=== PATIENT | female | born 2005 | race African-American/Black ===

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

== ENCOUNTER 2025-03-08 02:05 | Emergency (ER) | payer BC, SELFPAY ==
[2025-03-08 02:07] VITALS: BP 130/80; PULSE 63; RESP 16; TEMP 36.6; O2SAT 99; BMI 22.3
--- NOTE | 2025-03-08 02:10 | EX.ED.VIS.UR ---
HPI HPI - URI History of Present Illness Chief Complaint: Ear Problem Informant: patient Onset/Context/Timing Onset: Weeks (1) Context: Gradual Onset Timing: Continuous Quality: Popping, crackling Location: Left ear Worsened by: - (Nothing) Relieved by: - (Heat) Associated Symptoms Associated Symptoms: Positive for Nasal Congestion and Nausea; Negative for Headache, Sinus Pressure, Myalgias, Vomiting, Diarrhea, Shortness of Breath, Chest Pain, Nonproductive cough, Hemoptysis or Productive Cough Narrative Narrative: Patient presents with left ear pain that has been getting worse over the past week. Patient states she noted some popping and crackling in her left ear. Patient states it has gradually gotten worse. Patient states she went to urgent care and was given a prescription for prednisone as well as a nasal spray. Patient states she had a negative rapid strep at the urgent care. Patient admits to some drainage coming from her left ear. Patient admits to some nausea but denies any vomiting. Patient admits to some nasal congestion but denies any headaches or sinus pressure. Patient denies any cough. ROS ROS ED Constitutional Constitutional ED: Denies chills or fever(s) Eyes Eyes: Denies blurry vision or change in vision ENT ENT ED: Reports ear pain left; Denies rhinorrhea or sore throat Cardiovascular Cardiovascular: Denies chest pain or palpitations Respiratory/Chest Respiratory/Chest: Denies cough or dyspnea Gastrointestinal Gastrointestinal: Reports nausea; Denies vomiting Genitourinary Genitourinary ED: Denies dysuria or hematuria Musculoskeletal Musculoskeletal: Reports neck pain; Denies back pain Integumentary Denies abscess or rash Neurologic Neurologic: Denies headache(s) or weakness Allergic/Immunologic Allergic/Immunologic ED: Denies mouth swelling or urticaria [facility] Medical History Depression Home Medications ?Medication ?Instructions ?Recorded ?Last Taken ?Type azithromycin 250 mg tablet 250 mg PO DAILY #4 TABLETS 03/08/25 Unknown Rx prednisone 20 mg tablet 20 mg PO BID 03/08/25 Unknown History Allergy/AdvReac Type Severity Reaction Status Date / Time nickel AdvReac Other Verified 03/08/25 02:07 Surgical History no surgical history no surgical history Social History Smoking Status: Never smoker EXAM Physical Exam Const Positive well nourished and well developed Constitutional Narrative: BMI is 22.3. General Appearance ED: well developed and NAD HEENT Reports moist mucous membranes HEENT Narrative: The left tympanic membrane was mildly erythematous. There is some bulging noted. The right tympanic membrane was clear. Oropharynx shows some mild exudate on the tonsils bilaterally. normocephalic and atraumatic Throat: posterior oropharynx abnormal Positive for erythema and exudates Eyes PERRL and EOMs intact bilaterally Neck supple, no meningeal signs and no JVD Resp normal respiratory effort and clear to auscultation bilaterally Cardio Rate: regular rate Rhythm: regular rhythm Neuro oriented x3, CN's II-XII intact bilaterally and no sensory deficits noted Sensorium / Orientation: alert Motor Exam: strength 5/5 throughout Psych mental status grossly normal MDM MDM MDM Narrative Medical decision making narrative: Patient was advised that this is most likely otitis media. Patient was given a dose of Zithromax here. Patient given a prescription for Zithromax. Patient was instructed to follow-up with her primary care physician in 5 to 7 days. Patient was instructed to return if worse in any way. Patient understood and was agreeable with the plan. All questions were answered. Discharge Plan Triage Chief Complaint: Ear Problem ED Provider: Quique Espinoza Dx/Rx/DC Orders Clinical Impression: Acute left otitis media, Elevated blood pressure reading, Nicotine vapor product user Instructions: ED Otitis Media Adult Prescriptions: New azithromycin 250 mg tablet 250 mg PO DAILY Qty: 4 0RF No Action prednisone 20 mg tablet 20 mg PO BID Primary Care Provider: Viji Chaney Referrals: Viji Chaney MD [Primary Care Provider, Pediatrics] - 5-7 Days Print Language: Lithuanian Disposition Disposition: Home, Self Care
--- OUTSIDE RECORDS SUMMARY | 2025-03-08 02:39 | XMS RPT_ITS | CCD ---
Author Organization [facility] Care Team Providers Care Dry Starch Supervisor Name Role Phone Ritu WEST, Chacha Esquivel Primary Care Provider Chacha Kim MD Primary Care Provider Ritu WEST, Chacha Esquivel Primary Care Provider KB ALTMAN Attending Unavailable JESSIKA ARCHER Referring Unavailable SUHAIL KIMA C Primary Care Unavailable KB ALTMAN Attending Unavailable JESSIKA ARCHER Referring Unavailable SUHAIL KIMA C Primary Care Unavailable JESSIKA ARCHER Attending Unavailable KIM, CHACHA C Referring Unavailable KIM, CHACHA C Primary Care Unavailable ALMA KEVIN Attending Unavailable KIM, CHACHA C Referring Unavailable KIM, CHACHA C Primary Care Unavailable KIM, CHACHA C Primary Care Unavailable ANDRES WHITNEY Attending Unavailable KIM, CHACHA C Primary Care Unavailable ROSEANN SALAZAR Attending Unavailable OTHER, EMERGENCY Referring Unavailable JESSIKA ARCHER Referring Unavailable KB ALTMAN Attending Unavailable KIM, CHACHA C Primary Care Unavailable KB ALTMAN Attending Unavailable KIM, CHACHA C Primary Care Unavailable KIM, CHACHA C Referring Unavailable JESSIKA ARCHER Referring Unavailable KB ALTMAN Attending Unavailable KIM, CHACHA C Primary Care Unavailable JESSIKA ARCHER Referring Unavailable KB ALTMAN Attending Unavailable SUHAIL KIMA C Primary Care Unavailable Chacha Kim MD Primary Care Provider Chacha Kim MD Primary Care Provider Ritu WEST, Dr. Hallman Primary Care Provider [phone] Yomaira WEST, Dr. Navarrete Emergency Provider Nola Blandon Attending Unavailable Chacha Kim Primary Care Unavailable Chacha Kim Primary Care Unavailable Landon Burnette Attending Unavailable CHACHA KIM Primary Care Unavailable PROVIDER, UNKNOWN Referring Unavailable CHACHA KIM Primary Care Unavailable KIMSUHAILA C Primary Care Unavailable CHACHA KIM C Primary Care Unavailable AJ DEE Attending Unavailable CHACHA KIM Primary Care Unavailable EDNA STEVENS Referring Unavailable CHACHA KIM C Primary Care Unavailable CHACHA KIM C Primary Care Unavailable EDNA STEVENS Attending Unavailable CHACHA KIM C Primary Care Unavailable CHACHA KIM C Primary Care Unavailable SRINI KINGSTON Attending Unavailable CHACHA KIM Primary Care Unavailable RUFINO BOURNE Attending Unavailable CHACHA KIM Primary Care Unavailable MERLY SANZ Attending Unavailable SELF Referring Unavailable CHACHA KIM C Primary Care Unavailable AJ CORDOVA Attending Unavailable CASSANDRA DE LUNA Attending Unavailable CHACHA KIM Primary Care Unavailable FREDO CALLEJAS Attending Unavailable CHACHA KIM Primary Care Unavailable KARYNA HENDRICKSON Referring Unavailable CHACHA KIM C Primary Care Unavailable Allergies Allergy Classification Reported Allergen(s) Allergy Type Date of Onset Reaction(s) Facility (20 sources) nickel; Translations: [NICKEL] Drug Allergy 5 Other: See Comments [facility] Work Phone: (1 source) nickel Drug Allergy 5 [facility] Repository Medications Current Medications Medication Drug Class(es) Dates Sig (Normalized) Sig (Original) fluconazole 150 mg oral tablet (4 sources) Azole Antifungal Start: 03-03-2024 End: 03-04-2024 take 1 tablet by mouth once daily fluconazole (DIFLUCAN) 150 mg tablet Take 1 tablet by mouth once daily for 1 day. 1 tablet 03/03/2024 03/04/2024 Active Pediatric Vitamins (MULTIVITAMIN GUMMIES CHILDRENS) CHEW (1 source) take 4 tablets by mouth once daily Pediatric Vitamins (MULTIVITAMIN GUMMIES CHILDRENS) CHEW Take 4 Tablets by mouth daily 0 Active Polyethylene Glycols (1 source) Polyethylene Glycol 3350 (MIRALAX PO) Take by mouth 0 Active sulfamethoxazole 800 mg / trimethoprim 160 mg oral tablet (2 sources) Dihydrofolate Reductase Inhibitor Antibacterial, Sulfonamide Antimicrobial Start: 03-04-2024 End: 03-09-2024 take 1 tablet by mouth twice daily sulfamethoxazole- trimethoprim (BACTRIM DS) 800-160 mg per tablet Take 1 tablet by mouth two times a day for 5 days. 10 tablet 03/04/2024 03/09/2024 Active valACYclovir 500 mg oral tablet (20 sources) Herpesvirus Nucleoside Analog DNA Polymerase Inhibitor, Herpes Simplex Virus Nucleoside Analog DNA Polymerase Inhibitor, Herpes Zoster Virus Nucleoside Analog DNA Polymerase Inhibitor Start: 03-03-2024 End: 03-06-2024 take 1 tablet by mouth twice daily valACYclovir (VALTREX) 500 mg tablet Take 1 tablet by mouth two times a day for 3 days. 30 tablet 11 03/03/2024 03/06/2024 Active Start: 03-28-2023 End: 03-03-2024 take 1 tablet by mouth once valACYclovir (VALTREX) 1 g brent tablet Take 1 tablet by mouth every afternoon. 03/28/2023 03/03/2024 Discontinued (Course of therapy completed) Start: 05-17-2022 End: 03-06-2023 take 1 tablet by mouth once daily valACYclovir (VALTREX) 1 gram Indications: Recurrent genital herpes Take 1 tablet by mouth once daily. 30 tablet 2 12/06/2022 03/06/2023 Active Start: 05-15-2022 take 1 tablet by erin th once daily valACYclovir (VALTREX) 1 gram Take 1 tablet by mouth once daily. FOR 10 DAYS. 7 tablet 1 05/15/2022 Active Start: 01-07-2022 take 1 tablet by erin th once daily valACYclovir (VALTREX) 1 gram Take 1 tablet by mouth once daily. FOR 10 DAYS. 7 tablet 1 01/07/2022 Active Comment on above: Take 1 tablet by erin th once daily. FOR 10 DAYS. Take 1 tablet by erin th once daily. take 1 tablet by erin th once daily VITAMIN D PO (1 source) take 1 tablet by mouth once daily VITAMIN D PO Take 1 Tablet by mouth daily 0 Active Completed/Discontinued Medications Medication Drug Class(es) Dates Sig (Normalized) Sig (Original) bacitracin zinc 0.5 unt/mg topical ointment (2 sources) Start: 12-06-2021 End: 12-07-2021 bacitracin 500 UNIT/GM ointment - packet cephalexin 500 mg oral capsule (5 sources) Cephalosporin Antibacterial Start: 03-02-2024 End: 03-07-2024 take 1 capsule by mouth twice daily cephALEXin (KEFLEX) 500 mg capsule Take 1 capsule by mouth two times a day for 5 days. 10 capsule 03/02/2024 03/04/2024 Discontinued cholecalciferol 1.25 mg oral capsule (1 source) Vitamin D Start: 12-14-2019 End: 10-24-2020 take 1 capsule by mouth every week cholecalciferol, Vitamin D3, (VITAMIN D3) 1,250 mcg (50,000 unit) cap capsule Take 1 capsule by mouth one time a week. 4 capsule 2 12/14/2019 10/24/2020 Discontinued dicyclomine hydrochloride 20 mg oral tablet (20 sources) Anticholinergic Start: 07-31-2023 End: 12-02-2024 take 1 tablet by mouth every eight hours as needed dicyclomine (BENTYL) 20 mg tablet take 1 tablet by mouth three times a day if needed 90 tablet 08/22/2023 12/02/2024 Discontinued (Course of therapy completed) Ethinyl Estradiol / norgestimate (1 source) Progestin, Estrogen Start: 12-13-2019 End: 10-24-2020 take 1 tablet by mouth once daily norgestimate 0.25 mg-ethinyl estradiol 35 mcg (MONO-LINYAH) 0.25-35 mg-mcg per tablet Take 1 tablet by mouth once daily. 3 tablet 3 12/13/2019 10/24/2020 Discontinued etonogestrel 68 mg drug implant (20 sources) Progestin Start: 12-06-2021 End: 12-02-2024 etonogestrel subdermal implant 68 mg (NEXPLANON) Comment on above: 68 mg by SUBDERMAL r oute. famotidine 20 mg oral tablet (20 sources) Histamine-2 Receptor Antagonist Start: 07-31-2023 End: 12-02-2024 take 1 tablet by mouth twice daily famotidine (PEPCID) 20 mg tablet take 1 tablet by mouth twice a day 60 tablet 1 09/27/2023 12/02/2024 Discontinued (Course of therapy completed) ferrous sulfate (5 sources) ferrous sulfate (IRON ORAL) Take by mouth. Twice a week 0 Active Comment on above: Take by mouth. Twice a week FLUoxetine 10 mg oral capsule (20 sources) Serotonin Reuptake Inhibitor Start: 03-28-2022 End: 04-27-2022 take 1 capsule by mouth once daily FLUoxetine (PROZAC) 20 mg capsule take 1 capsule by mouth once daily 30 capsule 1 03/28/2022 04/25/2022 Discontinued Start: 01-21-2022 take 1 capsule by mo [facility] once daily FLUoxetine (PROZAC) 20 mg capsule take 1 capsule by mouth once daily 30 capsule 1 01/21/2022 Active Start: 09-11-2021 End: 12-13-2021 take 1 capsule by mouth once daily FLUoxetine (PROZAC) 20 mg capsule take 1 capsule by mouth once daily 30 capsule 1 11/13/2021 Active Start: 05-02-2021 take 1 capsule by mo [facility] once daily FLUoxetine HCl (PROZAC) 40 mg capsule Take 1 capsule by mouth once daily. 30 capsule 3 05/02/2021 Active Start: 02-16-2021 End: 12-02-2024 FLUoxetine (PROZAC) 10 mg ca psule once daily. 02/16/2021 12/02/2024 Discontinued (Course of therapy completed) Start: 02-16-[address] [facility] once daily Fluoxetine 10 mg capsule Active 30 mg PO DAILY February 16, 2021 1:00am Comment on above: Take 1 capsule by mo [facility] once daily. take 1 capsule by mo [facility] once daily hydrOXYzine pamoate 25 mg oral capsule (20 sources) Antihistamine Start: 06-23-19 End: 12-03-19 take 1 capsule by mouth three times daily as needed hydrOXYzine pamoate (VISTARIL) 25 mg capsule Indications: TIMUR (generalized anxiety disorder) Take 1 capsule by mouth three times a day as needed. 30 capsule 06/23/2023 12/02/2024 Discontinued (Course of therapy completed) Comment on above: Take 1 capsule by mo ut three times a day as needed. ibuprofen 800 mg oral tablet (20 sources) Nonsteroidal Anti-inflammatory Drug Start: 10-06-19 End: 12-03-19 take 1 tablet by mouth every eight hours as needed ibuprofen (MOTRIN) 800 mg tablet Take 800 mg by mouth every 8 hours as needed. 10/06/2023 12/02/2024 Discontinued (Course of therapy completed) nitrofurantoin, macrocrystals 25 mg / nitrofurantoin, monohydrate 75 mg oral capsule (7 sources) Nitrofuran Antibacterial Start: 10-26-19 End: 11-02-19 take 1 capsule by mouth twice daily nitrofurantoin monohydrate and macrocrystal (MACROBID) 100 mg capsule Take 1 capsule by mouth two times a day for 7 days. 14 capsule 10/25/2024 11/01/2024 Start: 05-17-2024 End: 05-22-2024 take 1 capsule by mouth twice daily nitrofurantoin monohydrate and macrocrystal (MACROBID) 100 mg capsule Indications: Urinary frequency Take 1 capsule by mouth two times a day for 5 days. 10 capsule 05/17/2024 05/22/2024 Active Start: 09-17-2022 End: 09-22-2022 take 1 capsule by mouth twice daily nitrofurantoin monohydrate and macrocrystal (MACROBID) 100 mg capsule Indications: Urinary frequency Take 1 capsule by mouth twice daily for 5 days. 10 capsule 0 09/17/2022 09/22/2022 Comment on above: Take 1 capsule by [facility] twice daily for 5 days. penicillin v potassium 500 mg oral tablet (20 sources) Start: 4 End: penicillin V potassium 500 mg tablet Take 500 mg by mouth. 10/06/2023 12/02/2024 Discontinued (Course of therapy completed) polyethylene glycol 3350 49455 mg powder for oral solution (14 sources) Osmotic Laxative Start: 2 End: 2 polyethylene glycol 3350 (MIRALAX) 17 gram/dose powder 1/2 capful daily 595 g 0 05/02/2021 12/25/2021 Discontinued Comment on above: 1/2 capful daily 5 ml sodium chloride 9 mg/ml injection (1 source) Start: 2 End: 2 NaCl 0.9% PosiFlush 2 mL traMADol hydrochloride 50 mg oral tablet (20 sources) Opioid Agonist Start: 4 End: 5 take 1 tablet by mouth every eight hours as needed for pain traMADol (ULTRAM) 50 mg tablet take 1 tablet by mouth every 8 hours NEEDED FOR PAIN for 2 days 10/06/2023 12/02/2024 Discontinued (Course of therapy completed) vitamin b12 0.5 mg oral tablet (14 sources) Vitamin B12 Start: 1 End: 2 take 1 tablet by mouth once daily cyanocobalamin (VITAMIN B-12) 500 mcg tablet Take 1 tablet by mouth once daily. 30 tablet 2 11/01/2020 12/25/2021 Discontinued vitamin B-12 (CY ANOCOBALAMIN) 1000 MCG tablet Take by mouth daily 0 Active Comment on above: Take 1 tablet by erin th once daily. Problems Active Problems Problem Classification Problem Date Documented Da te Episodic/Chronic Abdominal pain (6 sources) Generalized abdominal pain; Translations: [Generalized abdominal pain] Onset: 07-01-2024 07-21-2023 Episodic Anxiety disorders (20 sources) Posttraumatic stress disorder; Translations: [Post-traumatic stress disorder, unspecified] Onset: 10-25-2020 Resolved: 04-25-2022 10-25-2020 Chronic Contraceptive and procreative management (5 sources) Subcutaneous contraceptive implant present; Translations: [Presence of (intrauterine) contraceptive device] Onset: 03-03-2024 03-03-2024 Episodic Gastritis and duodenitis (1 source) Acute gastritis; Translations: [Acute gastritis without bleeding] 06-27-2024 Episodic Genitourinary symptoms and ill-defined conditions (13 sources) Scalding pain on urination ; Translations: [Dysuria] Onset: 10-25-2024 Episodic Joint disorders and dislocations; trauma-related (20 sources) Subluxation of patellofemoral joint; Translations: [Unspecified subluxation of left patella, sequela] Onset: 05-21-2022 Episodic Lymphadenitis (1 source) Finding of lymph node; Translations: [Enlarged lymph nodes, unspecified] Episodic Malaise and fatigue (3 sources) Malaise and fatigue; Translations: [Other malaise] Episodic Mood disorders (20 sources) Recurrent major depressive episodes, moderate ; Translations: [Major depressive disorder, recurrent, moderate] Onset: 12-06-2021 Chronic Mycoses (1 source) Candidiasis of vagina; Translations: [Yeast vaginitis] 03-04-2024 Episodic Other endocrine disorders (1 source) Hypoglycemia; Translations: [Hypoglycemia, unspecified] Chronic Other female genital disorders (1 source) Burning sensation of vagina; Translations: [Unspecified condition associated with female genital organs and menstrual cycle] Episodic Other female genital disorders (1 source) Lesion of vulva; Translations: [Other specified noninflammatory disorders of vulva and perineum] Episodic Other gastrointestinal disorders (1 source) Diarrhea; Translations: [Diarrhea, unspecified] 06-23-2023 Episodic Other infections; including parasitic (1 source) Worms in stool; Translations: [Helminthiasis, unspecified] 08-25-2024 Episodic Other non-traumatic joint disorders (1 source) Joint pain; Translations: [Pain in unspecified joint] Episodic Other non-traumatic joint disorders (3 sources) Pain in left knee; Translations: [Pain in joint, lower leg] Onset: 11-01-2024 01-27-2020 Episodic Residual codes; unclassified (2 sources) Deliberate self-cutting; Translations: [Other problems related to lifestyle] Episodic Residual codes; unclassified (1 source) Viral syndrome; Translations: [Other general symptoms and signs] 06-16-2024 Episodic Substance-related disorders (1 source) Marijuana user; Translations: [Cannabis use, unspecified, uncomplicated] Episodic Superficial injury; contusion (2 sources) Superficial foreign body of right thumb, initial encounter; Translations: [Superficial foreign body (splinter) of finger(s), without major open wound and without mention of infection] 05-30-2023 Episodic Unclassified (1 source) NO SHOW 11-14-2023 Viral infection (4 sources) Recurrent genital herpes simplex; Translations: [Herpesviral infection of urogenital system, unspecified] Onset: 03-03-2024 12-06-2022 Chronic Viral infection (3 sources) Viral disease; Translations: [Viral infection, unspecified] Episodic Past or Other Problems Problem Classification Problem Date Documented Da te Episodic/Chronic Anal and rectal conditions (20 sources) Anal fissure; Translations: [Anal fissure, unspecified] Onset: 10-15-2023 01-19-2023 Episodic Gastrointestinal hemorrhage (20 sources) Blood-tinged feces; Translations: [Melena] Onset: 10-15-2023 10-10-2023 Episodic Immunizations and screening for infectious disease (20 sources) Patient encounter status; Translations: [Encounter for screening laboratory testing for COVID-19 virus in asymptomatic patient] Onset: 07-31-2023 Episodic Other gastrointestinal disorders (20 sources) Constipation; Translations: [Constipation, unspecified] Onset: 01-30-2015 Resolved: 06-03-2019 06-03-2019 Episodic Other infections; including parasitic (1 source) Helminthiasis, unspecified; Translations: [Worms in stool] Onset: 08-25-2024 Episodic Other screening for suspected conditions (not mental disorders or infectious disease) (20 sources) Decreased vitamin D; Translations: [Other specified abnormal findings of blood chemistry] Onset: 01-25-2021 01-25-2021 Episodic Other upper respiratory infections (4 sources) Acute upper respiratory infection; Translations: [Acute upper respiratory infection, unspecified] Onset: 06-18-2024 05-17-2024 Episodic Poisoning by nonmedicinal substances (2 sources) Borax toxicity; Translations: [Toxic effect of unspecified corrosive substance, accidental (unintentional), initial encounter] Onset: 12-29-2023 12-30-2023 Episodic Residual codes; unclassified (20 sources) Other specified health status; Translations: [Other specified conditions influencing health status] Onset: 01-25-2021 01-25-2021 Episodic Residual codes; unclassified (20 sources) History of clinical finding in subject; Translations: [Personal history of other specified conditions] Onset: 04-03-2022 04-03-2022 Episodic Unclassified (1 source) Patellar subluxation, left, initial encounter 11-01-2024 Results Test Name Value Interpretation Reference Range Facility Bacteria Ur Culton 5 Bacteria identified Cx Nom (U) ORGANISM ID: 1 <10,000 CFU/ml Normal urogenital alvina Normal [facility] Comment on above: Performed By: #### 6 30-4 ####[facility] LABCLIA [id number] [place] [address] [place] CNOVon 12-17-2024 CNOV Office Visit (WOUCA) NICHOLE ALONSO ([id number]) 5 F Date Time Provider Department 12/17/24 4:00 PM RUFINO BOURNE During your visit today, we recorded the following information about you: Temperature Pulse Respiration Blood pressure 98 degrees 72/minute 18/minute 107/73 Weight Last Period 59.2 kg 12/03/24 Rufino Bourne PA 12/17/2024 4:31 PM Signed [facility] Subjective Nichole Alonso is a 19 year old female. Patient presents with: UTI: Burning, pain with urination, hematuria, dysuria x2 days HPI The patient is a 19-year-old female presenting with dysuria and hematuria. Dysuria and Hematuria: - Onset of symptoms today. - Describes dysuria as soreness and slight burning. - Denies back pain, abdominal pain, fevers, or emesis. - Denies abnormal vaginal discharge or pruritus. - LMP: 12/03. - Recently had Nexplanon removed; remains sexually active. - Denies concern for . PAST MEDICAL HISTORY Diagnosis Date Arm fracture, left 2016 buckle fracture-casted Constipation 01/30/2015 Depression Immunization not carried out because of parent refusal 06/03/2018 Influenza Menstrual cycle problem 12/2016 Nexplanon - 2022 NEGATIVE MEDICAL HISTORY Patellar subluxation, left, initial encounter 2020 PAST SURGICAL HISTORY Procedure Laterality Date NONE ALLERGIES Nickel MEDICATIONS nitrofurantoin monohydrate and macrocrystal (MACROBID) 100 mg capsule Take 1 capsule by mouth two times a day for 5 days. FAMILY HISTORY Problem Relation Age of Onset Migraines Mother No Known Problems Father Unknown completely Breast Cancer Maternal Grandmother Early 40's Blood Clots Maternal Grandfather No Known Problems Paternal Grandmother No Known Problems Paternal Grandfather other (Endometriosis) Half-sister Anxiety disorder Half-sister Depression Half-sister Celiac Disease No Family History Inflammatory Bowel Disease No Family History Thyroid No Family History SOCIAL HISTORY[1] Review of Systems Constitutional: (-) fever Gastrointestinal: (-) abdominal pain, (-) vomiting Genitourinary: (+) dysuria, (+) urinary frequency, (-) abnormal vaginal discharge, (-) vaginal pruritus, (-) pelvic pain Musculoskeletal: (-) back pain Objective BP 107/73 Pulse 72 Temp 36.7 ?C (98 ?F) Resp 18 Wt 59.2 kg (130 lb 8.2 oz) LMP 12/03/2024 (Exact Date) SpO2 100% BMI 22.23 kg/m? Physical Exam Vitals and nursing note reviewed. Constitutional: General: She is not in acute distress. Appearance: Normal appearance. She is not toxic-appearing. HENT: Mouth/Throat: Mouth: Mucous membranes are moist. Cardiovascular: Rate and Rhythm: Normal rate and regular rhythm. Pulmonary: Effort: Pulmonary effort is normal. Breath sounds: Normal breath sounds. Abdominal: General: Abdomen is flat. Palpations: Abdomen is soft. Tenderness: There is no abdominal tenderness. There is no right CVA tenderness, left CVA tenderness, guarding or rebound. Skin: General: Skin is warm and dry. Neurological: Mental Status: She is alert. { 1. Burning with urination (R30.0) - Urinalysis positive for blood and WBCs. - Start Macrobid for UTI; instructed patient to complete full course. - Urine sent for culture; will follow up with results in a few days. - Advised patient to follow up with PCP if symptoms persist. Recording using [employer] software for draft documentation of the visit was discussed with the patient/authorized clearance representative; all questions welcomed and answered. Patient/authorized clearance representative agreed to proceed Diagnosis and treatment plan were discussed and questions were answered to the patient's satisfaction. Pt acknowledged understanding of concepts and follow up plan. Specific signs and symptoms that would indicate the need for higher level of care were discussed in detail warranting prompt ER evaluation. History and Record Review External record(s) reviewed: prior outpatient record. Findings from review of outpatient records: seen 1 mo ago, UTI grew e coli Differential Diagnoses - uti is more likely for the following reason(s): suggested by HANDP - pyelonephritis is less likely for the following reason(s): HANDP not suggestive - ureterolithiasis is less likely for the following reason(s): HANDP not suggestive Additional Tests or Interventions The following testing was considered but ultimately not selected after discussion with patient/family: vaginal swabs- patient denies vaginal discharge/itching Disposition The patient was discharged. Procedures [1] Social History Tobacco Use Smoking status: Some Days Types: Cigarettes Passive exposure: Never Smokeless tobacco: Current Tobacco comments: Per pt smoking on the weekends mostly Vaping Use Vaping status: Never Used Substance Use Topics Alcohol us (more content not included)... Normal [facility] CNOVon 12-02-2024 CNOV Office Visit (OBGYWM ) NICHOLE ALONSO ([id number]) 5 F Date Time Provider Department 12/02/24 1:30 PM MERLY SANZ OBGYWM During your visit today, we recorded the following information about you: Blood pressure Weight Last Period 116/64 58.4 kg 10/22/24 Merly Sanz APRN.GARAGE DOOR INSTALLER 12/02/2024 2:30 PM Signed Nichole is a 19 year old who presents for Nexplanon (RT) arm, placed 11/26/2021. UNIVERSAL PROTOCOL / SAFETY CHECKLIST Procedure to be Performed: Implanon/Nexplanon (contraceptive subdermal implant) removal Sign In: A Moment of CARE was completed. Appropriate PPE (Personal Protective Equipment) worn by all providers involved with the procedure. Special equipment not required. Patient/Surrogate Stated/Verified: Patient name, Date of , Relevant allergies, and The intended procedure Time Out: Relevant labs, photos, and/or imaging studies have been reviewed. Intended patient and procedure match the source document(s) (e.g. consent, HANDP, associated studies [imaging, pathology]) match the intended patient and procedure. Consent obtained and matches the intended procedure. Yes. Correct side/site has been marked and visible. Medications required for this procedure are verified. Fire risk assessed and is not applicable. Implants: are not applicable. Sign Out: Specimens not collected. All instruments, equipment, possible retained foreign bodies are accounted for. Yes. The post-procedure plan of care has been communicated to the patient or surrogate. TECHNIQUE: Patient placed in supine position with right arm bent at the elbow and placed over the head. Skin cleansed with betadine. 2mL of 1% lidocaine with epi injected subQ along insertion site. Scalpel used to made a 5mm stab incision superficially at distal end of Nexplanon. Device removed under sterile technique with a small hemostat. Sterile pressure dressing applied. AANDP: 19 year old here for Nexplanon removal Nexplanon removed intact without difficulty. The patient was instructed to remove the dressing after 24 hours. Contraceptive plans condoms Merly Sanz APRN.GARAGE DOOR INSTALLER Allergies As of Date: 12/02/2024 Noted Allergy Reaction NICKEL 08/30/2014 14 - Other: See Comments Comments: has trouble with earrings - ears break out Date Reviewed: 12/02/2024 Reviewed by: Mirta Romo LPN - Fully Assessed Reason for Visit: Nexplanon Removal [Other] Primary Visit Diagnosis:Encounter for Nexplanon removal [Z30.46] Problem List As Of Date 12/02/2024 Noted Resolved Constipation [K59.00] 01/30/2015 06/03/2019 PTSD (post-traumatic stress disorder) [F43.10] 10/25/2020 Low serum vitamin D [R79.89] 01/25/2021 Vegan diet [Z78.9] 01/25/2021 Major depressive disorder, recurrent episode, m*04/03/2022 Anxiety [F41.9] 04/03/2022 04/25/2022 History of cannabis vapor product use [Z87.898] 04/03/2022 Generalized anxiety disorder [F41.1] 04/25/2022 Subluxation of left patella [S83.002A] 05/21/2022 Depressive disorder [F32.A] 12/06/2021 Exposure to severe acute respiratory syndrome c*07/31/2023 Acute anal fissure [K60.0] 10/15/2023 Bright red rectal bleeding [K62.5] 10/15/2023 Medications Discontinued During This Encounter Prescriptions - dicyclomine (BENTYL) 20 mg tablet (Discontinued) Reported on 11/01/2024 - etonogestrel (NEXPLANON) 68 mg impl subdermal implant (Discontinued) Reported on 11/01/2024 - famotidine (PEPCID) 20 mg tablet (Discontinued) Reported on 11/01/2024 - FLUoxetine (PROZAC) 10 mg capsule (Discontinued) Reported on 11/01/2024 - hydrOXYzine pamoate (VISTARIL) 25 mg capsule (Discontinued) Reported on 11/01/2024 - ibuprofen (MOTRIN) 800 mg tablet (Discontinued) Reported on 11/01/2024 - penicillin V potassium 500 mg tablet (Discontinued) Reported on 11/01/2024 - traMADol (ULTRAM) 50 mg tablet (Discontinued) Reported on 11/01/2024 Encounter Status:Closed by MERLY SANZ on 12/02/24 Normal [facility] 12-02-2024 STACIA Telephone (OBGYWM) NICHOLE ALONSO ([id number]) 5 F Date Time Provider Department 12/02/24 MERLY SANZ OBCHAPARROWLayla During your visit today, we recorded the following information about you: Maci Byrne RN 12/02/2024 2:47 PM Signed Patient was just seen in the office today and Nexplanon was removed from her right arm. Patient is wanting to know if it normal to have numbness down her right arm that extends down through her pink and ring finger. 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 Discussed lidocaine use. Please advise. LINDSAY Zuniga Renee, APRN.AMARILIS 12/02/2024 4:46 PM Signed That may be likely to be pushing and tugging to get the Nexplanon out and possibly the lidocaine that should resolve on its own within the next day or so. If it does not I would have her follow-up with her primary care because at this time there is nothing new that should be causing any nerve impingement. Merly Sanz APRN.Rena Kate RN 12/02/2024 4:49 PM Signed Patient notified. Rena Purcell RN Allergies As of Date: 12/02/2024 Noted Allergy Reaction NICKEL 08/30/2014 14 - Other: See Comments Comments: has trouble with earrings - ears break out Date Reviewed: 12/02/2024 Reviewed by: Mirta Romo LPN - Fully Assessed Reason for Visit: Patient Question [8867] Problem List As Of Date 12/02/2024 Noted Resolved Constipation [K59.00] 01/30/2015 06/03/2019 PTSD (post-traumatic stress disorder) [F43.10] 10/25/2020 Low serum vitamin D [R79.89] 01/25/2021 Vegan diet [Z78.9] 01/25/2021 Major depressive disorder, recurrent episode, m*04/03/2022 Anxiety [F41.9] 04/03/2022 04/25/2022 History of cannabis vapor product use [Z87.898] 04/03/2022 Generalized anxiety disorder [F41.1] 04/25/2022 Subluxation of left patella [S83.002A] 05/21/2022 Depressive disorder [F32.A] 12/06/2021 Exposure to severe acute respiratory syndrome c*07/31/2023 Acute anal fissure [K60.0] 10/15/2023 Bright red rectal bleeding [K62.5] 10/15/2023 Encounter Status:Closed by RENA PURCELL on 12/02/24 [facility] VELASQUEZOVmukesh 11-01-2024 CNOV Office Visit (DAVID ) NICHOLE ALONSO ([id number]) 5 F Date Time Provider Department 11/01/24 11:00 AM AJ CORDOVA During your visit today, we recorded the following information about you: Aj Cordova MD 11/01/2024 11:40 AM Signed [facility] Encounter Date: 11/01/2024 Patient Name: Nichole Alonso : 2005 Chief Complaint: left knee pain Nichole Alonso is a 19-year-old female presenting with recurrent patellar subluxation and associated pain in the left knee. Nichole reports a history of patellar subluxation in the left knee, initially occurring in 2019 while dancing. She was treated with a brace and physical therapy at that time. Since then, she has experienced multiple episodes of patellar subluxation in both knees, though less severe than the initial injury. These episodes were associated with sharp pain and swelling, but the pain would typically resolve on its own. Approximately 1.5 months ago, she experienced another episode of patellar subluxation in the left knee while playing on a [id number]. She describes the sensation as the kneecap shifting to the side and then returning to its normal position on its own, accompanied by a grinding feeling. This episode was followed by increasing pain over the weeks, prompting her to seek medical evaluation. She notes that the pain has become continuous and is associated with a feeling of looseness in the knee. Nichole denies any episodes where the kneecap remained dislocated or required external manipulation to return to its normal position. She also denies any significant swelling or deformity in the knee. She has not been consistently participating in sports or physical activities recently but expresses a desire to resume dance classes and start martial arts. She occasionally babysits, which involves some physical activity. Complete review of 14 systems, past medical and surgical history, social and family history were reviewed and updated today. PHYSICAL EXAM Constitutional: no fevers, chills, wt change General Appearance: Well-nourished and without distress Cardiovascular: Normal capillary refill and circulation Pulmonary: regular rate and nonlabored Gl- abd soft, nt/nd, no pubic or symphysis tenderness Back - no rib hump, nontender Lymphatic: No abnormal lymph node swelling or lymphangitis noted. Skin: No skin lesions noted Knee - Musculoskeletal: - Left Knee: - Lateral glide of patella approximately 2 quadrants; no patellar apprehension; ligaments stable. - ROM: Extension to +10 degrees, flexion to 140 degrees. - Quadriceps strength slightly weaker compared to right. - Right Knee: - Lateral glide of patella approximately 1.5 quadrants; no patellar apprehension; ligaments stable. - ROM: Extension to +10 degrees, flexion to 140 degrees. - Quadriceps strength slightly stronger compared to left. Neurologic / Psychiatric: Coordination: Fine motor coordination is within normal limits. Reflexes: Not evaluated. Sensation: Sensation to light touch is normal. Motor function: Neurological motor function is normal Mental status: Orientation to person, place and time are age appropriate. RADIOLOGY Upon review of 4V left Knee x-ray done today, as interpreted by myself, Nichole is noted to have: no evidence of acute fracture or dislocation, evidence of very small bony avulsion fragment adjacent to medial patella IMPRESSION/PLAN Nichole Alonso is a 19 year old old female with recurrent left knee patella subluxations We discussed your left knee pain and history of patellar subluxation: - You have some looseness in your left knee and mild weakness in the quadriceps muscle, which helps stabilize your kneecap. This is likely contributing to the sensation of your kneecap sliding or shifting. We discussed your treatment plan: - I recommend starting physical therapy to strengthen your quadriceps, hip, and core muscles. This will help stabilize your kneecap and reduce the risk of future subluxations. - Attend physical therapy sessions once a week for 6-8 weeks. - Perform the prescribed exercises at home regularly, as this is essential for improvement. - If your symptoms persist after two months of consistent physical therapy, we will discuss further options, such as imaging (MRI) or surgical intervention if necessary. We discussed activity modifications: - Avoid high-impact or twisting activities until you have completed at least one month of physical therapy to build baseline strength. - If you plan to resume activities like dance or martial arts, ease into them gradually and wear a knee brace during these activities to prevent subluxation. - You do not need to wear the brace for everyday activities like walking unless it makes your knee feel more stable. We discussed pain (more content not included)... Normal [facility] XR KNEE 4V AP/PA BOTH+LAT/ME R LTon 11-01-2024 XR KNEE 4V AP/PA BOTH+LAT/SLAVA LT * * *Final Report* * * DATE OF EXAM: Nov 01 2024 10:45AM HUGO 5202 - XR KNEE 4V AP/PA BOTH+LAT/SLAVA LT / PROCEDURE REASON: M25.562-Left knee pain, unspecified chronicity * * * * Physician Interpretation * * * * EXAMINATION / TECHNIQUE: XR KNEE 4V AP/PA BOTH+LAT/SLAVA LT HISTORY: left knee pain Left knee pain, unspecified chronicity . COMPARISON: 01/27/2020 RESULT: Left knee: No acute fracture, malalignment, or erosive changes are identified. No substantial joint effusion. Joint spaces are preserved. Limited AP views right knee demonstrate no significant findings. IMPRESSION: Normal x-rays of the left knee. Practical Nursing Instructor: Merlin Diamonds Transcribe Date/Time: Nov 06 2024 2:02P Dictated by : ANDREA GARCIA MD This examination was interpreted and the report reviewed and electronically signed by: ANDREA GARCIA MD on Nov 06 2024 2:03PM EST [id number] N [facility] Bacteria Ur Culton 5 Bacteria identified Cx Nom (U) CULTURE, URINE: Mixed microbiota, including predominantly: ORGANISM ID: 1 10,000 -<50,000 CFU/ml Escherichia coli ORGANISM ID: 1 (ESCHERICHIA COLI) ------ ANTIBIOTIC INTERPRETATION YAHAIRA STATUS REFERENCE RANGE ------ Ampicillin S 4 F Susceptible <=8 , Intermediate >8 , Resistant >16 Cefazolin S <=4 F Susceptible 0-16 , Intermediate <0 or >16 , Resistant >16 For uncomplicated urinary tract infections, cefazolin results can be used to predict susceptibility or resistance to cephalexin. Ceftriaxone S <=1 F Susceptible <=1 , Intermediate >1 , Resistant >=4 Cefepime S <=1 F Susceptible <=2 , Susceptible-Dose Dependent >2 , Resistant >=16 Ertapenem S <=0.5 F Susceptible <=0.5 , Intermediate >.5 , Resistant >1 Meropenem S <=0.25 F Susceptible <=1 , Intermediate >1 , Resistant >2 Ampicillin/Sulbact S <=2 F Susceptible <=8 , Intermediate >8 , Resistant >16 Piperacillin/Tazobac S <=4 F Susceptible <16 , Susceptible-Dose Dependent >=16 , Resistant >=32 Gentamicin S <=1 F Susceptible <=2 , Intermediate >2 , Resistant >=8 Tobramycin S <=1 F Susceptible <4 , Intermediate >=4 , Resistant >=8 Trimeth sulfameth S <=20 F Susceptible <=40 , Resistant >40 Ciprofloxacin S <=0.25 F Susceptible <0.5 , Intermediate >=.5 , Resistant >=1 Nitrofurantoin S <=16 F Susceptible <=32 , Intermediate >32 , Resistant >64 Abnormal [facility] Comment on above: Performed By: #### 6 30-4 ####[facility] LABCLIA [id number] [address] [facility] CNOVon 10-25-2024 CNOV Office Visit (WOJOSELUIS) NICHOLE ALONSO ([id number]) 5 F Date Time Provider Department 10/25/24 8:45 AM CASSANDRA DE LUNA During your visit today, we recorded the following information about you: Temperature Pulse Respiration Blood pressure 97.3 degrees 78/minute 16/minute 102/68 Weight 58.4 kg Cassandra De Luna APRN.GARAGE DOOR INSTALLER 10/25/2024 9:13 AM Signed [facility] Valentine Gavin is a 19 year old female. Patient presents with: Urinary Frequency: burning with urination x 1 hour HPI Dysuria and Hematuria: - Acute onset of dysuria and hematuria this morning. - Urine appeared pink on toilet paper, very cloudy, and had a strong odor. - Denies fever, achiness, or increased back pain. - Denies vaginal discharge or irritation. - Reports recent pelvic cramping similar to menstrual cramps, but no period in the past few days. - History of UTIs, but unsure of the last occurrence; recalls a recent negative test. - Sexually active; uses condoms consistently. - Currently has a Nexplanon implant. Review of Systems Constitutional: (-) fever, (-) myalgia Genitourinary: (+) dysuria, (+) hematuria, (+) cloudy urine, (+) malodorous urine, (-) vaginal discharge, (-) vaginal irritation, (-) pelvic pain Musculoskeletal: (+) back pain chronic not more that usual Objective BP 102/68 Pulse 78 Temp 36.3 ?C (97.3 ?F) Resp 16 Wt 58.4 kg (128 lb 12 oz) LMP 12/19/2021 (Approximate) SpO2 100% BMI 21.93 kg/m? PAST MEDICAL HISTORY Diagnosis Date Arm fracture, left 2017 buckle fracture-casted Constipation 01/30/2015 Depression Immunization not carried out because of parent refusal 06/03/2018 Influenza Menstrual cycle problem 12/2016 Nexplanon - 2022 NEGATIVE MEDICAL HISTORY Patellar subluxation, left, initial encounter 2020 PAST SURGICAL HISTORY Procedure Laterality Date NONE ALLERGIES Nickel MEDICATIONS etonogestrel (NEXPLANON) 68 mg impl subdermal implant 68 mg by SUBDERMAL route. nitrofurantoin monohydrate and macrocrystal (MACROBID) 100 mg capsule Take 1 capsule by mouth two times a day for 7 days. FLUoxetine (PROZAC) 10 mg capsule once daily. (Patient not taking: Reported on 10/25/2024) traMADol (ULTRAM) 50 mg tablet take 1 tablet by mouth every 8 hours NEEDED FOR PAIN for 2 days (Patient not taking: Reported on 05/10/2024) penicillin V potassium 500 mg tablet Take 500 mg by mouth. (Patient not taking: Reported on 05/10/2024) ibuprofen (MOTRIN) 800 mg tablet Take 800 mg by mouth every 8 hours as needed. (Patient not taking: Reported on 05/10/2024) famotidine (PEPCID) 20 mg tablet take 1 tablet by mouth twice a day (Patient not taking: Reported on 06/16/2024) dicyclomine (BENTYL) 20 mg tablet take 1 tablet by mouth three times a day if needed (Patient not taking: Reported on 06/16/2024) hydrOXYzine pamoate (VISTARIL) 25 mg capsule Take 1 capsule by mouth three times a day as needed. (Patient not taking: Reported on 05/10/2024) FAMILY HISTORY Problem Relation Age of Onset Migraines Mother No Known Problems Father Unknown completely Breast Cancer Maternal Grandmother Early 40's Blood Clots Maternal Grandfather No Known Problems Paternal Grandmother No Known Problems Paternal Grandfather other (Endometriosis) Half-sister Anxiety disorder Half-sister Depression Half-sister Celiac Disease No Family History Inflammatory Bowel Disease No Family History Thyroid No Family History Social History Tobacco Use Smoking status: Some Days Types: Cigarettes Passive exposure: Never Smokeless tobacco: Current Tobacco comments: Per pt smoking on the weekends mostly Vaping Use Vaping status: Never Used Substance Use Topics Alcohol use: Yes Drug use: Yes Types: Marijuana Comment: per pt one joint once a week on the weekends does not smoke regularly on week days only sometimes Physical Exam Constitutional: General: She is not in acute distress. Appearance: Normal appearance. She is normal weight. She is not ill-appearing or toxic-appearing. Cardiovascular: Rate and Rhythm: Normal rate and regular rhythm. Pulses: Normal pulses. Heart sounds: Normal heart sounds. Pulmonary: Effort: Pulmonary effort is normal. Breath sounds: Normal breath sounds. Abdominal: General: Bowel sounds are normal. There is no distension. Tenderness: There is no abdominal tenderness. There is no right CVA tenderness, left CVA tenderness or guarding. Neurological: Mental Status: She is alert. { 1. Urinary frequency (R35.0) 2. Dysuria (R30.0) - Acute onset of urinary frequency and dysuria with hematuria, pyuria, and positive leukocytes on urinalysis consistent with urinary tract infection. - Start Macrobid 100 mg PO BID for 7 days. - Urine culture sent. - Educated patient on antibiotic regimen and advised that we will contact her if culture resu (more content not included)... Normal [facility] UA DIP, URINE (POC)on 2024 BILIRUBIN UA (POCT) Negative Negative [facility] CLARITY UA (POCT) Cloudy [facility] COLOR UA (POCT) Light yellow [facility] GLUCOSE UA (POCT) Negative Negative mg/dL [facility] Hemoglobin Ql (U) Large Abnormal Negative [facility] Interpretation and review of laboratory results Abnormal [facility] KETONE UA (POCT) Negative Negative mg/dL [facility] LEUKOCYTES UA (POCT) Small Abnormal Negative [facility] NITRITE UA (POCT) Negative Negative [facility] PH UA (POCT) 6.5 4.5 - 8.0 [facility] Protein Ql (U) Negative Negative mg/dL [facility] SPECIFIC GRAVITY UA (POCT) 1.01 1.005 - 1.030 [facility] UROBILINOGEN UA (POCT) 0.2 Normal E.U./d L [facility] Location:[address], [place], [place], [id number] [place] [address] POINT OF CARE [facility] CNOVon 08-25-2024 CNOV Office Visit (UCWSTR ) NICHOLE ALONSO ([id number]) 5 Date Time Provider Department 08/25/24 3:45 PM FREDO CALLEJAS [facility] During your visit today, we recorded the following information about you: Temperature Pulse Respiration Blood pressure 98.3 degrees 70/minute 19/minute 94/76 Fredo Callejas APRN.GARAGE DOOR INSTALLER 08/25/2024 3:39 PM Signed Subjective HPI Nontoxic-appearing female presents urgent care chief complaint possible worms in stool generalized abdominal pain. States has been constipated for the last few days. When she had a bowel movement today she thought she saw worms in her stool. Did have's abdominal pain. This did improve after bowel movement. Noticed there was streaked blood on her stool. States blood was bright red and streaks not dark. Presents today for evaluation. OTC medications none. Overall feels well. No fevers. Denies chance of . Recently finished her menstrual cycle. Past medical history prescription medications allergies reviewed BP 94/76 Pulse 70 Temp 36.8 ?C (98.3 ?F) Resp 19 LMP 12/19/2021 (Approximate) SpO2 100% .Patient presents with: abdominal issues: Constipation, stool had possible worms in it, abdominal pain PAST MEDICAL HISTORY Diagnosis Date Arm fracture, left 2016 buckle fracture-casted Constipation 01/30/2015 Depression Immunization not carried out because of parent refusal 06/03/2018 Influenza Menstrual cycle problem 12/2016 Nexplanon - 2022 NEGATIVE MEDICAL HISTORY Patellar subluxation, left, initial encounter 2020 PAST SURGICAL HISTORY Procedure Laterality Date NONE ALLERGIES Nickel MEDICATIONS FLUoxetine (PROZAC) 10 mg capsule once daily. traMADol (ULTRAM) 50 mg tablet take 1 tablet by mouth every 8 hours NEEDED FOR PAIN for 2 days (Patient not taking: Reported on 05/10/2024) penicillin V potassium 500 mg tablet Take 500 mg by mouth. (Patient not taking: Reported on 05/10/2024) ibuprofen (MOTRIN) 800 mg tablet Take 800 mg by mouth every 8 hours as needed. (Patient not taking: Reported on 05/10/2024) famotidine (PEPCID) 20 mg tablet take 1 tablet by mouth twice a day (Patient not taking: Reported on 06/16/2024) dicyclomine (BENTYL) 20 mg tablet take 1 tablet by mouth three times a day if needed (Patient not taking: Reported on 06/16/2024) hydrOXYzine pamoate (VISTARIL) 25 mg capsule Take 1 capsule by mouth three times a day as needed. (Patient not taking: Reported on 05/10/2024) etonogestrel (NEXPLANON) 68 mg impl subdermal implant 68 mg by SUBDERMAL route. FAMILY HISTORY Problem Relation Age of Onset Migraines Mother No Known Problems Father Unknown completely Breast Cancer Maternal Grandmother Early 40's Blood Clots Maternal Grandfather No Known Problems Paternal Grandmother No Known Problems Paternal Grandfather other (Endometriosis) Half-sister Anxiety disorder Half-sister Depression Half-sister Celiac Disease No Family History Inflammatory Bowel Disease No Family History Thyroid No Family History Social History Tobacco Use Smoking status: Some Days Types: Cigarettes Passive exposure: Never Smokeless tobacco: Current Tobacco comments: Per pt smoking on the weekends mostly Vaping Use Vaping status: Never Used Substance Use Topics Alcohol use: Yes Drug use: Yes Types: Marijuana Comment: per pt one joint once a week on the weekends does not smoke regularly on week days only sometimes Review of Systems Constitutional: Negative for chills, fever and malaise/fatigue. HENT: Negative for congestion, ear discharge, ear pain, sinus pain and sore throat. Eyes: Negative for blurred vision, pain, discharge and redness. Respiratory: Negative for cough, hemoptysis, sputum production, shortness of breath, wheezing and stridor. Cardiovascular: Negative for chest pain. Gastrointestinal: Positive for blood in stool and constipation. Negative for abdominal pain, diarrhea, melena, nausea and vomiting. Musculoskeletal: Negative for myalgias. Skin: Negative for itching and rash. Neurological: Negative for dizziness and headaches. Objective Physical Exam Constitutional: General: She is not in acute distress. Appearance: She is not toxic-appearing. HENT: Head: Normocephalic. Nose: Nose normal. Eyes: Pupils: Pupils are equal, round, and reactive to light. Cardiovascular: Rate and Rhythm: Normal rate. Pulmonary: Effort: Pulmonary effort is normal. No respiratory distress. Abdominal: Tenderness: There is no abdominal tenderness. There is no right CVA tenderness, left CVA tenderness or guarding. Musculoskeletal: Cervical back: Normal range of motion. Skin: General: Skin is warm and dry. Neurological: General: No focal deficit present. Mental Status: She is alert. ASSESSMENT/PLAN: 1. Worms in stool - ICD9: 128.9, ICD10: B83.9 - OVA + PARA MICROSCOP (more content not included)... Normal [facility] CBC W/Diff, Automatedon 04-0 ATYPICAL LYMPH 1+ Normal [facility] Comment on above: Performed By: #### L 100.0100, L500.4050, L700.6800 #### [facility] [address] [place], [address] PLT EST SLT INC Normal ADEQ [facility] Comment on above: Performed By: #### L 100.0100, L500.4050, L700.6800 #### [facility] [address] [place], [address] RED CELL MORPH NORM C+C Normal NORM C C [facility] Comment on above: Performed By: #### L 100.0100, L500.4050, L700.6800 #### [facility] [address] [place], [address] Comprehensive Metabolic Prof ilon 06-27-2024 Albumin [Mass/Vol] 4.1 g/dL Normal 3.5-5.0 [facility] Comment on above: Performed By: #### L 100.0100, L500.4050, L700.6800 #### [facility] [address] [place], [address] Albumin/Globulin [Mass ratio] 1.1 {ratio} Normal 0.9-2.4 [facility] Comment on above: Performed By: #### L 100.0100, L500.4050, L700.6800 #### [facility] [address] [place], [address] ALK PHOS 65 U/L Normal 35-104 [facility] Comment on above: Performed By: #### L 100.0100, L500.4050, L700.6800 #### [facility] [address] [place], [address] ALT [Catalytic activity/Vol] 59 U/L High <=34 [facility] Comment on above: Performed By: #### L 100.0100, L500.4050, L700.6800 #### [facility] [address] [place], [address] AST [Catalytic activity/Vol] 61 U/L High <=31 [facility] Comment on above: Performed By: #### L 100.0100, L500.4050, L700.6800 #### [facility] [address] [place], [address] Bilirubin [Mass/Vol] 0.39 mg/dL Normal 0.00-1.30 [facility] Comment on above: Performed By: #### L 100.0100, L500.4050, L700.6800 #### [facility] [address] [place], [address] BUN/CRE 9.9 RATIO Low 10-20 [facility] Comment on above: Performed By: #### L 100.0100, L500.4050, L700.6800 #### [facility] [address] [place], [address] Calcium [Mass/Vol] 9.5 mg/dL Normal 7.6-11.0 [facility] Comment on above: Performed By: #### L 100.0100, L500.4050, L700.6800 #### [facility] [address] [place], [address] Chloride [Moles/Vol] 102 mmol/L Normal 98-108 [facility] Comment on above: Performed By: #### L 100.0100, L500.4050, L700.6800 #### [facility] [address] [place], [address] CO2 [Moles/Vol] 27.7 mmol/L Normal 21.0-32.0 [facility] Comment on above: Performed By: #### L 100.0100, L500.4050, L700.6800 #### [facility] [address] [place], [address] Creatinine [Mass/Vol] 0.66 mg/dL Low 0.70-1.20 [facility] Comment on above: Performed By: #### L 100.0100, L500.4050, L700.6800 #### [facility] [address] [place], [address] ECRCL 118.39 ml/min Normal 50-250 [facility] Comment on above: Performed By: #### L 100.0100, L500.4050, L700.6800 #### [facility] [address] [place], [address] GAP 8 Normal 5-15 [facility] Comment on above: Performed By: #### L 100.0100, L500.4050, L700.6800 #### [facility] [address] [place], [address] GFR/1.73 sq M.predicted among non-blacks MDRD (S/P/Bld) [Vol rate/Area] 130 mL/min/{1.73_m2} Normal >60 [facility] Comment on above: Result Comment: mL/m in/1.73m2 CKD-EPI Creatinine Equation (2020) Performed By: #### L 100.0100, L500.4050, L700.6800 #### [facility] [address] [place], [address] Globulin (S) [Mass/Vol] 3.8 g/dL Normal 2.2-4.2 [facility] Comment on above: Performed By: #### L 100.0100, L500.4050, L700.6800 #### [facility] [address] [place], [address] Glucose [Mass/Vol] 92 mg/dL Normal 70-99 [facility] Comment on above: Performed By: #### L 100.0100, L500.4050, L700.6800 #### [facility] [address] [place], [address] Potassium [Moles/Vol] 5.0 mmol/L Normal 3.3-5.1 [facility] Comment on above: Performed By: #### L 100.0100, L500.4050, L700.6800 #### [facility] [address] [place], [address] Sodium [Moles/Vol] 137 mmol/L Normal 133-145 [facility] Comment on above: Performed By: #### L 100.0100, L500.4050, L700.6800 #### [facility] [address] [place], [address] T PROT 7.8 g/dL Normal 5.9-8.4 [facility] Comment on above: Performed By: #### L 100.0100, L500.4050, L700.6800 #### [facility] [address] [place], [address] Urea nitrogen [Mass/Vol] 6 mg/dL Normal 4-19 [facility] Comment on above: Performed By: #### L 100.0100, L500.4050, L700.6800 #### [facility] [address] [place], [address] ,Serum,hCG Quali.on 06-27-2024 HCG, SERUM QUAL Negative Normal [facility] Comment on above: Performed By: #### L 100.0100, L500.4050, L700.6800 #### [facility] [address] [place], [address] Absolute neutrophil countOrd ered By: Landon Burnette on 06-26-2024 Neutrophils (Bld) [#/Vol] 3.0 10*3/uL 2.0-7.7 [facility] Anion gap in Serum or Plasma Ordered By: Landon Burnette on 06-26-2024 Anion gap [Moles/Vol] 8 mmol/L 5-15 [facility] Atypical lymphocyte percenta geOrdered By: Landon Burnette on 06-26-2024 Atypical Lymphocytes 1+ % [facility] BUN/creatinine ratioOrdered By: Landon Burnette on 06-26-2024 Urea nitrogen/Creatinine [Mass ratio] 9.9 mg/mg Low 10-20 [facility] Basophil percentageOrdered B y: Landon Burnette on 06-26-2024 Basophils/100 WBC (Bld) 1.3 % High 0-1 [facility] Beta HCG ( test) Ql Ordered By: Landon Burnette on 06-26-2024 Serum Test, Qualitative Negative [facility] Bilirubin, totalOrdered By: Landon Burnette on 06-26-2024 Bilirubin [Mass/Vol] 0.39 mg/dL 0.00-1.30 [facility] Carbon dioxide, total [Moles /volume] in Central venous bloodOrdered By: Landon Burnette on 06-26-2024 CO2 [Moles/Vol] 27.7 mmol/L 21.0-32.0 [facility] Chloride assayOrdered By: Annie Burnette on 06-26-2024 Chloride [Moles/Vol] 102 mmol/L 98-108 [facility] Emergency Department Summary on 06-26-2024 Emergency Department Summary [facility] Medical Records Department [address] [place] [address] Emergency Department Summary 06/26/24 MR#: [id number] Acct: [id number] Name: NICHOLE ALONSO Rep #: [id number] : 2005 19 From: Landon Burnette MD PCP: Dr. Chacha Kim MD Status:REG ER Location: ED HPI HPI - GI History of Present Illness Chief Complaint: Abd Pain Informant: patient and spouse/S.O. Narrative Narrative: 19-year-old female states she started having symptoms and diagnosed by positive blood test with mono about 2 or so weeks ago, mostly feeling better now, she had intercourse tonight and about 20 minutes afterwards, she started having periumbilical abdominal discomfort, and then had became left upper quadrant pain. Some nausea with no vomiting. No pelvic pain, vaginal bleeding. No injuries. She states this has been about 2 hours now. She called a nurse line and she was advised to come to the ER because she was diagnosed with mono and could have a ruptured spleen. She denies having abdominal pain as one of her symptoms with mononucleosis, mostly sore throat and fatigue but mostly feeling better now. [facility] Medical History Depression Home Medications ???Medication ???Instructions ???Recorded ???Last Taken ???Type fluoxetine 10 mg capsule 30 mg PO DAILY 02/16/21 Unknown Hi story famotidine 20 mg tablet 20 mg PO BID 10/10/23 Unknown Hist ory penicillin V potassium 500 mg 500 mg PO DAILY atb 10/10/23 Unkno wn History tablet Allergy/AdvReac Type Severity Reaction Status Date / Time nickel AdvReac Other Verified 06/26/24 23:02 Family History no significant family his Social History Smoking Status: Never smoker ROS ROS ED Constitutional Constitutional ED: Denies chills or fever(s) Eyes Eyes: Denies change in vision or diplopia ENT ENT ED: Denies rhinorrhea or sore throat Cardiovascular Cardiovascular: Denies chest pain or palpitations Respiratory/Chest Respiratory/Chest: Denies cough or dyspnea Gastrointestinal Gastrointestinal: Reports abdominal pain and nausea; Denies diarrhea or vomiting Genitourinary Genitourinary ED: Denies dysuria or hematuria Musculoskeletal Musculoskeletal: Denies back pain or neck pain Integumentary Denies abscess or rash Neurologic Neurologic: Denies headache(s), paresthesias or weakness Psychiatric Psychiatric: Denies anxiety or suicidal thoughts EXAM Physical Exam Const Vital Signs: 06/26/24 23:03 06/27/24 01:00 Temperature 98.2 F Temperature Source Oral Pulse Rate 97 54 L Respiratory Rate 20 H 16 Blood Pressure 123/96 H 92/75 Blood Pressure Mean 105 80 Pulse Ox 100 100 Oxygen Delivery Method Room Air Room Air Positive well nourished and well developed General Appearance ED: well developed and NAD HEENT Reports moist mucous membranes normocephalic and atraumatic Eyes PERRL and EOMs intact bilaterally Neck full ROM and supple Resp normal respiratory effort and clear to auscultation bilaterally Cardio regular rate, regular rhythm and no murmurs GI non-distended GI Narrative: Very mild epigastric and left upper quadrant tenderness. No guarding or rebound tenderness. No splinting with deep inspiration with palpation in the left upper quadrant. Otherwise benign abdomen no pelvic tenderness. Auscultation: normoactive bowel sounds Palpation: soft Back/Spine no CVA tenderness General Back: other FROM Extremity normal to inspection General Extremety ED: Negative for edema, pulses abnormal or tenderness General Extremity: Negative for edema or pulses abnormal Neuro oriented x3, CN's II-XII intact bilaterally and no sensory deficits noted Sensorium / Orientation: awake and alert Motor Exam: strength 5/5 throughout Skin no rashes or lesions noted and no wounds MDM MDM MDM Narrative Medical decision making narrative: This patient has a very benign objective abdominal exam, and given that and the mechanism which involved no direct trauma, I am at a very low suspicion for splenic injury/rupture in this patient. While obtaining labs which I reviewed in a to rule out ectopic which is negative, she was given dicyclomine, Zofran, and Mylanta advanced. On reexamination she states the medicines help significantly and her pain is negligible. This is more reassuring, I do not think she needs a CT right now although we considered it, there are risks to the radiation exposure to her gynecologic anatomy, and she prefers not to obtain a CT at this time. I am in agreement. We discussed reasons to return she is comfortable with that plan and advised to avoid contact sports for the next 2 weeks or so. Lab Data At (more content not included)... Normal [facility] Eosinophil percentageOrdered By: Landon Burnette on 06-26-2024 Eosinophils/100 WBC (Bld) 0.3 % 0-5 [facility] Erythrocyte distribution wid th (RBC) [Ratio]Ordered By: Landon Burnette on 06-26-2024 Erythrocyte distribution width (RBC) [Entitic vol] 43.6 fL 35.1-43.9 [facility] Erythrocyte distribution wid th ratioOrdered By: Landon Burnette on 06-26-2024 Erythrocyte distribution width (RBC) [Ratio] 13.2 % 11.6-14.6 [facility] Estimation of creatinine tram aranceOrdered By: Landon Burnette on 06-26-2024 Estimated Creatinine Clearance Calc 118.39 ml/min 50-250 [facility] GFR/1.73 sq M.predicted kim g non-blacks MDRD (S/P/Bld) [Vol rate/Area]Ordered By: Landon Burnette on 06-26-2024 Estimated GFR (MDRD) Non-Af Amer 130 >60 [facility] Comment on above: mL/min/1.73m2 CKD-EP I Creatinine Equation (2020) Hematocrit Auto (Bld) [Volum e fraction]Ordered By: Landon Burnette on 06-26-2024 Hematocrit (Bld) [Volume fraction] 36.9 % Low 37-47 [facility] Hemoglobin measurementOrdere d By: Landon Burnette on 06-26-2024 Hemoglobin (Bld) [Mass/Vol] 11.9 g/dL Low 12.0-15.0 [facility] Immature granulocytes/100 WB C Auto (Bld)Ordered By: Landon Burnette on 06-26-2024 Immature granulocytes/100 WBC (Bld) 0.200 % 0.0-0.9 [facility] Comment on above: IG% - Immature Granu locytes (promyelocytes, myelocytes and metamyelocytes) > 1% indicates that a LEFT SHIFT is Present. Laboratory - Chemistry and C hemistry - challengeOrdered By: Landon Burnette on 06-26-2024 AST [Catalytic activity/Vol] 61 U/L High <32 [facility] Lymphocytes Auto (Unsp spec) [#/Vol]Ordered By: Landon Burnette on 06-26-2024 Lymphocytes (Bld) [#/Vol] 5.70 10*3/uL High 0.83-4.51 [facility] Lymphocytes/100 WBC Auto (Un sp spec)Ordered By: Landon Burnette on 06-26-2024 Lymphocytes/100 WBC (Bld) 58.6 % High 19-41 [facility] MCV (mean corpuscular volume ) determinationOrdered By: Landon Burnette on 06-26-2024 MCV (RBC) [Entitic vol] 92.0 fL 81-99 [facility] Mean corpuscular hemoglobin (MCH) determinationOrdered By: Landon Burnette on 06-26-2024 MCH (RBC) [Entitic mass] 29.7 pg 27.0-32.0 [facility] Mean corpuscular hemoglobin concentration (MCHC) determinationOrdered By: Landon Burnette on 06-26-2024 MCHC (RBC) [Mass/Vol] 32.2 g/dL 32-36 [facility] Mean platelet volume determi nationOrdered By: Landon Burnette on 06-26-2024 Platelet mean volume (Bld) [Entitic vol] 9.1 fL 6.2-12.0 [facility] Monocyte percentageOrdered B y: Landon Burnette on 06-26-2024 Monocytes/100 WBC (Bld) 9.2 % 0-10 [facility] Neutrophil percentageOrdered By: Landon Burnette on 06-26-2024 Neutrophils/100 WBC (Bld) 30.4 % Low 47-70 [facility] Nucleated red blood cell per centageOrdered By: Landon Burnette on 06-26-2024 Nucleated RBC/100 WBC (Bld) [Ratio] 0 % 0-5 [facility] Platelet countOrdered By: Annie Burnette on 06-26-2024 Platelets (Bld) [#/Vol] 440 10*3/uL 150-450 [facility] Platelets LM Ql (Bld)Ordered By: Landon Burnette on 06-26-2024 Platelet Estimate SLT INC ADEQ [facility] Potassium (Unsp spec) [Mass/ Vol]Ordered By: Landon Burnette on 06-26-2024 Potassium [Moles/Vol] 5.0 mmol/L 3.3-5.1 [facility] RBC Auto (Bld) [#/Vol]Ordere d By: Landon Burnette on 06-26-2024 RBC (Bld) [#/Vol] 4.01 10*6/uL Low 4.2-5.4 [facility] RBC morphology finding Nom ( Bld)Ordered By: Landon Burnette on 06-26-2024 Red Blood Cell Morphology NORM C+C NORMAL NORM C&C [facility] Serum creatinine measurement (mass/volume)Ordered By: Landon Burnette on 06-26-2024 Creatinine [Mass/Vol] 0.66 mg/dL Low 0.70-1.20 [facility] Serum globulin measurementOr dered By: Landon Burnette on 06-26-2024 Globulin (S) [Mass/Vol] 3.8 g/dL 2.2-4.2 [facility] Serum glucose measurement (m ass/volume)Ordered By: Landon Burnette on 06-26-2024 Glucose [Mass/Vol] 92 mg/dL 70-99 [facility] Serum or plasma alanine jansen otransferase (ALT) measurementOrdered By: Landon Burnette on 06-26-2024 ALT [Catalytic activity/Vol] 59 U/L High <35 [facility] Serum or plasma albumin anthony urement (mass/volume)Ordered By: Landon Burnette on 06-26-2024 Albumin [Mass/Vol] 4.1 g/dL 3.5-5.0 [facility] Serum or plasma albumin/glob ulin mass ratioOrdered By: Landon Burnette on 06-26-2024 Albumin/Globulin [Mass ratio] 1.1 {ratio} 0.9-2.4 [facility] Serum or plasma alkaline olga sphatase measurementOrdered By: Landon Burnette on 06-26-2024 ALP [Catalytic activity/Vol] 65 U/L 35-104 [facility] Serum or plasma calcium anthony urement (mass/volume)Ordered By: Landon Burnette on 06-26-2024 Calcium [Mass/Vol] 9.5 mg/dL 7.6-11.0 [facility] Serum or plasma urea nitroge n measurement (mass/volume)Ordered By: Landon Burnette on 06-26-2024 Urea nitrogen [Mass/Vol] 6 mg/dL 4-19 [facility] Sodium levelOrdered By: Jamel Burnette on 06-26-2024 Sodium [Moles/Vol] 137 mmol/L 133-145 [facility] Total proteinOrdered By: Analisa Burnette on 06-26-2024 Protein [Mass/Vol] 7.8 g/dL 5.9-8.4 [facility] White blood cell (WBC) count Ordered By: Landon Burnette on 06-26-2024 WBC (Bld) [#/Vol] 9.7 10*3/uL 4.4-11.0 [facility] Heteroph Ab Ser Ql LAon 05-23 Heterophile Ab LA Ql (S) Positive Abnormal Negative [facility] Comment on above: Order Comment: Speci men Type: SWAB Ordering Facility: [facility] Address: [address] [place] [address] [place] [address] Result Comment: Infe ctious Mononucleosis rapid test is used as an aid in diagnosis of acute infection with Katalina-Gaitan virus (EBV). The antibody levels may occasionally remain elevated up to several months after a primary EBV infection. Final interpretation should be done in conjunction with EBV-specific serology and clinical correlation. False positive results may occasionally be seen with other infectious agents such as Cytomegalovirus, Toxoplasma, and HIV among others as well as non-infectious conditions such as lymphoma. Clinical correlation is required. Performed By: #### B VAMP, CVTV #### [facility] CLIA [id number] [address] [facility] [id number] [place] [address] [place] Bacteria Throat Culton 06-17 Bacteria identified Cx Nom (Throat) CULTURE, THROAT: No Streptococcus pyogenes (Group A streptococcus) isolated. Normal [facility] Comment on above: Performed By: #### 6 26-2 ####[facility] [id number] [facility] [address] [place] CNOVon 06-17-2024 CNOV Office Visit (UCWSTR ) NICHOLE ALONSO ([id number]) 5 F Date Time Provider Department 06/17/24 6:45 PM HUNTER MARTINEZ [facility] During your visit today, we recorded the following information about you: Temperature Pulse Respiration Blood pressure 99.6 degrees 111/minute 18/minute 114/81 Weight 56.8 kg Hunter Martinez APRN.[employer]AR[employer]OR INST[employer]ER 06/17/2024 7:37 PM Signed This note was created using NoteWriter. Subjective Nichole Valentine Gavin is a 19 year old female. HPI Pt had swollen cervical lymph nodes about 10 days ago and then developed a sore throat three days ago. She feels very fatigued. She was seen here yesterday with a negative strep test. Monotest has been ordered but she was told to wait at least a week before getting this to avoid any false negatives. She presents today with ongoing sore throat requesting repeat strep test Review of Systems Constitutional: Positive for fever. HENT: Positive for congestion. Respiratory: Positive for cough. Objective BP 114/81 Pulse 111 Temp 37.6 ?C (99.6 ?F) Resp 18 Wt 56.8 kg (125 lb 3.5 oz) LMP 12/19/2021 (Approximate) SpO2 99% BMI 21.33 kg/m? Physical Exam Vitals and nursing note reviewed. Constitutional: General: She is not in acute distress. Appearance: Normal appearance. She is not ill-appearing. HENT: Head: Normocephalic. Mouth/Throat: Mouth: Mucous membranes are moist. Pharynx: Oropharyngeal exudate and posterior oropharyngeal erythema present. Eyes: Conjunctiva/sclera: Conjunctivae normal. Cardiovascular: Rate and Rhythm: Normal rate and regular rhythm. Pulmonary: Effort: Pulmonary effort is normal. Breath sounds: Normal breath sounds. Musculoskeletal: General: Normal range of motion. Cervical back: Normal range of motion. Skin: General: Skin is warm and dry. Neurological: General: No focal deficit present. Mental Status: She is alert. Psychiatric: Mood and Affect: Mood normal. Behavior: Behavior normal. Assessment and Plan ASSESSMENT/PLAN: 1. Sore throat - ICD9: 462, ICD10: J02.9 -Strep test negative again today. Patient requested a throat culture understanding that it will take approximately 2 days to return. I did discuss with her that I felt her symptoms are more likely related to mono and as her symptoms have been ongoing for approximately 10 days recommended that she get the blood test tomorrow. Patient will otherwise use ibuprofen or Tylenol as needed for pain. - STREP A MOLECULAR (POC) - BACTERIAL CULTURE, THROAT Hunter Martinez APRN.CNP Allergies As of Date: 06/17/2024 Noted Allergy Reaction NICKEL 08/30/2014 14 - Other: See Comments Comments: has trouble with earrings - ears break out Date Reviewed: 06/17/2024 Reviewed by: Hunter Martinez APRN.CNP - Fully Assessed Reason for Visit: Sore Throat [200] Cmt: Fever, MITCHELL x4 days Primary Visit Diagnosis:Sore throat [J02.9] Order(s):STREP A MOLECULAR (POC) [9468767] Order #: [id number]. #:[id number] BACTERIAL CULTURE, THROAT [SQTHRCUL] Order #: [id number] FUTURE BACTERIAL CULTURE, THROAT [SQTHRCUL] Order #: [id number]. #:[id number] Prescriptions as of 06/18/2024 - FLUoxetine (PROZAC) 10 mg capsule once daily. - traMADol (ULTRAM) 50 mg tablet take 1 tablet by mouth every 8 hours NEEDED FOR PAIN for 2 days - penicillin V potassium 500 mg tablet Take 500 mg by mouth. - ibuprofen (MOTRIN) 800 mg tablet Take 800 mg by mouth every 8 hours as needed. - famotidine (PEPCID) 20 mg tablet take 1 tablet by mouth twice a day - dicyclomine (BENTYL) 20 mg tablet take 1 tablet by mouth three times a day if needed - hydrOXYzine pamoate (VISTARIL) 25 mg capsule Take 1 capsule by mouth three times a day as needed. - etonogestrel (NEXPLANON) 68 mg impl subdermal implant 68 mg by SUBDERMAL route. Problem List As Of Date 06/17/2024 Noted Resolved Constipation [K59.00] 01/30/2015 06/03/2019 PTSD (post-traumatic stress disorder) [F43.10] 10/25/2020 Low serum vitamin D [R79.89] 01/25/2021 Vegan diet [Z78.9] 01/25/2021 Major depressive disorder, recurrent episode, m*04/03/2022 Anxiety [F41.9] 04/03/2022 04/25/2022 History of cannabis vapor product use [Z87.898] 04/03/2022 Generalized anxiety disorder [F41.1] 04/25/2022 Subluxation of left patella [S83.002A] 05/21/2022 Depressive disorder [F32.A] 12/06/2021 Exposure to severe acute respiratory syndrome c*07/31/2023 Acute anal fissure [K60.0] 10/15/2023 Bright red rectal bleeding [K62.5] 10/15/2023 Level of Service: OFFICE/OUTPATIENT ESTABLISHED LOW MDM 20 MIN [64779] Encounter Status:Closed by HUNTER MARTINEZ on 06/17/24 Normal [facility] STREP A MOLECULAR (POC)on Procedural Control Valid [facility] Strep A (POCT) Negative Negative [facility] CNOVon 06-16-2024 CNOV Office Visit (UCWSTR ) NICHOLE ALONSO ([id number]) 5 F Date Time Provider Department 06/16/24 11:30 AM KARYNA HENDRICKSON [facility] During your visit today, we recorded the following information about you: Temperature Pulse Respiration Blood pressure 99.1 degrees 118/minute 18/minute 100/60 Weight 56.5 kg Karyna Hendrickson, SANDRA.GARAGE DOOR INSTALLER 06/16/2024 12:08 PM Signed [facility] Subjective Nichole Alonso is a 19 year old female. Patient presents with: Sore Throat: fever and headache x 3 days Sore Throat Associated symptoms include congestion and headaches. Nichole Alonso is a 19 year old female who presents with sore throat, headache, and fever x 2 days. She has had some post nasal drainage. This morning her fever was 101.2 degrees F. She has had some nausea. She has not taken any medication for her symptoms. Review of Systems Constitutional: Positive for chills and fever. HENT: Positive for congestion, postnasal drip and sore throat. Respiratory: Negative. Cardiovascular: Negative. Musculoskeletal: Negative for arthralgias. Neurological: Positive for headaches. Objective BP 100/60 Pulse 118 Temp 37.3 ?C (99.1 ?F) Resp 18 Wt 56.5 kg (124 lb 9 oz) LMP 12/19/2021 (Approximate) SpO2 98% BMI 21.21 kg/m? PAST MEDICAL HISTORY Diagnosis Date - Arm fracture, left 2017 buckle fracture-casted - Constipation 01/30/2015 - Depression - Immunization not carried out because of parent refusal 06/03/2018 Influenza - Menstrual cycle problem 12/2016 Nexplanon - 2022 - NEGATIVE MEDICAL HISTORY - Patellar subluxation, left, initial encounter 2020 PAST SURGICAL HISTORY Procedure Laterality Date - NONE ALLERGIES Nickel MEDICATIONS - FLUoxetine (PROZAC) 10 mg capsule once daily. - traMADol (ULTRAM) 50 mg tablet take 1 tablet by mouth every 8 hours NEEDED FOR PAIN for 2 days (Patient not taking: Reported on 05/10/2024) - penicillin V potassium 500 mg tablet Take 500 mg by mouth. (Patient not taking: Reported on 05/10/2024) - ibuprofen (MOTRIN) 800 mg tablet Take 800 mg by mouth every 8 hours as needed. (Patient not taking: Reported on 05/10/2024) - famotidine (PEPCID) 20 mg tablet take 1 tablet by mouth twice a day (Patient not taking: Reported on 06/16/2024) - dicyclomine (BENTYL) 20 mg tablet take 1 tablet by mouth three times a day if needed (Patient not taking: Reported on 06/16/2024) - hydrOXYzine pamoate (VISTARIL) 25 mg capsule Take 1 capsule by mouth three times a day as needed. (Patient not taking: Reported on 05/10/2024) - etonogestrel (NEXPLANON) 68 mg impl subdermal implant 68 mg by SUBDERMAL route. FAMILY HISTORY Problem Relation Age of Onset - Migraines Mother - No Known Problems Father Unknown completely - Breast Cancer Maternal Grandmother Early 40's - Blood Clots Maternal Grandfather - No Known Problems Paternal Grandmother - No Known Problems Paternal Grandfather - other (Endometriosis) Half-sister - Anxiety disorder Half-sister - Depression Half-sister - Celiac Disease No Family History - Inflammatory Bowel Disease No Family History - Thyroid No Family History Social History Tobacco Use - Smoking status: Some Days Types: Cigarettes Passive exposure: Never - Smokeless tobacco: Current - Tobacco comments: Per pt smoking on the weekends mostly Vaping Use - Vaping status: Never Used Substance Use Topics - Alcohol use: Yes - Drug use: Yes Types: Marijuana Comment: per pt one joint once a week on the weekends does not smoke regularly on week days only sometimes Physical Exam Vitals and nursing note reviewed. Constitutional: General: She is not in acute distress. Appearance: Normal appearance. She is not ill-appearing. HENT: Right Ear: Tympanic membrane, ear canal and external ear normal. Left Ear: Tympanic membrane, ear canal and external ear normal. Nose: Nose normal. Mouth/Throat: Mouth: Mucous membranes are moist. Pharynx: Oropharynx is clear. Posterior oropharyngeal erythema present. No oropharyngeal exudate. Tonsils: Tonsillar exudate present. 3+ on the right. 3+ on the left. Cardiovascular: Rate and Rhythm: Normal rate and regular rhythm. Heart sounds: Normal heart sounds. Pulmonary: Effort: Pulmonary effort is normal. No respiratory distress. Breath sounds: Normal breath sounds. No wheezing or rales. Lymphadenopathy: Cervical: No cervical adenopathy. Skin: General: Skin is warm and dry. Findings: No erythema or rash. Neurological: Mental Status: She is alert. {ASSESSMENT/PLAN: 1. Sore throat - ICD9: 462, ICD10: J02.9 (primary diagnosis) - suspect viral - Group A strep molecular testing negative - Discussed supportive care treatment with fluids, rest and analgesia. - STREP A MOLECULAR (POC) - MONOTEST, INFECTIOUS MONO- return for testing if sore throat persists lo (more content not included)... Normal [facility] INFLUENZA A&B MOLECULAR (POC )on 06-16-2024 Flu A (POCT) Negative Negative [facility] Flu B (POCT) Negative Negative [facility] Procedural Control Valid [facility] Location:[address], [id number] [place] [address] POINT OF CARE [facility] STREP A MOLECULAR (POC)on Procedural Control [facility] Strep A (POCT) Negative Negative [facility] Bacteria Ur Culton 5 Bacteria identified Cx Nom (U) CULTURE, URINE: No growth (<1,000 CFU/ml) Normal [facility] Comment on above: Performed By: #### 6 30-4 ####[facility] [id number] [address] [place] CNOVon 05-17-2024 CNOV Office Visit (UCWSTR ) NICHOLE ALONSO ([id number]) 5 F Date Time Provider Department 05/17/24 3:30 PM [facility] During your visit today, we recorded the following information about you: Temperature Pulse Respiration Blood pressure 98.3 degrees 63/minute 18/minute 102/62 Weight 59.9 kg Brian Pearson MD 05/17/2024 4:16 PM Signed Patient presents with: Urinary Frequency: Frequency and burning x 1 day HPI: Urinary symptoms since this morning. Dysuria: Yes Frequency: feels the need to go with little urine produced Hematuria: No, urine has an ordor Discharge/irritation: no Nausea: No Fever or chills: has felt warm Back pain: No Abdominal pain: yes Prior UTI: Yes Has had URI symptoms the last 5 days: nasal congestion, rhinorrhea, mild cough, feeling warm. Denies vomiting or diarrhea MEDICATIONS: Current Outpatient Medications Medication Sig famotidine (PEPCID) 20 mg tablet take 1 tablet by mouth twice a day dicyclomine (BENTYL) 20 mg tablet take 1 tablet by mouth three times a day if needed etonogestrel (NEXPLANON) 68 mg impl subdermal implant 68 mg by SUBDERMAL route. FLUoxetine (PROZAC) 10 mg capsule once daily. (Patient not taking: Reported on 05/10/2024) traMADol (ULTRAM) 50 mg tablet take 1 tablet by mouth every 8 hours NEEDED FOR PAIN for 2 days (Patient not taking: Reported on 05/10/2024) penicillin V potassium 500 mg tablet Take 500 mg by mouth. (Patient not taking: Reported on 05/10/2024) ibuprofen (MOTRIN) 800 mg tablet Take 800 mg by mouth every 8 hours as needed. (Patient not taking: Reported on 05/10/2024) hydrOXYzine pamoate (VISTARIL) 25 mg capsule Take 1 capsule by mouth three times a day as needed. (Patient not taking: Reported on 05/10/2024) No current facility-administered medications for this visit. ALLERGIES: ALLERGIES Allergen Reactions Nickel Other: See Comments has trouble with earrings - ears break out VITALS: BP 102/62 Pulse 63 Temp 36.8 ?C (98.3 ?F) (Tympanic) Resp 18 Wt 59.9 kg (132 lb 0.9 oz) LMP 12/19/2021 (Approximate) SpO2 100% BMI 22.49 kg/m? PHYSICAL EXAM: GEN: NAD HEENT: EOMI, conjunctiva clear, TMs and canals clear, nose congested, sinuses non-tender HEART: regular rate, regular rhythm, no murmurs LUNGS: clear to auscultation, no wheezes or crackles, no increased WOB ABDOMEN: Soft, nondistended, no masses, no suprapubic tenderness BACK: No CVA tenderness ASSESSMENT/PLAN: 1. Urinary frequency - ICD9: 788.41, ICD10: R35.0 (primary diagnosis) - UA DIP, URINE (POC) - positive for blood and LE - likely UTI - BACTERIAL CULTURE, URINE - NITROFURANTOIN MONOHYDRATE AND MACROCRYSTAL 100 MG ORAL CAP 2. URI, acute - ICD9: 465.9, ICD10: J06.9 - Discussed viral etiology and rationale for treatment. - Symptomatic treatment with prn analgesia - Supportive care with fluids and rest Brian Pearson MD Allergies As of Date: 05/17/2024 Noted Allergy Reaction NICKEL 08/30/2014 14 - Other: See Comments Comments: has trouble with earrings - ears break out Date Reviewed: 05/17/2024 Reviewed by: Deborah King LPN - Fully Assessed Reason for Visit: Urinary Frequency [1086] Cmt: Frequency and burning x 1 day Primary Visit Diagnosis:Urinary frequency [R35.0] Other Visit Diagnosis:URI, acute [J06.9] Order(s):UA DIP, URINE (POC) [[id number]] Order #: [id number]. #:[id number] BACTERIAL CULTURE, URINE [SQURCUL] Order #: [id number]. #:[id number] nitrofurantoin monohydrate and macrocrystal (MACROBID) 100 mg capsuleTake 1 capsule by mouth two times a day for 5 days.Disp: 10 capsuleRfl: 0 Prescriptions as of 05/17/2024 - nitrofurantoin monohydrate and macrocrystal (MACROBID) 100 mg capsule Take 1 capsule by mouth two times a day for 5 days. - FLUoxetine (PROZAC) 10 mg capsule once daily. - traMADol (ULTRAM) 50 mg tablet take 1 tablet by mouth every 8 hours NEEDED FOR PAIN for 2 days - penicillin V potassium 500 mg tablet Take 500 mg by mouth. - ibuprofen (MOTRIN) 800 mg tablet Take 800 mg by mouth every 8 hours as needed. - famotidine (PEPCID) 20 mg tablet take 1 tablet by mouth twice a day - dicyclomine (BENTYL) 20 mg tablet take 1 tablet by mouth three times a day if needed - hydrOXYzine pamoate (VISTARIL) 25 mg capsule Take 1 capsule by mouth three times a day as needed. - etonogestrel (NEXPLANON) 68 mg impl subdermal implant 68 mg by SUBDERMAL route. Problem List As Of Date 05/17/2024 Noted Resolved Constipation [K59.00] 01/30/2015 06/03/2019 PTSD (post-traumatic stress disorder) [F43.10] 10/25/2020 Low serum vitamin D [R79.89] 01/25/2021 Vegan diet [Z78.9] 01/25/2021 Major depressive disorder, recurrent episode, m*04/03/2022 Anxiety [F41.9] 04/03/2022 04/25/2022 History of cannabis vapor product use [Z87.898] 04/03/2022 Generalized an (more content not included)... Normal [facility] UA DIP, URINE (POC)on 2024 BILIRUBIN UA (POCT) Negative Negative [facility] CLARITY UA (POCT) Cloudy [facility] COLOR UA (POCT) Yellow [facility] GLUCOSE UA (POCT) Negative Negative mg/dL [facility] Hemoglobin Ql (U) Small Abnormal Negative [facility] Interpretation and review of laboratory results Abnormal [facility] KETONE UA (POCT) Negative Negative mg/dL [facility] LEUKOCYTES UA (POCT) Large Abnormal Negative [facility] NITRITE UA (POCT) Negative Negative [facility] PH UA (POCT) 6 4.5 - 8.0 [facility] Protein Ql (U) Negative Negative mg/dL [facility] SPECIFIC GRAVITY UA (POCT) <=1.005 Abnormal 1.005 - 1.030 [facility] UROBILINOGEN UA (POCT) 0.2 Normal E.U./d L [facility] Location:[address], [place], [place], [address] [place] [address] POINT OF CARE [facility] CNOVon 05-10-2024 CNOV Office Visit (OBGYWM ) GAVINNICHOLE Valentine ([id number]) 5 F Date Time Provider Department 05/10/24 9:10 AM AJ DEE OBCHAPARROWLayla During your visit today, we recorded the following information about you: Blood pressure Weight 98/68 59.4 kg Aj Dee MD 05/10/2024 10:00 AM Signed Nichole Valentine Gavin is a 19 year old female who presents for problem visit pain/discomfort with nexplanon since Friday05/07/2024. Would like to be checked for placement per pt. HPI: Nexplanon inserted on 12-06-21. No problems until partner rubbed arm over the device resulting in transient numbness and tenderness that resolved over the course of a couple of days. 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 Comments: Sexual Activity: Yes; Male Contraception: Implant PAST MEDICAL HISTORY Diagnosis Date Arm fracture, left 2016 buckle fracture-casted Constipation 01/30/2015 Depression Immunization not carried out because of parent refusal 06/03/2018 Influenza Menstrual cycle problem 12/2016 Nexplanon - 2022 NEGATIVE MEDICAL HISTORY Patellar subluxation, left, initial encounter 2020 PAST SURGICAL HISTORY Procedure Laterality Date NONE FAMILY HISTORY Problem Relation Age of Onset Migraines Mother No Known Problems Father Unknown completely Breast Cancer Maternal Grandmother Early 40's Blood Clots Maternal Grandfather No Known Problems Paternal Grandmother No Known Problems Paternal Grandfather other (Endometriosis) Half-sister Anxiety disorder Half-sister Depression Half-sister Celiac Disease No Family History Inflammatory Bowel Disease No Family History Thyroid No Family History Social History Tobacco Use Smoking status: Some Days Types: Cigarettes Passive exposure: Never Smokeless tobacco: Current Tobacco comments: Per pt smoking on the weekends mostly Vaping Use Vaping status: Never Used Substance Use Topics Alcohol use: Yes Drug use: Yes Types: Marijuana Comment: per pt one joint once a week on the weekends does not smoke regularly on week days only sometimes Current Outpatient Medications Medication Sig FLUoxetine (PROZAC) 10 mg capsule once daily. traMADol (ULTRAM) 50 mg tablet take 1 tablet by mouth every 8 hours NEEDED FOR PAIN for 2 days penicillin V potassium 500 mg tablet Take 500 mg by mouth. ibuprofen (MOTRIN) 800 mg tablet Take 800 mg by mouth every 8 hours as needed. famotidine (PEPCID) 20 mg tablet take 1 tablet by mouth twice a day dicyclomine (BENTYL) 20 mg tablet take 1 tablet by mouth three times a day if needed hydrOXYzine pamoate (VISTARIL) 25 mg capsule Take 1 capsule by mouth three times a day as needed. etonogestrel (NEXPLANON) 68 mg impl subdermal implant 68 mg by SUBDERMAL route. No current facility-administered medications for this visit. Allergies As of Date: 05/10/2024 Allergen Noted Reaction NICKEL 08/30/2014 Other: See Comments Fully Assessed 03/03/2024 REVIEW OF SYSTEMS Abdomen: No bloating, early satiety, indigestion, or increased flatulence. No abdominal pain, nausea, vomiting, diarrhea, or constipation. Bladder: No dysuria, gross hematuria, urinary frequency, urinary urgency, or incontinence. Breast: No breast lumps, nipple d/c, overlying skin changes, redness or skin retraction. Expanded ROS: N/A Allergies and current medication updated:Yes SENSITIVE EXAM: Sensitive exam not performed. EXAM: LMP 12/19/2021 GENERAL: pleasant, female in no apparent distress EXTREMITIES: Nexplanon insertion site in Left arm. Implant is palpable in the appropriate position, non-tender, and no erythema. ASSESSMENT AND PLAN: Assessment AND Plan Nexplanon in place Due for removal and replacement if desired on 12-06-24. Aj Dee MD ftft~ 30 min / many questions answered Garrett Guerra MA 05/10/2024 10:12 AM Signed Addended by: GARRETT GUERRA on: 05/10/2024 10:12 AM Modules accepted: Orders Aj Dee MD 05/12/2024 8:21 AM Signed Addended by: AJ DEE on: 05/12/2024 08:21 AM Modules accepted: Orders Allergies As of Date: 05/10/2024 Noted Allergy Reaction NICKEL 08/30/2014 14 - Other: See Comments Comments: has trouble with earrings - ears break out Date Reviewed: 05/10/2024 Reviewed by: Garrett Guerra MA - Fully Assessed Primary Visit Diagnosis:Nexplanon in place [Z97.5] Other Visit Diagnosis:Insertion of implantable subdermal contraceptive [Z30.017] Order(s):NEXPLANON REMOVAL [[id number]] Order #: [id number] NEXPLANON INSERTION [[id number]] Order #: [id number] Prescriptions as of 05/12/2024 - FLUoxetine (PROZAC) 10 mg capsule once daily. - traMADol (ULTRAM) 50 mg tablet take 1 tablet by (more content not included)... Normal [facility] NICHOLE ALONSO ([id number]) 5 F Date Time Provider Department 04/05/24 EDILMA VAN During your visit today, we recorded the following information about you: Amairani Prescott LPN 04/05/2024 1:01 PM Signed Pt is calling to request an appt to go over medications. Pt advised message would be sent to nurse and pt would get a call back to schedule appt. JAYSHREE Blunt Fonda, LPN 04/05/2024 3:10 PM Signed Call placed to patient, wanting an appointment with Provider to discuss starting medication for for anxiety. [facility] I wasn't sure if you would see her or not since she's over 18. Patient thinks she can see someone at the for medication management if she has to. Please advise. JAYSHREE Salazar Alexandra L, APRN.GARAGE DOOR INSTALLER 04/06/2024 10:13 AM Signed Patient last seen 05/2023. Will need to schedule with adult provider as she is now over 18 years of age. Can call [phone] to schedule appointment. Edilma Van APRN.GARAGE DOOR INSTALLER Allergies As of Date: 04/05/2024 Noted Allergy Reaction NICKEL 08/30/2014 14 - Other: See Comments Comments: has trouble with earrings - ears break out Date Reviewed: 03/03/2024 Reviewed by: Daniel Rich MA - Fully Assessed Reason for Visit: Appointment [186] Prescriptions as of 04/14/2024 - FLUoxetine (PROZAC) 10 mg capsule once daily. - traMADol (ULTRAM) 50 mg tablet take 1 tablet by mouth every 8 hours NEEDED FOR PAIN for 2 days - penicillin V potassium 500 mg tablet Take 500 mg by mouth. - ibuprofen (MOTRIN) 800 mg tablet Take 800 mg by mouth every 8 hours as needed. - famotidine (PEPCID) 20 mg tablet take 1 tablet by mouth twice a day - dicyclomine (BENTYL) 20 mg tablet take 1 tablet by mouth three times a day if needed - hydrOXYzine pamoate (VISTARIL) 25 mg capsule Take 1 capsule by mouth three times a day as needed. - etonogestrel (NEXPLANON) 68 mg impl subdermal implant 68 mg by SUBDERMAL route. Problem List As Of Date 04/05/2024 Noted Resolved Constipation [K59.00] 01/30/2015 06/03/2019 PTSD (post-traumatic stress disorder) [F43.10] 10/25/2020 Low serum vitamin D [R79.89] 01/25/2021 Vegan diet [Z78.9] 01/25/2021 Major depressive disorder, recurrent episode, m*04/03/2022 Anxiety [F41.9] 04/03/2022 04/25/2022 History of cannabis vapor product use [Z87.898] 04/03/2022 Generalized anxiety disorder [F41.1] 04/25/2022 Subluxation of left patella [S83.002A] 05/21/2022 Depressive disorder [F32.A] 12/06/2021 Exposure to severe acute respiratory syndrome c*07/31/2023 Acute anal fissure [K60.0] 10/15/2023 Bright red rectal bleeding [K62.5] 10/15/2023 Encounter Status:Closed by JUSTYNA NICHOLS on 04/05/24 [facility] 03-04-2024 CNPN Telephone (OBGYWM) NICHOLE ALONSO ([id number]) 5 F Date Time Provider Department 03/04/24 CHI REYNA During your visit today, we recorded the following information about you: Misty Perez RN 03/05/2024 2:40 PM Signed Called and notified patient. Misty Perez RN Allergies As of Date: 03/04/2024 Noted Allergy Reaction NICKEL 08/30/2014 14 - Other: See Comments Comments: has trouble with earrings - ears break out Date Reviewed: 03/03/2024 Reviewed by: Daniel Rich MA - Fully Assessed Reason for Visit: Results [95] Primary Visit Diagnosis:Yeast vaginitis [B37.31] Prescriptions as of 03/05/2024 - sulfamethoxazole-trim ethoprim (BACTRIM DS) 800-160 mg per tablet Take 1 tablet by mouth two times a day for 5 days. - valACYclovir (VALTREX) 500 mg tablet Take 1 tablet by mouth two times a day for 3 days. - FLUoxetine (PROZAC) 10 mg capsule once daily. - traMADol (ULTRAM) 50 mg tablet take 1 tablet by mouth every 8 hours NEEDED FOR PAIN for 2 days - penicillin V potassium 500 mg tablet Take 500 mg by mouth. - ibuprofen (MOTRIN) 800 mg tablet Take 800 mg by mouth every 8 hours as needed. - famotidine (PEPCID) 20 mg tablet take 1 tablet by mouth twice a day - dicyclomine (BENTYL) 20 mg tablet take 1 tablet by mouth three times a day if needed - hydrOXYzine pamoate (VISTARIL) 25 mg capsule Take 1 capsule by mouth three times a day as needed. - etonogestrel (NEXPLANON) 68 mg impl subdermal implant 68 mg by SUBDERMAL route. Problem List As Of Date 03/04/2024 Noted Resolved Constipation [K59.00] 01/30/2015 06/03/2019 PTSD (post-traumatic stress disorder) [F43.10] 10/25/2020 Low serum vitamin D [R79.89] 01/25/2021 Vegan diet [Z78.9] 01/25/2021 Major depressive disorder, recurrent episode, m*04/03/2022 Anxiety [F41.9] 04/03/2022 04/25/2022 History of cannabis vapor product use [Z87.898] 04/03/2022 Generalized anxiety disorder [F41.1] 04/25/2022 Subluxation of left patella [S83.002A] 05/21/2022 Depressive disorder [F32.A] 12/06/2021 Exposure to severe acute respiratory syndrome c*07/31/2023 Acute anal fissure [K60.0] 10/15/2023 Bright red rectal bleeding [K62.5] 10/15/2023 Encounter Status:Closed [facility]ICHO[facility] ([id number]) 5 F Date Time Provider Department 03/04/24 EDNA BETH During your visit today, we recorded the following information about you: Edna Beth APRN.GARAGE DOOR INSTALLER 03/04/2024 11:32 AM Signed Urine culture reveals bacterial growth. There is some resistance to the antibiotic. Will switch to Bactrim. (RX called [facility]) Quit taking the Keflex Follow up with PCP for continued symptoms. Please advise America Shay OCCA 03/04/2024 1:50 PM Signed TC to patient with no answer. Unable to leave VM d/t mailbox is full. Please try again later. THERESE March Brandi, LPN 03/05/2024 10:11 AM Signed Patient given results and verbalized understanding of instructions given. Rosy Pedro LPN Allergies As of Date: 03/04/2024 Noted Allergy Reaction NICKEL 08/30/2014 14 - Other: See Comments Comments: has trouble with earrings - ears break out Date Reviewed: 03/03/2024 Reviewed by: Daniel Rich MA - Fully Assessed Reason for Visit: Results [95] Order(s):sulfamethoxa zole-trimethoprim (BACTRIM DS) 800-160 mg per tabletTake 1 tablet by mouth two times a day for 5 days.Disp: 10 tabletRfl: 0 Prescriptions as of 03/05/2024 - sulfamethoxazole-trim ethoprim (BACTRIM DS) 800-160 mg per tablet Take 1 tablet by mouth two times a day for 5 days. - valACYclovir (VALTREX) 500 mg tablet Take 1 tablet by mouth two times a day for 3 days. - FLUoxetine (PROZAC) 10 mg capsule once daily. - traMADol (ULTRAM) 50 mg tablet take 1 tablet by mouth every 8 hours NEEDED FOR PAIN for 2 days - penicillin V potassium 500 mg tablet Take 500 mg by mouth. - ibuprofen (MOTRIN) 800 mg tablet Take 800 mg by mouth every 8 hours as needed. - famotidine (PEPCID) 20 mg tablet take 1 tablet by mouth twice a day - dicyclomine (BENTYL) 20 mg tablet take 1 tablet by mouth three times a day if needed - hydrOXYzine pamoate (VISTARIL) 25 mg capsule Take 1 capsule by mouth three times a day as needed. - etonogestrel (NEXPLANON) 68 mg impl subdermal implant 68 mg by SUBDERMAL route. Problem List As Of Date 03/04/2024 Noted Resolved Constipation [K59.00] 01/30/2015 06/03/2019 PTSD (post-traumatic stress disorder) [F43.10] 10/25/2020 Low serum vitamin D [R79.89] 01/25/2021 Vegan diet [Z78.9] 01/25/2021 Major depressive disorder, recurrent episode, m*04/03/2022 Anxiety [F41.9] 04/03/2022 04/25/2022 History of cannabis vapor product use [Z87.898] 04/03/2022 Generalized anxiety disorder [F41.1] 04/25/2022 Subluxation of left patella [S83.002A] 05/21/2022 Depressive disorder [F32.A] 12/06/2021 Exposure to severe acute respiratory syndrome c*07/31/2023 Acute anal fissure [K60.0] 10/15/2023 Bright red rectal bleeding [K62.5] 10/15/2023 Prescriptions ordered this encounter Disp Refills Start End SULFAMETHOXAZOLE 800 MG-TRIMETHOPRIM* 10 t* 0 03/04/2024 03/09/2024 Route: ORAL Sig: Take 1 tablet by mouth two times a day for 5 days. Medications Discontinued During This Encounter Prescriptions - cephALEXin (KEFLEX) 500 mg capsule (Discontinued) Take 1 capsule by mouth two times a day for 5 days. Encounter Status:Closed by EDNA BETH on 03/04/24 Normal [facility] BACTERIAL VAGINOSIS NAATon 1 05-04-2023 Lactobacillus crispatus+gasseri+jense bettina + Gardnerella vaginalis + Atopobium vaginae rRNA JENNIFER+probe Ql (Vag fld) Not detected Normal Not detected [facility] Comment on above: Order Comment: Speci men Type: SWAB Ordering Facility: [facility] Address: [address] [place] [address] Performed By: #### B VAMP, CVTV #### [facility] CLIA [id number] [address] [place] [address] [place] C. trachomatis+N. gonorrhoea e DNA JENNIFER+probe Ql (Unsp spec)on 03-03-2024 C. trachomatis rRNA JENNIFER+probe Ql (Unsp spec) Not detected Normal Not detected [facility] Comment on above: Order Comment: Speci men Type: SWAB Ordering Facility: [facility] Address: [address] [place] [address] Performed By: #### B VAMP, CVTV #### [facility] CLIA [id number] [address] [place] [address] [place] N. gonorrhoeae rRNA JENNIFER+probe Ql (Unsp spec) Not detected Normal Not detected [facility] Comment on above: Order Comment: Speci men Type: SWAB Ordering Facility: [facility] Address: [address] [place] [address] Performed By: #### B VAMP, CVTV #### [facility] CLIA [id number] [address] [place] [address] [place] RIRI/TRICHOMONAS NAATon 1 05-04-2023 C. glabrata RNA JENNIFER+probe Ql (Vag fld) Not detected Normal Not detected [facility] Comment on above: Order Comment: Speci men Type: SWAB Ordering Facility: [facility] Address: [address] [place] [address] Performed By: #### C VTV #### [facility] CLIA [id number] [address] [place] [address] [place] Riri sp DNA JENNIFER+probe Ql (Vag fld) Detected Abnormal Not detected [facility] Comment on above: Order Comment: Speci men Type: SWAB Ordering Facility: [facility] Address: [address] [place] [address] Result Comment: The Riri species group target includes C. albicans, C. tropicalis, C. parapsilosis, and C. dubliniensis. Performed By: #### C VTV #### [facility] CLIA [id number] [address] [place] [address] T. vaginalis DNA JENNIFER+probe Ql (Unsp spec) Not detected Normal Not detected [facility] Comment on above: Order Comment: Speci men Type: SWAB Ordering Facility: [facility] Address: [address] [place] [address] Performed By: #### C VTV #### [facility] CLIA [id number] [address] [place] [address] OF [facility] CNOVon 03-03-2024 CNOV Office Visit (OBGYWM ) NICHOLE ALONSO ([id number]) 5 F Date Time Provider Department 03/03/24 4:00 PM EDNA STEVENS OBGYWM During your visit today, we recorded the following information about you: Blood pressure Weight Height Last Period 108/66 59.4 kg 1.632 m 12/19/21 Edna Stevens APRN.CNM 03/03/2024 4:18 PM Signed Nichole is a 19 year old who presents for an annual gynecologic exam without complaints. Presents: alone Menses: None, nexplanon in place Contraception: Nexplanon placed 12/06/21, removal 12/18 HPV vaccine: Yes Last pap smear: never History of STDS: genital HSV 1 - has had 3-4 outbreaks in past year treated with episodic valacyclovir Patient concerns for STD exposure: No. Time with current partner: no current partner. Sexually active with condom. 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 Comments: Sexual Activity: Yes; Male Contraception: Implant PAST MEDICAL HISTORY Diagnosis Date Arm fracture, left 2017 buckle fracture-casted Constipation 01/30/2015 Depression Immunization not carried out because of parent refusal 06/03/2018 Influenza Menstrual cycle problem 12/2016 Nexplanon - 2022 NEGATIVE MEDICAL HISTORY Patellar subluxation, left, initial encounter 2020 PAST SURGICAL HISTORY Procedure Laterality Date NONE FAMILY HISTORY Problem Relation Age of Onset Migraines Mother No Known Problems Father Unknown completely Breast Cancer Maternal Grandmother Early 40's Blood Clots Maternal Grandfather No Known Problems Paternal Grandmother No Known Problems Paternal Grandfather other (Endometriosis) Half-sister Anxiety disorder Half-sister Depression Half-sister Celiac Disease No Family History Inflammatory Bowel Disease No Family History Thyroid No Family History SOCIAL HISTORY Social History Tobacco Use Smoking status: Some Days Types: Cigarettes Passive exposure: Never Smokeless tobacco: Current Tobacco comments: Per pt smoking on the weekends mostly Vaping Use Vaping status: Never Used Substance Use Topics Alcohol use: Yes Drug use: Yes Types: Marijuana Comment: per pt one joint once a week on the weekends does not smoke regularly on week days only sometimes REVIEW OF SYSTEMS Abdomen: No bloating, early satiety, indigestion, or increased flatulence. No abdominal pain, nausea, vomiting, diarrhea, or constipation. Bladder: No dysuria, gross hematuria, urinary frequency, urinary urgency, or incontinence. Breast: No breast lumps, nipple d/c, overlying skin changes, redness or skin retraction. Allergies and current medication updated:Yes SENSITIVE EXAM: The sensitive examination was discussed with the Patient or Patient's Authorized Sr. Consultant. As applicable, any other physician, advance practice provider, medical student, or other health professional student that will be observing or involved in the sensitive examination for educational or training purposes was discussed with the Patient or Authorized Sr. Consultant. The Patient or Authorized Sr. Consultant has agreed to proceed with the sensitive examination. (Sensitive examination includes inspection and/or palpation of the breasts, pelvis, prostate and anorectal regions). EXAM: BP 108/66 Ht 5' 4.25 (1.63m) Wt 131 lb (59.4kg) LMP 12/19/2021 BMI 22.31 kg/(m2). GENERAL: pleasant, in no apparent distress HEENT: Normocephalic, atraumatic, mucus membranes moist, and no lesions NECK: Supple, full range of motion, no adenopathy, and thyroid normal DERMATOLOGY: Normal, without lesions, non-icteric, and non-hirsut CHEST: Normal inspiratory effort Deferred NETWORK OPERATIONS LEAD exam, self swab for STD screening NEURO: alert and oriented x3,exam grossly non-focal EXTREMITIES: normal ASSESSMENT/PLAN: 1. Encounter for gynecological examination (general) (routine) without abnormal findings - ICD9: V72.31, ICD10: Z01.419 (primary diagnosis) - Completed pelvic and breast exam - Encouraged monthly BSE - Follow up for annual exam in one year. 2. Recurrent genital herpes - ICD9: 054.10, ICD10: A60.00 -Will start HSV prophylaxis Valacyclovir 500mg PO once daily 3. Encounter for annual routine gynecological examination - ICD9: V72.31, ICD10: Z01.419 - Completed pelvic and breast exam - Encouraged monthly BSE - Follow up for annual exam in one year. 4. Screen for STD (sexually transmitted disease) - ICD9: V74.5, ICD10: Z11.3 - GONORRHEA/CHLAMYDIA NAAT - SYPHILIS TREPONEMAL W/REFLEX - HIV 1/2 COMBO WITH REFLEX TO DIFFERENTIATION - HEPATITIS C ANTIBODY IA WITH CONFIRMATION - HEPATITIS B SURFACE ANTIGEN 5. Nexplanon in place - ICD9: V45.5 (more content not included)... Normal [facility] Katie 03-03-2024 AMARILISN Telephone (OBGYWM) NICHOLE ALONSO ([id number]) 5 F Date Time Provider Department 03/03/24 KATIE IGLESIAS OBCHAPARROWLayla During your visit today, we recorded the following information about you: Eleonora Geiger RN 03/03/2024 2:31 PM Signed Schwarz, Jadiel, LINDSAY Registered Nurse Signed1:57 PM Patient phones requesting refills as follows: Was in urgent care for possible UTI and results given but now asking for more Valtrex to be called in- looks like this is managed by NETWORK OPERATIONS LEAD Requested Prescriptions Please review and advise. LINDSAY Li Tara, RN 03/03/2024 2:31 PM Signed My Note Signed2:25 PM Tried reaching patient via phone; however, mailbox is full and cannot accept messages at this time. Pt has not been seen since 11/2022 and cancelled 2023 annual. Need annual appt for refill. LINDSAY Paul Trisha, RN 03/05/2024 2:41 PM Signed Rx for Valtrex was sent to pharmacy on 03/03/24. Patient notified. Misty Perez RN Allergies As of Date: 03/03/2024 Noted Allergy Reaction NICKEL 08/30/2014 14 - Other: See Comments Comments: has trouble with earrings - ears break out Date Reviewed: 03/03/2024 Reviewed by: Daniel Rich MA - Fully Assessed Reason for Visit: Appointment [186] Prescriptions as of 03/05/2024 - sulfamethoxazole-trim ethoprim (BACTRIM DS) 800-160 mg per tablet Take 1 tablet by mouth two times a day for 5 days. - valACYclovir (VALTREX) 500 mg tablet Take 1 tablet by mouth two times a day for 3 days. - FLUoxetine (PROZAC) 10 mg capsule once daily. - traMADol (ULTRAM) 50 mg tablet take 1 tablet by mouth every 8 hours NEEDED FOR PAIN for 2 days - penicillin V potassium 500 mg tablet Take 500 mg by mouth. - ibuprofen (MOTRIN) 800 mg tablet Take 800 mg by mouth every 8 hours as needed. - famotidine (PEPCID) 20 mg tablet take 1 tablet by mouth twice a day - dicyclomine (BENTYL) 20 mg tablet take 1 tablet by mouth three times a day if needed - hydrOXYzine pamoate (VISTARIL) 25 mg capsule Take 1 capsule by mouth three times a day as needed. - etonogestrel (NEXPLANON) 68 mg impl subdermal implant 68 mg by SUBDERMAL route. Problem List As Of Date 03/03/2024 Noted Resolved Constipation [K59.00] 01/30/2015 06/03/2019 PTSD (post-traumatic stress disorder) [F43.10] 10/25/2020 Low serum vitamin D [R79.89] 01/25/2021 Vegan diet [Z78.9] 01/25/2021 Major depressive disorder, recurrent episode, m*04/03/2022 Anxiety [F41.9] 04/03/2022 04/25/2022 History of cannabis vapor product use [Z87.898] 04/03/2022 Generalized anxiety disorder [F41.1] 04/25/2022 Subluxation of left patella [S83.002A] 05/21/2022 Depressive disorder [F32.A] 12/06/2021 Exposure to severe acute respiratory syndrome c*07/31/2023 Acute anal fissure [K60.0] 10/15/2023 Bright red rectal bleeding [K62.5] 10/15/2023 Encounter Status:Closed by MISTY PEREZ on 03/05/24 [facility] NICHOLE ALONSO ([id number]) 5 F Date Time Provider Department 03/03/24 BRIAN PEARSON [facility] During your visit today, we recorded the following information about you: Brian Pearson MD 03/03/2024 7:26 AM Signed Vaginal swab was positive for yeast. Diflucan prescription has been sent to the pharmacy. We will notify her if the urine culture is abnormal. Jasmin Thomson MA 03/03/2024 8:19 AM Signed Unable to reach patient. Mailbox full/Mailbox not set up/ Number incorrect. Please try again later. DENISSE Trinidad Tera, RN 03/03/2024 1:57 PM Signed Patient aware. Jadiel Schwarz RN Allergies As of Date: 03/03/2024 Noted Allergy Reaction NICKEL 08/30/2014 14 - Other: See Comments Comments: has trouble with earrings - ears break out Date Reviewed: 03/02/2024 Reviewed by: Fredo Callejas APRN.GARAGE DOOR INSTALLER - Fully Assessed Reason for Visit: Results [95] Cmt: Riri Order(s):fluconazole (DIFLUCAN) 150 mg tabletTake 1 tablet by mouth once daily for 1 day.Disp: 1 tabletRfl: 0 Prescriptions as of 03/03/2024 - fluconazole (DIFLUCAN) 150 mg tablet Take 1 tablet by mouth once daily for 1 day. - cephALEXin (KEFLEX) 500 mg capsule Take 1 capsule by mouth two times a day for 5 days. - FLUoxetine (PROZAC) 10 mg capsule once daily. - traMADol (ULTRAM) 50 mg tablet take 1 tablet by mouth every 8 hours NEEDED FOR PAIN for 2 days - penicillin V potassium 500 mg tablet Take 500 mg by mouth. - ibuprofen (MOTRIN) 800 mg tablet Take 800 mg by mouth every 8 hours as needed. - famotidine (PEPCID) 20 mg tablet take 1 tablet by mouth twice a day - dicyclomine (BENTYL) 20 mg tablet take 1 tablet by mouth three times a day if needed - valACYclovir (VALTREX) 1 gram tablet Take 1 tablet by mouth every afternoon. - hydrOXYzine pamoate (VISTARIL) 25 mg capsule Take 1 capsule by mouth three times a day as needed. - etonogestrel (NEXPLANON) 68 mg impl subdermal implant 68 mg by SUBDERMAL route. Problem List As Of Date 03/03/2024 Noted Resolved Constipation [K59.00] 01/30/2015 06/03/2019 PTSD (post-traumatic stress disorder) [F43.10] 10/25/2020 Low serum vitamin D [R79.89] 01/25/2021 Vegan diet [Z78.9] 01/25/2021 Major depressive disorder, recurrent episode, m*04/03/2022 Anxiety [F41.9] 04/03/2022 04/25/2022 History of cannabis vapor product use [Z87.898] 04/03/2022 Generalized anxiety disorder [F41.1] 04/25/2022 Subluxation of left patella [S83.002A] 05/21/2022 Depressive disorder [F32.A] 12/06/2021 Exposure to severe acute respiratory syndrome c*07/31/2023 Acute anal fissure [K60.0] 10/15/2023 Bright red rectal bleeding [K62.5] 10/15/2023 Prescriptions ordered this encounter Disp Refills Start End FLUCONAZOLE 150 MG TABLET 1 ta* 0 03/03/2024 03/04/2024 Route: ORAL Sig: Take 1 tablet by mouth once daily for 1 day. Encounter Status:Closed by JADIEL SCHWARZ on 03/03/24 Normal [facility] HBV surface Ag Ser Qlon 02-21 HBV surface Ag Ql (S) Negative Normal Negative [facility] Comment on above: Order Comment: Speci men Type: BLOOD SPECIMENOrdering Facility: [facility] Address: [address] [place] [address] Performed By: #### 5 195-3, 98923-3, 19114-7 ####[facility] LABCL[facility] [id number] [place] [address] [place] HCV Ab Ser Qlon 03-03-2024 HCV Ab Ql (S) Negative Normal Negative [facility] Comment on above: Order Comment: Speci men Type: SWAB Ordering Facility: [facility] Address: [address] [place] [address] Result Comment: The result suggests no evidence of active infection with Hepatitis C virus. Should recent infection be suspected, repeat testing may be considered 4-6 weeks after this draw. Performed By: #### B VAMP, CVTV #### [facility] CLIA [id number] [address] [place] [address] [place] HIV 1+2 Ab IA Qlon HIV 1 and 2 Ab IA.rapid Nom (S/P/Bld) Normal [facility] Comment on above: Order Comment: Speci men Type: BLOOD SPECIMENOrdering Facility: [facility] Address: [address] [place] [address] Result Comment: Test not indicated. Performed By: #### 5 195-3, 63528-7, 28453-7 ####[facility] [id number] [place] [address] [place] HIV 1+2 Ab+HIV1 p24 Ag IA Ql Non-Reactive Normal Nonreactive [facility] Comment on above: Order Comment: Speci men Type: BLOOD SPECIMENOrdering Facility: [facility] Address: [address] [place] [address] Performed By: #### 5 195-3, 80115-9, 79098-6 ####[facility] [id number] [place] [address] [place] HIV immunoassay testing algorithm interpretation (S/P/Bld) [Interp] Normal [facility] Comment on above: Order Comment: Speci men Type: BLOOD SPECIMENOrdering Facility: [facility] Address: [address] [place] [address] Result Comment: No e vidence of HIV-1 or HIV-2 infection. Should recent infection be suspected, repeat testing may be considered 2-3 weeks after this draw. [place] Rev. Code 3701.243(E): This information has been disclosed to you from confidential records protected from disclosure by state law. ???You shall make no further disclosure of this information without the specific, written, and informed release of the individual to whom it pertains or as otherwise permitted by state law. A general authorization for the release of medical or other information is not sufficient for the purpose of the release of HIV test results or diagnoses. Performed By: #### 5 195-3, 35074-5, 27702-2 ####[facility] [id number] [place] [address] [place] Reagin and Treponema pallidu m IgG and IgM [Interp]on 03-03-2024 T. pallidum IgG+IgM IA Ql (S) Non-Reactive Normal Nonreactive [facility] Comment on above: Order Comment: Speci men Type: BLOOD SPECIMENOrdering Facility: [facility] Address: [address] [place] [address] Performed By: #### 5 195-3, 47938-4, 22777-5 ####[facility] LABCLIA [id number] [place] [address] [place] Reagin+T pallidum IgG+IgM Se rPl-Impon 03-03-2024 Reagin and Treponema pallidum IgG and IgM [Interp] Cannot exclude recent Treponemal infection if specimen collected within 7-10 days after appearance of suspect lesions or 2-3 weeks after an exposure. Clinical correlation is required. Normal [facility] Comment on above: Order Comment: Speci men Type: BLOOD SPECIMENOrdering Facility: [facility] Address: [address] [place] [address] Performed By: #### 5 195-3, 90443-6, 65692-5 ####[facility] LABCLIA [id number] [place] [address] [place] BACTERIAL VAGINOSIS NAATon 1 05-03-2023 Lactobacillus crispatus+gasseri+jense bettina + Gardnerella vaginalis + Atopobium vaginae rRNA JENNIFER+probe Ql (Vag fld) Not detected Normal Not detected [facility] Comment on above: Order Comment: Speci men Type: SWAB Ordering Facility: [facility] Address: [address] [place] [address] Performed By: #### JORJE PACKV #### [facility] CLIA [id number] [address] [place] [address] [place] Bacteria Ur Culton 4 Bacteria identified Cx Nom (U) ORGANISM ID: 1 10,000 -<50,000 CFU/ml Serratia marcescens ORGANISM ID: 1 (SERRATIA MARCESCENS) ------ ANTIBIOTIC INTERPRETATION YAHAIRA STATUS REFERENCE RANGE ------ Ampicillin R F Cefazolin R >=64 F Susceptible 0-16 , Intermediate <0 or >16 , Resistant >16 For uncomplicated urinary tract infections, cefazolin results can be used to predict susceptibility or resistance to cephalexin. Ceftriaxone S <=1 F Susceptible <=1 , Intermediate >1 , Resistant >=4 Cefepime S <=1 F Susceptible <=2 , Susceptible-Dose Dependent >2 , Resistant >=16 Ertapenem S <=0.5 F Susceptible <=0.5 , Intermediate >.5 , Resistant >1 Meropenem S <=0.25 F Susceptible <=1 , Intermediate >1 , Resistant >2 Ampicillin/Sulbact R F Piperacillin/Tazobac Testing F Call lab within 72 hours if susceptibility results are needed for this antimicrobial. Gentamicin S <=1 F Susceptible <=2 , Intermediate >2 , Resistant >=8 Tobramycin S <=1 F Susceptible <4 , Intermediate >=4 , Resistant >=8 Trimeth sulfameth S <=20 F Susceptible <=40 , Resistant >40 Ciprofloxacin S <=0.25 F Susceptible <0.5 , Intermediate >=.5 , Resistant >=1 Nitrofurantoin R 128 F Susceptible <=32 , Intermediate >32 , Resistant >64 Abnormal [facility] Comment on above: Performed By: #### 6 30-4 ####[facility] LABCLIA [id number] [place] [address] [place] RIRI/TRICHOMONAS NAATon 1 05-03-2023 C. glabrata RNA JENNIFER+probe Ql (Vag fld) Not detected Normal Not detected [facility] Comment on above: Order Comment: Speci men Type: SWAB Ordering Facility: [facility] Address: [address] [place] [address] Performed By: #### B VAMP, CVTV #### [facility] CLIA [id number] [address] [place] [address] [place] Riri sp DNA JENNIFER+probe Ql (Vag fld) Detected Abnormal Not detected [facility] Comment on above: Order Comment: Speci men Type: SWAB Ordering Facility: [facility] Address: [address] [place] [address] Result Comment: The Riri species group target includes C. albicans, C. tropicalis, C. parapsilosis, and C. dubliniensis. Performed By: #### B VAMP, CVTV #### [facility] CLIA [id number] [address] [place] [address] [place] T. vaginalis DNA JENNIFER+probe Ql (Unsp spec) Not detected Normal Not detected [facility] Comment on above: Order Comment: Speci men Type: SWAB Ordering Facility: [facility] Address: [address] [place] [address] Performed By: #### B VAMP, CVTV #### [facility] CLIA [id number] [address] [place] [address] [place] CNOVon 03-02-2024 CNOV Office Visit (UCWSTR ) NICHOLE ALONSO ([id number]) 5 F Date Time Provider Department 03/02/24 3:15 PM FREDO CALLEJAS [facility] During your visit today, we recorded the following information about you: Temperature Pulse Respiration Blood pressure 97.8 degrees 68/minute 18/minute 102/62 Weight 59.7 kg Fredo Callejas, SHIP SCRAPER.GARAGE DOOR INSTALLER 03/02/2024 3:47 PM Signed Subjective HPI Nontoxic-appearing female presents urgent care chief complaint possible UTI. Duration of symptoms 1 day. Associated symptoms vaginal irritation and urinary frequency urgency dysuria. History of UTIs this feels similar. OTC medications none. Denies any significant pain. Rates pain 2-3 out of 10. States she is sexually active. No concerns for STDs. Denies chance of . Does have Nexplanon. Denies any vaginal discharge. No fevers flank pain or abdominal pain. Past medical history prescription medications allergies reviewed. .Patient presents with: Urinary Frequency: Frequency, urgency and burning x 1 day PAST MEDICAL HISTORY Diagnosis Date Arm fracture, left 2016 buckle fracture-casted Constipation 01/30/2015 Depression Immunization not carried out because of parent refusal 06/03/2018 Influenza Menstrual cycle problem 12/2016 Nexplanon - 2022 NEGATIVE MEDICAL HISTORY Patellar subluxation, left, initial encounter 2020 PAST SURGICAL HISTORY Procedure Laterality Date NONE ALLERGIES Nickel MEDICATIONS FLUoxetine (PROZAC) 10 mg capsule once daily. traMADol (ULTRAM) 50 mg tablet take 1 tablet by mouth every 8 hours NEEDED FOR PAIN for 2 days penicillin V potassium 500 mg tablet Take 500 mg by mouth. ibuprofen (MOTRIN) 800 mg tablet Take 800 mg by mouth every 8 hours as needed. famotidine (PEPCID) 20 mg tablet take 1 tablet by mouth twice a day dicyclomine (BENTYL) 20 mg tablet take 1 tablet by mouth three times a day if needed valACYclovir (VALTREX) 1 gram tablet Take 1 tablet by mouth every afternoon. hydrOXYzine pamoate (VISTARIL) 25 mg capsule Take 1 capsule by mouth three times a day as needed. etonogestrel (NEXPLANON) 68 mg impl subdermal implant 68 mg by SUBDERMAL route. FAMILY HISTORY Problem Relation Age of Onset Migraines Mother No Known Problems Father Unknown completely Breast Cancer Maternal Grandmother Early 40's Blood Clots Maternal Grandfather No Known Problems Paternal Grandmother No Known Problems Paternal Grandfather other (Endometriosis) Half-sister Anxiety disorder Half-sister Depression Half-sister Celiac Disease No Family History Inflammatory Bowel Disease No Family History Thyroid No Family History Social History Tobacco Use Smoking status: Some Days Types: Cigarettes Passive exposure: Never Smokeless tobacco: Current Tobacco comments: Per pt smoking on the weekends mostly Vaping Use Vaping status: Never Used Substance Use Topics Alcohol use: No Drug use: Yes Types: Marijuana Comment: per pt one joint once a week on the weekends does not smoke regularly on week days only sometimes BP 102/62 Temp 36.6 ?C (97.8 ?F) (Tympanic) Wt 59.7 kg (131 lb 9.8 oz) LMP 12/19/2021 (Approximate) Review of Systems Constitutional: Negative for chills, fever and malaise/fatigue. Cardiovascular: Negative for chest pain. Gastrointestinal: Negative for abdominal pain, constipation, diarrhea, nausea and vomiting. Genitourinary: Positive for dysuria, frequency and urgency. Negative for flank pain and hematuria. Musculoskeletal: Negative for myalgias. Objective Physical Exam Vitals and nursing note reviewed. Constitutional: General: She is not in acute distress. Appearance: She is not diaphoretic. HENT: Head: Jaw: No trismus. Right Ear: Hearing normal. No decreased hearing noted. No drainage, swelling or tenderness. Tympanic membrane is not perforated, erythematous or bulging. Left Ear: Hearing normal. No decreased hearing noted. No drainage, swelling or tenderness. Tympanic membrane is not perforated, erythematous or bulging. Mouth/Throat: Pharynx: Uvula midline. No uvula swelling. Tonsils: No tonsillar abscesses. Cardiovascular: Rate and Rhythm: Normal rate and regular rhythm. Pulses: Normal pulses. Pulmonary: Effort: Pulmonary effort is normal. No respiratory distress. Breath sounds: Normal breath sounds. Chest: Chest wall: No tenderness. Abdominal: General: Bowel sounds are normal. There is no distension. Palpations: Abdomen is soft. Abdomen is not rigid. Tenderness: There is no abdominal tenderness. There is no right CVA tenderness, left CVA tenderness, guarding or rebound. Negative signs include Funes's sign and McBurney's sign. Musculoskeletal: General: No tenderness. Lymphadenopathy: Head: Right side of head: No submental, submandibular, tonsillar, preauricular, posterior auricular or occip (more content not included)... Normal [facility] UA DIP, URINE (POC)on 2023 BILIRUBIN UA (POCT) Negative Negative [facility] CLARITY UA (POCT) Clear [facility] COLOR UA (POCT) Yellow [facility] GLUCOSE UA (POCT) Negative Negative mg/dL [facility] Hemoglobin Ql (U) Negative Negative [facility] Interpretation and review of laboratory results Abnormal [facility] KETONE UA (POCT) Negative Negative mg/dL [facility] LEUKOCYTES UA (POCT) Small Abnormal Negative [facility] NITRITE UA (POCT) Negative [facility] PH UA (POCT) 6.0 4.5 - 8.0 [facility] Protein Ql (U) Negative Negative mg/dL [facility] SPECIFIC GRAVITY UA (POCT) <=1.005 Abnormal 1.005 - 1.030 [facility] UROBILINOGEN UA (POCT) 0.2 Normal E.U./d L [facility] Location:[address], [place], [place], [id number] [place] [address] POINT OF CARE [facility] CNOVon 12-29-2023 CNOV Office Visit (PEDSWS ) NICHOLE ALONSO ([id number]) 5 F Date Time Provider Department 12/29/23 4:30 PM SRINI [facility]STON [facility] During your visit today, we recorded the following information about you: Temperature Pulse Respiration Blood pressure 97.4 degrees 80/minute 14/minute 98/62 Weight 56.5 kg Srini Kingston MD 12/30/2023 8:47 AM Signed PEDIATRIC SICK VISIT SUBJECTIVE: Nichole Alonso is a 18 year old accompanied by self. Patient presents with: Follow up: Ingested borax - follow up per poison control History was obtained from: patient The patient is an 18-year-old female presenting with symptoms subsequent to unintentional Borax ingestion. Symptoms developed while assisting her grandmother, who was consuming Borax under the belief it had health benefits. The patient unknowingly ingested Borax daily for approximately two weeks via a morning smoothie prepared by her grandmother who feels it has health benefits . Approximately four to five days ago, the patient ceased ingestion after noting symptoms which included a rash, cracked lips, and general fatigue. Gastrointestinal symptoms such as stomach discomfort were also reported. The patient experienced mild bladder discomfort one day, which has since resolved. Notably, all symptoms have started improving since cessation of Borax intake. Urine output has remained normal The patient consulted with poison control, who advised monitoring symptoms and following up with a healthcare provider. Poison control did not express significant concern, assuming the patient would not know the exact amount ingested. The only lingering symptom involves the healing of her cracked lips, for which she has been applying [id number] ointments. HISTORY: ACTIVE PROBLEM LIST Ptsd (Post-Traumatic Stress Disorder) Low Serum Vitamin D Vegan Diet Major Depressive Disorder, Recurrent Episode, Moderate (Hcc) History of Cannabis Vapor Product Use Generalized Anxiety Disorder Subluxation of Left Patella Depressive Disorder Exposure to Severe Acute Respiratory Syndrome Coronavirus 2 (Sars-Cov-2) Acute Anal Fissure Bright Red Rectal Bleeding PAST MEDICAL HISTORY Diagnosis Date Arm fracture, left 2016 buckle fracture-casted Constipation 01/30/2015 Depression Immunization not carried out because of parent refusal 06/03/2018 Influenza Menstrual cycle problem 12/2016 Nexplanon - 2022 NEGATIVE MEDICAL HISTORY Patellar subluxation, left, initial encounter 2020 PAST SURGICAL HISTORY Procedure Laterality Date NONE Allergies: ALLERGIES Allergen Reactions Nickel Other: See Comments has trouble with earrings - ears break out Medications: ibuprofen (MOTRIN) 800 mg tablet Take 800 mg by mouth every 8 hours as needed. famotidine (PEPCID) 20 mg tablet take 1 tablet by mouth twice a day dicyclomine (BENTYL) 20 mg tablet take 1 tablet by mouth three times a day if needed valACYclovir (VALTREX) 1 gram tablet Take 1 tablet by mouth every afternoon. etonogestrel (NEXPLANON) 68 mg impl subdermal implant 68 mg by SUBDERMAL route. FLUoxetine (PROZAC) 10 mg capsule once daily. traMADol (ULTRAM) 50 mg tablet take 1 tablet by mouth every 8 hours NEEDED FOR PAIN for 2 days penicillin V potassium 500 mg tablet Take 500 mg by mouth. hydrOXYzine pamoate (VISTARIL) 25 mg capsule Take 1 capsule by mouth three times a day as needed. OBJECTIVE: BP 98/62 Pulse 80 Temp 36.3 ?C (97.4 ?F) (Temporal) Resp 14 Wt 56.5 kg (124 lb 9 oz) LMP 12/19/2021 (Approximate) General: alert and active in no apparent distress Eyes: conjunctiva clear Ears: TMs translucent bilaterally, normal landmarks noted Nose: no rhinorrhea, no mucosal edema OP: no lesions, no erythema , some chapped lips Neck: supple, no adenopathy Lungs: clear to auscultation bilaterally, good air exchange, no retractions CVS: Normal rate, regular rhythm, no murmur Abdomen: soft, nondistended, nontender, and no hepatosplenomegaly or masses Skin: No rashes, lesions or skin changes ASSESSMENT/PLAN: Encounter Diagnosis ICD-10-CM 1. Toxic effect of borax T54.91XA 18-year-old female with a history of inadvertent Borax ingestion presenting with a rash, cracked lips, fatigue, and gastrointestinal discomfort. Symptoms have been gradually improving since the cessation of ingestion. The patient's clinical presentation aligns with a mild toxic reaction to Borax, which may resolve with the discontinuation of exposure. The lack of significant concern from poison control is reassuring, given the patient's reported improvement. 1. Borax Ingestion The primary concern is potential mild Borax toxicity due to its consumption over approximately two weeks. The patient's symptoms, including skin irritation, fatigue, and transient bladder discomfort, are consistent with Borax exposure. As (more content not included)... Normal [facility] Basic Metabolic Profile (BMP )on 10-10-2023 BUN/CRE 10.2 RATIO Normal 10-20 [facility] Comment on above: Performed By: #### L 100.0100, L500.2500 #### [facility] [address] [place], [address] CA,Total 9.2 mg/dL Normal 8.5-10.1 [facility] Comment on above: Performed By: #### L 100.0100, L500.2500 #### [facility] [address] [place], [address] Chloride [Moles/Vol] 106 mmol/L Normal 98-107 [facility] Comment on above: Performed By: #### L 100.0100, L500.2500 #### [facility] [address] [place], [address] CO2 [Moles/Vol] 26.0 mmol/L Normal 21.0-32.0 [facility] Comment on above: Performed By: #### L 100.0100, L500.2500 #### [facility] [address] [place], [address] Creatinine [Mass/Vol] 0.78 mg/dL Normal 0.55-1.02 [facility] Comment on above: Result Comment: The validity of the calculated GFR GFRAA in patients over 70 years has not been determined. Clinical correlation is essential. Performed By: #### L 100.0100, L500.2500 #### [facility] [address] [place], [address] ECRCL 100.82 ml/min Normal [facility] Comment on above: Performed By: #### L 100.0100, L500.2500 #### [facility] [address] [place], [address] EST GFR - AA 122 mL/min Normal >60 [facility] Comment on above: Result Comment: Afri can [place] GFR Calc Performed By: #### L 100.0100, L500.2500 #### [facility] [address] [place], [address] GAP 8 Normal 5-15 [facility] Comment on above: Performed By: #### L 100.0100, L500.2500 #### [facility] [address] [place], [address] GFR/1.73 sq M.predicted among non-blacks MDRD (S/P/Bld) [Vol rate/Area] 101 mL/min/{1.73_m2} Normal >60 [facility] Comment on above: Result Comment: Non- GFR Calc Performed By: #### L 100.0100, L500.2500 #### [facility] [address] [place], [address] Glucose [Mass/Vol] 69 mg/dL Low 74-106 [facility] Comment on above: Performed By: #### L 100.0100, L500.2500 #### [facility] [address] [place], [address] Potassium [Moles/Vol] 4.3 mmol/L Normal 3.5-5.1 [facility] Comment on above: Result Comment: Mode rate Hemolysis, Result may be falsely increased. Performed By: #### L 100.0100, L500.2500 #### [facility]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 [facility] Urea nitrogen [Mass/Vol] 6 mg/dL 5 - 18 mg/dL [facility] FERRITIN BLDon 12-05-2021 Ferritin [Mass/Vol] 16.6 ng/mL 14.7 - 2 05.1 ng/mL [facility] Iron and Iron binding capaci ty panelon 12-05-2021 Iron [Mass/Vol] 69 ug/dL 41 - 186 ug/dL [facility] Iron binding capacity [Mass/Vol] 360 ug/dL 232 - 386 ug/dL [facility] Iron/TIBC [Molar ratio] 19.2 % 15.0 - 57.0 % [facility] T4 FREE/FREE THYROXon 2021 Free T4 [Mass/Vol] 1.1 ng/dL 0.8 - 1.5 ng/dL [facility] TSH BLDon 12-05-2021 TSH Qn 0.900 m[IU]/L 0.510 - 4.300 mIU/L [facility] UA DIP, URINE (POC)on 2021 BILIRUBIN UA (POCT) Negative Negative [facility] CLARITY UA (POCT) Clear [facility] COLOR UA (POCT) Yellow [facility] GLUCOSE UA (POCT) Negative Negative mg/dL [facility] HEMOGLOBIN/BLOOD UA (POCT) Negative Negative [facility] KETONE UA (POCT) Negative Negative mg/dL [facility] LEUKOCYTES UA (POCT) Negative Negative [facility] NITRITE UA (POCT) Negative Negative [facility] PH UA (POCT) 7.5 4.5 - 8.0 [facility] Protein Ql (U) 100 mg/dL Abnormal Negative mg/dL [facility] SPECIFIC GRAVITY UA (POCT) 1.020 1.005 - 1.030 [facility] UROBILINOGEN UA (POCT) 0.2 E.U./dL Normal E.U./ dL [facility] VITAMIN B12 BLOODon 12-06-19 Cobalamin (Vitamin B12) [Mass/Vol] 933 pg/mL 232 - 1,245 pg/mL [facility] VITAMIN D 25 HYDROXYon 12-05 25-hydroxyvitamin D3 [Mass/Vol] 40.5 ng/mL 31.0 - 80.0 ng/mL [facility] CBC W Auto Differential pane l (Bld)on 12-04-2021 Abs Immature Gran <0.04 k/uL [facility] Basophils (Bld) [#/Vol] 0.06 10*3/uL <0.11 k/uL [facility] Basophils/100 WBC (Bld) 0.8 % [facility] Differential cell count method Nom (Bld) Auto [facility] Eosinophils (Bld) [#/Vol] 0.04 10*3/uL <0.46 k/uL [facility] Eosinophils/100 WBC (Bld) 0.5 % [facility] Erythrocyte distribution width (RBC) [Ratio] 13.1 % 11.5 - 15.0 % [facility] Hematocrit (Bld) [Volume fraction] 37.7 % 36.0 - 46.0 % [facility] Hemoglobin (Bld) [Mass/Vol] 11.9 g/dL 11.5 - 15.5 g/dL [facility] Immature Gran % 0.3 % [facility] Lymphocytes (Bld) [#/Vol] 1.69 10*3/uL 1.00 - 4.00 k/uL [facility] Lymphocytes/100 WBC (Bld) 22.0 % [facility] MCH (RBC) [Entitic mass] 31.2 pg 26.0 - 34.0 pg [facility] MCHC (RBC) [Mass/Vol] 31.6 g/dL 30.5 - 36.0 g/dL [facility] MCV (RBC) [Entitic vol] 98.7 fL 80.0 - 100.0 fL [facility] Monocytes (Bld) [#/Vol] 0.44 10*3/uL <0.87 k/uL [facility] Monocytes/100 WBC (Bld) 5.7 % [facility] Neutrophils (Bld) [#/Vol] 5.42 10*3/uL 1.45 - 7.50 k/uL [facility] Neutrophils/100 WBC (Bld) 70.7 % [facility] Nucleated RBC (Bld) [#/Vol] <0.01 k/uL [facility] Nucleated RBC/100 WBC (Bld) [Ratio] 0.0 /100 WBC [facility] Platelet mean volume (Bld) [Entitic vol] 10.9 fL 9.0 - 12.7 fL [facility] Platelets (Bld) [#/Vol] 363 10*3/uL 150 - 400 k /uL [facility] RBC (Bld) [#/Vol] 3.82 10*6/uL Low 3.90 - 5.2 0 m/uL [facility] WBC (Bld) [#/Vol] 7.67 10*3/uL 3.70 - 11. 00 k/uL [facility] XR Knee - left 4 Viewson IMPRESSION: Tiny osseous fragments are seen along the medial condyle and medial aspect of the patella. Mechanism of trauma is uncertain. Practical Nursing Instructor: CLIVE Transcribe Date/Time: Jan 27 2020 8:13P Dictated by : ARTEMIO MONSIVAIS MD This examination was interpreted and the report reviewed and electronically signed by: ARTEMIO MONSIVAIS MD on Jan 27 2020 8:17PM [facility] DIVISION OF RADIOLOGY * * *Final Report* * * DATE OF EXAM: Jan 27 2020 8:00PM WOX 5202 - XR KNEE 4V AP/PA BOTH+LAT/SLAVA LT / PROCEDURE REASON: Acute pain of left knee * * * * Physician Interpretation * * * * EXAMINATION: XR KNEE 4V AP/PA BOTH+LAT/SLAVA LT HISTORY: left medial knee pain after twisting from ballet Acute pain of left knee . TECHNIQUE: XR KNEE 4V AP/PA BOTH+LAT/SLAVA LT Laterality: LEFT Number of different views (projections): 4 M: XB_1 COMPARISON: None. RESULT: FRACTURE: Tiny osseous fragment at the medial aspect of the left patella. Curvilinear fragment along the articular surface of the medial condyle. ALIGNMENT: Normal. EFFUSION: No knee effusion. SOFT TISSUES: Normal. OTHER FINDINGS: None. DIVISION OF RADIOLOGY Provider, [facility] - 01/27/2020 * * *Final Report* * * DATE OF EXAM: Jan 27 2020 8:00PM WOX 5202 - XR KNEE 4V AP/PA BOTH+LAT/SLAVA LT / PROCEDURE REASON: Acute pain of left knee * * * * Physician Interpretation * * * * EXAMINATION: XR KNEE 4V AP/PA BOTH+LAT/SLAVA LT HISTORY: left medial knee pain after twisting from ballet Acute pain of left knee . TECHNIQUE: XR KNEE 4V AP/PA BOTH+LAT/SLAVA LT Laterality: LEFT Number of different views (projections): 4 M: XB_1 COMPARISON: None. RESULT: FRACTURE: Tiny osseous fragment at the medial aspect of the left patella. Curvilinear fragment along the articular surface of the medial condyle. ALIGNMENT: Normal. EFFUSION: No knee effusion. SOFT TISSUES: Normal. OTHER FINDINGS: None. IMPRESSION IMPRESSION: Tiny osseous fragments are seen along the medial condyle and medial aspect of the patella. Mechanism of trauma is uncertain. Practical Nursing Instructor: CLIVE Transcribe Date/Time: Jan 27 2020 8:13P Dictated by : ARTEMIO MONSIVAIS MD This examination was interpreted and the report reviewed and electronically signed by: ARTEMIO MONSIVAIS MD on Jan 27 2020 8:17PM EST [facility] Radiology Study observation (narrative) Atiya vergara [facility] XR Knee - left 4 ViewsOrdere d By: Ccf Provider on 01-27-2020 [facility] Vital Signs Date Time Vital Sign Value Performing Clinician Facility 12-02-2024 13:20-0400 Body mass index (BMI) [Ratio] 21.94 kg/m2 Merly Don SHIP SCRAPER.GARAGE DOOR INSTALLER Work Phone: [facility] 12-02-2024 13:20-0400 Body weight 58.42 kg Merly Watson SHIP SCRAPER.GARAGE DOOR INSTALLER Work Phone: [facility] 12-02-2024 13:20-0400 Diastolic blood pressure 64 mm[Hg] Merly Don SHIP SCRAPER.GARAGE DOOR INSTALLER Work Phone: [facility] 12-02-2024 13:20-0400 Systolic blood pressure 116 mm[Hg] Merly Watson SHIP SCRAPER.GARAGE DOOR INSTALLER Work Phone: [facility] 10-25-2024 08:47-0400 Body mass index (BMI) [Ratio] 21.93 kg/m2 Cassandra Swank SHIP SCRAPER.GARAGE DOOR INSTALLER Work Phone: [facility] 10-25-2024 08:47-0400 Body temperature 97.3 [degF] Cassandra Swank SHIP SCRAPER.GARAGE DOOR INSTALLER Work Phone: [facility] 10-25-2024 08:47-0400 Body weight 58.4 kg Cassandra Swank SHIP SCRAPER.GARAGE DOOR INSTALLER Work Phone: [facility] 10-25-2024 08:47-0400 Diastolic blood pressure 68 mm[Hg] Cassandra Swank SHIP SCRAPER.GARAGE DOOR INSTALLER Work Phone: [facility] 10-25-2024 08:47-0400 Heart rate 78 /min Cassandra Swank SHIP SCRAPER.GARAGE DOOR INSTALLER Work Phone: [facility] 10-25-2024 08:47-0400 Respiratory rate 16 /min Cassandra Swank SHIP SCRAPER.GARAGE DOOR INSTALLER Work Phone: [facility] 10-25-2024 08:47-0400 SaO2% (BldA) [Mass fraction] 100 % Cassandra Swank SHIP SCRAPER.GARAGE DOOR INSTALLER Work Phone: [facility] 10-25-2024 08:47-0400 Systolic blood pressure 102 mm[Hg] Cassandra Swank SHIP SCRAPER.GARAGE DOOR INSTALLER Work Phone: [facility] 08-25-2024 15:33-0400 Body temperature 98.29 [degF] Fredo Pendlebury SHIP SCRAPER.GARAGE DOOR INSTALLER Work Phone: [facility] 08-25-2024 15:33-0400 Diastolic blood pressure 76 mm[Hg] Fredo Pendlebury SHIP SCRAPER.GARAGE DOOR INSTALLER Work Phone: [facility] 08-25-2024 15:33-0400 Heart rate 70 /min Fredo Pendlebury SHIP SCRAPER.GARAGE DOOR INSTALLER Work Phone: [facility] 08-25-2024 15:33-0400 Respiratory rate 19 /min Fredo Pendlebury SHIP SCRAPER.GARAGE DOOR INSTALLER Work Phone: [facility] 08-25-2024 15:33-0400 SaO2% (BldA) [Mass fraction] 100 % Fredo Pendlebury SHIP SCRAPER.GARAGE DOOR INSTALLER Work Phone: [facility] 08-25-2024 15:33-0400 Systolic blood pressure 94 mm[Hg] Fredo Pendlebury SHIP SCRAPER.GARAGE DOOR INSTALLER Work Phone: [facility] 06-27-2024 01:19-0400 Body temperature 98.2 [degF] Dr. Chacha Kim MD Work Phone: [facility] 06-27-2024 01:19-0400 Diastolic blood pressure 57 mm[Hg] Dr. Chacha Kim MD Work Phone: [facility] 06-27-2024 01:19-0400 Heart rate 58 /min Dr. Chacha Kim MD Work Phone: [facility] 06-27-2024 01:19-0400 Respiratory rate 16 /min Dr. Chacha Kim MD Work Phone: [facility] 06-27-2024 01:19-0400 SaO2% (BldA) [Mass fraction] 100 % Dr. Chacha Kim MD Work Phone: 1(925)193-133051 [place] [address] 06-27-2024 01:19-0400 Systolic blood pressure 95 mm[Hg] Dr. Chacha Kim MD Work Phone: 2(354)[phone] [place] [address] 06-26-2024 23:03-0400 Body height 162.[address] Chacha Kim MD Work Phone: 9(489)[phone] [place] [address] 06-26-2024 23:03-0400 Body mass index (BMI) [Percentile] Per age and sex 45.8 % Dr. Chacha Kim MD Work Phone: 1(031)599-982051 [place] [address] 06-26-2024 23:03-0400 Body mass index (BMI) [Ratio] 21.3 kg/m2 Dr. Chacha Kim MD Work Phone: 4(787)[phone] [place] [address] 06-26-2024 23:03-0400 Body weight 56.[address] Chacha Kim MD Work Phone: [facility] 06-17-2024 18:51-0400 Body mass index (BMI) [Ratio] 21.33 kg/m2 Hunter Moomaw SHIP SCRAPER.GARAGE DOOR INSTALLER Work Phone: [facility] 06-17-2024 18:51-0400 Body temperature 99.61 [degF] Hunter Moomaw SHIP SCRAPER.GARAGE DOOR INSTALLER Work Phone: [facility] 06-17-2024 18:51-0400 Body weight 56.8 kg Hunter Moomaw SHIP SCRAPER.GARAGE DOOR INSTALLER Work Phone: [facility] 06-17-2024 18:51-0400 Diastolic blood pressure 81 mm[Hg] Hunter Moomaw SHIP SCRAPER.GARAGE DOOR INSTALLER Work Phone: [facility] 06-17-2024 18:51-0400 Heart rate 111 /min Hunter Moomaw SHIP SCRAPER.GARAGE DOOR INSTALLER Work Phone: [facility] 06-17-2024 18:51-0400 Respiratory rate 18 /min Hunter Moomaw SHIP SCRAPER.GARAGE DOOR INSTALLER Work Phone: [facility] 06-17-2024 18:51-0400 SaO2% (BldA) [Mass fraction] 99 % Hunter Moomaw SHIP SCRAPER.GARAGE DOOR INSTALLER Work Phone: [facility] 06-17-2024 18:51-0400 Systolic blood pressure 114 mm[Hg] Hunter Moomaw SHIP SCRAPER.GARAGE DOOR INSTALLER Work Phone: [facility] 06-16-2024 11:29-0400 Body mass index (BMI) [Ratio] 21.21 kg/m2 Karyna Praisler-Wood SHIP SCRAPER.GARAGE DOOR INSTALLER Work Phone: [facility] 06-16-2024 11:29-0400 Body temperature 99.1 [degF] Karyna Praisler-Wood SHIP SCRAPER.GARAGE DOOR INSTALLER Work Phone: [facility] 06-16-2024 11:29-0400 Body weight 56.5 kg Karyna Praisler-Wood SHIP SCRAPER.GARAGE DOOR INSTALLER Work Phone: [facility] 06-16-2024 11:29-0400 Diastolic blood pressure 60 mm[Hg] Karyna Praisler-Wood SHIP SCRAPER.GARAGE DOOR INSTALLER Work Phone: [facility] 06-16-2024 11:29-0400 Heart rate 118 /min Karyna Praisler-Wood SHIP SCRAPER.GARAGE DOOR INSTALLER Work Phone: [facility] 06-16-2024 11:29-0400 Respiratory rate 18 /min Karyna Praisler-Wood SHIP SCRAPER.GARAGE DOOR INSTALLER Work Phone: [facility] 06-16-2024 11:29-0400 SaO2% (BldA) [Mass fraction] 98 % Karyna Praisler-Wood SHIP SCRAPER.GARAGE DOOR INSTALLER Work Phone: [facility] 06-16-2024 11:29-0400 Systolic blood pressure 100 mm[Hg] Karyna Praisler-Wood SHIP SCRAPER.GARAGE DOOR INSTALLER Work Phone: [facility] 05-17-2024 15:56-0500 Body mass index (BMI) [Ratio] 22.49 kg/m2 Brian Pearson MD Work Phone: [facility] 05-17-2024 15:56-0500 Body temperature 98.29 [degF] Brian Pearson MD Work Phone: [facility] 05-17-2024 15:56-0500 Body weight 59.9 kg Brian Pearson MD Work Phone: [facility] 05-17-2024 15:56-0500 Diastolic blood pressure 62 mm[Hg] Brian Pearson MD Work Phone: [facility] 05-17-2024 15:56-0500 Heart rate 63 /min Brian Pearson MD Work Phone: [facility] 05-17-2024 15:56-0500 Respiratory rate 18 /min Brian Pearson MD Work Phone: [facility] 05-17-2024 15:56-0500 SaO2% (BldA) [Mass fraction] 100 % Brian Pearson MD Work Phone: [facility] 05-17-2024 15:56-0500 Systolic blood pressure 102 mm[Hg] Brian Pearson MD Work Phone: [facility] 05-10-2024 09:25-0500 Body mass index (BMI) [Ratio] 22.31 kg/m2 Aj Dee MD Work Phone: [facility] 05-10-2024 09:25-0500 Body weight 59.42 kg Aj Dee MD Work Phone: [facility] 05-10-2024 09:25-0500 Diastolic blood pressure 68 mm[Hg] Aj Dee MD Work Phone: [facility] 05-10-2024 09:25-0500 Systolic blood pressure 98 mm[Hg] Aj Dee MD Work Phone: [facility] 03-03-2024 15:58-0500 Body height 163.2 cm Edna Stevens SHIP SCRAPER.CNM Work Phone: [facility] 03-03-2024 15:58-0500 Body mass index (BMI) [Ratio] 22.31 kg/m2 Edna Stevens SHIP SCRAPER.CNM Work Phone: [facility] 03-03-2024 15:58-0500 Body weight 59.42 kg Edna Stevens SHIP SCRAPER.CNM Work Phone: [facility] 03-03-2024 15:58-0500 Diastolic blood pressure 66 mm[Hg] Edna Stevens SHIP SCRAPER.CNM Work Phone: [facility] 03-03-2024 15:58-0500 Systolic blood pressure 108 mm[Hg] Edna Stevens SHIP SCRAPER.CNM Work Phone: [facility] 03-02-2024 15:25-0500 Body temperature 97.81 [degF] Fredo Callejas SHIP SCRAPER.GARAGE DOOR INSTALLER Work Phone: [facility] 03-02-2024 15:25-0500 Body weight 59.7 kg Fredo Callejas SHIP SCRAPER.GARAGE DOOR INSTALLER Work Phone: [facility] 03-02-2024 15:25-0500 Diastolic blood pressure 62 mm[Hg] Fredo Callejas SHIP SCRAPER.GARAGE DOOR INSTALLER Work Phone: [facility] 03-02-2024 15:25-0500 Heart rate 68 /min Fredo Callejas SHIP SCRAPER.GARAGE DOOR INSTALLER Work Phone: [facility] 03-02-2024 15:25-0500 Respiratory rate 18 /min Fredo Callejas SHIP SCRAPER.GARAGE DOOR INSTALLER Work Phone: [facility] 03-02-2024 15:25-0500 SaO2% (BldA) [Mass fraction] 98 % Fredo Callejas SHIP SCRAPER.GARAGE DOOR INSTALLER Work Phone: [facility] 03-02-2024 15:25-0500 Systolic blood pressure 102 mm[Hg] Fredo Callejas SHIP SCRAPER.GARAGE DOOR INSTALLER Work Phone: [facility] 12-29-2023 16:42-0400 Body temperature 97.39 [degF] Srini Kingston MD Work Phone: [facility] 12-29-2023 16:42-0400 Body weight 56.5 kg Srini Kingston MD Work Phone: [facility] 12-29-2023 16:42-0400 Diastolic blood pressure 62 mm[Hg] Srini Kingston MD Work Phone: [facility] 12-29-2023 16:42-0400 Heart rate 80 /min Srini Kingston MD Work Phone: [facility] 12-29-2023 16:42-0400 Respiratory rate 14 /min Srini Kingston MD Work Phone: [facility] 12-29-2023 16:42-0400 Systolic blood pressure 98 mm[Hg] Srini Kingston MD Work Phone: [facility] 10-10-2023 15:02-0400 Body temperature 98.1 [degF] Hunter Moomaw SHIP SCRAPER.GARAGE DOOR INSTALLER Work Phone: [facility] 10-10-2023 15:02-0400 Body weight 54.4 kg Hunter Moomaw SHIP SCRAPER.GARAGE DOOR INSTALLER Work Phone: [facility] 10-10-2023 15:02-0400 Diastolic blood pressure 62 mm[Hg] Hunter Moomaw SHIP SCRAPER.GARAGE DOOR INSTALLER Work Phone: [facility] 10-10-2023 15:02-0400 Heart rate 76 /min Hunter Moomaw SHIP SCRAPER.GARAGE DOOR INSTALLER Work Phone: [facility] 10-10-2023 15:02-0400 Respiratory rate 16 /min Hunter Moomaw SHIP SCRAPER.GARAGE DOOR INSTALLER Work Phone: [facility] 10-10-2023 15:02-0400 SaO2% (BldA) [Mass fraction] 98 % Hunter Moomaw SHIP SCRAPER.GARAGE DOOR INSTALLER Work Phone: [facility] 10-10-2023 15:02-0400 Systolic blood pressure 92 mm[Hg] Hunter Martinez APRN.CNP Work Phone: [facility] 09-03-2023 13:06-0400 Body height 165.8 cm Chacha Kim MD Work Phone: [facility] 09-03-2023 13:06-0400 Body mass index (BMI) [Percentile] Per age and sex 21.02 % Chacha Kim MD Work Phone: [facility] 09-03-2023 13:06-0400 Body mass index (BMI) [Ratio] 19.31 kg/m2 Chacha Kim MD Work Phone: [facility] 09-03-2023 13:06-0400 Body temperature 98.1 [degF] Chacha Kim MD Work Phone: [facility] 09-03-2023 13:06-0400 Body weight 53.07 kg Chacha Kim MD Work Phone: [facility] 09-03-2023 13:06-0400 Diastolic blood pressure 50 mm[Hg] Chacha Kim MD Work Phone: [facility] 09-03-2023 13:06-0400 Heart rate 70 /min Chacha Kim MD Work Phone: [facility] 09-03-2023 13:06-0400 Respiratory rate 18 /min Chacha Kim MD Work Phone: [facility] 09-03-2023 13:06-0400 Systolic blood pressure 100 mm[Hg] Chacha Kim MD Work Phone: [facility] 07-31-2023 08:43-0400 Body height 165.1 cm Deborah Wong MD Work Phone: [facility] 07-31-2023 08:43-0400 Body mass index (BMI) [Percentile] Per age and sex 23.01 % Deborah Wong MD Work Phone: [facility] 07-31-2023 08:43-0400 Body mass index (BMI) [Ratio] 19.44 kg/m2 Deborah Wong MD Work Phone: [facility] 07-31-2023 08:43-0400 Body temperature 97.39 [degF] Deborah Wong MD Work Phone: [facility] 07-31-2023 08:43-0400 Body weight 53 kg Deborah Wong MD Work Phone: [facility] 07-31-2023 08:43-0400 Diastolic blood pressure 68 mm[Hg] Deborah Wong MD Work Phone: [facility] 07-31-2023 08:43-0400 Heart rate 73 /min Deborah Wong MD Work Phone: [facility] 07-31-2023 08:43-0400 Respiratory rate 18 /min Deborah Wong MD Work Phone: [facility] 07-31-2023 08:43-0400 SaO2% (BldA) [Mass fraction] 100 % Deborah Wong MD Work Phone: [facility] 07-31-2023 08:43-0400 Systolic blood pressure 91 mm[Hg] Deborah Wong MD Work Phone: [facility] 07-22-2023 10:48-0400 Body temperature 97.81 [degF] Chacha Kim MD Work Phone: [facility] 07-22-2023 10:48-0400 Body weight 53.71 kg Chacha Kim MD Work Phone: [facility] 07-22-2023 10:48-0400 Heart rate 72 /min Chacha Kim MD Work Phone: [facility] 07-22-2023 10:48-0400 Respiratory rate 20 /min Chacha Kim MD Work Phone: [facility] 07-21-2023 12:04-0400 Body temperature 98.2 [degF] Fredo Callejas APRN.GARAGE DOOR INSTALLER Work Phone: [facility] 07-21-2023 12:04-0400 Body weight 54.1 kg Fredo Callejas APRN.GARAGE DOOR INSTALLER Work Phone: [facility] 07-21-2023 12:04-0400 Diastolic blood pressure 62 mm[Hg] Fredo Pendlebury SHIP SCRAPER.GARAGE DOOR INSTALLER Work Phone: [facility] 07-21-2023 12:04-0400 Heart rate 83 /min Fredo Pendlebury SHIP SCRAPER.GARAGE DOOR INSTALLER Work Phone: [facility] 07-21-2023 12:04-0400 Respiratory rate 21 /min Fredo Pendlebury SHIP SCRAPER.GARAGE DOOR INSTALLER Work Phone: [facility] 07-21-2023 12:04-0400 SaO2% (BldA) [Mass fraction] 95 % Fredo Pendlebury SHIP SCRAPER.GARAGE DOOR INSTALLER Work Phone: [facility] 07-21-2023 12:04-0400 Systolic blood pressure 104 mm[Hg] Fredo Pendlebury SHIP SCRAPER.GARAGE DOOR INSTALLER Work Phone: [facility] 06-23-2023 15:12-0400 Body temperature 97.59 [degF] Karyna Praisler-Wood SHIP SCRAPER.GARAGE DOOR INSTALLER Work Phone: [facility] 06-23-2023 15:12-0400 Body weight 56.5 kg Karyna Praisler-Wood SHIP SCRAPER.GARAGE DOOR INSTALLER Work Phone: [facility] 06-23-2023 15:12-0400 Diastolic blood pressure 60 mm[Hg] Karyna Praisler-Wood SHIP SCRAPER.GARAGE DOOR INSTALLER Work Phone: [facility] 06-23-2023 15:12-0400 Heart rate 98 /min Karyna Praisler-Wood SHIP SCRAPER.GARAGE DOOR INSTALLER Work Phone: [facility] 06-23-2023 15:12-0400 Respiratory rate 16 /min Karyna Praisler-Wood SHIP SCRAPER.GARAGE DOOR INSTALLER Work Phone: [facility] 06-23-2023 15:12-0400 SaO2% (BldA) [Mass fraction] 99 % Karyna Praisler-Wood SHIP SCRAPER.GARAGE DOOR INSTALLER Work Phone: [facility] 06-23-2023 15:12-0400 Systolic blood pressure 102 mm[Hg] Karyna Emeka SHIP SCRAPER.GARAGE DOOR INSTALLER Work Phone: [facility] 06-05-2023 13:34-0400 Body height 163.2 cm Edilma Pezzano SHIP SCRAPER.GARAGE DOOR INSTALLER Work Phone: [facility] 06-05-2023 13:34-0400 Body mass index (BMI) [Percentile] Per age and sex 31.23 % Edilma Pezzano SHIP SCRAPER.GARAGE DOOR INSTALLER Work Phone: [facility] 06-05-2023 13:34-0400 Body weight 53.25 kg Edilma Pezzano SHIP SCRAPER.GARAGE DOOR INSTALLER Work Phone: [facility] 06-05-2023 13:34-0400 Diastolic blood pressure 64 mm[Hg] Edilma Pezzano SHIP SCRAPER.GARAGE DOOR INSTALLER Work Phone: [facility] 06-05-2023 13:34-0400 Heart rate 74 /min Edilma Pezzano SHIP SCRAPER.GARAGE DOOR INSTALLER Work Phone: [facility] 06-05-2023 13:34-0400 Systolic blood pressure 98 mm[Hg] Edilma Pezzano SHIP SCRAPER.GARAGE DOOR INSTALLER Work Phone: [facility] 05-30-2023 12:50-0500 Body temperature 98.4 [degF] Krislyn Aberegg PA Work Phone: [facility] 05-30-2023 12:50-0500 Body weight 54.6 kg Krislyn Aberegg PA Work Phone: [facility] 05-30-2023 12:50-0500 Diastolic blood pressure 74 mm[Hg] Krislyn Aberegg PA Work Phone: [facility] 05-30-2023 12:50-0500 Heart rate 94 /min Krislyn Aberegg PA Work Phone: [facility] 05-30-2023 12:50-0500 Respiratory rate 21 /min Krislyn Aberegg PA Work Phone: [facility] 05-30-2023 12:50-0500 SaO2% (BldA) [Mass fraction] 99 % Tonydavidyonatan eregg PA Work Phone: [facility] 05-30-2023 12:50-0500 Systolic blood pressure 102 mm[Hg] Rufino Padgettgg PA Work Phone: [facility] 01-17-2023 10:42-0400 Body temperature 97.7 [degF] Chacha Kim MD Work Phone: [facility] 01-17-2023 10:42-0400 Body weight 51.03 kg Chacha Kim MD Work Phone: [facility] 01-17-2023 10:42-0400 Heart rate 80 /min Chacha Kim MD Work Phone: [facility] 01-17-2023 10:42-0400 Respiratory rate 18 /min Chacha Kim MD Work Phone: [facility] 12-06-2022 15:04-0400 Body weight 54.07 kg Carin Carter APRN.GARAGE DOOR INSTALLER Work Phone: [facility] 12-06-2022 15:04-0400 Diastolic blood pressure 62 mm[Hg] Carin Carter APRN.GARAGE DOOR INSTALLER Work Phone: [facility] 12-06-2022 15:04-0400 Systolic blood pressure 100 mm[Hg] Carin Carter APRN.GARAGE DOOR INSTALLER Work Phone: [facility] 09-17-2022 18:59-0400 Body temperature 98.1 [degF] Ana Ocasio APRN.GARAGE DOOR INSTALLER Work Phone: [facility] 09-17-2022 18:59-0400 Body weight 52.62 kg Ana Ocasio APRN.GARAGE DOOR INSTALLER Work Phone: [facility] 09-17-2022 18:59-0400 Diastolic blood pressure 62 mm[Hg] Ana Ocasio APRN.GARAGE DOOR INSTALLER Work Phone: [facility] 09-17-2022 18:59-0400 Heart rate 70 /min Ana Ocasio APRN.GARAGE DOOR INSTALLER Work Phone: [facility] 09-17-2022 18:59-0400 Respiratory rate 16 /min Ana Ocasio APRN.GARAGE DOOR INSTALLER Work Phone: [facility] 09-17-2022 18:59-0400 SaO2% (BldA) [Mass fraction] 97 % Ana Ocasio APRN.GARAGE DOOR INSTALLER Work Phone: [facility] 09-17-2022 18:59-0400 Systolic blood pressure 104 mm[Hg] Ana Ocasio APRN.GARAGE DOOR INSTALLER Work Phone: [facility] 05-07-2022 08:10-0500 Body temperature 97.81 [degF] Chacha Kim MD Work Phone: [facility] 05-07-2022 08:10-0500 Body weight 53.24 kg Chacha iKm MD Work Phone: [facility] 05-07-2022 08:10-0500 Diastolic blood pressure 60 mm[Hg] Chacha Kim MD Work Phone: [facility] 05-07-2022 08:10-0500 Heart rate 80 /min Chacha Kim MD Work Phone: [facility] 05-07-2022 08:10-0500 Respiratory rate 18 /min Chacha Kim MD Work Phone: [facility] 05-07-2022 08:10-0500 Systolic blood pressure 100 mm[Hg] Chacha Kim MD Work Phone: [facility] 05-01-2022 15:24-0500 Body mass index (BMI) [Percentile] Per age and sex 40.08 % Mickie Holbrook PA-C Work Phone: [facility] 05-01-2022 15:24-0500 Body temperature 97.3 [degF] Mickie Holbrook PA-C Work Phone: [facility] 05-01-2022 15:24-0500 Body weight 53.98 kg Mickie Holbrook PA-C Work Phone: [facility] 05-01-2022 15:24-0500 Heart rate 92 /min Mickie Holbrook PA-C Work Phone: [facility] 05-01-2022 15:24-0500 Respiratory rate 20 /min Mickie Holbrook PA-C Work Phone: [facility] 04-25-2022 10:38-0500 Body height 163.2 cm Edilma Pezzano SHIP SCRAPER.GARAGE DOOR INSTALLER Work Phone: [facility] 04-25-2022 10:38-0500 Body mass index (BMI) [Percentile] Per age and sex 47.15 % Edilma Pezzano SHIP SCRAPER.GARAGE DOOR INSTALLER Work Phone: [facility] 04-25-2022 10:38-0500 Body weight 55.34 kg Edilma Torstenzzano SHIP SCRAPER.GARAGE DOOR INSTALLER Work Phone: [facility] 04-25-2022 10:38-0500 Diastolic blood pressure 64 mm[Hg] Edilma Pezzano SHIP SCRAPER.GARAGE DOOR INSTALLER Work Phone: [facility] 04-25-2022 10:38-0500 Heart rate 80 /min Edilma Pezzano SHIP SCRAPER.GARAGE DOOR INSTALLER Work Phone: [facility] 04-25-2022 10:38-0500 Systolic blood pressure 122 mm[Hg] Edilma Pezzano SHIP SCRAPER.GARAGE DOOR INSTALLER Work Phone: [facility] 02-20-2022 14:08-0500 Body temperature 97.5 [degF] Allie Sutton SHIP SCRAPER.GARAGE DOOR INSTALLER Work Phone: [facility] 02-20-2022 14:08-0500 Body weight 56.34 kg Allie Sutton SHIP SCRAPER.GARAGE DOOR INSTALLER Work Phone: [facility] 02-20-2022 14:08-0500 Diastolic blood pressure 56 mm[Hg] Allie Sutton SHIP SCRAPER.GARAGE DOOR INSTALLER Work Phone: [facility] 02-20-2022 14:08-0500 Heart rate 104 /min Allie Sutton SHIP SCRAPER.GARAGE DOOR INSTALLER Work Phone: [facility] 02-20-2022 14:08-0500 Respiratory rate 12 /min Allie Sutton SHIP SCRAPER.GARAGE DOOR INSTALLER Work Phone: [facility] 02-20-2022 14:08-0500 Systolic blood pressure 90 mm[Hg] Allie Sutton SHIP SCRAPER.GARAGE DOOR INSTALLER Work Phone: [facility] 01-07-2022 10:23-0400 Body weight 54.7 kg Merly Watson SHIP SCRAPER.GARAGE DOOR INSTALLER Work Phone: [facility] 01-07-2022 10:23-0400 Diastolic blood pressure 66 mm[Hg] Merly Watson SHIP SCRAPER.GARAGE DOOR INSTALLER Work Phone: [facility] 01-07-2022 10:23-0400 Systolic blood pressure 104 mm[Hg] Merly Don SHIP SCRAPER.GARAGE DOOR INSTALLER Work Phone: [facility] 12-25-2021 08:34-0400 Body temperature 97.11 [degF] Chacha Kim MD Work Phone: [facility] 12-25-2021 08:34-0400 Body weight 57.27 kg Chacha Kim MD Work Phone: [facility] 12-25-2021 08:34-0400 Diastolic blood pressure 52 mm[Hg] Chacha Kim MD Work Phone: [facility] 12-25-2021 08:34-0400 Heart rate 74 /min Chacha Kim MD Work Phone: [facility] 12-25-2021 08:34-0400 Respiratory rate 16 /min Chacha Kim MD Work Phone: [facility] 12-25-2021 08:34-0400 Systolic blood pressure 100 mm[Hg] Chacha Kim MD Work Phone: [facility] 12-13-2021 11:21-0400 Body weight 57.61 kg Dillon Ocasio MD Work Phone: [facility] 12-13-2021 11:21-0400 Diastolic blood pressure 62 mm[Hg] Dillon Ocasio MD Work Phone: [facility] 12-13-2021 11:21-0400 Systolic blood pressure 90 mm[Hg] Dillon Ocasio MD Work Phone: [facility] 12-07-2021 07:40-0400 Body mass index (BMI) [Percentile] Per age and sex 61.17 % Chacha Kim MD Work Phone: [facility] 12-07-2021 07:40-0400 Body temperature 98.4 [degF] Chacha Kim MD Work Phone: [facility] 12-07-2021 07:40-0400 Body weight 58.51 kg Chacha Kim MD Work Phone: [facility] 12-07-2021 07:40-0400 Diastolic blood pressure 56 mm[Hg] Chacha Kim MD Work Phone: [facility] 12-07-2021 07:40-0400 Heart rate 82 /min Chacha Kim MD Work Phone: [facility] 12-07-2021 07:40-0400 Respiratory rate 18 /min Chacha Kim MD Work Phone: [facility] 12-07-2021 07:40-0400 Systolic blood pressure 98 mm[Hg] Chacha Kim MD Work Phone: [facility] 12-07-2021 00:17-0400 Body temperature 97.7 [degF] Andres Devonte DO Work Phone: [facility] 12-07-2021 00:17-0400 Diastolic blood pressure 59 mm[Hg] Andres Devonte DO Work Phone: [facility] 12-07-2021 00:17-0400 Heart rate 53 /min Andres Devonte DO Work Phone: [facility] 12-07-2021 00:17-0400 Respiratory rate 18 /min Andres Devonte DO Work Phone: [facility] 12-07-2021 00:17-0400 SaO2% (BldA) [Mass fraction] 100 % Andres Whitney DO Work Phone: [facility] 12-07-2021 00:17-0400 Systolic blood pressure 102 mm[Hg] Andres Whitney DO Work Phone: [facility] 12-06-2021 16:35-0400 Body weight 58.8 kg Andres Whitney DO Work Phone: [facility] 12-06-2021 15:03-0400 Body mass index (BMI) [Percentile] Per age and sex 60.09 % Dillon Ocasio MD Work Phone: [facility] 12-06-2021 15:03-0400 Body weight 58.24 kg Dillon Ocasio MD Work Phone: [facility] 12-06-2021 15:03-0400 Diastolic blood pressure 58 mm[Hg] Dillon Ocasio MD Work Phone: [facility] 12-06-2021 15:03-0400 Systolic blood pressure 86 mm[Hg] Dillon Ocasio MD Work Phone: [facility] 12-05-2021 11:52-0400 Body mass index (BMI) [Percentile] Per age and sex 64.02 % Fredo Callejas APRN.GARAGE DOOR INSTALLER Work Phone: [facility] 12-05-2021 11:52-0400 Body temperature 97.2 [degF] Fredo Callejas SHIP SCRAPER.GARAGE DOOR INSTALLER Work Phone: [facility] 12-05-2021 11:52-0400 Body weight 59.24 kg Fredo Callejas APRN.GARAGE DOOR INSTALLER Work Phone: [facility] 12-05-2021 11:52-0400 Diastolic blood pressure 58 mm[Hg] Fredo Callejas APRN.GARAGE DOOR INSTALLER Work Phone: [facility] 12-05-2021 11:52-0400 Heart rate 57 /min Fredo Callejas APRN.GARAGE DOOR INSTALLER Work Phone: [facility] 12-05-2021 11:52-0400 Respiratory rate 21 /min Fredo Callejas SHIP SCRAPER.GARAGE DOOR INSTALLER Work Phone: [facility] 12-05-2021 11:52-0400 SaO2% (BldA) [Mass fraction] 99 % [facility] SHIP SCRAPER.GARAGE DOOR INSTALLER Work Phone: [facility] 12-05-2021 11:52-0400 Systolic blood pressure 90 mm[Hg] Fredo Callejas SHIP SCRAPER.GARAGE DOOR INSTALLER Work Phone: [facility] 12-04-2021 15:05-0400 Body height 163.9 cm Chacha Kim MD Work Phone: [facility] 12-04-2021 15:05-0400 Body mass index (BMI) [Percentile] Per age and sex 61.64 % Chacha Kim MD Work Phone: [facility] 12-04-2021 15:05-0400 Body temperature 98.01 [degF] Chacha Kim MD Work Phone: [facility] 12-04-2021 15:05-0400 Body weight 58.63 kg Chacha Kim MD Work Phone: [facility] 12-04-2021 15:05-0400 Diastolic blood pressure 60 mm[Hg] Chacha Kim MD Work Phone: [facility] 12-04-2021 15:05-0400 Heart rate 88 /min Chacha Kim MD Work Phone: [facility] 12-04-2021 15:05-0400 Respiratory rate 18 /min Chacha Kim MD Work Phone: [facility] 12-04-2021 15:05-0400 Systolic blood pressure 98 mm[Hg] Chacha Kim MD Work Phone: [facility] 11-29-2021 14:11-0400 Body weight 58.79 kg Dillon Ocasio MD Work Phone: [facility] 11-29-2021 14:11-0400 Diastolic blood pressure 60 mm[Hg] Dillon Ocasio MD Work Phone: [facility] 11-29-2021 14: Systolic blood pressure 92 mm[Hg] Dillon Ocasio MD Work Phone: [facility] Encounters Encounter Date Encounter Type Care Provider Facility Start: 12-17-2024 End: 12-17-2024 [address] [facility] Facility:[facility] Start: 12-02-2024 End: 12-02-2024 Telephone encounter Merly Sanz SHIP SCRAPER.GARAGE DOOR INSTALLER Work Phone: OB/Gynecology Comment on above: Patient Question Start: 12-02-2024 End: 12-02-2024 Patient encounter procedure Merly Sanz SHIP SCRAPER.GARAGE DOOR INSTALLER Work Phone: OB/Gynecology Comment on above: Encounter for Nexpla non removal (Primary Dx) Start: 12-02-2024 End: 12-02-2024 amb[address] [facility] Facility:[facility] Start: 11-01-2024 End: 11-01-2024 Office outpatient new 45 minutes Aj Cordova MD Work Phone: Orthopaedics Comment on above: Patellar subluxation , left, initial encounter (Primary Dx) Start: 11-01-2024 End: 11-01-2024 amb[address] [facility] Facility:[facility] Start: 11-01-2024 End: 11-01-2024 Subsequent hospital visit by physician [facility] Work Phone: Radiology Comment on above: Left knee pain, unsp ecified chronicity [M25.562] Start: 10-25-2024 End: 10-25-2024 Patient encounter procedure Cassandra Swank SHIP SCRAPER.GARAGE DOOR INSTALLER Work Phone: [facility] Comment on above: Urinary frequency (P rimary Dx); Dysuria Start: 10-25-2024 End: 10-25-2024 ambulatory CASSANDRA SWANK Facility:[facility] Start: 08-25-2024 End: 08-25-2024 Office outpatient visit 15 minutes Fredo Callejas SHIP SCRAPER.GARAGE DOOR INSTALLER Work Phone: [facility] Comment on above: Worms in stool (Prim ever Dx) Start: 08-25-2024 End: 08-25-2024 ambulatory [facility] Facility:[facility] Start: 06-26-2024 End: 06-27-2024 Emergency department patient visit Dr. Chacha Kim MD Work Phone: -Emergency Department Work Phone: Start: 06-26-2024 End: 06-26-2024 ambulatory Daniel Price RN NURSE ACCOUNTING COORDINATOR Comment on above: Abdominal Pain (+Mon o/) Start: 06-20-2024 End: 08-20-2024 Follow-up encounter Rufino STROUD Work Phone: [facility] Start: 06-18-2024 End: 06-18-2024 ambulatory KARYNA HENDRICKSON Facility:[facility] Start: 06-18-2024 End: 08-18-2024 Follow-up encounter Brian Pearson MD Work Phone: [facility] Start: 06-17-2024 End: 06-17-2024 ambulatory CHACHA KIM Facility:[facility] Start: 06-17-2024 End: 06-17-2024 Office outpatient visit 15 minutes Hunter Martinez APRN.GARAGE DOOR INSTALLER Work Phone: [facility] Comment on above: Sore throat (Primary Dx) Start: 06-16-2024 End: 06-16-2024 ambulatory CHACHA KIM Facility:[facility] Start: 06-16-2024 End: 06-16-2024 Patient encounter procedure Karyna Hendrickson SHIP SCRAPER.GARAGE DOOR INSTALLER Work Phone: [facility] Comment on above: Sore throat (Primary Dx); Flu-like symptoms Start: 05-18-2024 End: 05-20-2024 Follow-up encounter Edna Beth APRN.GARAGE DOOR INSTALLER Work Phone: [facility] Start: 05-17-2024 End: 05-17-2024 ambulatory CHACHA KIM Facility:[facility] Start: 05-17-2024 End: 05-17-2024 Office outpatient visit 25 minutes Brian Pearson MD Work Phone: [facility] Comment on above: Urinary frequency (P rimary Dx); URI, acute Start: 05-10-2024 End: 05-10-2024 ambulatory AJ DEE Facility:[facility] Start: 05-10-2024 End: 05-10-2024 Patient encounter procedure Aj Dee MD Work Phone: OB/Gynecology Comment on above: Nexplanon in place ( Primary Dx); Insertion of implantable subdermal contraceptive Start: 04-05-2024 End: 04-05-2024 Telephone encounter Edilma Van SHIP SCRAPER.GARAGE DOOR INSTALLER Work Phone: [facility] Comment on above: Appointment Start: 03-04-2024 End: 03-05-2024 Telephone encounter Edna Beth APRN.GARAGE DOOR INSTALLER Work Phone: [facility] Comment on above: Results Start: 03-03-2024 End: 03-03-2024 Patient encounter status Edna Stevens APRN.CNM Work Phone: [facility] Start: 03-03-2024 End: 03-03-2024 ambulatory EDNA STEVENS Facility:[facility] Start: 03-03-2024 Encounter for gynecological examination (general) (routine) without abnormal findings EDNA STEVENS [facility] Start: 03-03-2024 End: 03-03-2024 Patient encounter procedure Edna Stevens SHIP SCRAPER.CNM Work Phone: OB/Gynecology Comment on above: Encounter for gyneco logical examination (general) (routine) without abnormal findings (Primary Dx); Recurrent genital herpes; Encounter for annual routine gynecological examination; Screen for STD (sexually transmitted disease); Nexplanon in place Start: 03-03-2024 End: 03-05-2024 Telephone encounter Brian Pearson MD Work Phone: [facility] Comment on above: Results (Riri) Refill Request Appointment Start: 03-02-2024 End: 03-02-2024 ambulatory CHACHA KIM Facility:[facility] Start: 03-02-2024 End: 03-02-2024 Office outpatient visit 25 minutes Fredo Callejas APRN.GARAGE DOOR INSTALLER Work Phone: [facility] Comment on above: Urinary frequency (P rimary Dx); Dysuria Start: 12-29-2023 End: 12-29-2023 ambulatory CHACHA KIM Facility:[facility] Start: 12-29-2023 End: 12-29-2023 Office outpatient visit 15 minutes Srini Kingston MD Work Phone: [facility] [place] Comment on above: Toxic effect of bora x (Primary Dx) Start: 11-13-2023 End: 11-13-2023 Unlisted evaluation and management service Deborah Wong MD Work Phone: Pediatric Gastroenterology Comment on above: NO SHOW (Primary Dx) Start: 10-10-2023 End: 10-10-2023 [facility] Start: 10-10-2023 End: 10-10-2023 Patient encounter procedure Hunter Martinez SHIP SCRAPER.GARAGE DOOR INSTALLER Work Phone: [facility] Comment on above: Gross hematuria (Jennyfer sierra Dx); Bloody stools Start: 10-10-2023 ambulatory Chacha Kim MD Work Phone: [facility] [place] Comment on above: Rectal Problem Start: 09-26-2023 Refill Deborah Wong MD Work Phone: Pediatric G[facility] Comment on above: Refill Request Start: 09-03-2023 End: 09-03-2023 Patient encounter procedure Chacha Kim MD Work Phone: [facility] [place] Comment on above: Encounter for routin e child health examination w/o abnormal findings (Primary Dx); Encounter for general adult medical examination without abnormal findings; Encounter for immunization Start: 09-03-2023 End: 09-03-2023 Patient encounter status Chacha Kim MD Work Phone: [facility] Start: 08-22-2023 Refhallie Wong MD Work Phone: Pediatric [facility]ology Comment on above: Refill Request Start: 07-31-2023 End: 07-31-2023 Patient encounter procedure Deborah Wong MD Work Phone: [facility] Comment on above: Generalized abdomina l pain (Primary Dx); Generalized anxiety disorder Start: 07-30-2023 Telephone encounter Chacha bhatia MD Work Phone: [address] [place] [address] Comment on above: Abdominal Pain Start: 07-29-2023 Telephone encounter Chacha bhatia MD Work Phone: [facility] [place] Comment on above: Results Start: 07-22-2023 End: 07-22-2023 Subsequent hospital visit by physician [facility] [place] Work Phone: Radiology Comment on above: Generalized abdomina l pain [R10.84] Start: 07-22-2023 End: 07-22-2023 Patient encounter procedure Chacha Kim MD Work Phone: [facility] Comment on above: Generalized abdomina l pain (Primary Dx) Start: 07-21-2023 End: 07-21-2023 Office outpatient visit 15 minutes Fredo Callejas SHIP SCRAPER.GARAGE DOOR INSTALLER Work Phone: [facility] Comment on above: Generalized abdomina l pain (Primary Dx) Start: 06-27-2023 Telephone encounter Chacha bhatia MD Work Phone: [facility] Comment on above: Patient Update Start: 06-23-2023 End: 06-23-2023 Patient encounter procedure Karyna Hendrickson SHIP SCRAPER.GARAGE DOOR INSTALLER Work Phone: [facility] Comment on above: TIMUR (generalized anx iety disorder) (Primary Dx); Diarrhea, unspecified type Start: 06-11-2023 Telephone encounter Chacha bhatia MD Work Phone: [facility] Comment on above: Question Start: 06-05-2023 End: 06-05-2023 Patient encounter procedure Edilma Van SHIP SCRAPER.GARAGE DOOR INSTALLER Work Phone: Neurology Comment on above: Generalized anxiety disorder (Primary Dx); Major depressive disorder, recurrent episode, moderate (HCC); PTSD (post-traumatic stress disorder) Start: 05-30-2023 End: 05-30-2023 Subsequent hospital visit by physician Kain [facility] [place] Work Phone: Radiology Comment on above: Foreign body of righ t thumb, initial encounter [S60.351A] Start: 05-30-2023 End: 05-30-2023 Patient encounter procedure Rufino STROUD Work Phone: [facility] Comment on above: Foreign body of righ t thumb, initial encounter (Primary Dx) Start: 05-22-2023 Telephone encounter Chacha bhatia MD Work Phone: [facility] [place] Comment on above: school excuse Start: 01-20-2023 Telephone encounter Chacha bhatia MD Work Phone: [facility] Comment on above: school note Start: 01-17-2023 End: 01-17-2023 Patient encounter procedure Chacha Kim MD Work Phone: [facility] Comment on above: Anal fissure (Primar y Dx) Start: 01-15-2023 ambulatory Chacha Kim MD Work Phone: [facility] Comment on above: Rectal Bleeding Start: 12-06-2022 End: 12-06-2022 Patient encounter procedure Carin Carter APRN.GARAGE DOOR INSTALLER Work Phone: OB/Gynecology Comment on above: Encounter for annual routine gynecological examination (Primary Dx); Recurrent genital herpes; Screen for STD (sexually transmitted disease) Start: 09-17-2022 End: 09-17-2022 Patient encounter procedure Ana Ocasio APRN.GARAGE DOOR INSTALLER Work Phone: [facility] Comment on above: Urinary frequency (P rimary Dx); Gross hematuria Start: 09-17-2022 Telephone encounter Ana Ocasio APRN.GARAGE DOOR INSTALLER Work Phone: [facility] Start: 08-15-2022 E-mail encounter fro m caregiver Allie Sutton APRN.GARAGE DOOR INSTALLER Work Phone: [facility] Start: 08-15-2022 Follow-up encounter Allie Humera hernandez SHIP SCRAPER.GARAGE DOOR INSTALLER Work Phone: [facility] [place] Comment on above: Mental Health Follow Up Start: 07-22-2022 Refill Jasmin Dean ed, MD Work Phone: [facility] Comment on above: Refill Request Start: 06-25-2022 End: 06-25-2022 ambulatory Dino Lyn PT [facility] Comment on above: Subluxation of left patella, sequela (Primary Dx) Start: 06-18-2022 End: 06-18-2022 ambulatory Radha Barnhart BUNDLING MACHINE OPERATOR Work Phone: [facility] Comment on above: Subluxation of left patella, sequela (Primary Dx) Start: 06-11-2022 End: 06-11-2022 ambulatory Radha Barnhart BUNDLING MACHINE OPERATOR Work Phone: [facility] Comment on above: Subluxation of left patella, sequela (Primary Dx) Start: 06-05-2022 End: 06-05-2022 ambulatory Radha Barnhart BUNDLING MACHINE OPERATOR Work Phone: [facility] Comment on above: Subluxation of left patella, sequela (Primary Dx) Start: 06-03-2022 Telephone encounter Chacha bhatia MD Work Phone: [facility] Comment on above: Letter Start: 05-30-2022 Telephone encounter Edilma Van APRN.GARAGE DOOR INSTALLER Work Phone: [facility] [place] Comment on above: Patient Update Start: 05-21-2022 End: 05-21-2022 ambulatory Dino Lyn PT [facility] Comment on above: Subluxation of left patella, sequela (Primary Dx) Start: 05-17-2022 Telephone encounter Chacha bhatia MD Work Phone: [facility] [place] Comment on above: Question Start: 05-15-2022 Refill Chacha Kim MD Work Phone: [facility] [place] Comment on above: Refill Request Start: 05-07-2022 End: 05-07-2022 Patient encounter procedure Chacha Kim MD Work Phone: [facility] Comment on above: Subluxation of left patella, sequela (Primary Dx) Start: 05-01-2022 End: 05-01-2022 Patient encounter procedure Mickie Holbrook PA-C Work Phone: [facility] [place] Comment on above: Viral syndrome (Prim ever Dx) Start: 04-25-2022 End: 04-25-2022 Patient encounter procedure Edilma Van SHIP SCRAPER.GARAGE DOOR INSTALLER Work Phone: Neurology Comment on above: Recurrent major depr essive disorder, in partial remission (HCC) (Primary Dx); PTSD (post-traumatic stress disorder); Marijuana use Start: 04-12-2022 Telephone encounter Chacha bhatia MD Work Phone: [facility] Comment on above: school note Start: 03-22-2022 Refill Chacha Kim MD Work Phone: [facility] [place] [facility] Comment on above: Refill Request Start: 02-22-2022 Telephone encounter Chacha bhatia MD Work Phone: [facility] Comment on above: Letter Start: 02-20-2022 End: 02-20-2022 Patient encounter procedure Allie Sutton SHIP SCRAPER.GARAGE DOOR INSTALLER Work Phone: [facility] Comment on above: Viral illness (Prima ry Dx); Arthralgia, unspecified joint Start: 01-08-2022 Telephone encounter Merly vieyra SHIP SCRAPER.GARAGE DOOR INSTALLER Work Phone: OB/Gynecology Comment on above: Results Start: 01-07-2022 End: 01-07-2022 Patient encounter procedure Merly Sanz SHIP SCRAPER.GARAGE DOOR INSTALLER Work Phone: OB/Gynecology Comment on above: Vulvar lesion (Prima ry Dx) Start: 12-28-2021 Telephone encounter Davida Hunt Comment on above: Social Work Services Start: 12-26-2021 End: 12-26-2021 ambulatory JESSIKA ARCHER [facility] Start: 12-25-2021 End: 12-25-2021 Patient encounter procedure Chacha Kim MD Work Phone: [facility] Comment on above: Palpable lymph node (Primary Dx) Start: 12-24-2021 End: 12-24-2021 ambulatory JESSIKA ARCHER [facility] Start: 12-20-2021 End: 12-20-2021 ambulatory JESSIKA ARCHER [facility] Start: 12-19-2021 End: 12-19-2021 ambulatory RIHAB HE [facility] Start: 12-18-2021 End: 12-18-2021 ambulatory RIHAB [facility] Start: 12-17-2021 End: 12-17-2021 ambulatory JESSIKA ARCHER [facility] Start: 12-13-2021 End: 12-13-2021 Patient encounter procedure Dillon Ocasio MD Work Phone: OB/Gynecology Comment on above: Vaginal burning (Jennyfer sierra Dx) Start: 12-12-2021 Telephone encounter Chacha bhatia MD Work Phone: [facility] [place] Comment on above: Dysuria Start: 12-09-2021 ambulatory Chacha Kim MD Work Phone: [facility] [place] Comment on above: tox screen Start: 12-09-2021 E-mail encounter fro m caregiver Chacha Kim MD Work Phone: [facility] Start: 12-07-2021 End: 12-07-2021 Patient encounter procedure Chacha Kim MD Work Phone: [facility] Comment on above: Low blood glucose me asurement (Primary Dx); Malaise and fatigue; Generalized anxiety disorder; Recurrent major depressive disorder, in partial remission (HCC); PTSD (post-traumatic stress disorder); Deliberate self-cutting Start: 12-06-2021 End: 12-07-2021 Emergency department patient visit CHACHA KIM [facility] Start: 12-06-2021 End: 12-07-2021 Emergency department patient visit Andres Whitney DO Work Phone: [facility] Comment on above: Deliberate self-cutt ing (Primary Dx); Anxiety state Start: 12-06-2021 End: 12-06-2021 Patient encounter procedure Dillon Ocasio MD Work Phone: OB/Gynecology Comment on above: Insertion of implant able subdermal contraceptive (Primary Dx); Dysuria Start: 12-06-2021 ambulatory Chacha Kim MD Work Phone: [facility] [place] Comment on above: Depression Start: 12-05-2021 Telephone encounter Chacha bhatia MD Work Phone: [facility] [place] Comment on above: lab issues Start: 12-05-2021 End: 12-05-2021 Patient encounter procedure Fredo Callejas APRN.CNP Work Phone: [facility] Comment on above: Burning with urinati on (Primary Dx) Start: 12-04-2021 End: 12-04-2021 Patient encounter procedure Chacha Kim MD Work Phone: [facility] [place] [facility] Comment on above: Malaise and fatigue (Primary Dx); Generalized anxiety disorder; Moderate episode of recurrent major depressive disorder (HCC) Start: 11-29-2021 End: 11-29-2021 Patient encounter procedure Dillon Ocasio MD Work Phone: OB/Gynecology Comment on above: control counse ling (Primary Dx); Screening examination for STD (sexually transmitted disease); Nexplanon insertion Start: 11-28-2021 Telephone encounter Dillon lee MD Work Phone: OB/Gynecology Comment on above: Patient Update Start: 11-13-2021 Refill Chacha Kim MD Work Phone: [facility] Comment on above: Refill Request Start: 09-11-2021 End: 09-11-2021 ambulatory ALMA KEVIN [facility] Start: 08-17-2021 Telephone encounter Chacha bhatia MD Work Phone: [facility] [place] Comment on above: Orders Start: 01-27-2020 End: 01-27-2020 Subsequent hospital visit by physician Xr [facility] [place] Work Phone: Radiology Comment on above: Acute pain of left k nee [M25.562] Procedures Date Procedure Procedure Detail Performing Clinician Start: 10-25-2024 Urnls dip stick/tabl et rgnt auto w/o microscopy Cassandra De Luna SHIP SCRAPER.GARAGE DOOR INSTALLER Work Phone: Start: 06-17-2024 STREP A MOLECULAR (POC) Rufino STROUD Work Phone: Start: 06-16-2024 INFLUENZA A&B MOLECU LAR (POC) Karyna Hendrickson SHIP SCRAPER.GARAGE DOOR INSTALLER Work Phone: Start: 06-16-2024 STREP A MOLECULAR (POC) Karyna Hendrickson SHIP SCRAPER.GARAGE DOOR INSTALLER Work Phone: Start: 05-17-2024 Urnls dip stick/tabl et rgnt auto w/o microscopy Edna Beth SHIP SCRAPER.GARAGE DOOR INSTALLER Work Phone: Start: 03-02-2024 Urnls dip stick/tabl et rgnt auto w/o microscopy Anastacia Hernandez PA-C Work Phone: Start: 10-10-2023 Urnls dip stick/tabl et rgnt auto w/o microscopy Edna Beth SHIP SCRAPER.GARAGE DOOR INSTALLER Work Phone: Start: 09-03-2023 Menacwy-tt conj vacc serogroups acwy for im use Chacha Kim MD Work Phone: Start: 07-22-2023 Radiologic exam abdo men 1 view Chacha Kim MD Work Phone: Start: 07-21-2023 UA DIP,URINE HCG (POC) [facility] Start: 07-21-2023 Urnls dip stick/tabl et rgnt auto w/o microscopy Fredo Callejas SHIP SCRAPER.GARAGE DOOR INSTALLER Work Phone: Start: 05-30-2023 Radex fingr minimum 2 views Rufino STROUD Work Phone: Start: 09-17-2022 Urnls dip stick/tabl et rgnt auto w/o microscopy Ana Ocasio SHIP SCRAPER.GARAGE DOOR INSTALLER Work Phone: Start: 08-09-2022 Adult depression screening assessment Allie Sutton SHIP SCRAPER.GARAGE DOOR INSTALLER Work Phone: Start: 04-02-2022 Adult depression screening assessment Chacha Kim MD Work Phone: Start: 12-13-2021 Urnls dip stick/tabl et rgnt auto w/o microscopy Dillon Ocasio MD Work Phone: Start: 12-07-2021 Drug tst prsmv instr mnt chem analyzers pr date Chacha Kim MD Work Phone: Start: 12-07-2021 Urnls dip stick/tabl et rgnt auto w/o microscopy Chacha Kim MD Work Phone: Start: 12-07-2021 Gluc bld gluc mntr d ev cleared fda spec home use Chacha Kim MD Work Phone: Start: 12-06-2021 Urine test visual color cmprsn meths Dillon Ocasio MD Work Phone: Start: 12-05-2021 Urnls dip stick/tabl et rgnt auto w/o microscopy Ana Ocasio SHIP SCRAPER.GARAGE DOOR INSTALLER Work Phone: Start: 12-04-2021 Adult depression screening assessment Fredo Callejas SHIP SCRAPER.GARAGE DOOR INSTALLER Work Phone: Start: 09-11-2021 Adult depression screening assessment Chacha Kim MD Work Phone: Start: 02-01-2021 Adult depression screening assessment Chacha Kim MD Work Phone: Start: 01-27-2020 Radiologic exam knee complete 4/more views Brian Pearson MD Work Phone: Plan of Treatment Date Care Activity Detail Author Start: 05-29-2033 Urine microalbumin profile DTaP,Tdap,Td Vaccine (8 - Td or Tdap) [facility] Start: 02-18-2026 Urine microalbumin profile [facility] Start: 03-03-2025 GC (Gonorrhea) Screening (18-24) GC (Gonorrhea) Screening (18-24) [facility] Start: 03-03-2025 Screening for Chlamydia trachomatis Chlamydia Screening (18) [facility] Start: 12-02-2024 End: 12-02-2024 Patient encounter procedure OB/Gynecology Comment on above: Nexplonon removal Start: 11-22-2024 Influenza vaccination [facility] Start: 10-29-2024 End: 10-29-2024 Patient encounter procedure Radiology Comment on above: left knee Left knee pain Start: 06-27-2024 [facility] Start: 06-26-2024 [facility] Start: 06-17-2024 End: 09-16-2024 Bacteria identified in Throat by Culture BACTERIAL CULTURE, THROAT Microbiology Routine Sore throat Expected: 06/17/2024, Expires: 09/16/2024 [facility] Work Phone: Comment on above: Expected: 06/17/2024, Expires: Start: 06-16-2024 End: 09-15-2024 Heterophile Ab [Presence] in Serum by Latex agglutination MONOTEST, INFECTIOUS MONO Lab Routine Sore throat Expected: 06/16/2024, Expires: 09/15/2024 [facility] Work Phone: Comment on above: Expected: 06/16/2024, Expires: Start: 03-03-2024 End: 03-03-2025 Hepatitis B virus surface Ag [Presence] in Serum [facility] Comment on above: Expected: 03/03/2024, Expires: Start: 03-03-2024 End: 06-02-2024 Hepatitis C virus Ab [Presence] in Serum [facility] Comment on above: Expected: 03/03/2024, Expires: Start: 03-03-2024 End: 03-03-2025 HIV 1+2 Ab [Presence] in Serum or Plasma by Immunoassay [facility] Comment on above: Expected: 03/03/2024, Expires: Start: 03-03-2024 End: 03-03-2025 SYPHILIS TREPONEMAL W/REFLEX [facility] Work Phone: Comment on above: Expected: 03/03/2024, Expires: Start: 01-17-2024 Pneumococcal vaccination Pneumococcal Vaccine (1 of 2 - PCV) [facility] Start: 12-19-2023 End: 12-19-2023 Patient encounter procedure 12/19/2023 3:00 PM EDT Office Visit OB/Gynecology [address] [place], [place] [id number] Carin Carter APRN.GARAGE DOOR INSTALLER [address] [place], [place] [id number] ANNUAL OB/Gynecology Comment on above: ANNUAL Start: 12-07-2023 Chlamydia Screening (18-24) Chlamydia Screening (18-24) [facility] Start: 12-07-2023 Chlamydia Screening (<18) Chlamydia Screening (<18) [facility] Start: 12-07-2023 GC (Gonorrhea) Screening (18-24) GC (Gonorrhea) Screening (18-24) [facility] Start: 12-07-2023 GC (Gonorrhea) Screening (<18) GC (Gonorrhea) Screening (<18) [facility] Start: 12-07-2023 Screening for Chlamydia trachomatis Chlamydia Screening (18-24) [facility] Start: 11-23-2023 Covid-19 Vaccine ( season) Covid-19 Vaccine ( season) [facility] Start: 11-23-2023 Covid-19 Vaccine ( season) Covid-19 Vaccine ( season) [facility] Start: 11-23-2023 Influenza vaccination [facility] Start: 10-16-2023 End: 10-16-2023 Patient encounter procedure 10/16/2023 10:00 AM EDT Office Visit Pediatric Gastroenterology [address] [address] Deborah Wong MD [address] [place] [id number] FOLLOW UP [facility] Comment on above: FOLLOW UP Start: 09-03-2023 End: 09-03-2023 Patient encounter procedure 09/03/2023 1:00 PM EDT Office Visit [facility] [address] [place] [address] Chacha Kim MD [address] [place] [address] 18 year [facility] Comment on above: 18 year [facility] Start: 08-10-2023 Adult depression screening assessment DEPRESSION SCREENING [facility] Start: 07-31-2023 End: 10-30-2023 Tissue transglutaminase IgA Ab [Units/volume] in Serum [facility] Comment on above: Expected: 07/31/2023, Expires: Start: 07-31-2023 End: 07-31-2023 Patient encounter procedure 07/31/2023 8:30 AM EDT Office Visit Pediatric Gastroenterology [address] [place] [id number] Deborah Wong MD [address] [place] [address] Generalized abdominal pain [R10.84 [facility] Comment on above: Generalized abdominal pain [R10.84 Start: 07-30-2023 End: 10-29-2023 C reactive protein [Mass/volume] in Serum or Plasma C-REACTIVE PROTEIN Lab Routine Generalized abdominal pain Expected: 07/30/2023, Expires: 10/29/2023 [facility] Comment on above: Expected: 07/30/2023, Expires: Start: 07-30-2023 End: 10-29-2023 Erythrocyte sedimentation rate SEDIMENTATION RATE, WESTERGREN Lab Routine Generalized abdominal pain Expected: 07/30/2023, Expires: 10/29/2023 [facility] Work Phone: Comment on above: Expected: 07/30/2023, Expires: Start: 07-30-2023 End: 10-29-2023 IgA [Mass/volume] in Serum or Plasma IMMUNOGLOBULIN A Lab Routine Generalized abdominal pain Expected: 07/30/2023, Expires: 10/29/2023 [facility] Comment on above: Expected: 07/30/2023, Expires: Start: 07-30-2023 End: 10-29-2023 Tissue transglutaminase IgA Ab [Units/volume] in Serum TRANSGLUTAMINASE IGA Lab Routine Generalized abdominal pain Expected: 07/30/2023, Expires: 10/29/2023 [facility] Comment on above: Expected: 07/30/2023, Expires: 4 Start: 07-22-2023 End: 07-22-2023 Patient encounter procedure 07/22/2023 10:45 AM EDT Office Visit [facility] [place] [address] [place], [place] [phone] Chacha Kim MD [address] [place], [place] [id number] follow up from [facility] Comment on above: follow up from [facility] Start: 04-02-2023 Adult depression screening assessment DEPRESSION SCREENING [facility] Start: 12-06-2022 CHLAMYDIA SCREENING (<18) CHLAMYDIA SCREENING (<18) [facility] Start: 12-06-2022 GC (GONORRHEA) SCREENING (<18) GC (GONORRHEA) SCREENING (<18) [facility] Start: 12-04-2022 Adult depression screening assessment DEPRESSION SCREENING [facility] Start: 11-22-2022 Covid-19 Vaccine ( season) Covid-19 Vaccine () [facility] Start: 11-22-2022 Influenza vaccination [facility] Start: 09-11-2022 Adult depression screening assessment DEPRESSION SCREENING [facility] Start: 02-20-2022 CHLAMYDIA SCREENING (<18) CHLAMYDIA SCREENING (<18) [facility] Start: 02-20-2022 GC (GONORRHEA) SCREENING (<18) GC (GONORRHEA) SCREENING (<18) [facility] Start: 02-01-2022 Adult depression screening assessment DEPRESSION SCREENING [facility] Start: 01-07-2022 End: 03-09-2022 HERPES SIMPLEX TYPE 1 AND 2 IG [facility] Work Phone: Comment on above: Expected: 01/07/2022, Expires: 2 Start: 01-07-2022 End: 03-09-2022 Herpes simplex virus IgM Ab [Presence] in Serum by Immunoassay [facility] Work Phone: Comment on above: Expected: 01/07/2022, Expires: 2 Start: 01-07-2022 End: 03-09-2022 Herpes simplex virus+Varicella zoster virus DNA [Presence] in Unspecified specimen by JENNIFER with probe detection HSV 1,2/VZV AMP MOLECULAR DETECT Lab Routine Vulvar lesion Expected: 01/07/2022, Expires: 03/09/2022 [facility] Work Phone: Comment on above: Expected: 01/07/2022, Expires: 2 Start: 11-29-2021 End: 01-29-2022 HIV 1+2 Ab [Presence] in Serum or Plasma by Immunoassay HIV 1 2 COMBO(AG/AB),WITH REFLEX TO DIFFERENTIATION Lab Routine Screening examination for STD (sexually transmitted disease) Expected: 11/29/2021, Expires: 01/29/2022 [facility] Work Phone: Comment on above: Expected: 11/29/2021, Expires: 2 Start: 11-22-2021 FLU (#1) FLU (#1) [facility] Start: 11-22-2021 Influenza vaccination INFLUENZA (#1) [facility] Start: 08-17-2021 End: 12-18-2021 SARS-CoV-2 (COVID-19) RNA [Presence] in Respiratory specimen by JENNIFER with probe detection ASYMPTOMATIC ELECTIVE COVID-19 Microbiology Routine Encounter for screening laboratory testing for COVID-19 virus in asymptomatic patient Expected: 08/17/2021, Expires: 12/18/2021 [facility] Work Phone: Comment on above: Expected: 08/17/2021, Expires: 2 Start: 06-24-2021 COVID-19 (3 - Booster for Pfizer series) COVID-19 (3 - Booster for Pfizer series) [facility] Start: 06-24-2021 COVID-19 VACCINE (3 - Booster for Pfizer series) COVID-19 VACCINE (3 - Booster for Pfizer series) [facility] Start: 03-21-2021 COVID-19 VACCINE (3 - Booster for Pfizer series) COVID-19 VACCINE (3 - Booster for Pfizer series) [facility] Start: 03-21-2021 COVID-19 VACCINE (3 - Pfizer series) COVID-19 VACCINE (3 - Pfizer series) [facility] Start: 2021 MenACWY (1 - 2-dose series) MenACWY (1 - 2-dose series) [facility] Start: 2021 MenB (1 of 2 - MenB 2-Dose Series) MenB (1 of 2 - MenB 2-Dose Series) [facility] Start: 2021 Meningococcal B Vaccine (1 of 2 - Standard) Meningococcal B Vaccine (1 of 2 - Standard) [facility] Start: 2021 Meningococcal B Vaccine: Consider Based On Risk (1 of 2 - Patient Seeks Protection) Meningococcal B Vaccine: Consider Based On Risk (1 of 2 - Patient Seeks Protection) [facility] Start: 2021 MENINGOCOCCAL B: Consider based on risk (1 of 2 - Patient Seeks Protection) MENINGOCOCCAL B: Consider based on risk (1 of 2 - Patient Seeks Protection) [facility] Start: 2021 MENINGOCOCCAL CONJUGATE (2 - 2-dose series) MENINGOCOCCAL CONJUGATE (2 - 2-dose series) [facility] Start: 2021 Meningococcal Conjugate Vaccine (2 - 2-dose series) Meningococcal Conjugate Vaccine (2 - 2-dose series) [facility] Start: 01-17-2020 Hearing Screening Hearing Screening [facility] Start: 01-17-2020 Vision Screening Vision Screening [facility] Start: 2019 PEDS TO ADULT TRANSITION ANNUAL ASSESSMENT PEDS TO ADULT TRANSITION ANNUAL ASSESSMENT [facility] Start: 01-17-2016 HPV (1 - 2-dose series) HPV (1 - 2-dose series) [facility] Start: 2015 MENINGOCOCCAL B: Consider based on risk (1 of 2 - Risk Bexsero 2-dose series) MENINGOCOCCAL B: Consider based on risk (1 of 2 - Risk Bexsero 2-dose series) [facility] Start: 01-17-2012 Tetanus Diphtheria and Pertussis Vaccines (1 - Tdap) Tetanus Diphtheria and Pertussis Vaccines (1 - Tdap) [facility] Start: 2011 Pneumococcal vaccination Pneumococcal Vaccine (1 of 2 - PCV) [facility] Start: 02-22-2009 MMR (1 of 2 - Standard series) MMR (1 of 2 - Standard series) [facility] Start: 02-22-2009 Varicella (1 of 2 - 2-dose childhood series) Varicella (1 of 2 - 2-dose childhood series) [facility] Start: 2006 Hepatitis A (1 of 2 - 2-dose series) Hepatitis A (1 of 2 - 2-dose series) [facility] Start: 2005 Polio (1 of 3 - 4-dose series) Polio (1 of 3 - 4-dose series) [facility] Start: 2005 Hepatitis B (1 of 3 - 3-dose series) Hepatitis B (1 of 3 - 3-dose series) [facility] Bacteria identified in Urine by Culture URINE CULTURE Microbiology Routine Burning with urination Ordered: 12/05/2021 [facility] Work Phone: Comment on above: Ordered: 12/05/2021 Bacteria identified in Urine by Culture URINE CULTURE Microbiology Routine Vaginal burning 12/13/2021 12:26 PM T [facility] Work Phone: Bacteria identified in Urine by Culture URINE CULTURE Microbiology Routine Urinary frequency Gross hematuria 09/17/2022 7:21 PM EDT [facility] Work Phone: Bacteria identified in Urine by Culture URINE CULTURE Microbiology Routine Urinary frequency 03/02/2024 4:10 PM [facility] Work Phone: Bacteria identified in Urine by Culture BACTERIAL CULTURE, URINE Microbiology Routine Urinary frequency Ordered: 05/17/2024 [facility] Work Phone: Comment on above: Ordered: 05/17/2024 Bacteria identified in Urine by Culture BACTERIAL CULTURE, URINE Microbiology Routine Urinary frequency Ordered: 10/25/2024 [facility] Work Phone: Comment on above: Ordered: 10/25/2024 BACTERIAL VAGINOSIS AMPLIFICATION BACTERIAL VAGINOSIS AMPLIFICATION Lab Routine Burning with urination Ordered: 12/05/2021 [facility] Work Phone: Comment on above: Ordered: 12/05/2021 BACTERIAL VAGINOSIS NAAT BACTERI AL VAGINOSIS NAAT Lab Routine Urinary frequency Gross hematuria 09/17/2022 7:21 PM EDT [facility] Work Phone: BACTERIAL VAGINOSIS NAAT BACTERI AL VAGINOSIS NAAT Lab Routine Dysuria 03/02/2024 4:10 PM EST [facility] BACTERIAL VAGINOSIS NAAT BACTERI AL VAGINOSIS NAAT Lab Routine Encounter for gynecological examination (general) (routine) without abnormal findings Recurrent genital herpes Encounter for annual routine gynecological examination Screen for STD (sexually transmitted disease) 03/03/2024 4:21 PM [facility] Calprotectin [Mass/m ass] in Stool CALPROTECTIN,FECAL Lab Routine Generalized abdominal pain Ordered: 07/30/2023 [facility] Comment on above: Ordered: 07/30/2023 RIRI / TRICHOMONA S AMPLIFICATION RIRI / TRICHOMONAS AMPLIFICATION Microbiology Routine Burning with urination Ordered: 12/05/2021 [facility] Work Phone: Comment on above: Ordered: 12/05/2021 RIRI/TRICHOMONAS NAAT RIRI /TRICHOMONAS NAAT Microbiology Routine Urinary frequency Gross hematuria 09/17/2022 7:21 PM EDT [facility] Work Phone: RIRI/TRICHOMONAS NAAT RIRI /TRICHOMONAS NAAT Lab Routine Dysuria 03/02/2024 4:10 PM [facility] RIRI/TRICHOMONAS NAAT RIRI /TRICHOMONAS NAAT Lab Routine Encounter for gynecological examination (general) (routine) without abnormal findings Recurrent genital herpes Encounter for annual routine gynecological examination Screen for STD (sexually transmitted disease) 03/03/2024 4:21 PM [facility] CANNABINOID CONF, UR CANNABINOID CONF, UR Lab Routine Malaise and fatigue 12/07/2021 8:03 AM EDT [facility] Work Phone: Chlamydia trachomatis+Neisseria gonorrhoeae DNA [Presence] in Unspecified specimen by JENNIFER with probe detection GC/CHLAMYDIA DNA DET Lab Routine Dysuria 12/06/2021 3:53 PM EDT [facility] Work Phone: Chlamydia trachomatis+Neisseria gonorrhoeae DNA [Presence] in Unspecified specimen by JENNIFER with probe detection GONORRHEA/CHLAMYDIA NAAT Lab Routine Screen for STD (sexually transmitted disease) 12/06/2022 3:33 PM EDT [facility] Work Phone: Chlamydia trachomatis+Neisseria gonorrhoeae DNA [Presence] in Unspecified specimen by JENNIFER with probe detection GONORRHEA/CHLAMYDIA NAAT Lab Routine Screen for STD (sexually transmitted disease) 03/03/2024 4:21 PM EST [facility] COVID, FLU A/B + RSV , ROUTINE COVID, FLU A/B + RSV, ROUTINE Microbiology Routine Arthralgia, unspecified joint 02/20/2022 2:39 PM EST [facility] Work Phone: Gastrointestinal pathogens panel - Stool by JENNIFER with probe detection EXPANDED STOOL GASTROINTESTINAL PANEL BY PCR Lab Routine Ordered: 07/30/2023 [facility] Comment on above: Ordered: 07/30/2023 Gastrointestinal pathogens panel - Stool by JENNIFER with probe detection EXPANDED STOOL GASTROINTESTINAL PANEL BY PCR Lab Routine Ordered: 07/31/2023 [facility] Comment on above: Ordered: 07/31/2023 Glucose [Mass/volume ] in Serum or Plasma GLUCOSE, BLOOD (POC) Lab Routine Low blood glucose measurement Ordered: 12/07/2021 [facility] Work Phone: Comment on above: Ordered: 12/07/2021 NEXPLANON INSERTION NEXPLANON IN SERTION Procedures Routine Nexplanon insertion Ordered: 11/29/2021 [facility] Work Phone: Comment on above: Ordered: 11/29/2021 Ova and parasites identified in Unspecified specimen by Light microscopy OVA + PARA MICROSCOPIC Microbiology Routine Worms in stool Ordered: 08/25/2024 [facility] Work Phone: Comment on above: Ordered: 08/25/2024 Patient Education ED Gastritis (Adult) [facility] Work Phone: Patient referral [facility] Work Phone: PT PLAN OF CARE CERTIFICATION PT PLAN OF CARE CERTIFICATION Procedures Routine Subluxation of left patella, sequela Ordered: 05/21/2022 [facility] Comment on above: Ordered: 05/21/2022 ROUTINE FLU A/B + RSV ROUTINE FL U A/B + RSV Lab Routine Arthralgia, unspecified joint 02/20/2022 2:39 PM EST [facility] Work Phone: SARS-CoV-2 (COVID-19 ) RNA [Presence] in Respiratory specimen by JENNIFER with probe detection 2019 CORONAVIRUS Microbiology Routine Arthralgia, unspecified joint 02/20/2022 2:39 PM EST [facility] Work Phone: SPECIMEN VALIDITY, URINE SPECIME N VALIDITY, URINE Lab Routine Malaise and fatigue 12/07/2021 8:03 AM EDT [facility] Work Phone: TOX SCREEN ROUT UR TOX SCREEN RO UT UR Lab Routine Malaise and fatigue Ordered: 12/05/2021 [facility] Work Phone: Comment on above: Ordered: 12/05/2021 Urine test visual color cmprsn meths HCG QUAL UR B/O Lab Routine Generalized abdominal pain Ordered: 07/21/2023 [facility] Work Phone: Comment on above: Ordered: 07/21/2023 XR Knee - left 4 Views XR KNEE G ENERAL 4V AP BOTH/PA BOTH/LAT/MERC LEFT Radiology Routine Left knee pain, unspecified chronicity 11/01/2024 10:45 AM EDT [facility] Work Phone: [facility] Immunizations Immunization Date Immunization Notes Care Provider Tracie carmen 09-03-2023 meningococcal (MenACWY-TT) vaccine, quadrivalent (MENQUADFI) Chacha Kim MD Work Phone: [facility] 05-30-2023 tetanus toxoid, redu arianna diphtheria toxoid, and acellular pertussis vaccine, adsorbed Rufino STROUD Work Phone: [facility] 01-24-2021 COVID-19 vaccine, ag e 12+ yr (PFIZER-BIONTECH - [facility]) Chacha Kim MD Work Phone: [facility] 12-29-2020 COVID-19 vaccine, ag e 12+ yr (PFIZER-BIONTECH - PURPLE TOP) Chacha Kim MD Work Phone: [facility] Work Phone: 12-13-2020 influenza, injectabl e, quadrivalent, contains preservative Chacha Kim MD Work Phone: [facility] 12-13-2020 influenza virus vacc ine, unspecified formulation Carin Carter APRN.[facility] Work Phone: [facility] 02-19-2017 Human Papillomavirus 9-valent vaccine Chacha Kim MD Work Phone: [facility] 02-19-2017 influenza, injectabl e, quadrivalent, contains preservative Chacha Kim MD Work Phone: [facility] 02-19-2016 Human Papillomavirus 9-valent vaccine Chacha Kim MD Work Phone: [facility] 02-19-2016 influenza, injectabl e, quadrivalent, contains preservative Chacha Kim MD Work Phone: [facility] 02-19-2016 meningococcal polysaccharide (groups A, C, Y and W-135) diphtheria toxoid conjugate vaccine (MCV4P) Chacha Kim MD Work Phone: [facility] 02-19-2016 tetanus toxoid, redu arianna diphtheria toxoid, and acellular pertussis vaccine, adsorbed Chacha Kim MD Work Phone: [facility] 12-22-2014 influenza, injectabl e, quadrivalent, contains preservative Chacha Kim MD Work Phone: [facility] Work Phone: 02-02-2014 influenza, injectabl e, quadrivalent, preservative free Chacha Kim MD Work Phone: [facility] 01-19-2013 influenza virus vacc ine, unspecified formulation Chacha Kim MD Work Phone: [facility] 01-11-2012 influenza virus vacc ine, unspecified formulation Chacha Kim MD Work Phone: [facility] 01-22-2011 influenza virus vacc ine, unspecified formulation Chacha Kim MD Work Phone: [facility] Work Phone: 02-23-2010 diphtheria, tetanus toxoids and acellular pertussis vaccine Chacha Kim MD Work Phone: [facility] Work Phone: 02-23-2010 measles, mumps and rubella virus vaccine Chacha Kim MD Work Phone: [facility] Work Phone: 02-23-2010 poliovirus vaccine, inactivated Chacha Kim MD Work Phone: [facility] Work Phone: 02-23-2010 varicella virus vaccine Chacha Kim MD Work Phone: [facility] Work Phone: 01-06-2010 influenza virus vacc ine, unspecified formulation Chacha Kim MD Work Phone: [facility] 01-25-2009 novel Influenza-H1N1 -09, live virus for nasal administration Chacha Kim MD Work Phone: [facility] Work Phone: 12-27-2008 influenza virus vacc ine, unspecified formulation Chacha Kim MD Work Phone: [facility] Work Phone: 01-19-2008 influenza virus vacc ine, unspecified formulation Chacha Kim MD Work Phone: [facility] 2007 hepatitis A vaccine, unspecified formulation Chacha Kim MD Work Phone: [facility] Work Phone: 2007 influenza virus vacc ine, unspecified formulation Chacha Kim MD Work Phone: [facility] Work Phone: 07-21-2006 haemophilus influenz ae type b vaccine, HbOC conjugate Chacha Kim MD Work Phone: [facility] Work Phone: 07-21-2006 hepatitis A vaccine, unspecified formulation Chacha Kim MD Work Phone: [facility] Work Phone: 04-03-2006 diphtheria, tetanus toxoids and acellular pertussis vaccine Chacha Kim MD Work Phone: [facility] Work Phone: 02-20-2006 influenza virus vacc ine, unspecified formulation Chacha Kim MD Work Phone: [facility] Work Phone: 01-20-2006 influenza virus vacc ine, unspecified formulation Chacha Kim MD Work Phone: [facility] Work Phone: 01-20-2006 measles, mumps and rubella virus vaccine Chacha Kim MD Work Phone: [facility] Work Phone: 01-20-2006 pneumococcal conjuga te vaccine, 7 valent Chacha Kim MD Work Phone: [facility] Work Phone: 01-20-2006 varicella virus vaccine Chacha Kim MD Work Phone: [facility] Work Phone: 2005 DTaP-hepatitis B and poliovirus vaccine Chacha Kim MD Work Phone: [facility] Work Phone: 2005 haemophilus influenz ae type b vaccine, HbOC conjugate Chacha Kim MD Work Phone: [facility] Work Phone: 2005 pneumococcal conjuga te vaccine, 7 valent Chacha Kim MD Work Phone: [facility] Work Phone: 2005 DTaP-hepatitis B and poliovirus vaccine Chacha Kim MD Work Phone: [facility] Work Phone: 2005 haemophilus influenz ae type b vaccine, HbOC conjugate Chacha Kim MD Work Phone: [facility] Work Phone: 2005 pneumococcal conjuga te vaccine, 7 valent Chacha Kim MD Work Phone: [facility] Work Phone: 2005 DTaP-hepatitis B and poliovirus vaccine Chacha Kim MD Work Phone: [facility] Work Phone: 2005 haemophilus influenz ae type b vaccine, HbOC conjugate Chacha Kim MD Work Phone: [facility] Work Phone: 2005 pneumococcal conjuga te vaccine, 7 valent Chacha Kim MD Work Phone: [facility] Work Phone: 2005 hepatitis B vaccine, pediatric or pediatric/adolescent dosage Chacha Kim MD Work Phone: [facility] Work Phone: Payers Date Payer Category [facility] [id number] 2023 Unknown [id number] 2018 Unknown [id number] 2007 [facility] MEDICAID [id number] 2007-Present [phone] [address] [place] [address] Medicaid [id number] 2007 Medicaid [id number] 1973 Unknown [id number] 1973 Unknown [id number] 1973 Unknown [id number] 1973 Unknown [id number] 1973 Unknown [id number] 1973 Unknown [id number] 1973 Unknown [id number] 1973 Unknown [id number] 1973 Unknown [id number] 1973 Unknown [id number] 479 Unknown [id number] Unknown [id number] Unknown [id number] Unknown [id number] Social History Date Type Detail Facility Start: 01-22-2011 End: 06-26-2024 Tobacco smoking status NHIS Never smoked tobacco [facility] Start: 05-02-2021 End: 03-02-2024 Alcohol intake Current non-drinker of alcohol (finding) [facility] Start: 2005 Sex Assigned At Not on file [facility] Start: 01-22-2011 End: 02-20-2022 Tobacco use and exposure Smokeless tobacco non-user [facility] Work Phone: Start: 11-03-2021 End: 11-13-2021 Exposure to SARS-CoV-2 (event) Unable to assess [facility] Work Phone: Start: 12-28-2019 End: 02-20-2022 Exposure to SARS-CoV-2 (event) Not sure [facility] Start: 12-06-2021 End: 07-31-2023 Tobacco smoking status NHIS Occasional tobacco smoker [facility] History of tobacco use Tobacco U se Types Packs/Day Years Used Date Smoking Tobacco: Some Days Vaping Passive Smoke Exposure: Never Smokeless Tobacco: Never [facility] Start: 12-06-2021 End: 12-02-2024 Alcohol intake Current drinker of alcohol (finding) [facility] Start: 12-06-2021 Alcohol Comment only couple experiences [facility] Start: 08-09-2022 History SDOH Physica l Activity DPW 3 [facility] Start: 08-09-2022 History SDOH Physica l Activity MPS 6 [facility] Start: 08-09-2022 History SDOH Financial 5 [facility] Start: 08-09-2022 History SDOH Food Worry 1 [facility] Start: 08-09-2022 History SDOH Transpo rt Med 2 [facility] Start: 09-17-2022 End: 09-27-2024 History of Social function [facility] Start: 09-17-2022 End: 12-19-2023 Tobacco use panel [facility] Start: 02-23-2012 How hard is it for y ou to pay for the very basics like food, housing, medical care, and heating Not hard at all [facility] (I/We) worried yohannes er (my/our) food would run out before (I/we) got money to buy more. Never true [facility] In the past 12 month s, was there a time when you were not able to pay the mortgage or rent on time? No [facility] History of tobacco use Cigarette Smoker [facility] Start: 07-31-2023 Tobacco use and exposure User of smokeless tobacco [facility] Start: 07-31-2023 Tobacco Comment Per pt smoking on the weekends mostly [facility] Do you belong to any clubs or organizations such as roman catholic groups, unions, fraternal or athletic groups, or school groups? Yes [facility] Are you now , , , , never or living with a partner? Never [facility] How often to you hav e a drink containing alcohol? 2-4 times a month [facility] How many standard drinks containing alcohol do you have on a typical day? 3 or 4 [facility] How often do you hav e 6 or more drinks on 1 occasion? Less than monthly [facility] Do you feel stress - tense, restless, nervous, or anxious, or unable to sleep at night because your mind is troubled all the time - these days [OSQ] To some extent [facility] Start: 06-27-2024 Sex Female (finding) [place] [facility] Start: 2005 Sex Assigned At Female [facility] NEGATED: Highlighted rowStart: NINF History of tobacco use Passive smoker [facility] Functional Status Date Assessment Result Facility 08-30-2014 Are you deaf, or do you have serious difficulty hearing No 08/30/2014 11:11 AM Joi Middleton RN [facility] 08-30-2014 Are you blind, or do you have serious difficulty seeing, even when wearing glasses No 08/30/2014 11:11 AM Joi Middleton RN [facility] 08-30-2014 Do you have serious difficulty walking or climbing stairs No 08/30/2014 11:11 AM EDJoi Ferrara RN No [facility] 08-30-2014 Do you have difficul ty dressing or bathing No 08/30/2014 11:11 AM Joi Middleton RN No [facility] Mental Status Date Assessment Result Facility 08-30-2014 Because of a physica l, mental, or emotional condition, do you have serious difficulty concentrating, remembering, or making decisions No 08/30/2014 11:11 AM Joi Middleton RN No [facility] Clinical Notes 01-30-2015 to 12-17-2024 Telephone Encounter - Rena Purcell RN - 12/02/2024 4:49 PM EDTTelephone Encounter - Rena Purcell RN - 12/02/2024 4:49 PM EDMerly Fry APRN.[facility] - 12/02/2024 1:13 PM EDT Note Date & Type Note Facility 12-17-2024 Note HNO ID: [id number] Author: RUFINO BOURNE PA Service: ? Author Type: Physician International Representative Type: Progress Notes Filed: 12/17/2024 16:31 Note Text: URGENT CARE JORGE L Alonso is a 19 year old female. Patient presents with: UTI: Burning, pain with urination, hematuria, dysuria x2 days HPI The patient is a 19-year-old female presenting with dysuria and hematuria. Dysuria and Hematuria: - Onset of symptoms today. - Describes dysuria as soreness and slight burning. - Denies back pain, abdominal pain, fevers, or emesis. - Denies abnormal vaginal discharge or pruritus. - LMP: 12/03. - Recently had Nexplanon removed; remains sexually active. - Denies concern for . PAST MEDICAL HISTORY Diagnosis Date Arm fracture, left 2016 buckle fracture-casted Constipation 01/30/2015 Depression Immunization not carried out because of parent refusal 06/03/2018 Influenza Menstrual cycle problem 12/2016 Nexplanon - 2022 NEGATIVE MEDICAL HISTORY Patellar subluxation, left, initial encounter 2020 PAST SURGICAL HISTORY Procedure Laterality Date NONE ALLERGIES Nickel MEDICATIONS nitrofurantoin monohydrate and macrocrystal (MACROBID) 100 mg capsule Take 1 capsule by mouth two times a day for 5 days. FAMILY HISTORY Problem Relation Age of Onset Migraines Mother No Known Problems Father Unknown completely Breast Cancer Maternal Grandmother Early 40's Blood Clots Maternal Grandfather No Known Problems Paternal Grandmother No Known Problems Paternal Grandfather other (Endometriosis) Half-sister Anxiety disorder Half-sister Depression Half-sister Celiac Disease No Family History Inflammatory Bowel Disease No Family History Thyroid No Family History SOCIAL HISTORY[1] Review of Systems Constitutional: (-) fever Gastrointestinal: (-) abdominal pain, (-) vomiting Genitourinary: (+) dysuria, (+) urinary frequency, (-) abnormal vaginal discharge, (-) vaginal pruritus, (-) pelvic pain Musculoskeletal: (-) back pain Objective BP 107/73 Pulse 72 Temp 36.7 ?C (98 ?F) Resp 18 Wt 59.2 kg (130 lb 8.2 oz) LMP 12/03/2024 (Exact Date) SpO2 100% BMI 22.23 kg/m? Physical Exam Vitals and nursing note reviewed. Constitutional: General: She is not in acute distress. Appearance: Normal appearance. She is not toxic-appearing. HENT: Mouth/Throat: Mouth: Mucous membranes are moist. Cardiovascular: Rate and Rhythm: Normal rate and regular rhythm. Pulmonary: Effort: Pulmonary effort is normal. Breath sounds: Normal breath sounds. Abdominal: General: Abdomen is flat. Palpations: Abdomen is soft. Tenderness: There is no abdominal tenderness. There is no right CVA tenderness, left CVA tenderness, guarding or rebound. Skin: General: Skin is warm and dry. Neurological: Mental Status: She is alert. { 1. Burning with urination (R30.0) - Urinalysis positive for blood and WBCs. - Start Macrobid for UTI; instructed patient to complete full course. - Urine sent for culture; will follow up with results in a few days. - Advised patient to follow up with PCP if symptoms persist. Recording using [employer] software for draft documentation of the visit was discussed with the patient/authorized clearance representative; all questions welcomed and answered. Patient/authorized clearance representative agreed to proceed Diagnosis and treatment plan were discussed and questions were answered to the patient's satisfaction. Pt acknowledged understanding of concepts and follow up plan. Specific signs and symptoms that would indicate the need for higher level of care were discussed in detail warranting prompt ER evaluation. History and Record Review External record(s) reviewed: prior outpatient record. Findings from review of outpatient records: seen 1 mo ago, UTI grew e coli Differential Diagnoses - uti is more likely for the following reason(s): suggested by HANDP - pyelonephritis is less likely for the following reason(s): HANDP not suggestive - ureterolithiasis is less likely for the following reason(s): HANDP not suggestive Additional Tests or Interventions The following testing was considered but ultimately not selected after discussion with patient/family: vaginal swabs- patient denies vaginal discharge/itching Disposition The patient was discharged. Procedures [1] Social History Tobacco Use Smoking status: Some Days Types: Cigarettes Passive exposure: Never Smokeless tobacco: Current Tobacco comments: Per pt smoking on the weekends mostly Vaping Use Vaping status: Never Used Substance Use Topics Alcohol use: Yes Drug use: Yes Types: Marijuana Comment: per pt one joint once a week on the weekends does not smoke regularly on week days only sometimes [facility] 12-02-2024 Telephone encounter Note Patient notified. Rena Purcell RN [facility] 12-02-2024 Miscellaneous Notes Patient notified. Rena Purcell RN That may be likely to be pushing and tugging to get the Nexplanon out and possibly the lidocaine that should resolve on its own within the next day or so. If it does not I would have her follow-up with her primary care because at this time there is nothing new that should be causing any nerve impingement. Merly Sanz APRN.[facility] Patient was just seen in the office today and Nexplanon was removed from her right arm. Patient is wanting to know if it normal to have numbness down her right arm that extends down through her pink and ring finger. 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 Discussed lidocaine use. Please advise. Maci Byrne RN documented in this encounter [facility] 12-02-2024 Telephone encounter Note That may be likely to be pushing and tugging to get the Nexplanon out and possibly the lidocaine that should resolve on its own within the next day or so. If it does not I would have her follow-up with her primary care because at this time there is nothing new that should be causing any nerve impingement. Merly Sanz APRN.CNP [facility] 12-02-2024 Telephone encounter Note Patient was just seen in the office today and Nexplanon was removed from her right arm. Patient is wanting to know if it normal to have numbness down her right arm that extends down through her pink and ring finger. 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 Discussed lidocaine use. Please advise. Maci Byrne RN [facility] 12-02-2024 Note HNO ID: [id number] Author: MERLY SANZ APRN.CNP Service: ? Author Type: Nurse Practitioner Type: Progress Notes Filed: 12/02/2024 14:30 Note Text: Nichole is a 19 year old who presents for Nexplanon (RT) arm, placed 11/26/2021. UNIVERSAL PROTOCOL / SAFETY CHECKLIST Procedure to be Performed: Implanon/Nexplanon (contraceptive subdermal implant) removal Sign In: A Moment of CARE was completed. Appropriate PPE (Personal Protective Equipment) worn by all providers involved with the procedure. Special equipment not required. Patient/Surrogate Stated/Verified: Patient name, Date of , Relevant allergies, and The intended procedure Time Out: Relevant labs, photos, and/or imaging studies have been reviewed. Intended patient and procedure match the source document(s) (e.g. consent, HANDP, associated studies [imaging, pathology]) match the intended patient and procedure. Consent obtained and matches the intended procedure. Yes. Correct side/site has been marked and visible. Medications required for this procedure are verified. Fire risk assessed and is not applicable. Implants: are not applicable. Sign Out: Specimens not collected. All instruments, equipment, possible retained foreign bodies are accounted for. Yes. The post-procedure plan of care has been communicated to the patient or surrogate. TECHNIQUE: Patient placed in supine position with right arm bent at the elbow and placed over the head. Skin cleansed with betadine. 2mL of 1% lidocaine with epi injected subQ along insertion site. Scalpel used to made a 5mm stab incision superficially at distal end of Nexplanon. Device removed under sterile technique with a small hemostat. Sterile pressure dressing applied. AANDP: 19 year old here for Nexplanon removal Nexplanon removed intact without difficulty. The patient was instructed to remove the dressing after 24 hours. Contraceptive plans condoms Merly Sanz APRN.[facility] 12-02-2024 History of Presen t illness Narrative Nichole is a 19 year old who presents for Nexplanon (RT) arm, placed 11/26/2021. UNIVERSAL PROTOCOL / SAFETY CHECKLIST Procedure to be Performed: Implanon/Nexplanon (contraceptive subdermal implant) removal Sign In: A Moment of CARE was completed. Appropriate PPE (Personal Protective Equipment) worn by all providers involved with the procedure. Special equipment not required. Patient/Surrogate Stated/Verified: Patient name, Date of , Relevant allergies, and The intended procedure Time Out: Relevant labs, photos, and/or imaging studies have been reviewed. Intended patient and procedure match the source document(s) (e.g. consent, H&P, associated studies [imaging, pathology]) match the intended patient and procedure. Consent obtained and matches the intended procedure. Yes. Correct side/site has been marked and visible. Medications required for this procedure are verified. Fire risk assessed and is not applicable. Implants: are not applicable. Sign Out: Specimens not collected. All instruments, equipment, possible retained foreign bodies are accounted for. Yes. The post-procedure plan of care has been communicated to the patient or surrogate. TECHNIQUE: Patient placed in supine position with right arm bent at the elbow and placed over the head. Skin cleansed with betadine. 2mL of 1% lidocaine with epi injected subQ along insertion site. Scalpel used to made a 5mm stab incision superficially at distal end of Nexplanon. Device removed under sterile technique with a small hemostat. Sterile pressure dressing applied. A&P: 19 year old here for Nexplanon removal Nexplanon removed intact without difficulty. The patient was instructed to remove the dressing after 24 hours. Contraceptive plans condoms Merly Sanz APRN.[facility] documented in this encounter [facility] 11-01-2024 Note HNO ID: [id number] Author: AJ CORDOVA MD Service: ? Author Type: Physician Type: Progress Notes Filed: 11/01/2024 11:40 Note Text: [facility] Encounter Date: 11/01/2024 Patient Name: Nichole Alonso : 2005 Chief Complaint: left knee pain Nichole Alonso is a 19-year-old female presenting with recurrent patellar subluxation and associated pain in the left knee. Nichole reports a history of patellar subluxation in the left knee, initially occurring in 2019 while dancing. She was treated with a brace and physical therapy at that time. Since then, she has experienced multiple episodes of patellar subluxation in both knees, though less severe than the initial injury. These episodes were associated with sharp pain and swelling, but the pain would typically resolve on its own. Approximately 1.5 months ago, she experienced another episode of patellar subluxation in the left knee while playing on a [id number]-uvphs. She describes the sensation as the kneecap shifting to the side and then returning to its normal position on its own, accompanied by a grinding feeling. This episode was followed by increasing pain over the weeks, prompting her to seek medical evaluation. She notes that the pain has become continuous and is associated with a feeling of looseness in the knee. Nichole denies any episodes where the kneecap remained dislocated or required external manipulation to return to its normal position. She also denies any significant swelling or deformity in the knee. She has not been consistently participating in sports or physical activities recently but expresses a desire to resume dance classes and start martial arts. She occasionally babysits, which involves some physical activity. Complete review of 14 systems, past medical and surgical history, social and family history were reviewed and updated today. PHYSICAL EXAM Constitutional: no fevers, chills, wt change General Appearance: Well-nourished and without distress Cardiovascular: Normal capillary refill and circulation Pulmonary: regular rate and nonlabored Gl- abd soft, nt/nd, no pubic or symphysis tenderness Back - no rib hump, nontender Lymphatic: No abnormal lymph node swelling or lymphangitis noted. Skin: No skin lesions noted Knee - Musculoskeletal: - Left Knee: - Lateral glide of patella approximately 2 quadrants; no patellar apprehension; ligaments stable. - ROM: Extension to +10 degrees, flexion to 140 degrees. - Quadriceps strength slightly weaker compared to right. - Right Knee: - Lateral glide of patella approximately 1.5 quadrants; no patellar apprehension; ligaments stable. - ROM: Extension to +10 degrees, flexion to 140 degrees. - Quadriceps strength slightly stronger compared to left. Neurologic / Psychiatric: Coordination: Fine motor coordination is within normal limits. Reflexes: Not evaluated. Sensation: Sensation to light touch is normal. Motor function: Neurological motor function is normal Mental status: Orientation to person, place and time are age appropriate. RADIOLOGY Upon review of 4V left Knee x-ray done today, as interpreted by myself, Nichole is noted to have: no evidence of acute fracture or dislocation, evidence of very small bony avulsion fragment adjacent to medial patella IMPRESSION/PLAN Nichole Alonso is a 19 year old old female with recurrent left knee patella subluxations We discussed your left knee pain and history of patellar subluxation: - You have some looseness in your left knee and mild weakness in the quadriceps muscle, which helps stabilize your kneecap. This is likely contributing to the sensation of your kneecap sliding or shifting. We discussed your treatment plan: - I recommend starting physical therapy to strengthen your quadriceps, hip, and core muscles. This will help stabilize your kneecap and reduce the risk of future subluxations. - Attend physical therapy sessions once a week for 6-8 weeks. - Perform the prescribed exercises at home regularly, as this is essential for improvement. - If your symptoms persist after two months of consistent physical therapy, we will discuss further options, such as imaging (MRI) or surgical intervention if necessary. We discussed activity modifications: - Avoid high-impact or twisting activities until you have completed at least one month of physical therapy to build baseline strength. - If you plan to resume activities like dance or martial arts, ease into them gradually and wear a knee brace during these activities to prevent subluxation. - You do not need to wear the brace for everyday activities like walking unless it makes your knee feel more stable. We discussed pain management: - On days when your knee hurts, you may use ice and take rhnu-dgm-hjwuuwo anti-inflammatory medications (e.g., ibuprofen) as needed. - The knee brace is primarily for stabi (more content not included)... [facility] 11-01-2024 History of Presen t illness Narrative [facility] Encounter Date: 11/01/2024 Patient Name: Nichole Alonso : 2005 Chief Complaint: left knee pain Nichole Alonso is a 19-year-old female presenting with recurrent patellar subluxation and associated pain in the left knee. Nichole reports a history of patellar subluxation in the left knee, initially occurring in 2019 while dancing. She was treated with a brace and physical therapy at that time. Since then, she has experienced multiple episodes of patellar subluxation in both knees, though less severe than the initial injury. These episodes were associated with sharp pain and swelling, but the pain would typically resolve on its own. Approximately 1.5 months ago, she experienced another episode of patellar subluxation in the left knee while playing on a [id number]-[id number]. She describes the sensation as the kneecap shifting to the side and then returning to its normal position on its own, accompanied by a grinding feeling. This episode was followed by increasing pain over the weeks, prompting her to seek medical evaluation. She notes that the pain has become continuous and is associated with a feeling of looseness in the knee. Nichole denies any episodes where the kneecap remained dislocated or required external manipulation to return to its normal position. She also denies any significant swelling or deformity in the knee. She has not been consistently participating in sports or physical activities recently but expresses a desire to resume dance classes and start martial arts. She occasionally babysits, which involves some physical activity. Complete review of 14 systems, past medical and surgical history, social and family history were reviewed and updated today. PHYSICAL EXAM Constitutional: no fevers, chills, wt change General Appearance: Well-nourished and without distress Cardiovascular: Normal capillary refill and circulation Pulmonary: regular rate and nonlabored Gl- abd soft, nt/nd, no pubic or symphysis tenderness Back - no rib hump, nontender Lymphatic: No abnormal lymph node swelling or lymphangitis noted. Skin: No skin lesions noted Knee - Musculoskeletal: - Left Knee: - Lateral glide of patella approximately 2 quadrants; no patellar apprehension; ligaments stable. - ROM: Extension to +10 degrees, flexion to 140 degrees. - Quadriceps strength slightly weaker compared to right. - Right Knee: - Lateral glide of patella approximately 1.5 quadrants; no patellar apprehension; ligaments stable. - ROM: Extension to +10 degrees, flexion to 140 degrees. - Quadriceps strength slightly stronger compared to left. Neurologic / Psychiatric: Coordination: Fine motor coordination is within normal limits. Reflexes: Not evaluated. Sensation: Sensation to light touch is normal. Motor function: Neurological motor function is normal Mental status: Orientation to person, place and time are age appropriate. RADIOLOGY Upon review of 4V left Knee x-ray done today, as interpreted by myself, Nichole is noted to have: no evidence of acute fracture or dislocation, evidence of very small bony avulsion fragment adjacent to medial patella IMPRESSION/PLAN Nichole Alonso is a 19 year old old female with recurrent left knee patella subluxations We discussed your left knee pain and history of patellar subluxation: - You have some looseness in your left knee and mild weakness in the quadriceps muscle, which helps stabilize your kneecap. This is likely contributing to the sensation of your kneecap sliding or shifting. We discussed your treatment plan: - I recommend starting physical therapy to strengthen your quadriceps, hip, and core muscles. This will help stabilize your kneecap and reduce the risk of future subluxations. - Attend physical therapy sessions once a week for 6-8 weeks. - Perform the prescribed exercises at home regularly, as this is essential for improvement. - If your symptoms persist after two months of consistent physical therapy, we will discuss further options, such as imaging (MRI) or surgical intervention if necessary. We discussed activity modifications: - Avoid high-impact or twisting activities until you have completed at least one month of physical therapy to build baseline strength. - If you plan to resume activities like dance or martial arts, ease into them gradually and wear a knee brace during these activities to prevent subluxation. - You do not need to wear the brace for everyday activities like walking unless it makes your knee feel more stable. We discussed pain management: - On days when your knee hurts, you may use ice and take ilvr-tcn-nlpzbnv anti-inflammatory medications (e.g., ibuprofen) as needed. - The knee brace is primarily for stability and preventing subluxation, but you may wear it if it helps reduce discomfort. Follow-up: - I recommend scheduling a follow-up appointment with me in two months to assess your progress. If you are feeling significantly better, you can cancel the appointment. No XR needed at this visit - If your symptoms worsen or do not improve despite physical therapy, please contact our office. Additional instructions: - I have provided you with a physical therapy order so you can schedule sessions at a location convenient for you. Please ensure you begin therapy as soon as possible. I addressed all questions and concerns with Nichole's caregivers while in the clinic today. We discussed Nichole's diagnosis and plan at length, and they understand and agree to this plan. I do encourage them to call with any questions or concerns at which point Nichole will be seen back at the earliest convenience. Aj Cordova MD documented in this encounter [facility] 11-01-2024 History of Presen t illness Narrative Radiology Service Progress Note PATIENT NAME: Nichole Alonso DATE OF SERVICE: November 01, 2024 TIME: 10:45 AM PATIENT IDENTITY VERIFICATION COMPLETED USING TWO (2) IDENTIFIERS: Name and Date of confirmed by patient verbally. FALL SCREENING: Has the patient had 2 falls in the last year or 1 fall with injury or currently using an Ambulatory Assistive Device (Walker, Cane, Wheelchair, Crutches, etc.)? No PATIENT GENDER DATA: Assigned female at . status: : No status: NO. PATIENT RELEVANT IMPLANT DATA REVIEWED: Not Applicable PATIENT PRESENTS WITH AN IMPLANTABLE OR ATTACHED AUTO BODY DETAILER: No RADIOLOGY DEPARTMENT: General X-ray: Exam(s) Completed: Lower Extremity X-Ray(s): Knee, AP / Lat / Tunne / Merchant Left and Wt. Bearing PERIPHERAL IV DATA: Not applicable SIGNED BY: Juan Carranza November 01, 2024 10:45 AM documented in this encounter [facility] 11-01-2024 Note HNO ID: [id number] Author: CHI PHILIP Tech Service: ? Author Type: Deep Submergence Vehicle Operator Type: Progress Notes Filed: 11/01/2024 10:45 Note Text: Radiology Service Progress Note PATIENT NAME: Nichole Alonso DATE OF SERVICE: November 01, 2024 TIME: 10:45 AM PATIENT IDENTITY VERIFICATION COMPLETED USING TWO (2) IDENTIFIERS: Name and Date of confirmed by patient verbally. FALL SCREENING: Has the patient had 2 falls in the last year or 1 fall with injury or currently using an Ambulatory Assistive Device (Walker, Cane, Wheelchair, Crutches, etc.)? No PATIENT GENDER DATA: Assigned female at . status: : No status: NO. PATIENT RELEVANT IMPLANT DATA REVIEWED: Not Applicable PATIENT PRESENTS WITH AN IMPLANTABLE OR ATTACHED AUTO BODY DETAILER: No RADIOLOGY DEPARTMENT: General X-ray: Exam(s) Completed: Lower Extremity X-Ray(s): Knee, AP / Lat / Tunne / Merchant Left and Wt. Bearing PERIPHERAL IV DATA: Not applicable SIGNED BY: Juan Carranza November 01, 2024 10:45 AM [facility] 10-25-2024 Note HNO ID: [id number] Author: CASSANDRA DE LUNA APRN.[facility] Service: ? Author Type: Nurse Practitioner Type: Progress Notes Filed: 10/25/2024 09:13 Note Text: [facility] Subjective Nichole Alonso is a 19 year old female. Patient presents with: Urinary Frequency: burning with urination x 1 hour HPI Dysuria and Hematuria: - Acute onset of dysuria and hematuria this morning. - Urine appeared pink on toilet paper, very cloudy, and had a strong odor. - Denies fever, achiness, or increased back pain. - Denies vaginal discharge or irritation. - Reports recent pelvic cramping similar to menstrual cramps, but no period in the past few days. - History of UTIs, but unsure of the last occurrence; recalls a recent negative test. - Sexually active; uses condoms consistently. - Currently has a Nexplanon implant. Review of Systems Constitutional: (-) fever, (-) myalgia Genitourinary: (+) dysuria, (+) hematuria, (+) cloudy urine, (+) malodorous urine, (-) vaginal discharge, (-) vaginal irritation, (-) pelvic pain Musculoskeletal: (+) back pain chronic not more that usual Objective BP 102/68 Pulse 78 Temp 36.3 ?C (97.3 ?F) Resp 16 Wt 58.4 kg (128 lb 12 oz) LMP 12/19/2021 (Approximate) SpO2 100% BMI 21.93 kg/m? PAST MEDICAL HISTORY Diagnosis Date Arm fracture, left 2017 buckle fracture-casted Constipation 01/30/2015 Depression Immunization not carried out because of parent refusal 06/03/2018 Influenza Menstrual cycle problem 12/2016 Nexplanon - 2022 NEGATIVE MEDICAL HISTORY Patellar subluxation, left, initial encounter 2020 PAST SURGICAL HISTORY Procedure Laterality Date NONE ALLERGIES Nickel MEDICATIONS etonogestrel (NEXPLANON) 68 mg impl subdermal implant 68 mg by SUBDERMAL route. nitrofurantoin monohydrate and macrocrystal (MACROBID) 100 mg capsule Take 1 capsule by mouth two times a day for 7 days. FLUoxetine (PROZAC) 10 mg capsule once daily. (Patient not taking: Reported on 10/25/2024) traMADol (ULTRAM) 50 mg tablet take 1 tablet by mouth every 8 hours NEEDED FOR PAIN for 2 days (Patient not taking: Reported on 05/10/2024) penicillin V potassium 500 mg tablet Take 500 mg by mouth. (Patient not taking: Reported on 05/10/2024) ibuprofen (MOTRIN) 800 mg tablet Take 800 mg by mouth every 8 hours as needed. (Patient not taking: Reported on 05/10/2024) famotidine (PEPCID) 20 mg tablet take 1 tablet by mouth twice a day (Patient not taking: Reported on 06/16/2024) dicyclomine (BENTYL) 20 mg tablet take 1 tablet by mouth three times a day if needed (Patient not taking: Reported on 06/16/2024) hydrOXYzine pamoate (VISTARIL) 25 mg capsule Take 1 capsule by mouth three times a day as needed. (Patient not taking: Reported on 05/10/2024) FAMILY HISTORY Problem Relation Age of Onset Migraines Mother No Known Problems Father Unknown completely Breast Cancer Maternal Grandmother Early 40's Blood Clots Maternal Grandfather No Known Problems Paternal Grandmother No Known Problems Paternal Grandfather other (Endometriosis) Half-sister Anxiety disorder Half-sister Depression Half-sister Celiac Disease No Family History Inflammatory Bowel Disease No Family History Thyroid No Family History Social History Tobacco Use Smoking status: Some Days Types: Cigarettes Passive exposure: Never Smokeless tobacco: Current Tobacco comments: Per pt smoking on the weekends mostly Vaping Use Vaping status: Never Used Substance Use Topics Alcohol use: Yes Drug use: Yes Types: Marijuana Comment: per pt one joint once a week on the weekends does not smoke regularly on week days only sometimes Physical Exam Constitutional: General: She is not in acute distress. Appearance: Normal appearance. She is normal weight. She is not ill-appearing or toxic-appearing. Cardiovascular: Rate and Rhythm: Normal rate and regular rhythm. Pulses: Normal pulses. Heart sounds: Normal heart sounds. Pulmonary: Effort: Pulmonary effort is normal. Breath sounds: Normal breath sounds. Abdominal: General: Bowel sounds are normal. There is no distension. Tenderness: There is no abdominal tenderness. There is no right CVA tenderness, left CVA tenderness or guarding. Neurological: Mental Status: She is alert. { 1. Urinary frequency (R35.0) 2. Dysuria (R30.0) - Acute onset of urinary frequency and dysuria with hematuria, pyuria, and positive leukocytes on urinalysis consistent with urinary tract infection. - Start Macrobid 100 mg PO BID for 7 days. - Urine culture sent. - Educated patient on antibiotic regimen and advised that we will contact her if culture results necessitate a change in therapy. and Recording using ambient AI software for draft documentation of the visit was discussed with the patient/authorized clearance representative; all questions welcomed and answered. Patient/authorized clearance representative agreed to proceed Disposition (more content not included)... [facility] 10-25-2024 History of Presen t illness Narrative [facility] Steven Alonso is a 19 year old female. Patient presents with: Urinary Frequency: burning with urination x 1 hour HPI Dysuria and Hematuria: - Acute onset of dysuria and hematuria this morning. - Urine appeared pink on toilet paper, very cloudy, and had a strong odor. - Denies fever, achiness, or increased back pain. - Denies vaginal discharge or irritation. - Reports recent pelvic cramping similar to menstrual cramps, but no period in the past few days. - History of UTIs, but unsure of the last occurrence; recalls a recent negative test. - Sexually active; uses condoms consistently. - Currently has a Nexplanon implant. Review of Systems Constitutional: (-) fever, (-) myalgia Genitourinary: (+) dysuria, (+) hematuria, (+) cloudy urine, (+) malodorous urine, (-) vaginal discharge, (-) vaginal irritation, (-) pelvic pain Musculoskeletal: (+) back pain chronic not more that usual Objective BP 102/68 Pulse 78 Temp 36.3 C (97.3 F) Resp 16 Wt 58.4 kg (128 lb 12 oz) LMP 12/19/2021 (Approximate) SpO2 100% BMI 21.93 kg/m PAST MEDICAL HISTORY Diagnosis Date Arm fracture, left 2016 buckle fracture-casted Constipation 01/30/2015 Depression Immunization not carried out because of parent refusal 06/03/2018 Influenza Menstrual cycle problem 12/2016 Nexplanon - 2022 NEGATIVE MEDICAL HISTORY Patellar subluxation, left, initial encounter 2020 PAST SURGICAL HISTORY Procedure Laterality Date NONE ALLERGIES Nickel MEDICATIONS etonogestrel (NEXPLANON) 68 mg impl subdermal implant 68 mg by SUBDERMAL route. nitrofurantoin monohydrate and macrocrystal (MACROBID) 100 mg capsule Take 1 capsule by mouth two times a day for 7 days. FLUoxetine (PROZAC) 10 mg capsule once daily. (Patient not taking: Reported on 10/25/2024) traMADol (ULTRAM) 50 mg tablet take 1 tablet by mouth every 8 hours NEEDED FOR PAIN for 2 days (Patient not taking: Reported on 05/10/2024) penicillin V potassium 500 mg tablet Take 500 mg by mouth. (Patient not taking: Reported on 05/10/2024) ibuprofen (MOTRIN) 800 mg tablet Take 800 mg by mouth every 8 hours as needed. (Patient not taking: Reported on 05/10/2024) famotidine (PEPCID) 20 mg tablet take 1 tablet by mouth twice a day (Patient not taking: Reported on 06/16/2024) dicyclomine (BENTYL) 20 mg tablet take 1 tablet by mouth three times a day if needed (Patient not taking: Reported on 06/16/2024) hydrOXYzine pamoate (VISTARIL) 25 mg capsule Take 1 capsule by mouth three times a day as needed. (Patient not taking: Reported on 05/10/2024) FAMILY HISTORY Problem Relation Age of Onset Migraines Mother No Known Problems Father Unknown completely Breast Cancer Maternal Grandmother Early 40's Blood Clots Maternal Grandfather No Known Problems Paternal Grandmother No Known Problems Paternal Grandfather other (Endometriosis) Half-sister Anxiety disorder Half-sister Depression Half-sister Celiac Disease No Family History Inflammatory Bowel Disease No Family History Thyroid No Family History Social History Tobacco Use Smoking status: Some Days Types: Cigarettes Passive exposure: Never Smokeless tobacco: Current Tobacco comments: Per pt smoking on the weekends mostly Vaping Use Vaping status: Never Used Substance Use Topics Alcohol use: Yes Drug use: Yes Types: Marijuana Comment: per pt one joint once a week on the weekends does not smoke regularly on week days only sometimes Physical Exam Constitutional: General: She is not in acute distress. Appearance: Normal appearance. She is normal weight. She is not ill-appearing or toxic-appearing. Cardiovascular: Rate and Rhythm: Normal rate and regular rhythm. Pulses: Normal pulses. Heart sounds: Normal heart sounds. Pulmonary: Effort: Pulmonary effort is normal. Breath sounds: Normal breath sounds. Abdominal: General: Bowel sounds are normal. There is no distension. Tenderness: There is no abdominal tenderness. There is no right CVA tenderness, left CVA tenderness or guarding. Neurological: Mental Status: She is alert. { 1. Urinary frequency (R35.0) 2. Dysuria (R30.0) - Acute onset of urinary frequency and dysuria with hematuria, pyuria, and positive leukocytes on urinalysis consistent with urinary tract infection. - Start Macrobid 100 mg PO BID for 7 days. - Urine culture sent. - Educated patient on antibiotic regimen and advised that we will contact her if culture results necessitate a change in therapy. and Recording using [employer] software for draft documentation of the visit was discussed with the patient/authorized clearance representative; all questions welcomed and answered. Patient/authorized clearance representative agreed to proceed Disposition The patient was discharged. Patient well-appearing nontoxic 19 year-old female in no acute distress. Patient started on Macrobid due to leukocytes and blood in urine. . No concerns of pyelonephritis, PID, or acute surgical abdomen today. No vaginitis or vaginal symptoms. Patient denies chance of is sexually active but does have a Nexplanon in addition to using barrier method. Urine culture pending. Follow-up with [facility] [facility] if symptoms persist to ER if back pain, fever, or pelvic pain. Patient verbalized understanding agreement plan. documented in this encounter [facility] 08-25-2024 Note HNO ID: [id number] Author: FREDO CALLEJAS APRN.GARAGE DOOR INSTALLER Service: ? Author Type: Nurse Practitioner Type: Progress Notes Filed: 08/25/2024 15:39 Note Text: Subjective HPI Nontoxic-appearing female presents urgent care chief complaint possible worms in stool generalized abdominal pain. States has been constipated for the last few days. When she had a bowel movement today she thought she saw worms in her stool. Did have's abdominal pain. This did improve after bowel movement. Noticed there was streaked blood on her stool. States blood was bright red and streaks not dark. Presents today for evaluation. OTC medications none. Overall feels well. No fevers. Denies chance of . Recently finished her menstrual cycle. Past medical history prescription medications allergies reviewed BP 94/76 Pulse 70 Temp 36.8 ?C (98.3 ?F) Resp 19 LMP 12/19/2021 (Approximate) SpO2 100% .Patient presents with: abdominal issues: Constipation, stool had possible worms in it, abdominal pain PAST MEDICAL HISTORY Diagnosis Date Arm fracture, left 2017 buckle fracture-casted Constipation 01/30/2015 Depression Immunization not carried out because of parent refusal 06/03/2018 Influenza Menstrual cycle problem 12/2016 Nexplanon - 2022 NEGATIVE MEDICAL HISTORY Patellar subluxation, left, initial encounter 2020 PAST SURGICAL HISTORY Procedure Laterality Date NONE ALLERGIES Nickel MEDICATIONS FLUoxetine (PROZAC) 10 mg capsule once daily. traMADol (ULTRAM) 50 mg tablet take 1 tablet by mouth every 8 hours NEEDED FOR PAIN for 2 days (Patient not taking: Reported on 05/10/2024) penicillin V potassium 500 mg tablet Take 500 mg by mouth. (Patient not taking: Reported on 05/10/2024) ibuprofen (MOTRIN) 800 mg tablet Take 800 mg by mouth every 8 hours as needed. (Patient not taking: Reported on 05/10/2024) famotidine (PEPCID) 20 mg tablet take 1 tablet by mouth twice a day (Patient not taking: Reported on 06/16/2024) dicyclomine (BENTYL) 20 mg tablet take 1 tablet by mouth three times a day if needed (Patient not taking: Reported on 06/16/2024) hydrOXYzine pamoate (VISTARIL) 25 mg capsule Take 1 capsule by mouth three times a day as needed. (Patient not taking: Reported on 05/10/2024) etonogestrel (NEXPLANON) 68 mg impl subdermal implant 68 mg by SUBDERMAL route. FAMILY HISTORY Problem Relation Age of Onset Migraines Mother No Known Problems Father Unknown completely Breast Cancer Maternal Grandmother Early 40's Blood Clots Maternal Grandfather No Known Problems Paternal Grandmother No Known Problems Paternal Grandfather other (Endometriosis) Half-sister Anxiety disorder Half-sister Depression Half-sister Celiac Disease No Family History Inflammatory Bowel Disease No Family History Thyroid No Family History Social History Tobacco Use Smoking status: Some Days Types: Cigarettes Passive exposure: Never Smokeless tobacco: Current Tobacco comments: Per pt smoking on the weekends mostly Vaping Use Vaping status: Never Used Substance Use Topics Alcohol use: Yes Drug use: Yes Types: Marijuana Comment: per pt one joint once a week on the weekends does not smoke regularly on week days only sometimes Review of Systems Constitutional: Negative for chills, fever and malaise/fatigue. HENT: Negative for congestion, ear discharge, ear pain, sinus pain and sore throat. Eyes: Negative for blurred vision, pain, discharge and redness. Respiratory: Negative for cough, hemoptysis, sputum production, shortness of breath, wheezing and stridor. Cardiovascular: Negative for chest pain. Gastrointestinal: Positive for blood in stool and constipation. Negative for abdominal pain, diarrhea, melena, nausea and vomiting. Musculoskeletal: Negative for myalgias. Skin: Negative for itching and rash. Neurological: Negative for dizziness and headaches. Objective Physical Exam Constitutional: General: She is not in acute distress. Appearance: She is not toxic-appearing. HENT: Head: Normocephalic. Nose: Nose normal. Eyes: Pupils: Pupils are equal, round, and reactive to light. Cardiovascular: Rate and Rhythm: Normal rate. Pulmonary: Effort: Pulmonary effort is normal. No respiratory distress. Abdominal: Tenderness: There is no abdominal tenderness. There is no right CVA tenderness, left CVA tenderness or guarding. Musculoskeletal: Cervical back: Normal range of motion. Skin: General: Skin is warm and dry. Neurological: General: No focal deficit present. Mental Status: She is alert. ASSESSMENT/PLAN: 1. Worms in stool - ICD9: 128.9, ICD10: B83.9 - OVA + PARA MICROSCOPIC Diagnosed with possible worms in the stool. Stool study ordered. Treat according to stool study results. Patient was educated on supportive therapies. Patient will follow up with primary care provider as needed. Patient was instructed to immediately proceed t (more content not included)... [facility] 08-25-2024 History of Presen t illness Narrative Subjective HPI Nontoxic-appearing female presents urgent care chief complaint possible worms in stool generalized abdominal pain. States has been constipated for the last few days. When she had a bowel movement today she thought she saw worms in her stool. Did have's abdominal pain. This did improve after bowel movement. Noticed there was streaked blood on her stool. States blood was bright red and streaks not dark. Presents today for evaluation. OTC medications none. Overall feels well. No fevers. Denies chance of . Recently finished her menstrual cycle. Past medical history prescription medications allergies reviewed BP 94/76 Pulse 70 Temp 36.8 C (98.3 F) Resp 19 LMP 12/19/2021 (Approximate) SpO2 100% .Patient presents with: abdominal issues: Constipation, stool had possible worms in it, abdominal pain PAST MEDICAL HISTORY Diagnosis Date Arm fracture, left 2017 buckle fracture-casted Constipation 01/30/2015 Depression Immunization not carried out because of parent refusal 06/03/2018 Influenza Menstrual cycle problem 12/2016 Nexplanon - 2022 NEGATIVE MEDICAL HISTORY Patellar subluxation, left, initial encounter 2020 PAST SURGICAL HISTORY Procedure Laterality Date NONE ALLERGIES Nickel MEDICATIONS FLUoxetine (PROZAC) 10 mg capsule once daily. traMADol (ULTRAM) 50 mg tablet take 1 tablet by mouth every 8 hours NEEDED FOR PAIN for 2 days (Patient not taking: Reported on 05/10/2024) penicillin V potassium 500 mg tablet Take 500 mg by mouth. (Patient not taking: Reported on 05/10/2024) ibuprofen (MOTRIN) 800 mg tablet Take 800 mg by mouth every 8 hours as needed. (Patient not taking: Reported on 05/10/2024) famotidine (PEPCID) 20 mg tablet take 1 tablet by mouth twice a day (Patient not taking: Reported on 06/16/2024) dicyclomine (BENTYL) 20 mg tablet take 1 tablet by mouth three times a day if needed (Patient not taking: Reported on 06/16/2024) hydrOXYzine pamoate (VISTARIL) 25 mg capsule Take 1 capsule by mouth three times a day as needed. (Patient not taking: Reported on 05/10/2024) etonogestrel (NEXPLANON) 68 mg impl subdermal implant 68 mg by SUBDERMAL route. FAMILY HISTORY Problem Relation Age of Onset Migraines Mother No Known Problems Father Unknown completely Breast Cancer Maternal Grandmother Early 40's Blood Clots Maternal Grandfather No Known Problems Paternal Grandmother No Known Problems Paternal Grandfather other (Endometriosis) Half-sister Anxiety disorder Half-sister Depression Half-sister Celiac Disease No Family History Inflammatory Bowel Disease No Family History Thyroid No Family History Social History Tobacco Use Smoking status: Some Days Types: Cigarettes Passive exposure: Never Smokeless tobacco: Current Tobacco comments: Per pt smoking on the weekends mostly Vaping Use Vaping status: Never Used Substance Use Topics Alcohol use: Yes Drug use: Yes Types: Marijuana Comment: per pt one joint once a week on the weekends does not smoke regularly on week days only sometimes Review of Systems Constitutional: Negative for chills, fever and malaise/fatigue. HENT: Negative for congestion, ear discharge, ear pain, sinus pain and sore throat. Eyes: Negative for blurred vision, pain, discharge and redness. Respiratory: Negative for cough, hemoptysis, sputum production, shortness of breath, wheezing and stridor. Cardiovascular: Negative for chest pain. Gastrointestinal: Positive for blood in stool and constipation. Negative for abdominal pain, diarrhea, melena, nausea and vomiting. Musculoskeletal: Negative for myalgias. Skin: Negative for itching and rash. Neurological: Negative for dizziness and headaches. Objective Physical Exam Constitutional: General: She is not in acute distress. Appearance: She is not toxic-appearing. HENT: Head: Normocephalic. Nose: Nose normal. Eyes: Pupils: Pupils are equal, round, and reactive to light. Cardiovascular: Rate and Rhythm: Normal rate. Pulmonary: Effort: Pulmonary effort is normal. No respiratory distress. Abdominal: Tenderness: There is no abdominal tenderness. There is no right CVA tenderness, left CVA tenderness or guarding. Musculoskeletal: Cervical back: Normal range of motion. Skin: General: Skin is warm and dry. Neurological: General: No focal deficit present. Mental Status: She is alert. ASSESSMENT/PLAN: 1. Worms in stool - ICD9: 128.9, ICD10: B83.9 - OVA + PARA MICROSCOPIC Diagnosed with possible worms in the stool. Stool study ordered. Treat according to stool study results. Patient was educated on supportive therapies. Patient will follow up with primary care provider as needed. Patient was instructed to immediately proceed to emergency room for any new, worsening, or symptoms lasting longer than anticipated. The patient's clinical presentation is otherwise unremarkable at this time. Based on exam and clinical finding, the patient is stable for discharge. Plan of care was discussed with patient. Patient verbalizes understanding and agrees to plan of care. This note was generated using [employer] software. It may contain errors in wording, punctuation, or spelling. Fredo Callejas APRN.AMARILIS documented in this encounter [facility] 06-27-2024 Discharge summary [facility] 06-26-2024 Telephone encount er Note Reason for Call: Patient diagnosed with Erie 1 week ago, has new onset of left side abdominal pain that is getting worse Outcome: Advised to Go to ED Now. Patient verbalized understanding and is agreeable to the plan. Will go to [place] ED. Reason for Disposition [1] MILD-MODERATE abdominal pain AND [2] constant AND [3] present > 2 hours Answer Assessment - Initial Assessment Questions 1. DIAGNOSIS CONFIRMATION: Urgent Care, about 1 week ago 2. MAIN SYMPTOM: Localized pain in spleen area after strenuous activity Pain: Location: left side at the bottom of rib cage Rate severity of pain: 3-4/10 Any pain relief measures tried: Denies Effectiveness of pain relief measures: N/A Pain present for >1 hour and seems to be getting worse as time goes by 3. ONSET: Erie symptoms 2.5 weeks ago, abdominal pain about 2 hours ago 4. SEVERITY OF THROAT PAIN: Denies 5. FEVER: Denies 6. OTHER SYMPTOMS: Denies 7. [id number]: Getting better 8. : LMP, has nexplanon implant Protocols used: Mononucleosis Follow-up [id number] [facility] 06-26-2024 Miscellaneous Notes Formattin g of this note might be different from the original. Reason for Call: Patient diagnosed with Erie 1 week ago, has new onset of left side abdominal pain that is getting worse Outcome: Advised to Go to ED Now. Patient verbalized understanding and is agreeable to the plan. Will go to [place] ED. Reason for Disposition [1] MILD-MODERATE abdominal pain AND [2] constant AND [3] present > 2 hours Answer Assessment - Initial Assessment Questions 1. DIAGNOSIS CONFIRMATION: Urgent Care, about 1 week ago 2. MAIN SYMPTOM: Localized pain in spleen area after strenuous activity Pain: Location: left side at the bottom of rib cage Rate severity of pain: 3-4/10 Any pain relief measures tried: Denies Effectiveness of pain relief measures: N/A Pain present for >1 hour and seems to be getting worse as time goes by 3. ONSET: Erie symptoms 2.5 weeks ago, abdominal pain about 2 hours ago 4. SEVERITY OF THROAT PAIN: Denies 5. FEVER: Denies 6. OTHER SYMPTOMS: Denies 7. [id number]: Getting better 8. : LMP, has nexplanon implant Protocols used: Mononucleosis Follow-up [id number] documented in this encounter [facility] 06-26-2024 Discharge summary Note Date/Time June 27, 2024 1:21 am [facility] Medical Records Department [address] [place] [address] Emergency Department Summary 06/26/24 MR#: [id number] Acct: [id number] Name: NICHOLE ALONSO Rep #:[id number] : 2005 19 From: Landon Burnette MD PCP: Dr. Chacha Kim MD Status:REG E R Location: ED HPI HPI - GI History of Present Illness Chief Complaint: Abd Pain Informant: patient and spouse/S.O. Narrative Narrative: 19-year-old female states she started having symptoms and diagnosed by positive blood test with mono about 2 or so weeks ago, mostly feeling better now, she hadintercourse tonight and about 20 minutes afterwards, she started having periumbilical abdominal discomfort, and then had became left upper quadrant pain. Some nausea with no vomiting. No pelvic pain, vaginal bleeding. No injuries. She states this has been about 2 hours now. She called a nurse line and she was advised to come to the ER because she was diagnosed with mono and could have a ruptured spleen. She denies having abdominal pain as one of her symptoms with mononucleosis, mostly sore throat and fatigue but mostly feeling better now. PFSH PFS Medical History Depression Home Medications ?Medication ?Instructions ?Recorded ?Last Taken ?Type fluoxetine 10 mg capsule 30 mg PO DAILY 02/16/21 Unkn own History famotidine 20 mg tablet 20 mg PO BID 10/10/23 Unknow n History penicillin V potassium 500 mg 500 mg PO DAILY atb 09/21 12/15 Unknown History tablet Allergy/AdvReac Type Severity Reaction Status Date / Time nickel AdvReac Other Verified 06/26/24 23:02 Family History no significant family his Social History Smoking Status: Never smoker ROS ROS ED Constitutional Constitutional ED: Denies chills or fever(s) Eyes Eyes: Denies change in vision or diplopia ENT ENT ED: Denies rhinorrhea or sore throat Cardiovascular Cardiovascular: Denies chest pain or palpitations Respiratory/Chest Respiratory/Chest: Denies cough or dyspnea Gastrointestinal Gastrointestinal: Reports abdominal pain and nausea; Denies diarrhea or vomiting Genitourinary Genitourinary ED: Denies dysuria or hematuria Musculoskeletal Musculoskeletal: Denies back pain or neck pain Integumentary Denies abscess or rash Neurologic Neurologic: Denies headache(s), paresthesias or weakness Psychiatric Psychiatric: Denies anxiety or suicidal thoughts EXAM Physical Exam Const Vital Signs: 06/26/24 23:03 06/27/24 01:00 Temperature 98.2 F Temperature Source Oral Pulse Rate 97 54 L Respiratory Rate 20 H 16 Blood Pressure 123/96 H 92/75 Blood Pressure Mean 105 80 Pulse Ox 100 100 Oxygen Delivery Method Room Air Room Air Positive well nourished and well developed General Appearance ED: well developed and NAD HEENT Reports moist mucous membranes normocephalic and atraumatic Eyes PERRL and EOMs intact bilaterally Neck full ROM and supple Resp normal respiratory effort and clear to auscultation bilaterally Cardio regular rate, regular rhythm and no murmurs GI non-distended GI Narrative: Very mild epigastric and left upper quadrant tenderness. No guarding or reboundtenderness. No splinting with deep inspiration with palpation in the left upperquadrant. Otherwise benign abdomen no pelvic tenderness. Auscultation: normoactive bowel sounds Palpation: soft Back/Spine no CVA tenderness General Back: other FROM Extremity normal to inspection General Extremety ED: Negative for edema, pulses abnormal or tenderness General Extremity: Negative for edema or pulses abnormal Neuro oriented x3, CN's II-XII intact bilaterally and no sensory deficits noted Sensorium / Orientation: awake and alert Motor Exam: strength 5/5 throughout Skin no rashes or lesions noted and no wounds MDM MDM MDM Narrative Medical decision making narrative: This patient has a very benign objective abdominal exam, and given that and the mechanism which involved no direct trauma, I am at a very low suspicion for splenic injury/rupture in this patient. While obtaining labs which I reviewed in a to rule out ectopic which is negative, she was given dicyclomine,Zofran, and Mylanta advanced. On reexamination she states the medicines help significantly and her pain is negligible. This is more reassuring, I do not think she needs a CT right now although we considered it, there are risks to theradiation exposure to her gynecologic anatomy, and she prefers not to obtain a CT at this time. I am in agreement. We discussed reasons to return she is comfortable with that plan and advised to avoid contact sports for the next 2 weeks or so. Lab Data Attestation: I reviewed the patient's lab results. Labs: Laboratory Results - last 24 hr 06/26/24 23:14 WBC 9.7 RBC 4.01 L Hgb 11.9 L Hct 36.9 L MCV 92.0 MCH 29.7 MCHC 32.2 RDW Std Deviation 43.6 RDW Coeff of Rocio 13.2 Plt Count 440 MPV 9.1 Immature Gran % (Auto) 0.200 Neut % (Auto) 30.4 L Lymph % (Auto) 58.6 H Erie % (Auto) 9.2 Eos % (Auto) 0.3 Baso % (Auto) 1.3 H Absolute Neuts (auto) 3.0 Absolute Lymphs (auto) 5.70 H Nucleated RBC % 0 Atypical Lymphocytes 1+ Platelet Estimate SLT INC RBC Morphology NORM C+C Sodium 137 Potassium 5.0 Chloride 102 Carbon Dioxide 27.7 Anion Gap 8 BUN 6 Creatinine 0.66 L Estim Creat Clear Calc 118.39 Est GFR (MDRD) Non-Af 130 BUN/Creatinine Ratio 9.9 L Glucose 92 Calcium 9.5 Total Bilirubin 0.39 AST 61 H ALT 59 H Alkaline Phosphatase 65 Total Protein 7.8 Albumin 4.1 Globulin 3.8 Albumin/Globulin Ratio 1.1 Serum , Qual NEGATIVE Discharge Plan Triage Chief Complaint: Abd Pain ED Provider: Landon Burnette Dx/Rx/DC Orders Clinical Impression: Acute gastritis without hemorrhage, Mononucleosis Instructions: ED Gastritis (Adult) Prescriptions: No Action fluoxetine 10 mg capsule 30 mg PO DAILY Patient Comments: take 3 capsules by mouth once daily penicillin V potassium 500 mg tablet 500 mg PO DAILY famotidine 20 mg tablet 20 mg PO BID Primary Care Provider: Chacha Kim Referrals: Chacha Kim MD [Primary Care Provider] - 3-5 Days if not improving Print Language: Maltese Disposition Disposition: Home, Self Care What to do if you have Problems For any increased pain, shortness of breath, bleeding, nausea or vomiting, chestpain, or any unexpected problems, contact your Primary Care Provider. Call [facility] ([phone]) or report to the closest Emergency Room. Call 911 if necessary. 06/27/24 0121 <Electronically signed by Landon Burnette MD> Cosigner Signature (if applicable): CC: Dr. Chacha Kim MD ~ Signed [facility] Work Phone: [phone] 976-772203-27-2025 NoteHNO ID: [id number] Author: HUNTER MARTINEZ APRN.GARAGE DOOR INSTALLER Service: ? Author Type: Nurse Practitioner Type: Progress Notes Filed: 06/17/2024 19:37 Note Text: This note was created using [employer]. Subjective Nichole Alonso is a 19 year old female. HPI Pt had swollen cervical lymph nodes about 10 days ago and then developed a sore throat three days ago. She feels very fatigued. She was seen here yesterday with a negative strep test. Monotest has been ordered but she was told to wait at least a week before getting this to avoid any false negatives. She presents today with ongoing sore throat requesting repeat strep test Review of Systems Constitutional: Positive for fever. HENT: Positive for congestion. Respiratory: Positive for cough. Objective BP 114/81 Pulse 111 Temp 37.6 ?C (99.6 ?F) Resp 18 Wt 56.8 kg (125 lb 3.5 oz) LMP 12/19/2021 (Approximate) SpO2 99% BMI 21.33 kg/m? Physical Exam Vitals and nursing note reviewed. Constitutional: General: She is not in acute distress. Appearance: Normal appearance. She is not ill-appearing. HENT: Head: Normocephalic. Mouth/Throat: Mouth: Mucous membranes are moist. Pharynx: Oropharyngeal exudate and posterior oropharyngeal erythema present. Eyes: Conjunctiva/sclera: Conjunctivae normal. Cardiovascular: Rate and Rhythm: Normal rate and regular rhythm. Pulmonary: Effort: Pulmonary effort is normal. Breath sounds: Normal breath sounds. Musculoskeletal: General: Normal range of motion. Cervical back: Normal range of motion. Skin: General: Skin is warm and dry. Neurological: General: No focal deficit present. Mental Status: She is alert. Psychiatric: Mood and Affect: Mood normal. Behavior: Behavior normal. Assessment and Plan ASSESSMENT/PLAN: 1. Sore throat - ICD9: 462, ICD10: J02.9 -Strep test negative again today. Patient requested a throat culture understanding that it will take approximately 2 days to return. I did discuss with her that I felt her symptoms are more likely related to mono and as her symptoms have been ongoing for approximately 10 days recommended that she get the blood test tomorrow. Patient will otherwise use ibuprofen or Tylenol as needed for pain. - STREP A MOLECULAR (POC) - BACTERIAL CULTURE, THROAT Hunter SANDRA Martinez.[facility]03-27-2025 History of Present illness Narrative* Hunter Martinez APRN.GARAGE DOOR INSTALLER - 06/17/2024 6:58 PM EDT This note was created using [employer]. Subjective Nichole Alonso is a 19 year old female. HPI Pt had swollen cervical lymph nodes about 10 days ago and then developed a sore throat three days ago. She feels very fatigued. She was seen here yesterday with a negative strep test. Monotest has been ordered but she was told to wait at least a week before getting this to avoid any false negatives. She presents today with ongoing sore throat requesting repeat strep test Review of Systems Constitutional: Positive for fever. HENT: Positive for congestion. Respiratory: Positive for cough. Objective BP 114/81 Pulse 111 Temp 37.6 C (99.6 F) Resp 18 Wt 56.8 kg (125 lb 3.5 oz) LMP 12/19/2021 (Approximate) SpO2 99% BMI 21.33 kg/m Physical Exam Vitals and nursing note reviewed. Constitutional: General: She is not in acute distress. Appearance: Normal appearance. She is not ill-appearing. HENT: Head: Normocephalic. Mouth/Throat: Mouth: Mucous membranes are moist. Pharynx: Oropharyngeal exudate and posterior oropharyngeal erythema present. Eyes: Conjunctiva/sclera: Conjunctivae normal. Cardiovascular: Rate and Rhythm: Normal rate and regular rhythm. Pulmonary: Effort: Pulmonary effort is normal. Breath sounds: Normal breath sounds. Musculoskeletal: General: Normal range of motion. Cervical back: Normal range of motion. Skin: General: Skin is warm and dry. Neurological: General: No focal deficit present. Mental Status: She is alert. Psychiatric: Mood and Affect: Mood normal. Behavior: Behavior normal. Assessment and Plan ASSESSMENT/PLAN: 1. Sore throat - ICD9: 462, ICD10: J02.9 -Strep test negative again today. Patient requested a throat culture understanding that it will take approximately 2 days to return. I did discuss with her that I felt her symptoms are more likely related to mono and as her symptoms have been ongoing for approximately 10 days recommended that she get the blood test tomorrow. Patient will otherwise use ibuprofen or Tylenol as needed for pain. - STREP A MOLECULAR (POC) - BACTERIAL CULTURE, THROAT Hunter Martinez APRN.CNP documented in this encounterDun[facility]03-26-[facility]25 Instructions* Patient Instructions* Karyna Hendrickson APRN.CNP - 06/16/2024 11:59 AM EDT ASSESSMENT/PLAN: 1. Sore throat - ICD9: 462, ICD10: J02.9 (primary diagnosis) - suspect viral - Group A strep molecular testing negative - Discussed supportive care treatment with fluids, rest and analgesia. - STREP A MOLECULAR (POC) - MONOTEST, INFECTIOUS MONO- return for testing if sore throat persists longer than 7 days. 2. Flu-like symptoms - ICD9: 780.99, ICD10: R68.89 - INFLUENZA A&B MOLECULAR (POC) - Follow-up with your PCP in 3-5 days if symptoms have not improved or sooner if symptoms worsen - Discussed red flags and need for immediate medical evaluation if any occur. - Discussed supportive care treatment with fluids, rest and analgesia. - Discussed expected course of illness Karyna Hendrickson APRN.CNP documented in this encounterDunlap [facility] Hospital03-26-2025 NoteHNO ID: [id number] Author: KARYNA HENDRICKSON APRN.CNP Service: ? Author Type: Nurse Practitioner Type: Progress Notes Filed: 06/16/2024 12:08 Note Text: [facility] Subjective Nichole Alonso is a 19 year old female. Patient presents with: Sore Throat: fever and headache x 3 days Sore Throat Associated symptoms include congestion and headaches. Nichole Alonso is a 19 year old female who presents with sore throat, headache, and fever x 2 days. She has had some post nasal drainage. This morning her fever was 101.2 degrees F. She has had some nausea. She has not taken any medication for her symptoms. Review of Systems Constitutional: Positive for chills and fever. HENT: Positive for congestion, postnasal drip and sore throat. Respiratory: Negative. Cardiovascular: Negative. Musculoskeletal: Negative for arthralgias. Neurological: Positive for headaches. Objective BP 100/60 Pulse 118 Temp 37.3 ?C (99.1 ?F) Resp 18 Wt 56.5 kg (124 lb 9 oz) LMP 12/19/2021 (Approximate) SpO2 98% BMI 21.21 kg/m? PAST MEDICAL HISTORY Diagnosis Date - Arm fracture, left 2016 buckle fracture-casted - Constipation 01/30/2015 - Depression - Immunization not carried out because of parent refusal 06/03/2018 Influenza - Menstrual cycle problem 12/2016 Nexplanon - 2022 - NEGATIVE MEDICAL HISTORY - Patellar subluxation, left, initial encounter 2020 PAST SURGICAL HISTORY Procedure Laterality Date - NONE ALLERGIES Nickel MEDICATIONS - FLUoxetine (PROZAC) 10 mg capsule once daily. - traMADol (ULTRAM) 50 mg tablet take 1 tablet by mouth every 8 hours NEEDED FOR PAIN for 2 days (Patient not taking: Reported on 05/10/2024) - penicillin V potassium 500 mg tablet Take 500 mg by mouth. (Patient not taking: Reported on 05/10/2024) - ibuprofen (MOTRIN) 800 mg tablet Take 800 mg by mouth every 8 hours as needed. (Patient not taking: Reported on 05/10/2024) - famotidine (PEPCID) 20 mg tablet take 1 tablet by mouth twice a day (Patient not taking: Reported on 06/16/2024) - dicyclomine (BENTYL) 20 mg tablet take 1 tablet by mouth three times a day if needed (Patient not taking: Reported on 06/16/2024) - hydrOXYzine pamoate (VISTARIL) 25 mg capsule Take 1 capsule by mouth three times a day as needed. (Patient not taking: Reported on 05/10/2024) - etonogestrel (NEXPLANON) 68 mg impl subdermal implant 68 mg by SUBDERMAL route. FAMILY HISTORY Problem Relation Age of Onset - Migraines Mother - No Known Problems Father Unknown completely - Breast Cancer Maternal Grandmother Early 40's - Blood Clots Maternal Grandfather - No Known Problems Paternal Grandmother - No Known Problems Paternal Grandfather - other (Endometriosis) Half-sister - Anxiety disorder Half-sister - Depression Half-sister - Celiac Disease No Family History - Inflammatory Bowel Disease No Family History - Thyroid No Family History Social History Tobacco Use - Smoking status: Some Days Types: Cigarettes Passive exposure: Never - Smokeless tobacco: Current - Tobacco comments: Per pt smoking on the weekends mostly Vaping Use - Vaping status: Never Used Substance Use Topics - Alcohol use: Yes - Drug use: Yes Types: Marijuana Comment: per pt one joint once a week on the weekends does not smoke regularly on week days only sometimes Physical Exam Vitals and nursing note reviewed. Constitutional: General: She is not in acute distress. Appearance: Normal appearance. She is not ill-appearing. HENT: Right Ear: Tympanic membrane, ear canal and external ear normal. Left Ear: Tympanic membrane, ear canal and external ear normal. Nose: Nose normal. Mouth/Throat: Mouth: Mucous membranes are moist. Pharynx: Oropharynx is clear. Posterior oropharyngeal erythema present. No oropharyngeal exudate. Tonsils: Tonsillar exudate present. 3+ on the right. 3+ on the left. Cardiovascular: Rate and Rhythm: Normal rate and regular rhythm. Heart sounds: Normal heart sounds. Pulmonary: Effort: Pulmonary effort is normal. No respiratory distress. Breath sounds: Normal breath sounds. No wheezing or rales. Lymphadenopathy: Cervical: No cervical adenopathy. Skin: General: Skin is warm and dry. Findings: No erythema or rash. Neurological: Mental Status: She is alert. {ASSESSMENT/PLAN: 1. Sore throat - ICD9: 462, ICD10: J02.9 (primary diagnosis) - suspect viral - Group A strep molecular testing negative - Discussed supportive care treatment with fluids, rest and analgesia. - STREP A MOLECULAR (POC) - MONOTEST, INFECTIOUS MONO- return for testing if sore throat persists longer than 7 days. 2. Flu-like symptoms - ICD9: 780.99, ICD10: R68.89 - INFLUENZA AANDB MOLECULAR (POC) - Follow-up with your PCP in 3-5 days if symptoms have not improved or sooner if symptoms worsen - Discussed red flags and need for immediate medical evaluation if any occur. - Di (more content not included)...[facility]03-26-2025 History of Present illness Narrative* Karyna Hendrickson APRN.GARAGE DOOR INSTALLER - 06/16/2024 11:34 AM EDT [facility] Subjective Nichole Alonso is a 19 year old female. Patient presents with: Sore Throat: fever and headache x 3 days Sore Throat Associated symptoms include congestion and headaches. Nichole Alonso is a 19 year old female who presents with sore throat, headache, and fever x 2 days. She has had some post nasal drainage. This morning her fever was 101.2 degrees F. She has had some nausea. She has not taken any medication for her symptoms. Review of Systems Constitutional: Positive for chills and fever. HENT: Positive for congestion, postnasal drip and sore throat. Respiratory: Negative. Cardiovascular: Negative. Musculoskeletal: Negative for arthralgias. Neurological: Positive for headaches. Objective BP 100/60 Pulse 118 Temp 37.3 C (99.1 F) Resp 18 Wt 56.5 kg (124 lb 9 oz) LMP 12/19/2021 (Approximate) SpO2 98% BMI 21.21 kg/m PAST MEDICAL HISTORY Diagnosis Date Arm fracture, left 2016 buckle fracture-casted Constipation 01/30/2015 Depression Immunization not carried out because of parent refusal 06/03/2018 Influenza Menstrual cycle problem 12/2016 Nexplanon - 2022 NEGATIVE MEDICAL HISTORY Patellar subluxation, left, initial encounter 2020 PAST SURGICAL HISTORY Procedure Laterality Date NONE ALLERGIES Nickel MEDICATIONS FLUoxetine (PROZAC) 10 mg capsule once daily. traMADol (ULTRAM) 50 mg tablet take 1 tablet by mouth every 8 hours NEEDED FOR PAIN for 2 days (Patient not taking: Reported on 05/10/2024) penicillin V potassium 500 mg tablet Take 500 mg by mouth. (Patient not taking: Reported on 05/10/2024) ibuprofen (MOTRIN) 800 mg tablet Take 800 mg by mouth every 8 hours as needed. (Patient not taking:Reported on 05/10/2024) famotidine (PEPCID) 20 mg tablet take 1 tablet by mouth twice a day (Patient not taking: Reported on 06/16/2024) dicyclomine (BENTYL) 20 mg tablet take 1 tablet by mouth three times a day if needed (Patient not taking: Reported on 06/16/2024) hydrOXYzine pamoate (VISTARIL) 25 mg capsule Take 1 capsule by mouth three times a day as needed. (Patient not taking: Reported on 05/10/2024) etonogestrel (NEXPLANON) 68 mg impl subdermal implant 68 mg by SUBDERMAL route. FAMILY HISTORY Problem Relation Age of Onset Migraines Mother No Known Problems Father Unknown completely Breast Cancer Maternal Grandmother Early 40's Blood Clots Maternal Grandfather No Known Problems Paternal Grandmother No Known Problems Paternal Grandfather other (Endometriosis) Half-sister Anxiety disorder Half-sister Depression Half-sister Celiac Disease No Family History Inflammatory Bowel Disease No Family History Thyroid No Family History Social History Tobacco Use Smoking status: Some Days Types: Cigarettes Passive exposure: Never Smokeless tobacco: Current Tobacco comments: Per pt smoking on the weekends mostly Vaping Use Vaping status: Never Used Substance Use Topics Alcohol use: Yes Drug use: Yes Types: Marijuana Comment: per pt one joint once a week on the weekends does not smoke regularly on week days only sometimes Physical Exam Vitals and nursing note reviewed. Constitutional: General: She is not in acute distress. Appearance: Normal appearance. She is not ill-appearing. HENT: Right Ear: Tympanic membrane, ear canal and external ear normal. Left Ear: Tympanic membrane, ear canal and external ear normal. Nose: Nose normal. Mouth/Throat: Mouth: Mucous membranes are moist. Pharynx: Oropharynx is clear. Posterior oropharyngeal erythema present. No oropharyngeal exudate. Tonsils: Tonsillar exudate present. 3+ on the right. 3+ on the left. Cardiovascular: Rate and Rhythm: Normal rate and regular rhythm. Heart sounds: Normal heart sounds. Pulmonary: Effort: Pulmonary effort is normal. No respiratory distress. Breath sounds: Normal breath sounds. No wheezing or rales. Lymphadenopathy: Cervical: No cervical adenopathy. Skin: General: Skin is warm and dry. Findings: No erythema or rash. Neurological: Mental Status: She is alert. {ASSESSMENT/PLAN: 1. Sore throat - ICD9: 462, ICD10: J02.9 (primary diagnosis) - suspect viral - Group A strep molecular testing negative - Discussed supportive care treatment with fluids, rest and analgesia. - STREP A MOLECULAR (POC) - MONOTEST, INFECTIOUS MONO- return for testing if sore throat persists longer than 7 days. 2. Flu-like symptoms - ICD9: 780.99, ICD10: R68.89 - INFLUENZA A&B MOLECULAR (POC) - Follow-up with your PCP in 3-5 days if symptoms have not improved or sooner if symptoms worsen - Discussed red flags and need for immediate medical evaluation if any occur. - Discussed supportive care treatment with fluids, rest and analgesia. - Discussed expected course of illness Karyna Hendrickson APRN.AMARILIS Additional Tests or Interventions The following medication(s) were considered but not ordered: antibiotics Disposition The patient was discharged. OTC Medications were advised: Tylenol/ibuprofen Procedures documented [facility]Dun[facility]02-27-[facility]25 Telephone encounter Note * Telephone Encounter - Tram Harper MA - 05/20/2024 12:54 PM EST Pt notified and verbalized understanding. Tram Harper MA [facility]02-27-2025 Miscellaneous Notes* Telephone Encounter - Tram Harper MA - 05/20/2024 12:54 PM EST Pt notified and verbalized understanding. Tram Harper MA * Telephone Encounter - Edna Beth APRN.CNP - 05/18/2024 7:23 PM EST Urine culture negative for bacterial growth Attempted to call patient. No answer Voicemail box full. Please attempt to reach back out morning of 05/19/24 Can please share above. Can complete ATB if sx improving. If no improvement, needs to follow up and ensure blood has resolved documented in this encounterDunlap [facility]02-25-2025 Telephone encounter Note * Telephone Encounter - Edna Beth APRN.CNP - 05/18/2024 7:23 PM EST Urine culture negative for bacterial growth Attempted to call patient. No answer Voicemail box full. Please attempt to reach back out morning of 05/19/24 Can please share above. Can complete ATB if sx improving. If no improvement, needs to follow up and ensure blood has resolved [facility] Work Phone: [phone] 661-416502-24-2025 NoteHNO ID: [id number] Author: BRIAN PEARSON MD Service: ? Author Type: Physician Type: Progress Notes Filed: 05/17/2024 16:16 Note Text: Patient presents with: Urinary Frequency: Frequency and burning x 1 day HPI: Urinary symptoms since this morning. Dysuria: Yes Frequency: feels the need to go with little urine produced Hematuria: No, urine has an ordor Discharge/irritation: no Nausea: No Fever or chills: has felt warm Back pain: No Abdominal pain: yes Prior UTI: Yes Has had URI symptoms the last 5 days: nasal congestion, rhinorrhea, mild cough, feeling warm. Denies vomiting or diarrhea MEDICATIONS: Current Outpatient Medications Medication Sig famotidine (PEPCID) 20 mg tablet take 1 tablet by mouth twice a day dicyclomine (BENTYL) 20 mg tablet take 1 tablet by mouth three times a day if needed etonogestrel (NEXPLANON) 68 mg impl subdermal implant 68 mg by SUBDERMAL route. FLUoxetine (PROZAC) 10 mg capsule once daily. (Patient not taking: Reported on 05/10/2024) traMADol (ULTRAM) 50 mg tablet take 1 tablet by mouth every 8 hours NEEDED FOR PAIN for 2 days (Patient not taking: Reported on 05/10/2024) penicillin V potassium 500 mg tablet Take 500 mg by mouth. (Patient not taking: Reported on 05/10/2024) ibuprofen (MOTRIN) 800 mg tablet Take 800 mg by mouth every 8 hours as needed. (Patient not taking: Reported on 05/10/2024) hydrOXYzine pamoate (VISTARIL) 25 mg capsule Take 1 capsule by mouth three times a day as needed. (Patient not taking: Reported on 05/10/2024) No current facility-administered medications for this visit. ALLERGIES: ALLERGIES Allergen Reactions Nickel Other: See Comments has trouble with earrings - ears break out VITALS: BP 102/62 Pulse 63 Temp 36.8 ?C (98.3 ?F) (Tympanic) Resp 18 Wt 59.9 kg (132 lb 0.9 oz) LMP 12/19/2021 (Approximate) SpO2 100% BMI 22.49 kg/m? PHYSICAL EXAM: GEN: NAD HEENT: EOMI, conjunctiva clear, TMs and canals clear, nose congested, sinuses non-tender HEART: regular rate, regular rhythm, no murmurs LUNGS: clear to auscultation, no wheezes or crackles, no increased WOB ABDOMEN: Soft, nondistended, no masses, no suprapubic tenderness BACK: No CVA tenderness ASSESSMENT/PLAN: 1. Urinary frequency - ICD9: 788.41, ICD10: R35.0 (primary diagnosis) - UA DIP, URINE (POC) - positive for blood and LE - likely UTI - BACTERIAL CULTURE, URINE - NITROFURANTOIN MONOHYDRATE AND MACROCRYSTAL 100 MG ORAL CAP 2. URI, acute - ICD9: 465.9, ICD10: J06.9 - Discussed viral etiology and rationale for treatment. - Symptomatic treatment with prn analgesia - Supportive care with fluids and rest Brian Pearson, [facility]02-24-2025 History of Present illness Narrative* Brian Pearson MD - 05/17/2024 4:03 PM EST Patient presents with: Urinary Frequency: Frequency and burning x 1 day HPI: Urinary symptoms since this morning. Dysuria: Yes Frequency: feels the need to go with little urine produced Hematuria: No, urine has an ordor Discharge/irritation: no Nausea: No Fever or chills: has felt warm Back pain: No Abdominal pain: yes Prior UTI: Yes Has had URI symptoms the last 5 days: nasal congestion, rhinorrhea, mild cough, feeling warm. Denies vomiting or diarrhea MEDICATIONS: Current Outpatient Medications Medication Sig famotidine (PEPCID) 20 mg tablet take 1 tablet by mouth twice a day dicyclomine (BENTYL) 20 mg tablet take 1 tablet by mouth three times a day if needed etonogestrel (NEXPLANON) 68 mg impl subdermal implant 68 mg by SUBDERMAL route. FLUoxetine (PROZAC) 10 mg capsule once daily. (Patient not taking: Reported on 05/10/2024) traMADol (ULTRAM) 50 mg tablet take 1 tablet by mouth every 8 hours NEEDED FOR PAIN for 2 days (Patient not taking: Reported on 05/10/2024) penicillin V potassium 500 mg tablet Take 500 mg by mouth. (Patient not taking: Reported on 05/10/2024) ibuprofen (MOTRIN) 800 mg tablet Take 800 mg by mouth every 8 hours as needed. (Patient not taking:Reported on 05/10/2024) hydrOXYzine pamoate (VISTARIL) 25 mg capsule Take 1 capsule by mouth three times a day as needed. (Patient not taking: Reported on 05/10/2024) No current facility-administered medications for this visit. ALLERGIES: ALLERGIES Allergen Reactions Nickel Other: See Comments has trouble with earrings - ears break out VITALS: BP 102/62 Pulse 63 Temp 36.8 C (98.3 F) (Tympanic) Resp 18 Wt 59.9 kg (132 lb 0.9 oz) LMP12/19/2021 (Approximate) SpO2 100% BMI 22.49 kg/m PHYSICAL EXAM: GEN: NAD HEENT: EOMI, conjunctiva clear, TMs and canals clear, nose congested, sinuses non-tender HEART: regular rate, regular rhythm, no murmurs LUNGS: clear to auscultation, no wheezes or crackles, no increased WOB ABDOMEN: Soft, nondistended, no masses, no suprapubic tenderness BACK: No CVA tenderness ASSESSMENT/PLAN: 1. Urinary frequency - ICD9: 788.41, ICD10: R35.0 (primary diagnosis) - UA DIP, URINE (POC) - positive for blood and LE - likely UTI - BACTERIAL CULTURE, URINE - NITROFURANTOIN MONOHYDRATE & MACROCRYSTAL 100 MG ORAL CAP 2. URI, acute - ICD9: 465.9, ICD10: J06.9 - Discussed viral etiology and rationale for treatment. - Symptomatic treatment with prn analgesia - Supportive care with fluids and rest Brian Pearson MD documented in this encounterDunlap [facility] Hospital02-17-2025 Note* Addendum Note - Garrett Guerra MA - 05/10/2024 10:12 AM ESTAddended by: GARRETT GUERRA on: 05/10/2024 10:12 AM Modules accepted: Orders [facility]02-17-2025 Miscellaneous Notes* Addendum Note - Garrett Guerra MA - 05/10/2024 10:12 AM ESTAddended by: GARRETT GUERRA on: 05/10/2024 10:12 AM Modules accepted: Orders documented in this encounterDunlap [facility] Hospital02-17-2025 NoteHNO ID: [id number] Author: AJ DEE MD Service: ? Author Type: Physician Type: Progress Notes Filed: 05/10/2024 10:00 Note Text: Nichole Alonso is a 19 year old female who presents for problem visit pain/discomfort with nexplanon since Friday05/07/2024. Would like to be checked for placement per pt. HPI: Nexplanon inserted on 12-06-21. No problems until partner rubbed arm over the device resulting in transient numbness and tenderness that resolved over the course of a couple of days. 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 Comments: Sexual Activity: Yes; Male Contraception: Implant PAST MEDICAL HISTORY Diagnosis Date Arm fracture, left 2017 buckle fracture-casted Constipation 01/30/2015 Depression Immunization not carried out because of parent refusal 06/03/2018 Influenza Menstrual cycle problem 12/2016 Nexplanon - 2022 NEGATIVE MEDICAL HISTORY Patellar subluxation, left, initial encounter 2020 PAST SURGICAL HISTORY Procedure Laterality Date NONE FAMILY HISTORY Problem Relation Age of Onset Migraines Mother No Known Problems Father Unknown completely Breast Cancer Maternal Grandmother Early 40's Blood Clots Maternal Grandfather No Known Problems Paternal Grandmother No Known Problems Paternal Grandfather other (Endometriosis) Half-sister Anxiety disorder Half-sister Depression Half-sister Celiac Disease No Family History Inflammatory Bowel Disease No Family History Thyroid No Family History Social History Tobacco Use Smoking status: Some Days Types: Cigarettes Passive exposure: Never Smokeless tobacco: Current Tobacco comments: Per pt smoking on the weekends mostly Vaping Use Vaping status: Never Used Substance Use Topics Alcohol use: Yes Drug use: Yes Types: Marijuana Comment: per pt one joint once a week on the weekends does not smoke regularly on week days only sometimes Current Outpatient Medications Medication Sig FLUoxetine (PROZAC) 10 mg capsule once daily. traMADol (ULTRAM) 50 mg tablet take 1 tablet by mouth every 8 hours NEEDED FOR PAIN for 2 days penicillin V potassium 500 mg tablet Take 500 mg by mouth. ibuprofen (MOTRIN) 800 mg tablet Take 800 mg by mouth every 8 hours as needed. famotidine (PEPCID) 20 mg tablet take 1 tablet by mouth twice a day dicyclomine (BENTYL) 20 mg tablet take 1 tablet by mouth three times a day if needed hydrOXYzine pamoate (VISTARIL) 25 mg capsule Take 1 capsule by mouth three times a day as needed. etonogestrel (NEXPLANON) 68 mg impl subdermal implant 68 mg by SUBDERMAL route. No current facility-administered medications for this visit. Allergies As of Date: 05/10/2024 Allergen Noted Reaction NICKEL 08/30/2014 Other: See Comments Fully Assessed 03/03/2024 REVIEW OF SYSTEMS Abdomen: No bloating, early satiety, indigestion, or increased flatulence. No abdominal pain, nausea, vomiting, diarrhea, or constipation. Bladder: No dysuria, gross hematuria, urinary frequency, urinary urgency, or incontinence. Breast: No breast lumps, nipple d/c, overlying skin changes, redness or skin retraction. Expanded ROS: N/A Allergies and current medication updated:Yes SENSITIVE EXAM: Sensitive exam not performed. EXAM: LMP 12/19/2021 GENERAL: pleasant, female in no apparent distress EXTREMITIES: Nexplanon insertion site in Left arm. Implant is palpable in the appropriate position, non-tender, and no erythema. ASSESSMENT AND PLAN: Assessment AND Plan Nexplanon in place Due for removal and replacement if desired on 12-06-24. Aj Dee MD ftft~ 30 min / many questions answeredMi[facility]02-[facility]25 History of Present illness Narrative* Aj Dee MD - 05/10/2024 9:23 AM EST Nichole Alonso is a 19 year old female who presents for problem visit pain/discomfort with nexplanonsince Friday05/07/2024. Would like to be checked for placement per pt. HPI: Nexplanon inserted on 12-06-21. No problems until partner rubbed arm over the device resulting in transient numbness and tenderness that resolved over the course of a couple of days. 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 Comments: Sexual Activity: Yes; Male Contraception: Implant PAST MEDICAL HISTORY Diagnosis Date Arm fracture, left 2017 buckle fracture-casted Constipation 01/30/2015 Depression Immunization not carried out because of parent refusal 06/03/2018 Influenza Menstrual cycle problem 12/2016 Nexplanon - 2022 NEGATIVE MEDICAL HISTORY Patellar subluxation, left, initial encounter 2020 PAST SURGICAL HISTORY Procedure Laterality Date NONE FAMILY HISTORY Problem Relation Age of Onset Migraines Mother No Known Problems Father Unknown completely Breast Cancer Maternal Grandmother Early 40's Blood Clots Maternal Grandfather No Known Problems Paternal Grandmother No Known Problems Paternal Grandfather other (Endometriosis) Half-sister Anxiety disorder Half-sister Depression Half-sister Celiac Disease No Family History Inflammatory Bowel Disease No Family History Thyroid No Family History Social History Tobacco Use Smoking status: Some Days Types: Cigarettes Passive exposure: Never Smokeless tobacco: Current Tobacco comments: Per pt smoking on the weekends mostly Vaping Use Vaping status: Never Used Substance Use Topics Alcohol use: Yes Drug use: Yes Types: Marijuana Comment: per pt one joint once a week on the weekends does not smoke regularly on week days only sometimes Current Outpatient Medications Medication Sig FLUoxetine (PROZAC) 10 mg capsule once daily. traMADol (ULTRAM) 50 mg tablet take 1 tablet by mouth every 8 hours NEEDED FOR PAIN for 2 days penicillin V potassium 500 mg tablet Take 500 mg by mouth. ibuprofen (MOTRIN) 800 mg tablet Take 800 mg by mouth every 8 hours as needed. famotidine (PEPCID) 20 mg tablet take 1 tablet by mouth twice a day dicyclomine (BENTYL) 20 mg tablet take 1 tablet by mouth three times a day if needed hydrOXYzine pamoate (VISTARIL) 25 mg capsule Take 1 capsule by mouth three times a day as needed. etonogestrel (NEXPLANON) 68 mg impl subdermal implant 68 mg by SUBDERMAL route. No current facility-administered medications for this visit. Allergies As of Date: 05/10/2024 Allergen Noted Reaction NICKEL 08/30/2014 Other: See Comments Fully Assessed 03/03/2024 REVIEW OF SYSTEMS Abdomen: No bloating, early satiety, indigestion, or increased flatulence. No abdominal pain, nausea, vomiting, diarrhea, or constipation. Bladder: No dysuria, gross hematuria, urinary frequency, urinary urgency, or incontinence. Breast: No breast lumps, nipple d/c, overlying skin changes, redness or skin retraction. Expanded ROS: N/A Allergies and current medication updated:Yes SENSITIVE EXAM: Sensitive exam not performed. EXAM: LMP 12/19/2021 GENERAL: pleasant, female in no apparent distress EXTREMITIES: Nexplanon insertion site in Left arm. Implant is palpable in the appropriate position,non-tender, and no erythema. ASSESSMENT AND PLAN: Assessment & Plan Nexplanon in place Due for removal and replacement if desired on 12-06-24. Aj Dee MD ftft~ 30 min / many questions answered documented [facility]01[facility] Telephone encounter Note * Telephone Encounter - Justyna Nichols LPN - 04/05/2024 3:05 PM EST Call placed to patient, wanting an appointment with Provider to discuss starting medication for foranxiety. [facility] I wasn't sure if you would see her or not since she's over 18. Patient thinks she can see someone at the for medication management if she has to. Please advise. Justyna Nichols LPN [facility]01-13-2025 Miscellaneous Notes* Telephone Encounter - Justyna Nichols LPN - 04/05/2024 3:05 PM EST Call placed to patient, wanting an appointment with Provider to discuss starting medication for foranxiety. [facility]. I wasn't sure if you would see her or not since she's over 18. Patient thinks she can see someone at the for medication management if she has to. Please advise. Justyna Nichols LPN * Telephone Encounter - Amairani Prescott LPN - 04/05/2024 12:59 PM EST Pt is calling to request an appt to go over medications. Pt advised message would be sent to nurse and pt would get a call back to schedule appt. Amairani Prescott LPN documented in this encounterDun[facility]01-[facility]25 Telephone encounter Note * Telephone Encounter - Amairani Prescott LPN - 04/05/2024 12:59 PM EST Pt is calling to request an appt to go over medications. Pt advised message would be sent to nurse and pt would get a call back to schedule appt. Amairani Prescott LPN [facility]12-13-[facility] Telephone encounter Note* Telephone Encounter - Misty Perez RN - 03/05/2024 2:40 PM EST Rx for Valtrex was sent to pharmacy on 03/03/24. Patient notified. Misty Perez RN [facility]12-13-2024 Miscellaneous Notes* Telephone Encounter - Misty Perez RN - 03/05/2024 2:40 PM EST Rx for Valtrex was sent to pharmacy on 03/03/24. Patient notified. Misty Perez RN * Telephone Encounter - Eleonora Geiger RN - 03/03/2024 2:30 PM EST My Note Signed2:25 PM Tried reaching patient via phone; however, mailbox is full and cannot accept messages at this time.Pt has not been seen since 11/2022 and cancelled 2023 annual. Need annual appt for refill. Eleonora Geiger RN * Telephone Encounter - Eleonora Geiger RN - 03/03/2024 2:28 PM EST Jadiel Schwarz, RN Registered Nurse Signed1:57 PM Patient phones requesting refills as follows: Was in urgent care for possible UTI and results given but now asking for more Valtrex to be called in- looks like this is managed by NETWORK OPERATIONS LEAD Requested Prescriptions Please review and advise. Jadiel Schwarz RN documented in this encounterDun[facility]12-13-[facility]24 Telephone encounter Note * Telephone Encounter - Mitsy Perez RN - 03/05/2024 2:36 PM EST Called and notified patient. Misty Perez RN [facility]12-13-2024 Miscellaneous Notes* Telephone Encounter - Misty Perez RN - 03/05/2024 2:36 PM EST Called and notified patient. Misty Perez, LINDSAY documented in this encounterDunlap [facility]12-12-2024 Telephone encounter Note * Telephone Encounter - America Shay OCCA - 03/04/2024 1:50 PM EST TC to patient with no answer. Unable to leave d/t mailbox is full. Please try again later. THERESE March [facility]12-12-2024 Miscellaneous Notes* Telephone Encounter - America Shay OCCA - 03/04/2024 1:50 PM EST TC to patient with no answer. Unable to leave d/t mailbox is full. Please try again later. THERESE March * Telephone Encounter - Edna Beth APRN.CNP - 03/04/2024 11:25 AM EST Urine culture reveals bacterial growth. There is some resistance to the antibiotic. Will switch to Bactrim. (RX called into [facility] [place]) Quit taking the Keflex Follow up with PCP for continued symptoms. Please advise documented in this encounterDunlap [facility]12-12-2024 Telephone encounter Note * Telephone Encounter - Edna Beth APRN.CNP - 03/04/2024 11:25 AM EST Urine culture reveals bacterial growth. There is some resistance to the antibiotic. Will switch to Bactrim. (RX called into [facility] [place]) Quit taking the Keflex Follow up with PCP for continued symptoms. Please advise [facility]12-[facility] NoteHNO ID: [id number] Author: EDNA STEVENS APRN.CNM Service: ? Author Type: Net Sorter Type: Progress Notes Filed: 03/03/2024 16:18 Note Text: Nichole is a 19 year old who presents for an annual gynecologic exam without complaints. Presents: alone Menses: None, nexplanon in place Contraception: Nexplanon placed 12/06/21, removal 12/18 HPV vaccine: Yes Last pap smear: never History of STDS: genital HSV 1 - has had 3-4 outbreaks in past year treated with episodic valacyclovir Patient concerns for STD exposure: No. Time with current partner: no current partner. Sexually active with condom. 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 Comments: Sexual Activity: Yes; Male Contraception: Implant PAST MEDICAL HISTORY Diagnosis Date Arm fracture, left 2017 buckle fracture-casted Constipation 01/30/2015 Depression Immunization not carried out because of parent refusal 06/03/2018 Influenza Menstrual cycle problem 12/2016 Nexplanon - 2022 NEGATIVE MEDICAL HISTORY Patellar subluxation, left, initial encounter 2020 PAST SURGICAL HISTORY Procedure Laterality Date NONE FAMILY HISTORY Problem Relation Age of Onset Migraines Mother No Known Problems Father Unknown completely Breast Cancer Maternal Grandmother Early 40's Blood Clots Maternal Grandfather No Known Problems Paternal Grandmother No Known Problems Paternal Grandfather other (Endometriosis) Half-sister Anxiety disorder Half-sister Depression Half-sister Celiac Disease No Family History Inflammatory Bowel Disease No Family History Thyroid No Family History SOCIAL HISTORY Social History Tobacco Use Smoking status: Some Days Types: Cigarettes Passive exposure: Never Smokeless tobacco: Current Tobacco comments: Per pt smoking on the weekends mostly Vaping Use Vaping status: Never Used Substance Use Topics Alcohol use: Yes Drug use: Yes Types: Marijuana Comment: per pt one joint once a week on the weekends does not smoke regularly on week days only sometimes REVIEW OF SYSTEMS Abdomen: No bloating, early satiety, indigestion, or increased flatulence. No abdominal pain, nausea, vomiting, diarrhea, or constipation. Bladder: No dysuria, gross hematuria, urinary frequency, urinary urgency, or incontinence. Breast: No breast lumps, nipple d/c, overlying skin changes, redness or skin retraction. Allergies and current medication updated:Yes SENSITIVE EXAM: The sensitive examination was discussed with the Patient or Patient's Authorized Sr. Consultant. As applicable, any other physician, advance practice provider, medical student, or other health professional student that will be observing or involved in the sensitive examination for educational or training purposes was discussed with the Patient or Authorized Sr. Consultant. The Patient or Authorized Sr. Consultant has agreed to proceed with the sensitive examination. (Sensitive examination includes inspection and/or palpation of the breasts, pelvis, prostate and anorectal regions). EXAM: BP 108/66 Ht 5' 4.25 (1.63m) Wt 131 lb (59.4kg) LMP 12/19/2021 BMI 22.31 kg/(m2). GENERAL: pleasant, in no apparent distress HEENT: Normocephalic, atraumatic, mucus membranes moist, and no lesions NECK: Supple, full range of motion, no adenopathy, and thyroid normal DERMATOLOGY: Normal, without lesions, non-icteric, and non-hirsut CHEST: Normal inspiratory effort Deferred NETWORK OPERATIONS LEAD exam, self swab for STD screening NEURO: alert and oriented x3,exam grossly non-focal EXTREMITIES: normal ASSESSMENT/PLAN: 1. Encounter for gynecological examination (general) (routine) without abnormal findings - ICD9: V72.31, ICD10: Z01.419 (primary diagnosis) - Completed pelvic and breast exam - Encouraged monthly BSE - Follow up for annual exam in one year. 2. Recurrent genital herpes - ICD9: 054.10, ICD10: A60.00 -Will start HSV prophylaxis Valacyclovir 500mg PO once daily 3. Encounter for annual routine gynecological examination - ICD9: V72.31, ICD10: Z01.419 - Completed pelvic and breast exam - Encouraged monthly BSE - Follow up for annual exam in one year. 4. Screen for STD (sexually transmitted disease) - ICD9: V74.5, ICD10: Z11.3 - GONORRHEA/CHLAMYDIA NAAT - SYPHILIS TREPONEMAL W/REFLEX - HIV 1/2 COMBO WITH REFLEX TO DIFFERENTIATION - HEPATITIS C ANTIBODY IA WITH CONFIRMATION - HEPATITIS B SURFACE ANTIGEN 5. Nexplanon in place - ICD9: V45.52, ICD10: Z97.5 -Would like to keep in place, removal 2026 1) Health maintenance: Pap starting at the age of 21. Safe sex practices reviewed. Nutrition, exercise, and routine health maintenance exams reviewed. HPV vaccine completed series.. 2) Contracepti (more content not included)...[facility] 03-03-2024 History of Present illness Narrative* Edna Stevens APRN.VAUGHN - 03/03/2024 3:54 PM EST Nichole is a 19 year old who presents for an annual gynecologic exam without complaints. Presents: alone Menses: None, nexplanon in place Contraception: Nexplanon placed 12/06/21, removal 12/18 HPV vaccine: Yes Last pap smear: never History of STDS: genital HSV 1 - has had 3-4 outbreaks in past year treated with episodic valacyclovir Patient concerns for STD exposure: No. Time with current partner: no current partner. Sexually active with condom. 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 Comments: Sexual Activity: Yes; Male Contraception: Implant PAST MEDICAL HISTORY Diagnosis Date Arm fracture, left 2016 buckle fracture-casted Constipation 01/30/2015 Depression Immunization not carried out because of parent refusal 06/03/2018 Influenza Menstrual cycle problem 12/2016 Nexplanon - 2022 NEGATIVE MEDICAL HISTORY Patellar subluxation, left, initial encounter 2020 PAST SURGICAL HISTORY Procedure Laterality Date NONE FAMILY HISTORY Problem Relation Age of Onset Migraines Mother No Known Problems Father Unknown completely Breast Cancer Maternal Grandmother Early 40's Blood Clots Maternal Grandfather No Known Problems Paternal Grandmother No Known Problems Paternal Grandfather other (Endometriosis) Half-sister Anxiety disorder Half-sister Depression Half-sister Celiac Disease No Family History Inflammatory Bowel Disease No Family History Thyroid No Family History SOCIAL HISTORY Social History Tobacco Use Smoking status: Some Days Types: Cigarettes Passive exposure: Never Smokeless tobacco: Current Tobacco comments: Per pt smoking on the weekends mostly Vaping Use Vaping status: Never Used Substance Use Topics Alcohol use: Yes Drug use: Yes Types: Marijuana Comment: per pt one joint once a week on the weekends does not smoke regularly on week days only sometimes REVIEW OF SYSTEMS Abdomen: No bloating, early satiety, indigestion, or increased flatulence. No abdominal pain, nausea, vomiting, diarrhea, or constipation. Bladder: No dysuria, gross hematuria, urinary frequency, urinary urgency, or incontinence. Breast: No breast lumps, nipple d/c, overlying skin changes, redness or skin retraction. Allergies and current medication updated:Yes SENSITIVE EXAM: The sensitive examination was discussed with the Patient or Patient's Authorized Sr. Consultant. As applicable, any other physician, advance practice provider, medical student, or other health professional student that will be observing or involved in the sensitive examination for educational or training purposes was discussed with the Patient or Authorized Sr. Consultant. The Patient or Authorized Sr. Consultant has agreed to proceed with the sensitive examination. (Sensitive examination includes inspection and/or palpation of the breasts, pelvis, prostate and anorectal regions). EXAM: BP 108/66 Ht 5' 4.25 (1.63m) Wt 131 lb (59.4kg) LMP 12/19/2021 BMI 22.31 kg/(m^2). GENERAL: pleasant, in no apparent distress HEENT: Normocephalic, atraumatic, mucus membranes moist, and no lesions NECK: Supple, full range of motion, no adenopathy, and thyroid normal DERMATOLOGY: Normal, without lesions, non-icteric, and non-hirsut CHEST: Normal inspiratory effort Deferred NETWORK OPERATIONS LEAD exam, self swab for STD screening NEURO: alert and oriented x3,exam grossly non-focal EXTREMITIES: normal ASSESSMENT/PLAN: 1. Encounter for gynecological examination (general) (routine) without abnormal findings - ICD9: V72.31, ICD10: Z01.419 (primary diagnosis) - Completed pelvic and breast exam - Encouraged monthly BSE - Follow up for annual exam in one year. 2. Recurrent genital herpes - ICD9: 054.10, ICD10: A60.00 -Will start HSV prophylaxis Valacyclovir 500mg PO once daily 3. Encounter for annual routine gynecological examination - ICD9: V72.31, ICD10: Z01.419 - Completed pelvic and breast exam - Encouraged monthly BSE - Follow up for annual exam in one year. 4. Screen for STD (sexually transmitted disease) - ICD9: V74.5, ICD10: Z11.3 - GONORRHEA/CHLAMYDIA NAAT - SYPHILIS TREPONEMAL W/REFLEX - HIV 1/2 COMBO WITH REFLEX TO DIFFERENTIATION - HEPATITIS C ANTIBODY IA WITH CONFIRMATION - HEPATITIS B SURFACE ANTIGEN 5. Nexplanon in place - ICD9: V45.52, ICD10: Z97.5 -Would like to keep in place, removal 2026 1) Health maintenance: Pap starting at the age of 21. Safe sex practices reviewed. Nutrition, exercise, and routine health maintenance exams reviewed. HPV vaccine completed series.. 2) Contraception: Depo Provera. Contraceptive options reviewed and information provided. 3) STD screening: Accepted STD check for Gonorrhea and Chlamydia. 4) Follow up one year or sooner as needed. Edna Stevens APRN.CNM documented in [facility] encounterDun[facility]12-[facility]-2024 Telephone encounter Note * Telephone Encounter - Eleonora Geiger RN - 03/03/2024 2:30 PM EST My Note Signed2:25 PM Tried reaching patient via phone; however, mailbox is full and cannot accept messages at this time.Pt has not been seen since 11/2022 and cancelled 2023 annual. Need annual appt for refill. Eleonora Geiger RN [facility]12-11-2024 Telephone encounter Note* Telephone Encounter - Eleonora Geiger RN - 03/03/2024 2:28 PM EST Jadiel Schwarz, RN Registered Nurse Signed1:57 PM Patient phones requesting refills as follows: Was in urgent care for possible UTI and results given but now asking for more Valtrex to be called in- looks like this is managed by NETWORK OPERATIONS LEAD Requested Prescriptions Please review and advise. Jadiel Schwarz RN [facility]12-11-2024 Telephone encounter Note* Telephone Encounter - Eleonora Geiger RN - 03/03/2024 2:25 PM EST Tried reaching patient via phone; however, mailbox is full and cannot accept messages at this time.Pt has not been seen since 11/2022 and cancelled 2023 annual. Need annual appt for refill. Eleonora Geiger RN [facility]12-11-2024 Miscellaneous Notes* Telephone Encounter - Eleonora Geiger RN - 03/03/2024 2:25 PM EST Tried reaching patient via phone; however, mailbox is full and cannot accept messages at this time.Pt has not been seen since 11/2022 and cancelled 2023 annual. Need annual appt for refill. Eleonora Geiger RN * Telephone Encounter - Jadiel Schwarz RN - 03/03/2024 1:57 PM EST Patient phones requesting refills as follows: Was in urgent care for possible UTI and results given but now asking for more Valtrex to be called in- looks like this is managed by [employer]PERATIONS LEAD Requested Prescriptions Pending Prescriptions Disp Refills valACYclovir (VALTREX) 1 gram tablet 30 tablet 2 Sig: Take 1 tablet by mouth once daily. Please review and advise. Jadiel Schwarz RN documented in this encounterDun[facility]12-11-2024 Telephone encounter Note * Telephone Encounter - Jadiel Schwarz RN - 03/03/2024 1:57 PM EST Patient phones requesting refills as follows: Was in urgent care for possible UTI and results given but now asking for more Valtrex to be called in- looks like this is managed by [employer]PERATIONS LE[employer] Requested Prescriptions Pending Prescriptions Disp Refills valACYclovir (VALTREX) 1 gram tablet 30 tablet 2 Sig: Take 1 tablet by mouth once daily. Please review and advise. Jadiel Schwarz RN [facility]12-11-2024 Telephone encounter Note* Telephone Encounter - Jadiel Schwarz RN - 03/03/2024 1:54 PM EST Patient aware. Jadiel Schwarz RN [facility]12-11-2024 Miscellaneous Notes* Telephone Encounter - Jadiel Schwarz RN - 03/03/2024 1:54 PM EST Patient aware. Jadiel Schwarz RN * Telephone Encounter - Jasmin Thomson MA - 03/03/2024 8:19 AM EST Unable to reach patient. Mailbox full/Mailbox not set up/ Number incorrect. Please try again later. Jasmin Thomson MA * Telephone Encounter - Brian Pearson MD - 03/03/2024 7:24 AM EST Vaginal swab was positive for yeast. Diflucan prescription has been sent to the pharmacy. We will notify her if the urine culture is abnormal. documented in this encounterDunlap [facility]12-11-2024 Telephone encounter Note * Telephone Encounter - Jasmin Thomson MA - 03/03/2024 8:19 AM EST Unable to reach patient. Mailbox full/Mailbox not set up/ Number incorrect. Please try again later. Jasmin Thomson MA [facility]12-11-2024 Telephone encounter Note* Telephone Encounter - Brian Pearson MD - 03/03/2024 7:24 AM EST Vaginal swab was positive for yeast. Diflucan prescription has been sent to the pharmacy. We will notify her if the urine culture is abnormal. [facility]12-10-2024 NoteHNO ID: [id number] Author: FREDO CALLEJAS APRN.GARAGE DOOR INSTALLER Service: ? Author Type: Nurse Practitioner Type: Progress Notes Filed: 03/02/2024 15:47 Note Text: Subjective HPI Nontoxic-appearing female presents urgent care chief complaint possible UTI. Duration of symptoms 1 day. Associated symptoms vaginal irritation and urinary frequency urgency dysuria. History of UTIs this feels similar. OTC medications none. Denies any significant pain. Rates pain 2-3 out of 10. States she is sexually active. No concerns for STDs. Denies chance of . Does have Nexplanon. Denies any vaginal discharge. No fevers flank pain or abdominal pain. Past medical history prescription medications allergies reviewed. .Patient presents with: Urinary Frequency: Frequency, urgency and burning x 1 day PAST MEDICAL HISTORY Diagnosis Date Arm fracture, left 2016 buckle fracture-casted Constipation 01/30/2015 Depression Immunization not carried out because of parent refusal 06/03/2018 Influenza Menstrual cycle problem 12/2016 Nexplanon - 2022 NEGATIVE MEDICAL HISTORY Patellar subluxation, left, initial encounter 2020 PAST SURGICAL HISTORY Procedure Laterality Date NONE ALLERGIES Nickel MEDICATIONS FLUoxetine (PROZAC) 10 mg capsule once daily. traMADol (ULTRAM) 50 mg tablet take 1 tablet by mouth every 8 hours NEEDED FOR PAIN for 2 days penicillin V potassium 500 mg tablet Take 500 mg by mouth. ibuprofen (MOTRIN) 800 mg tablet Take 800 mg by mouth every 8 hours as needed. famotidine (PEPCID) 20 mg tablet take 1 tablet by mouth twice a day dicyclomine (BENTYL) 20 mg tablet take 1 tablet by mouth three times a day if needed valACYclovir (VALTREX) 1 gram tablet Take 1 tablet by mouth every afternoon. hydrOXYzine pamoate (VISTARIL) 25 mg capsule Take 1 capsule by mouth three times a day as needed. etonogestrel (NEXPLANON) 68 mg impl subdermal implant 68 mg by SUBDERMAL route. FAMILY HISTORY Problem Relation Age of Onset Migraines Mother No Known Problems Father Unknown completely Breast Cancer Maternal Grandmother Early 40's Blood Clots Maternal Grandfather No Known Problems Paternal Grandmother No Known Problems Paternal Grandfather other (Endometriosis) Half-sister Anxiety disorder Half-sister Depression Half-sister Celiac Disease No Family History Inflammatory Bowel Disease No Family History Thyroid No Family History Social History Tobacco Use Smoking status: Some Days Types: Cigarettes Passive exposure: Never Smokeless tobacco: Current Tobacco comments: Per pt smoking on the weekends mostly Vaping Use Vaping status: Never Used Substance Use Topics Alcohol use: No Drug use: Yes Types: Marijuana Comment: per pt one joint once a week on the weekends does not smoke regularly on week days only sometimes BP 102/62 Temp 36.6 ?C (97.8 ?F) (Tympanic) Wt 59.7 kg (131 lb 9.8 oz) LMP 12/19/2021 (Approximate) Review of Systems Constitutional: Negative for chills, fever and malaise/fatigue. Cardiovascular: Negative for chest pain. Gastrointestinal: Negative for abdominal pain, constipation, diarrhea, nausea and vomiting. Genitourinary: Positive for dysuria, frequency and urgency. Negative for flank pain and hematuria. Musculoskeletal: Negative for myalgias. Objective Physical Exam Vitals and nursing note reviewed. Constitutional: General: She is not in acute distress. Appearance: She is not diaphoretic. HENT: Head: Jaw: No trismus. Right Ear: Hearing normal. No decreased hearing noted. No drainage, swelling or tenderness. Tympanic membrane is not perforated, erythematous or bulging. Left Ear: Hearing normal. No decreased hearing noted. No drainage, swelling or tenderness. Tympanic membrane is not perforated, erythematous or bulging. Mouth/Throat: Pharynx: Uvula midline. No uvula swelling. Tonsils: No tonsillar abscesses. Cardiovascular: Rate and Rhythm: Normal rate and regular rhythm. Pulses: Normal pulses. Pulmonary: Effort: Pulmonary effort is normal. No respiratory distress. Breath sounds: Normal breath sounds. Chest: Chest wall: No tenderness. Abdominal: General: Bowel sounds are normal. There is no distension. Palpations: Abdomen is soft. Abdomen is not rigid. Tenderness: There is no abdominal tenderness. There is no right CVA tenderness, left CVA tenderness, guarding or rebound. Negative signs include Funes's sign and McBurney's sign. Musculoskeletal: General: No tenderness. Lymphadenopathy: Head: Right side of head: No submental, submandibular, tonsillar, preauricular, posterior auricular or occipital adenopathy. Left side of head: No submental, submandibular, tonsillar, preauricular, posterior auricular or occipital adenopathy. Cervical: Right cervical: No superficial or posterior cervical adenopathy. Left cervical: No superficial or posterior cervical adenopathy. Skin: Gene (more content not included)...[facility]12-10-2024 History of Present illness Narrative* Fredo Callejas, SANDRA.GARAGE DOOR INSTALLER - 03/02/2024 3:27 PM EST Subjective HPI Nontoxic-appearing female presents urgent care chief complaint possible UTI. Duration of symptoms 1day. Associated symptoms vaginal irritation and urinary frequency urgency dysuria. History of UTIs this feels similar. OTC medications none. Denies any significant pain. Rates pain 2-3 out of 10. States she is sexually active. No concerns for STDs. Denies chance of . Does have Nexplanon. Denies any vaginal discharge. No fevers flank pain or abdominal pain. Past medical history prescription medications allergies reviewed. .Patient presents with: Urinary Frequency: Frequency, urgency and burning x 1 day PAST MEDICAL HISTORY Diagnosis Date Arm fracture, left 2016 buckle fracture-casted Constipation 01/30/2015 Depression Immunization not carried out because of parent refusal 06/03/2018 Influenza Menstrual cycle problem 12/2016 Nexplanon - 2022 NEGATIVE MEDICAL HISTORY Patellar subluxation, left, initial encounter 2020 PAST SURGICAL HISTORY Procedure Laterality Date NONE ALLERGIES Nickel MEDICATIONS FLUoxetine (PROZAC) 10 mg capsule once daily. traMADol (ULTRAM) 50 mg tablet take 1 tablet by mouth every 8 hours NEEDED FOR PAIN for 2 days penicillin V potassium 500 mg tablet Take 500 mg by mouth. ibuprofen (MOTRIN) 800 mg tablet Take 800 mg by mouth every 8 hours as needed. famotidine (PEPCID) 20 mg tablet take 1 tablet by mouth twice a day dicyclomine (BENTYL) 20 mg tablet take 1 tablet by mouth three times a day if needed valACYclovir (VALTREX) 1 gram tablet Take 1 tablet by mouth every afternoon. hydrOXYzine pamoate (VISTARIL) 25 mg capsule Take 1 capsule by mouth three times a day as needed. etonogestrel (NEXPLANON) 68 mg impl subdermal implant 68 mg by SUBDERMAL route. FAMILY HISTORY Problem Relation Age of Onset Migraines Mother No Known Problems Father Unknown completely Breast Cancer Maternal Grandmother Early 40's Blood Clots Maternal Grandfather No Known Problems Paternal Grandmother No Known Problems Paternal Grandfather other (Endometriosis) Half-sister Anxiety disorder Half-sister Depression Half-sister Celiac Disease No Family History Inflammatory Bowel Disease No Family History Thyroid No Family History Social History Tobacco Use Smoking status: Some Days Types: Cigarettes Passive exposure: Never Smokeless tobacco: Current Tobacco comments: Per pt smoking on the weekends mostly Vaping Use Vaping status: Never Used Substance Use Topics Alcohol use: No Drug use: Yes Types: Marijuana Comment: per pt one joint once a week on the weekends does not smoke regularly on week days only sometimes BP 102/62 Temp 36.6 C (97.8 F) (Tympanic) Wt 59.7 kg (131 lb 9.8 oz) LMP 12/19/2021 (Approximate) Review of Systems Constitutional: Negative for chills, fever and malaise/fatigue. Cardiovascular: Negative for chest pain. Gastrointestinal: Negative for abdominal pain, constipation, diarrhea, nausea and vomiting. Genitourinary: Positive for dysuria, frequency and urgency. Negative for flank pain and hematuria. Musculoskeletal: Negative for myalgias. Objective Physical Exam Vitals and nursing note reviewed. Constitutional: General: She is not in acute distress. Appearance: She is not diaphoretic. HENT: Head: Jaw: No trismus. Right Ear: Hearing normal. No decreased hearing noted. No drainage, swelling or tenderness. Tympanic membrane is not perforated, erythematous or bulging. Left Ear: Hearing normal. No decreased hearing noted. No drainage, swelling or tenderness. Tympanicmembrane is not perforated, erythematous or bulging. Mouth/Throat: Pharynx: Uvula midline. No uvula swelling. Tonsils: No tonsillar abscesses. Cardiovascular: Rate and Rhythm: Normal rate and regular rhythm. Pulses: Normal pulses. Pulmonary: Effort: Pulmonary effort is normal. No respiratory distress. Breath sounds: Normal breath sounds. Chest: Chest wall: No tenderness. Abdominal: General: Bowel sounds are normal. There is no distension. Palpations: Abdomen is soft. Abdomen is not rigid. Tenderness: There is no abdominal tenderness. There is no right CVA tenderness, left CVA tenderness, guarding or rebound. Negative signs include Funes's sign and McBurney's sign. Musculoskeletal: General: No tenderness. Lymphadenopathy: Head: Right side of head: No submental, submandibular, tonsillar, preauricular, posterior auricular or occipital adenopathy. Left side of head: No submental, submandibular, tonsillar, preauricular, posterior auricular or occipital adenopathy. Cervical: Right cervical: No superficial or posterior cervical adenopathy. Left cervical: No superficial or posterior cervical adenopathy. Skin: General: Skin is warm and dry. Findings: No rash. Neurological: Mental Status: She is alert and oriented to person, place, and time. ASSESSMENT/PLAN: 1. Urinary frequency - ICD9: 788.41, ICD10: R35.0 (primary diagnosis) - UA DIP, URINE (POC) - URINE CULTURE 2. Dysuria - ICD9: 788.1, ICD10: R30.0 - RIRI/TRICHOMONAS NAAT - BACTERIAL VAGINOSIS NAAT Urine dip positive for leukocytes. Treat empirically for UTI today with Keflex. Vaginal self swabs obtained. Treat accordingly test results. Patient was educated on supportive therapies. Patient willfollow up with primary care provider as needed. Patient was instructed to immediately proceed to emergency room for any new, worsening, or symptoms lasting longer than anticipated. The patient's clinical presentation is otherwise unremarkable at this time. Based on exam and clinical finding, the patient is stable for discharge. Plan of care was discussed with patient. Patient verbalizes understanding and agrees to plan of care. This note was generated using [employer] software. It may contain errors in wording, punctuation, or spelling. Fredo Callejas APRN.GARAGE DOOR INSTALLER documented in this [facility] NoteHNO ID: [id number] Author: SRINI KINGSTON MD Service: ? Author Type: Physician Type: Progress Notes Filed: 12/30/2023 08:47 Note Text: PEDIATRIC SICK VISIT SUBJECTIVE: Nichole Alonso is a 18 year old accompanied by self. Patient presents with: Follow up: Ingested borax - follow up per poison control History was obtained from: patient The patient is an 18-year-old female presenting with symptoms subsequent to unintentional Borax ingestion. Symptoms developed while assisting her grandmother, who was consuming Borax under the belief it had health benefits. The patient unknowingly ingested Borax daily for approximately two weeks via a morning smoothie prepared by her grandmother who feels it has health benefits . Approximately four to five days ago, the patient ceased ingestion after noting symptoms which included a rash, cracked lips, and general fatigue. Gastrointestinal symptoms such as stomach discomfort were also reported. The patient experienced mild bladder discomfort one day, which has since resolved. Notably, all symptoms have started improving since cessation of Borax intake. Urine output has remained normal The patient consulted with poison control, who advised monitoring symptoms and following up with a healthcare provider. Poison control did not express significant concern, assuming the patient would not know the exact amount ingested. The only lingering symptom involves the healing of her cracked lips, for which she has been applying [id number] ointments. HISTORY: ACTIVE PROBLEM LIST Ptsd (Post-Traumatic Stress Disorder) Low Serum Vitamin D Vegan Diet Major Depressive Disorder, Recurrent Episode, Moderate (Hcc) History of Cannabis Vapor Product Use Generalized Anxiety Disorder Subluxation of Left Patella Depressive Disorder Exposure to Severe Acute Respiratory Syndrome Coronavirus 2 (Sars-Cov-2) Acute Anal Fissure Bright Red Rectal Bleeding PAST MEDICAL HISTORY Diagnosis Date Arm fracture, left 2016 buckle fracture-casted Constipation 01/30/2015 Depression Immunization not carried out because of parent refusal 06/03/2018 Influenza Menstrual cycle problem 12/2016 Nexplanon - 2022 NEGATIVE MEDICAL HISTORY Patellar subluxation, left, initial encounter 2020 PAST SURGICAL HISTORY Procedure Laterality Date NONE Allergies: ALLERGIES Allergen Reactions Nickel Other: See Comments has trouble with earrings - ears break out Medications: ibuprofen (MOTRIN) 800 mg tablet Take 800 mg by mouth every 8 hours as needed. famotidine (PEPCID) 20 mg tablet take 1 tablet by mouth twice a day dicyclomine (BENTYL) 20 mg tablet take 1 tablet by mouth three times a day if needed valACYclovir (VALTREX) 1 gram tablet Take 1 tablet by mouth every afternoon. etonogestrel (NEXPLANON) 68 mg impl subdermal implant 68 mg by SUBDERMAL route. FLUoxetine (PROZAC) 10 mg capsule once daily. traMADol (ULTRAM) 50 mg tablet take 1 tablet by mouth every 8 hours NEEDED FOR PAIN for 2 days penicillin V potassium 500 mg tablet Take 500 mg by mouth. hydrOXYzine pamoate (VISTARIL) 25 mg capsule Take 1 capsule by mouth three times a day as needed. OBJECTIVE: BP 98/62 Pulse 80 Temp 36.3 ?C (97.4 ?F) (Temporal) Resp 14 Wt 56.5 kg (124 lb 9 oz) LMP 12/19/2021 (Approximate) General: alert and active in no apparent distress Eyes: conjunctiva clear Ears: TMs translucent bilaterally, normal landmarks noted Nose: no rhinorrhea, no mucosal edema OP: no lesions, no erythema , some chapped lips Neck: supple, no adenopathy Lungs: clear to auscultation bilaterally, good air exchange, no retractions CVS: Normal rate, regular rhythm, no murmur Abdomen: soft, nondistended, nontender, and no hepatosplenomegaly or masses Skin: No rashes, lesions or skin changes ASSESSMENT/PLAN: Encounter Diagnosis ICD-10-CM 1. Toxic effect of borax T54.91XA 18-year-old female with a history of inadvertent Borax ingestion presenting with a rash, cracked lips, fatigue, and gastrointestinal discomfort. Symptoms have been gradually improving since the cessation of ingestion. The patient's clinical presentation aligns with a mild toxic reaction to Borax, which may resolve with the discontinuation of exposure. The lack of significant concern from poison control is reassuring, given the patient's reported improvement. 1. Borax Ingestion The primary concern is potential mild Borax toxicity due to its consumption over approximately two weeks. The patient's symptoms, including skin irritation, fatigue, and transient bladder discomfort, are consistent with Borax exposure. As advised by poison control, the monitoring of symptoms remains crucial. No additional diagnostic tests are deemed necessary at this juncture given the improvement in symptoms post-exposure cessation. Current supportive management involves adequate hydration and use of topical ointments (such as (more content not included)...[facility]10-07-2024 History of Present illness Narrative* Srini Kingston MD - 12/29/2023 4:43 PM EDT PEDIATRIC SICK VISIT SUBJECTIVE: Nichole Alonso is a 18 year old accompanied by self. Patient presents with: Follow up: Ingested borax - follow up per poison control History was obtained from: patient The patient is an 18-year-old female presenting with symptoms subsequent to unintentional Borax ingestion. Symptoms developed while assisting her grandmother, who was consuming Borax under the belief it hadhealth benefits. The patient unknowingly ingested Borax daily for approximately two weeks via a morning smoothie prepared by her grandmother who feels it has health benefits . Approximately four to five days ago, the patient ceased ingestion after noting symptoms which included a rash, cracked lips, and general fatigue. Gastrointestinal symptoms such as stomach discomfort were also reported. The patient experienced mild bladder discomfort one day, which has since resolved. Notably, all symptoms have started improving since cessation of Borax intake. Urine output has remained normal The patient consulted with poison control, who advised monitoring symptoms and following up with a healthcare provider. Poison control did not express significant concern, assuming the patient would not know the exact amount ingested. The only lingering symptom involves the healing of her cracked lips, for which she has been applying [id number] ointments. HISTORY: ACTIVE PROBLEM LIST Ptsd (Post-Traumatic Stress Disorder) Low Serum Vitamin D Vegan Diet Major Depressive Disorder, Recurrent Episode, Moderate (Hcc) History of Cannabis Vapor Product Use Generalized Anxiety Disorder Subluxation of Left Patella Depressive Disorder Exposure to Severe Acute Respiratory Syndrome Coronavirus 2 (Sars-Cov-2) Acute Anal Fissure Bright Red Rectal Bleeding PAST MEDICAL HISTORY Diagnosis Date Arm fracture, left 2016 buckle fracture-casted Constipation 01/30/2015 Depression Immunization not carried out because of parent refusal 06/03/2018 Influenza Menstrual cycle problem 12/2016 Nexplanon - 2022 NEGATIVE MEDICAL HISTORY Patellar subluxation, left, initial encounter 2020 PAST SURGICAL HISTORY Procedure Laterality Date NONE Allergies: ALLERGIES Allergen Reactions Nickel Other: See Comments has trouble with earrings - ears break out Medications: ibuprofen (MOTRIN) 800 mg tablet Take 800 mg by mouth every 8 hours as needed. famotidine (PEPCID) 20 mg tablet take 1 tablet by mouth twice a day dicyclomine (BENTYL) 20 mg tablet take 1 tablet by mouth three times a day if needed valACYclovir (VALTREX) 1 gram tablet Take 1 tablet by mouth every afternoon. etonogestrel (NEXPLANON) 68 mg impl subdermal implant 68 mg by SUBDERMAL route. FLUoxetine (PROZAC) 10 mg capsule once daily. traMADol (ULTRAM) 50 mg tablet take 1 tablet by mouth every 8 hours NEEDED FOR PAIN for 2 days penicillin V potassium 500 mg tablet Take 500 mg by mouth. hydrOXYzine pamoate (VISTARIL) 25 mg capsule Take 1 capsule by mouth three times a day as needed. OBJECTIVE: BP 98/62 Pulse 80 Temp 36.3 C (97.4 F) (Temporal) Resp 14 Wt 56.5 kg (124 lb 9 oz) LMP 12/19/2021 (Approximate) General: alert and active in no apparent distress Eyes: conjunctiva clear Ears: TMs translucent bilaterally, normal landmarks noted Nose: no rhinorrhea, no mucosal edema OP: no lesions, no erythema , some chapped lips Neck: supple, no adenopathy Lungs: clear to auscultation bilaterally, good air exchange, no retractions CVS: Normal rate, regular rhythm, no murmur Abdomen: soft, nondistended, nontender, and no hepatosplenomegaly or masses Skin: No rashes, lesions or skin changes ASSESSMENT/PLAN: Encounter Diagnosis ICD-10-CM 1. Toxic effect of borax T54.91XA 18-year-old female with a history of inadvertent Borax ingestion presenting with a rash, cracked lips, fatigue, and gastrointestinal discomfort. Symptoms have been gradually improving since the cessation of ingestion. The patient's clinical presentation aligns with a mild toxic reaction to Borax, which may resolve with the discontinuation of exposure. The lack of significant concern from poison control is reassuring, given the patient's reported improvement. 1. Borax Ingestion The primary concern is potential mild Borax toxicity due to its consumption over approximately two weeks. The patient's symptoms, including skin irritation, fatigue, and transient bladder discomfort,are consistent with Borax exposure. As advised by poison control, the monitoring of symptoms remains crucial. No additional diagnostic tests are deemed necessary at this juncture given the improvement in symptoms post-exposure cessation. Current supportive management involves adequate hydration anduse of topical ointments (such as triple antibiotic cream or emollients like Vaseline) for symptomatic relief of lip dryness and skin irritation. The patient should be counseled on the potential risks of such exposure and engaged in a discussion regarding the discontinuation of Borax use with her grandmother. Continued monitoring for any adverse changes is advised, and further medical evaluation should be considered if symptoms persist or worsen. Srini Kingston MD documented in this encounterDunlap [facility]08-22-[facility]24 History of Present illness Narrative* Deborah Wong MD - 11/13/2023 2:00 PM EDT Images from the original note were not included. Unfortunately, Nichole did not show for her follow up visit. Please let me know what I can do to help in the future if needed! Deborah Wong MD Chief Pediatric Gastroenterology, Hepatology and Nutrition [facility] [address] [id number] CC: Chacha Kim MD [address] [facility] [place] [address] [phone] The patient did not show up for this appointment. documented in this encounterDunlap [facility] Hospital07-19-2024 Telephone encounter Note * Telephone Encounter - Jadiel Schwarz RN - 10/10/2023 4:19 PM EDT Advised ER, patient and mother agree. Jadiel Schwarz RN Reason for Disposition [1] MODERATE rectal bleeding (small blood clots, passing blood without stool, or toilet water turnsred) AND [2] more than once a day Answer Assessment - Initial Assessment Questions 1. APPEARANCE of BLOOD: What color is it? Is it passed separately, on the surface of the stool, or mixed in with the stool? Bright red and dark green 2. AMOUNT: How much blood was passed? Entire toilet was not red but a large pool per patient 3. FREQUENCY: How many times has blood been passed with the stools? Started today 4. ONSET: When was the blood first seen in the stools? (Days or weeks) Has has in the past but had wisdom teeth out and now noted today 5. DIARRHEA: Is there also some diarrhea? If Yes, ask: How many diarrhea stools in the past 24 hours? No 6. CONSTIPATION: Do you have constipation? If Yes, ask: How bad is it? No 7. RECURRENT SYMPTOMS: Have you had blood in your stools before? If Yes, ask: When was the last time? and What happened that time? Yes 8. BLOOD THINNERS: Do you take any blood thinners? (e.g., Coumadin/warfarin, Pradaxa/dabigatran, aspirin) No 9. OTHER SYMPTOMS: Do you have any other symptoms? (e.g., abdomen pain, vomiting, dizziness, fever) Dizzy 10. : Is there any chance you are ? When was your last menstrual period? No Protocols used: Rectal [id number] [facility]07-19-[facility] Miscellaneous Notes* Telephone Encounter - Jadiel Schwarz RN - 10/10/2023 4:19 PM EDT Advised ER, patient and mother agree. Jadiel Schwarz RN Reason for Disposition [1] MODERATE rectal bleeding (small blood clots, passing blood without stool, or toilet water turnsred) AND [2] more than once a day Answer Assessment - Initial Assessment Questions 1. APPEARANCE of BLOOD: What color is it? Is it passed separately, on the surface of the stool, or mixed in with the stool? Bright red and dark green 2. AMOUNT: How much blood was passed? Entire toilet was not red but a large pool per patient 3. FREQUENCY: How many times has blood been passed with the stools? Started today 4. ONSET: When was the blood first seen in the stools? (Days or weeks) Has has in the past but had wisdom teeth out and now noted today 5. DIARRHEA: Is there also some diarrhea? If Yes, ask: How many diarrhea stools in the past 24 hours? No 6. CONSTIPATION: Do you have constipation? If Yes, ask: How bad is it? No 7. RECURRENT SYMPTOMS: Have you had blood in your stools before? If Yes, ask: When was the last time? and What happened that time? Yes 8. BLOOD THINNERS: Do you take any blood thinners? (e.g., Coumadin/warfarin, Pradaxa/dabigatran, aspirin) No 9. OTHER SYMPTOMS: Do you have any other symptoms? (e.g., abdomen pain, vomiting, dizziness, fever) Dizzy 10. : Is there any chance you are ? When was your last menstrual period? No Protocols used: Rectal [id number] documented in this encounterDunlap Memorial Hospital07-19-2024 History of Present illness Narrative* Hunter Martinez APRN.AMARILIS - 10/10/2023 3:06 PM EDT This note was created using [employer]. Subjective Nichole Alonso is a 18 year old female. HPI Pt had her wisdom teeth removed about 4 days ago. For the last two days she notes hematuria and today she noted bright red blood in her stool times one episode. She denies any current abdominal pain.Her blood pressure is 92/62 which appears to be baseline for pt when compared to vitals over the last several months. Review of Systems Constitutional: Negative for fever. Gastrointestinal: Positive for blood in stool. Negative for abdominal pain. Genitourinary: Positive for hematuria. Objective BP 92/62 Pulse 76 Temp 36.7 C (98.1 F) Resp 16 Wt 54.4 kg (119 lb 14.9 oz) LMP 12/19/2021(Approximate) SpO2 98% Physical Exam Vitals and nursing note reviewed. Constitutional: General: She is not in acute distress. Appearance: Normal appearance. She is not ill-appearing. HENT: Head: Normocephalic. Mouth/Throat: Mouth: Mucous membranes are moist. Comments: No bleeding noted from the area of tooth extraction Eyes: Conjunctiva/sclera: Conjunctivae normal. Cardiovascular: Rate and Rhythm: Normal rate and regular rhythm. Pulmonary: Effort: Pulmonary effort is normal. Breath sounds: Normal breath sounds. Abdominal: Tenderness: There is no abdominal tenderness. There is no guarding. Musculoskeletal: General: Normal range of motion. Cervical back: Normal range of motion. Skin: General: Skin is warm and dry. Neurological: General: No focal deficit present. Mental Status: She is alert. Psychiatric: Mood and Affect: Mood normal. Behavior: Behavior normal. Assessment and Plan ASSESSMENT/PLAN: 1. Gross hematuria - ICD9: 599.71, ICD10: R31.0 (primary diagnosis) -Urinalysis was negative for hematuria, nitrates and Leuks. - UA DIP, URINE (POC) - URINE CULTURE 2. Bloody stools - ICD9: 578.1, ICD10: K92.1 - Pt had a picture with some red tinged toilet water with otherwise normal appearing stool. She notes one episode of this with no current abdominal pain or ongoing bleeding. Pt's vitals were unremarkable and as such I recommended that pt monitor for any recurrent symptoms and go to the ER, otherwise I recommended that she follow up with her GI doctor. Pt understands and is agreeable. Hunter Martinez APRN.CNP documented in this encounterDunlap [facility] Hospital07-05-2024 Telephone encounter Note * Telephone Encounter - Stella Christopher - 09/26/2023 10:06 AM EDT Pharmacy electronically sent a request for the following prescription(s) Date of Last Visit: 07/31/23 Date of Follow-Up: 10/16/23 Requested Prescriptions Pending Prescriptions Disp Refills famotidine (PEPCID) 20 mg tablet [Pharmacy Med Name: FAMOTIDINE 20 MG TABLET] 60 tablet 0 Sig: take 1 tablet by mouth twice a day Stella [facility]07-05-2024 Miscellaneous Notes* Telephone Encounter - Stella Christopher - 09/26/2023 10:06 AM EDT Pharmacy electronically sent a request for the following prescription(s) Date of Last Visit: 07/31/23 Date of Follow-Up: 10/16/23 Requested Prescriptions Pending Prescriptions Disp Refills famotidine (PEPCID) 20 mg tablet [Pharmacy Med Name: FAMOTIDINE 20 MG TABLET] 60 tablet 0 Sig: take 1 tablet by mouth twice a day Stella Christopher documented in [facility] History of Present illness Narrative* Chacha Kim MD - 09/03/2023 1:00 PM EDT Images from the original note were not included. WELL VISIT PEDIATRIC 18+ YRS OLD Nichole is a 18 year old who presents today for well exam. SUBJECTIVE CONCERNS: no concerns HISTORY ACTIVE PROBLEM LIST Exposure to Severe Acute Respiratory Syndrome Coronavirus 2 (Sars-Cov-2) - 07/31/2023 Subluxation of Left Patella - 05/21/2022 Generalized Anxiety Disorder - 04/25/2022 Major Depressive Disorder, Recurrent Episode, Moderate (Hcc) - 04/03/2022 History of Cannabis Vapor Product Use - 04/03/2022 Depressive Disorder - 12/06/2021 Low Serum Vitamin D - 01/25/2021 Vegan Diet - 01/25/2021 Ptsd (Post-Traumatic Stress Disorder) - 10/25/2020 PAST MEDICAL HISTORY Diagnosis Date Arm fracture, left 2016 buckle fracture-casted Constipation 01/30/2015 Depression Immunization not carried out because of parent refusal 06/03/2018 Influenza Menstrual cycle problem 12/2016 Nexplanon - 2022 NEGATIVE MEDICAL HISTORY Patellar subluxation, left, initial encounter 2020 PAST SURGICAL HISTORY Procedure Laterality Date NONE ALLERGIES Allergen Reactions Nickel Other: See Comments has trouble with earrings - ears break out Medications: dicyclomine (BENTYL) 20 mg tablet take 1 tablet by mouth three times a day if needed famotidine (PEPCID) 20 mg tablet take 1 tablet by mouth twice a day valACYclovir (VALTREX) 1 gram tablet Take 1 tablet by mouth every afternoon. hydrOXYzine pamoate (VISTARIL) 25 mg capsule Take 1 capsule by mouth three times a day as needed. etonogestrel (NEXPLANON) 68 mg impl subdermal implant 68 mg by SUBDERMAL route. FAMILY HISTORY Problem Relation Age of Onset Migraines Mother No Known Problems Father Unknown completely Breast Cancer Maternal Grandmother Early 40's Blood Clots Maternal Grandfather No Known Problems Paternal Grandmother No Known Problems Paternal Grandfather other (Endometriosis) Half-sister Anxiety disorder Half-sister Depression Half-sister Celiac Disease No Family History Inflammatory Bowel Disease No Family History Thyroid No Family History Social History Social History Narrative Not on file Smoking Exposure: Do you spend a significant amount of time with anyone who smokes? Yes -Who uses tobacco products? friends -Are you interesting in quitting? No -Do you have a smoke-free home rule in place? No -Do you have a smoke-free car rule in place? No School: Presently in not in school. Recreational Screen Time totaling more than 2 hours of screen time per day. Physical Activity: more than 1 hour of physical activity per day Fainting, dizziness, significant shortness of breath or chest pain with sports or exercise: No History of concussion in the last year: No Safety: 08/09/2022 Pediatric SDOH - Response to gun questions Are there any guns kept in or around your home or where your child spends time? Yes Are they stored unloaded or locked away? Yes Reviewed seat belts and smoke detectors Diet: -Diet is well balanced and appropriate for age -Fruits are eaten with most meals -Vegetables are eaten with most meals -Drinks none -Drinks water daily -Regularly eats meals with family Elimination: no concerns, normal size and consistency Dental: dental care current Sleep: -no sleep concerns Vision: No vision concerns Hearing: No hearing concerns Growth: No growth concerns Gynecological history: LMP: Implant Substance use: occasional THC Sexual History: Attraction: male Sexually Active: Yes Screening tools reviewed and discussed with patient/egyrbl-UON-2. Please see Patient Entered Data. SDOH: Food Insecurity: No Food Insecurity (09/02/2023) Hunger Vital Sign Worried About Running Out of Food in the Last Year: Never true Ran Out of Food in the Last Year: Never true Financial Resource Strain: Low Risk (09/02/2023) Overall Financial Resource Strain (CARDIA) Difficulty of Paying Living Expenses: Not hard at all Transportation Needs: No Transportation Needs (09/02/2023) PRAPARE - Transportation Lack of Transportation (Medical): No Lack of Transportation (Non-Medical): No Housing Stability: Low Risk (09/02/2023) Housing Stability Vital Sign Unable to Pay for Housing in the Last Year: No Number of Places Lived in the Last Year: 1 Unstable Housing in the Last Year: No Discussed SDOH results with patient/family. SDOH needs identified: no concerns identified OBJECTIVE Physical Exam: BP 100/50 Pulse 70 Temp 36.7 C (98.1 F) (Temporal) Resp 18 Ht 165.8 cm (5' 5.28) Wt 53.1kg (117 lb) LMP 12/19/2021 (Approximate) BMI 19.31 kg/m Blood pressure %fatmata are not available for patients who are 18 years or older. Blood pressure %fatmata are not available for patients who are 18 years or older. 21 %ile (Z= -0.81) based on CDC (Girls, 2-20 Years) BMI-for-age based on BMI available as of 09/03/2023. Last BMI: Wt: 53 kg (116 lb 13.5 oz) (33%, Z= -0.45)* BMI: 19.44 kg/(m^2) Last 4 Encounter Wt Readings: Date: Wt: 07/31/2023 53 kg (116 lb 13.5 oz) (33%, Z= -0.45)* 07/22/2023 53.7 kg (118 lb 6.4 oz) (36%, Z= -0.36)* 07/21/2023 54.1 kg (119 lb 4.3 oz) (38%, Z= -0.31)* 06/23/2023 56.5 kg (124 lb 9 oz) (49%, Z= -0.02)* Last 4 Encounter Ht Readings: Date: Ht: 07/31/2023 165.1 cm (5' 5) (62%, Z= 0.29)* 06/05/2023 163.2 cm (5' 4.25) (50%, Z= 0.00)* 08/09/2022 163.2 cm (5' 4.25) (51%, Z= 0.02)* 04/25/2022 163.2 cm (5' 4.25) (51%, Z= 0.03)* General: Well developed, No acute distress Head: normocephalic Eyes: conjunctivae/corneas clear Ears: TMs translucent bilaterally, normal landmarks noted Nose: no erythema or rhinorrhea Oropharynx: moist mucous membranes, no erythema or exudate Neck: supple, no adenopathy Spine: Back symmetric, no curvature. Resp: lungs clear to auscultation Heart: Normal rate, regular rhythm, no murmur Abdomen: Soft, nontender, nondistended, no palpable organomegaly or masses, normal bowel sounds Extremities: Full ROM and no swelling, erythema or tenderness Neuro: No focal deficits or abnormal findings present Skin: no rashes ASSESSMENT & PLAN Encounter Diagnosis ICD-10-CM 1. Encounter for routine child health examination w/o abnormal findings Z00.129 2. Encounter for general adult medical examination without abnormal findings Z00.00 3. Encounter for immunization Z23 Based on PHQ-9 Score: 6 and interview, presentation is consistent with possible depression: -Continue current psychiatry management -Continue current psychology/behavioral health management. Based on TIMUR-7 Score: and interview, presentation is consistent with possible anxiety: -Continue current medications -Continue current psychiatry management -Continue current psychology/behavioral health management. - Discussed diet and safety. - Dental care discussed. - [facility] handout given (See Patient Instructions). - Patient was counseled [id number] by myself (the billing provider) for the following immunizations and vaccine components, including side effects: MenQuadFi. Patient consents for immunization and understands risks and benefits. A VIS sheet on each immunization was given to the patient.. - Follow up in one year for routine physical. Chacha Kim MD documented in this encounterDunlap [facility] Hospital06-12-2024 Instructions* Patient Instructions* Kady Saravia MA - 09/03/2023 12:40 PM EDT Images from the original note were not included. 5 to Go!TM Healthy Kids Inside & Out 5 Eat FIVE fruits and veggies a day 4 Give and get FOUR compliments a day 3 Consume THREE calcium products a day 2 Limit media time to TWO hours a day 1 Get at least ONE hour of exercise a day 0 Consume ZERO sugar-sweetened drinks Go! Be healthy, inside and out! www.[email or web address]/5toGo Adolescent to Adult Transition Program [facility] cares about helping you and each of our adolescents and young adults make a smoothtransition to adult care. If your current doctor is a dipper and drier, we will work with you to decide the correct age for moving your care to a doctor or other provider who takes care of adults. We suggest that this move take place before age 22. Our office policy is to prepare you to move to a doctor or other provider who takes care of adults. This includes helping you find a doctor or other provider, sending medical records, and talking about any special needs with the new doctor or other provider. If your current doctor is in family medicine, [facility] will prepare you and your family forthe transition to being an adult patient. You will be able to make your own healthcare decisions and will have an adult care team that meets your personal healthcare needs. At age 18, by law, we need your agreement to discuss personal health information with your family. We understand and respect that you may want to include your family in healthcare choices and will partner with you on how and when to include your family in decisions. We will make sure you know what changes to expect. We will also strive to make sure that all care team providers know your needs. We will help you find community resources and specialty care, if needed. Having your information before you come for the first time helps us be sure we do not miss any details. If joining our practice from outside [facility], we will help you request your medical record from past doctor(s) before your first visit. We will make every effort to work with your past providers to ensure a smooth transition and experience. We are always here for you. If you have any questions or concerns, please contact your primary careteam or e-mail Got Transition is the federally funded national resource center on health care transition (HCT). Its aim is to improve transition from pediatric to adult health care through the use of evidence-driven strategies for health home health caregiver, youth, young adults, and their families. www.gottransition.org https://[email or web address].org/resource/?mun-vcbzod-lbmhorp documented in this encounterDunlap Memorial Hospital05-31-2024 Telephone encounter Note * Telephone Encounter - Zehra Villela - 08/22/2023 1:14 PM EDT Pharmacy electronically sent a request for the following prescription(s) Date of Last Visit: 07/31/2023 Recommended Follow Up: 2-3 months Date of Follow-Up: 10/16/23 Requested Prescriptions Pending Prescriptions Disp Refills dicyclomine (BENTYL) 20 mg tablet [Pharmacy Med Name: DICYCLOMINE 20 MG TABLET] 90 tablet 0 Sig: take 1 tablet by mouth three times a day if needed famotidine (PEPCID) 20 mg tablet [Pharmacy Med Name: FAMOTIDINE 20 MG TABLET] 60 tablet 0 Sig: take 1 tablet by mouth twice a day Zehra Chapin [facility]05-31-2024 Miscellaneous Notes* Telephone Encounter - Zehra Villela - 08/22/2023 1:14 PM EDT Pharmacy electronically sent a request for the following prescription(s) Date of Last Visit: 07/31/2023 Recommended Follow Up: 2-3 months Date of Follow-Up: 10/16/23 Requested Prescriptions Pending Prescriptions Disp Refills dicyclomine (BENTYL) 20 mg tablet [Pharmacy Med Name: DICYCLOMINE 20 MG TABLET] 90 tablet 0 Sig: take 1 tablet by mouth three times a day if needed famotidine (PEPCID) 20 mg tablet [Pharmacy Med Name: FAMOTIDINE 20 MG TABLET] 60 tablet 0 Sig: take 1 tablet by mouth twice a day Zehra Chapin documented in this encounterDunlap Memorial Hospital05-09-2024 Instructions* Patient Instructions* Deborah Wong MD - 07/31/2023 8:34 AM EDT 1. Labs: - Prior lab testing including the complete blood count, comprehensive metabolic panel were normal in March 2023 - Given the ongoing symptoms, we will add additional labs including inflammatory markers, celiac serologies. In addition, with the acute onset diarrhea, I will obtain stool infectious studies. 2. Tests: - Conservative measures first; I would hold on scopes unless labs come back abnormal. 3. Medications: Pain - Pepcid 20 mg once daily (antacid) for your stomach - Levsin/Bentyl as needed for anti spasmodic (Relaxes the smooth muscles in the lower GI tract) as long as constipation under control Constipation - ExLax one chew daily as needed to keep stools soft and regular 4. Diet/other: - Water: at least 8 glasses daily and no sugary/caffeinated beverages (Plant Nanny mobile leder) - Diet: Decrease high sugar foods, fatty foods, and use Lactaid tablets with dairy - Daily women's multivitamin (One a Day) - Decrease vaping 5. Behavioral Health: - Mind gut connection can really impact your GI tract symptoms - Working with a therapist can be very helpful - Deep breathing: [email or web address] 6. Follow up in 2-3 months -but I need updates by the [employer] Contact information for our Pediatric GI team: 1. Regular Hour Communication: [phone] Option No. 2; Please have your name, child's name, dateof , and usual provider and call back number ready 2. Please use [facility] [email or web address] for: Test questions, prescriptions, non- urgent questions, medical forms 3. Mud Analysis Well Logging Captain: Zehra Nogueira 4. GI Fur Drummer Nurse: Andres Morales RN (IBD); Rosalio Lyn RN (General GI) 5. 6. Scheduling: -Appointments: [phone] Option 1 -GI Procedures: [phone] Option 2 -GI Infusions: [phone] Option 3 -Radiology tests (x-ray, UGI, MRI): [phone] 7. Urgent after 5pm/weekends/holidays issues: [phone] -Ask for the Pediatric GI fellow tone regulator documented in this encounterDunlap Memorial Hospital05-09-2024 History of Present illness Narrative* Deborah Wong MD - 07/31/2023 8:30 AM EDT Referring MD: This patient was referred by Chacha Kim MD for evaluation and management of Patient presents with: Abdominal Pain: Lower abdominal, nausea. Frequent bowel movements sometimes diarrhea. X 2-3 months. and our recommendations will be communicated back (either as a letter or via electronic medical record delivery) to Chacha Kim MD. Medications: Current Outpatient Medications Medication Sig Dispense Refill valACYclovir (VALTREX) 1 gram tablet Take 1 tablet by mouth every afternoon. hydrOXYzine pamoate (VISTARIL) 25 mg capsule Take 1 capsule by mouth three times a day as needed. 30 capsule 0 etonogestrel (NEXPLANON) 68 mg impl subdermal implant 68 mg by SUBDERMAL route. dicyclomine (BENTYL) 20 mg tablet Take 1 tablet by mouth three times a day as needed. 90 tablet 0 famotidine (PEPCID AC) 20 mg tablet Take 1 tablet by mouth two times a day. 60 tablet 0 No current facility-administered medications for this visit. HPI: Nichole Alonso is a geno 18 year old female being seen today, July 31, 2023, in new consultation in pediatric GI clinic secondary to issues with subacute onset of predominantly lower abdominal pain, nausea, and concerns for varying stool patterns of constipation alternating with looser stools. The patient presents to follow up with her mother. However, her mother was not in the room for the majority of the visit upon the request of the patient. To summarize the dipper and drier's note from July 22, 2023: 82-pxhs-old female here for follow-up of abdominal pain. Patient was seen in urgent care yesterday for abdominal discomfort. She had transient abdominal pain on and off for the past couple of months which she described as as a static with some episodes of loose stool and some hard stools. She did not have any blood in the stool. No pain with defecation. History of constipation. In urgent care her abdominal pain was in the right lower quadrant. A UA dip and urine hCG were both negative. Shesays that overnight her abdominal pain has improved. Yesterday when she did have a large stool she thinks she did have improvement in her pain. She was concerned because she had 5 stools yesterday morning after she awoken. Pictures of them showed of the soft but many separate bowel movements. 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 She says she only stools 1-2 times in the morning.Patient does not eat breakfast or drink any water in the morning. She has a vegetarian diet and tries for about 60 ounces of water daily. Denies d rinks tea and juices sometimes. She has been seen by psychiatry and has been off her Prozac since May. Drinks alcohol a couple times a month - vodka - no blackouts THC use - every other weekend- cartridge and blunts Cigarettes occasionally Patient with Nichole, she reports starting to have abdominal pain started a few months ago ~ May 2023. She endorses that some of the pain was in the mornings before going to school and wondered if thiis is at least in part due to anxiety around school weekdays > weekends. Prior to this, she would have some GI symptoms - constipation - where she could go up to weeks without having a si gnificant bowel movement [id number] (increased fluids and adjusted diet plus used Miralax as needed ~ for a couple months) She denies any significant decrease in oral intake. Her diet is summarized below in detail. Of note, she has had a weight loss of approximately 3.5 kg since early June. However, in May, her weightwas at a similar level. Therefore, there may also be some discrepancy of scales. In summary, last 6 Encounter Wt Readings: Date: Wt: 07/31/2023 53 kg (116 lb 13.5 oz) (33%, Z= -0.45)* 07/22/2023 53.7 kg (118 lb 6.4 oz) (36%, Z= -0.36)* 07/21/2023 54.1 kg (119 lb 4.3 oz) (38%, Z= -0.31)* 06/23/2023 56.5 kg (124 lb 9 oz) (49%, Z= -0.02)* 06/05/2023 53.3 kg (117 lb 6.4 oz) (34%, Z= -0.40)* 05/30/2023 54.6 kg (120 lb 5.9 oz) (41%, Z= -0.23)* Last 6 Encounter Ht Readings: Date: Ht: 07/31/2023 165.1 cm (5' 5) (62%, Z= 0.29)* 06/05/2023 163.2 cm (5' 4.25) (50%, Z= 0.00)* 08/09/2022 163.2 cm (5' 4.25) (51%, Z= 0.02)* 04/25/2022 163.2 cm (5' 4.25) (51%, Z= 0.03)* 04/02/2022 164 cm (5' 4.57) (56%, Z= 0.16)* 12/04/2021 163.9 cm (5' 4.53) (56%, Z= 0.16)* Summary of GI tract related issues pertaining to the current medical history Abdominal pain survey Location of pain: mid - to lower abdomen --> right sided Initial start of pain (date): Quality of pain: Burning --> sharp Duration of episodes: can last through the day and eventually gets better by the end of the day Frequency: sharper pain only a few times a week; however, she has other episodes of pain that happen more suddenly in the morning (I.e. burning) but can occur at other Times a day: varies Exacerbating factors: stress; Ameliorating factors: rest/lying; defecation Other non-GI associated symptoms: Stools: Consistency: Typically formed to semi-formed without recent diarrhea Frequency: 2-3 Nocturnal awakening: No Tenesmus: No Blood: No Mucus: No Upper GI tract symptoms: Acid brash: No Heartburn: No Dysphagia: No Associated nausea: Rare Epigastric pain: No She denies any significant extraintestinal issues: No Joint pain/swelling/erythema/warmth; no oral ulcers; no rashes; no easy bruising/bleeding; no unexplained fevers/infections; no hair loss; no dysu janine/hematuria. Does endorse generalized back discomfort attributed to lack of movement She does not have a history of recurrent infections: Furthermore, no recent infections or need antibiotics Diet/fluid intake in summary: Meals: two Snacks: occasional Types of foods: eggs, vegetarian, eats out on occasion, some fast food Water: 4-1/2 glasses Coffee: one cup daily Sodas: no Tea: one cup Juices: occasionally Other environmental issues: No NSAIDS Vaping and smoking on the weekends Marijuana Alcohol - every few weekends Stressors: had a significant breakup with her ex with stalking behaviors over the past month which has added to the stressors significantly. He recognizes that this is not acceptable behavior on the part of her ex-boyfriend. We discussed the possibility of getting a restraining order. She is seeinga therapist Headaches: more related to substances and not a chronic issue Review Of Systems: All elements of the review of system were reviewed and are negative, except as noted above. She has not had a menstrual cycle in the past year since having the Nexplanon placed Past Medical History: PAST MEDICAL HISTORY Diagnosis Date Arm fracture, left 2017 buckle fracture-casted Constipation 01/30/2015 Depression Immunization not carried out because of parent refusal 06/03/2018 Influenza Menstrual cycle problem 12/2016 Nexplanon - 2022 NEGATIVE MEDICAL HISTORY Patellar subluxation, left, initial encounter 2020 PAST SURGICAL HISTORY Procedure Laterality Date NONE Immunizations: UTD Allergies: ALLERGIES Allergen Reactions Nickel Other: See Comments has trouble with earrings - ears break out Development: Developmentally normal Family History: Relation Problem Comments Brother (Alive) Father (Alive) No Known Problems Unknown completely Half-brother (Alive) Half-brother (Alive) Half-sister (Alive) Anxiety disorder Depression Endometriosis Half-sister (Alive) Maternal Grandfather (Alive) Blood Clots Maternal Grandmother (Alive) Breast Cancer Early 40's Mother (Alive) Migraines Paternal Grandfather (Other) No Known Problems Paternal Grandmother () No Known Problems Sister (Alive) No Family History Celiac Disease Inflammatory Bowel Disease Thyroid Social History: Social History Tobacco Use Smoking status: Some Days Types: Cigarettes Passive exposure: Never Smokeless tobacco: Current Tobacco comments: Per pt smoking on the weekends mostly Vaping Use Vaping Use: Never used Substance Use Topics Alcohol use: No Drug use: Yes Types: Marijuana Comment: per pt one joint once a week on the weekends does not smoke regularly on week days only sometimes Lives at home with: parent and half siblings. School - has not done well due to stressors. Was a straight A student in honors classes but anxiety has really been an issue by middle school (therefore,had to change to online school). Senior currently. Will taking gap year - [employer] - possibly music major. Physical Exam: BP 91/68 (BP Site: Right Arm, BP Position: Sitting) Pulse 73 Temp 36.3 C (97.4 F) (Temporal) Resp 18 Ht 165.1 cm (5' 5) Wt 53 kg (116 lb 13.5 oz) LMP 12/19/2021 (Approximate) SpO2 100% BMI 19.44 kg/m General/Constitutional:-Slender. Well-developed and nourished. Alert and active in no apparent distress Head:- Normocephalic Eye:- PERRLA, conjunctiva clear, no icterus Oropharynx:- moist mucous membranes. No oral ulcers. Cardiac:- Regular Rate and Rhythm Respiratory:- clear to auscultation Gastrointestinal:- Abdomen is soft, non-tender rebound or guarding but mild discomfort in the epigastrium; BS normal, there are no masses or organomegaly, No palpable stool burden Rectal :- deferred Neuro:- Muscle tone normal Musculoskeletal :- Extremities with no problems identified. Extremity:- Normal exam of the extremities. Skin:-normal color, no jaundice or rash Labs/Imaging Lab Results Component Value Date/Time WBC 6.40 04/17/2023 12:58 PM WBC 7.67 12/04/2021 04:52 PM WBC 6.95 02/23/2021 09:33 AM WBC 9.27 10/25/2020 02:24 PM Hemoglobin 12.7 04/17/2023 12:58 PM Hemoglobin 11.9 12/04/2021 04:52 PM Hemoglobin 12.7 02/23/2021 09:33 AM Hemoglobin 12.8 10/25/2020 02:24 PM Hematocrit 39.1 04/17/2023 12:58 PM Hematocrit 37.7 12/04/2021 04:52 PM Hematocrit 37.8 02/23/2021 09:33 AM Hematocrit 39.2 10/25/2020 02:24 PM Platelet Count 335 04/17/2023 12:58 PM Platelet Count 363 12/04/2021 04:52 PM Platelet Count 315 02/23/2021 09:33 AM Platelet Count 322 10/25/2020 02:24 PM Lab Results Component Value Date/Time AST 20 04/17/2023 12:58 PM AST 16 12/04/2021 04:52 PM AST 19 10/25/2020 02:24 PM AST 20 05/14/2019 03:45 PM ALT 9 04/17/2023 12:58 PM ALT 11 12/04/2021 04:52 PM ALT 8 10/25/2020 02:24 PM ALT 9 05/14/2019 03:45 PM Alkaline Phosphatase 43 04/17/2023 12:58 PM Alkaline Phosphatase 48 12/04/2021 04:52 PM Alkaline Phosphatase 61 10/25/2020 02:24 PM Alkaline Phosphatase 56 05/14/2019 03:45 PM Bilirubin, Total 0.6 04/17/2023 12:58 PM Bilirubin, Total 0.3 12/04/2021 04:52 PM Bilirubin, Total 0.2 10/25/2020 02:24 PM Bilirubin, Total 0.3 05/14/2019 03:45 PM Albumin 4.6 04/17/2023 12:58 PM Albumin 4.7 12/04/2021 04:52 PM Albumin 4.6 10/25/2020 02:24 PM Albumin 4.3 05/14/2019 03:45 PM Protein, Total 7.3 04/17/2023 12:58 PM Protein, Total 7.1 12/04/2021 04:52 PM Protein, Total 7.7 10/25/2020 02:24 PM Protein, Total 7.4 05/14/2019 03:45 PM Lab Results Component Value Date/Time TSH 1.200 04/17/2023 12:58 PM TSH 0.900 12/04/2021 04:52 PM TSH 2.390 12/10/2019 12:30 PM TSH 1.930 05/14/2019 03:45 PM Vitamin D 25 Hydroxy 42.7 04/17/2023 12:58 PM Vitamin D 25 Hydroxy 40.5 12/04/2021 04:52 PM Vitamin D 25 Hydroxy 37.9 02/23/2021 09:32 AM Vitamin D 25 Hydroxy 114.0 10/25/2020 02:24 PM Ferritin 27.6 04/17/2023 12:58 PM Ferritin 16.6 12/04/2021 04:52 PM Ferritin 32.3 02/23/2021 09:32 AM Ferritin 21.5 10/25/2020 02:24 PM Lab Results Component Value Date/Time WSR 15 05/14/2019 03:45 PM Impression: Assessment & Plan Nichole Alonso is a geno 18 year old female being seen today in new consultation in pediatric GI clinic secondary to issues with abdominal pain, constipation and reports of possible diarrhea. Of note, what was reported as possible diarrhea is actually more frequent stools but still at least semiformed and never with blood or mucus. Differential diagnosis includes disorders of the gut brain interaction (traditionally known as IBS especially for lower GI tract symptoms and dyspepsia for upper GI tract symptoms)/visceral hyperalgesia, abdominal migraines, celiac disease, peptic ulcer disease/gastritis, and less likely, inflammatory bowel disease (Crohn's disease/ulcerative colitis). Reassuring features that argue against inflammatory pathology and anatomic issues include normal prior labs completed comprehensively by the dipper and drier prior to this visit (including normal comprehensive metabolic panel) comprehensively completed by the dipper and drier, benign exam, and stable weight/gain and growth although she has had a small amount of weight loss over the past few months. To complete her evaluation given her ongoing symptoms, we will check celiac serologies and serum inflammatory markers. 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 I have significant concerns given that there are clear stressors which she is readily identified. In addition, there are other environmental thingsthat can be addressed, and she is committed to doing so (of note, vaping, marijuana, and alcohol usage is typically limited to the weekends). 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 As I discussed in detail with Nichole, DGBI/visceral hyperalgesia requires a collaborative effort between the healthcare team and the patient/family address the different triggers that will worsen symptoms. We would readjust the approach and only consider endoscopic evaluation (EGD +/- colonoscopy) ifsymptoms subsequently changed/worsened, and/or red flag symptoms developed including, but not limited to, the following: persistently diarrheal stools, bloody stools, persistent/worsening abdominalpain, unexplained weight loss, stagnation of growth, dysphagia, unexplained/abnormal vomiting. We [facility] initial interventions including antacid and antispasmodic meds and dietary changes. Follow up in 2-3 months or sooner as needed. Patient Instructions 1. Labs: - Prior lab testing including the complete blood count, comprehensive metabolic panel were normal in March 2023 - Given the ongoing symptoms, we will add additional labs including inflammatory markers, celiac serologies. In addition, with the acute onset diarrhea, I will obtain stool infectious studies. 2. Tests: - Conservative measures first; I would hold on scopes unless labs come back abnormal. 3. Medications: Pain - Pepcid 20 mg once daily (antacid) for your stomach - Levsin/Bentyl as needed for anti spasmodic (Relaxes the smooth muscles in the lower GI tract) as long as constipation under control Constipation - ExLax one chew daily as needed to keep stools soft and regular 4. Diet/other: - Water: at least 8 glasses daily and no sugary/caffeinated beverages (pMDsoft) - Diet: Decrease high sugar foods, fatty foods, and use Lactaid tablets with dairy - Daily women's multivitamin (One a Day) - Decrease vaping 5. Behavioral Health: - Mind gut connection can really impact your GI tract symptoms - Working with a therapist can be very helpful - Deep breathing: [email or web address] 6. Follow up in 2-3 months -but I need updates by the [email or web address] Contact information for our Pediatric GI team: 1. Regular Hour Communication: [phone] Option No. 2; Please have your name, child's name, dateof , and usual provider and call back number ready 2. Please use [facility] [email or web address] for: Test questions, prescriptions, non- urgent questions, medical forms 3. Mud Analysis Well Logging Captain: Zehra Nogueira 4. GI Fur Drummer Nurse: Andres Morales RN (IBD); Rosalio Lyn RN (General GI) 5. 6. Scheduling: -Appointments: [phone] Option 1 -GI Procedures: [phone] Option 2 -GI Infusions: [phone] Option 3 -Radiology tests (x-ray, UGI, MRI): [phone] 7. Urgent after 5pm/weekends/holidays issues: [phone] -Ask for the Pediatric GI fellow tone regulator This note was generated with [employer] dictation software. It may continue incorrect words, spelling, and punctuation that were not noted in review of the chart prior to signing. I spent a total of 45 minutes on the date of the service which included preparing to see the patient, hige-ce-lody patient care, completing clinical documentation, obtaining and/or reviewing separately obtained history, performing a medically appropriate examination, counseling and educating the pat ient/family/caregiver, and ordering medications, tests, or procedures. Deborah Wong MD Pediatric Gastroenterology Staff 07/31/[address] Chacha Kim MD for an opinion regarding Nichole Alonso. My final recommendations will be communicated back to the requesting physician by way of shared Medical recordor letter to requesting physician via [place] mail. CC: Chacha Kim MD [address] [facility] [place] [address] [phone] documented in this encounterDunlap Memorial Hospital05-08-2024 Miscellaneous Notes* Telephone Encounter - Chaim See RN - 07/30/2023 1:56 PM EDT appt scheduled * Telephone Encounter - Chaim See RN - 07/30/2023 1:06 PM EDT letter faxed, PSS working on scheduling gastro appt Chaim See RN * Telephone Encounter - Chacha Kim MD - 07/30/2023 12:33 PM EDT Yes to excuse and yes to Peds Gastro referral. Order placed. Please routeto PSS baldemar husam monte * Telephone Encounter - Cristina Moore LPN - 07/30/2023 10:47 AM EDT Nichole is calling Chacha Kim MD today with concern regarding Abdominal Pain -- Pt is home with abdominal pains, like she has had in the past. Pt is also having diarrhea. Mom states pt had mentioned you had discussed maybe going to GI. Wonders if you think that is the next step? Also questions if pt can get a school excuse for today faxed to [facility]? Patient has been identified by name and birthdate. Duration of symptoms: N/A Person calling: parent: for Nichole Call patient at: at home [phone] (home) [phone] (cell) Was an appointment scheduled: No Closing statement: Symptom Call: Thank you for calling [facility], your call is very important. A nurse will call in approximately 2-4 hours during business hours. If this is an emergency, please contact 911. Cristina Moore LPN documented in this encounterDunlap Memorial Hospital05-08-2024 Telephone encounter Note * Telephone Encounter - Chaim See RN - 07/30/2023 1:56 PM EDT appt scheduled [facility]05-08-2024 Telephone encounter Note* Telephone Encounter - Chaim See RN - 07/30/2023 1:06 PM EDT letter faxed, PSS working on scheduling gastro appt Chaim See RN [facility]05-08-2024 Telephone encounter Note* Telephone Encounter - Chacha Kim MD - 07/30/2023 12:33 PM EDT Yes to excuse and yes to Peds Gastro referral. Order placed. Please routeto PSS baldemar husam monte [facility]05-08-2024 Telephone encounter Note* Telephone Encounter - Cristina Moore LPN - 07/30/2023 10:47 AM EDT Nichole is calling Chacha Kim MD today with concern regarding Abdominal Pain -- Pt is home with abdominal pains, like she has had in the past. Pt is also having diarrhea. Mom states pt had mentioned you had discussed maybe going to GI. Wonders if you think that is the next step? Also questions if pt can get a school excuse for today faxed to [facility]? Patient has been identified by name and birthdate. Duration of symptoms: N/A Person calling: parent: for Nichole Call patient at: at home [phone] (home) [phone] (cell) Was an appointment scheduled: No Closing statement: Symptom Call: Thank you for calling [facility], your call is very important. A nurse will call in approximately 2-4 hours during business hours. If this is an emergency, please contact 911. Cristina Moore LPN [facility]05-07-2024 Telephone encounter Note* Telephone Encounter - Kim Burks RN - 07/29/2023 10:58 AM EDT Patient notified and voiced understanding of below results as directed by Dr. Kim: Xray is normal but shows a moderate of fecal material in colon. Would treat with Miralax 1-2 capfuls daily. Add dulcolax 5 mg oral tablet once daily if you go for more than 2 days without a bowel movement. Update 1-2 weeks. If no improvement, can refer you to Gastroenterology labwork normal for patient's age Kim Burks RN [facility]05-07-2024 Miscellaneous Notes* Telephone Encounter - Kim Burks RN - 07/29/2023 10:58 AM EDT Patient notified and voiced understanding of below results as directed by Dr. Kim: Xray is normal but shows a moderate of fecal material in colon. Would treat with Miralax 1-2 capfuls daily. Add dulcolax 5 mg oral tablet once daily if you go for more than 2 days without a bowel movement. Update 1-2 weeks. If no improvement, can refer you to Gastroenterology labwork normal for patient's age Kim Burks, RN documented in this encounterDunlap Memorial Hospital04-30-2024 History of Present illness Narrative* Susana Sutton RT(R) - 07/22/2023 11:30 AM EDT Radiology Service Progress Note PATIENT NAME: Nichole Alonso DATE OF SERVICE: July 22, 2023 TIME: 11:29 AM PATIENT IDENTITY VERIFICATION COMPLETED USING TWO (2) IDENTIFIERS: Name and Date of confirmedby patient verbally. FALL SCREENING: Has the patient had 2 falls in the last year or 1 fall with injury or currently using an Ambulatory Assistive Device (Walker, Cane, Wheelchair, Crutches, etc.)? No PATIENT GENDER DATA: Female. status: : No status: NO. PATIENT RELEVANT IMPLANT DATA REVIEWED: Yes PATIENT PRESENTS WITH AN IMPLANTABLE OR ATTACHED AUTO BODY DETAILER: No RADIOLOGY DEPARTMENT: General X-ray: Exam(s) Completed: Abdomen X-Ray: Abdomen PERIPHERAL IV DATA: Not applicable SIGNED BY: RT Reena(R) July 22, 2023 11:29 AM documented in this encounterDunlap Memorial Hospital04-30-2024 Miscellaneous Notes* Result Encounter Note - Chacha Kim MD - 07/22/2023 11:30 AM EDT Let family know that lab results are normal for age. Chacha Kim MD documented in this encounterDunlap Memorial Hospital04-30-2024 Progress note* Result Encounter Note - Chacha Kim MD - 07/22/2023 11:30 AM EDT Let family know that lab results are normal for age. Chacha Kim MD [facility]04-30-2024 History of Present illness Narrative* Chacha Kim MD - 07/22/2023 11:00 AM EDT Chief complaint--Abdominal Pain (Follow up from for abdominal pain. Pt states the pain has improved significantly, currently pain is 0/10. UA dip in EC. ) 89-old female here for follow-up of abdominal pain. Patient was seen in urgent care yesterday for abdominal discomfort. She had transient abdominal pain on and off for the past couple of months which she described as as a static with some episodes of loose stool and some hard stools. She did not have any blood in the stool. No pain with defecation. History of constipation. In urgent careher abdominal pain was in the right lower quadrant. A UA dip and urine hCG were both negative. She says that overnight her abdominal pain has improved. Yesterday when she did have a large stool she thinks she did have improvement in her pain. She was concerned because she had 5 stools yesterday morning after she awoken. Pictures of them showed of the soft but many separate bowel movements. 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 She says she only stools 1-2 times in the morning. Patient does not eat breakfast or drink any water in the morning. She has a vegetarian diet and tries for about 60 ounces of water daily. Denies drinks tea and juices sometimes. She has been seen by psychiatry and has been off her Prozac since May. Drinks alcohol a couple times a month - vodka - no blackouts THC use - every other weekend- cartridge and blunts Cigarettes occasionally ROS- No fevers. No weight loss. Denies chest pain, heartburn or reflux symptoms. Sometimes nauseous but no emesis. No frequency or urinary urgency. No rashes. Patient does not have menses on current control. PMH- has a past medical history of Arm fracture, left (2016), Constipation (01/30/2015), Depression, Immunization not carried out because of parent refusal (06/03/2018), Menstrual cycle problem (12/2016),and NEGATIVE MEDICAL HISTORY. ALLERGIES Allergen Reactions Nickel Other: See Comments has trouble with earrings - ears break out OBJECTIVE: Pulse 72 Temp 36.6 C (97.8 F) (Temporal Artery) Resp 20 Wt 53.7 kg (118 lb 6.4 oz) LMP 12/19/2021 (Approximate) General: alert and active in no apparent distress Eyes: conjunctiva clear Ears: TMs clear: bilaterally Nose: no erythema or exudate OP: moist without lesions Neck: supple, no adenopathy Lungs: clear to auscultation bilaterally, good air exchange, no retractions CVS: Normal rate, regular rhythm, no murmur Abdomen: soft, nondistended, nontender, no hepatosplenomegaly or masses Skin: No rashes, lesions or skin changes ASSESSMENT/PLAN: 1. Generalized abdominal pain - ICD9: 789.07, ICD10: R10.84 Negative UA and test yesterday. Has has had some problems with constipation in the past will check KUB to see a stool burden. Treat accordingly. If symptoms continue would consider labs including amylase and lipase In March had normal CBC, CMP, vitamin B12, TSH, iron, vitamin D and ferritin. Discussed substance use and effects of substances on body and GI tract. Discussed cannabis hyperemesis. Discussed symptomatic care as needed. medications per orders See patient instructions if written for further treatment plan Patient to call if worsening symptoms or concerns Chacha Kim MD I spent a total of 35 minutes on the date of the service which included preparing to see the patient, [id number] patient care, completing clinical documentation, obtaining and/or reviewing separately obtained history, performing a medically appropriate examination, counseling and educating the pat ient/family/caregiver, and ordering medications, tests, or procedures. documented in this encounterDunlap Memorial Hospital04-29-2024 History of Present illness Narrative* Fredo Callejas APRN.GARAGE DOOR INSTALLER - 07/21/2023 12:45 PM EDT Subjective HPI Nontoxic-appearing female presents urgent care chief complaint transient abdominal pain. Duration of symptoms on and off for the past 2 months. Describes it as episodic. Presents today due to a few episodes of loose stools. No blood in stool. No rectal pain. Presents today for evaluation. Has not used any OTC medications. Currently feeling well. Denies any fever body aches chills productive coughchest pain shortness of breath dysuria frequency urgency. Denies chance of . Past medical history prescription medications allergies reviewed. BP 104/62 Pulse 83 Temp 36.8 C (98.2 F) Resp 21 Wt 54.1 kg (119 lb 4.3 oz) LMP 12/19/2021(Approximate) SpO2 95% .Patient presents with: Abdominal issues: Abdominal pain, right lower quadrant, frequent bowel movements x 2 months on and off PAST MEDICAL HISTORY Diagnosis Date Arm fracture, left 2017 buckle fracture-casted Constipation 01/30/2015 Depression Immunization not carried out because of parent refusal 06/03/2018 Influenza Menstrual cycle problem 12/2016 NEGATIVE MEDICAL HISTORY PAST SURGICAL HISTORY Procedure Laterality Date NONE ALLERGIES Nickel MEDICATIONS valACYclovir (VALTREX) 1 gram tablet Take 1 tablet by mouth every afternoon. hydrOXYzine pamoate (VISTARIL) 25 mg capsule Take 1 capsule by mouth three times a day as needed. etonogestrel (NEXPLANON) 68 mg impl subdermal implant 68 mg by SUBDERMAL route. FAMILY HISTORY Problem Relation Age of Onset No Known Problems Mother No Known Problems Father Anxiety disorder Sister Depression Sister None Maternal Grandfather Social History Tobacco Use Smoking status: Never Passive exposure: Never Smokeless tobacco: Never Vaping Use Vaping Use: Never used Substance Use Topics Alcohol use: No Drug use: Yes Types: Marijuana Comment: occasional use, is trying to quit Review of Systems Constitutional: Negative for chills, fever and malaise/fatigue. HENT: Negative for congestion, ear discharge, ear pain, sinus pain and sore throat. Eyes: Negative for blurred vision, pain, discharge and redness. Respiratory: Negative for cough, hemoptysis, sputum production, shortness of breath, wheezing and stridor. Cardiovascular: Negative for chest pain. Gastrointestinal: Positive for abdominal pain and diarrhea. Negative for nausea and vomiting. Musculoskeletal: Negative for myalgias. Skin: Negative for itching and rash. Neurological: Negative for dizziness and headaches. Objective Physical Exam Constitutional: General: She is not in acute distress. Appearance: She is not diaphoretic. HENT: Head: Normocephalic. Jaw: No trismus, tenderness, swelling or pain on movement. Mouth/Throat: Mouth: Mucous membranes are moist. Pharynx: Oropharynx is clear. Uvula midline. No pharyngeal swelling, oropharyngeal exudate, posterior oropharyngeal erythema or uvula swelling. Eyes: Conjunctiva/sclera: Conjunctivae normal. Pupils: Pupils are equal, round, and reactive to light. Cardiovascular: Rate and Rhythm: Normal rate and regular rhythm. Heart sounds: Normal heart sounds. Pulmonary: Effort: Pulmonary effort is normal. No tachypnea, accessory muscle usage or respiratory distress. Breath sounds: Normal breath sounds. No stridor. No wheezing, rhonchi or rales. Abdominal: General: There is no distension. Palpations: Abdomen is soft. Tenderness: There is abdominal tenderness in the suprapubic area. There is no guarding or rebound. Musculoskeletal: Cervical back: Normal range of motion and neck supple. No edema, erythema, rigidity or tenderness. No pain with movement. Normal range of motion. Lymphadenopathy: Cervical: No cervical adenopathy. Skin: General: Skin is warm and dry. Neurological: Mental Status: She is alert and oriented to person, place, and time. ASSESSMENT/PLAN: 1. Generalized abdominal pain - ICD9: 789.07, ICD10: R10.84 - UA DIP, URINE (POC) Urine negative as well as hCG. No evidence of acute abdomen. Episodic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 procedure wore the appropriate PPE (Personal Protective Equipment). Patient/Surrogate Stated/Verified: PATIENT VERIFIED(optional for EMERGENT procedures): Patient name, Date of , Relevant allergies, and The intended procedure Time Out Communication: Intended patient and procedure match the source documents. Consent documented and matches the intended procedure. Medications required for procedure verified. Sign Out: SIGN OUT (optional for EMERGENT procedures): All instruments, equipment, possible retained foreign bodies accounted for. Procedure: Removal of foreign body. I attempted to remove the foreign body with forceps, but it wasslightly deep within the skin and patient was having some discomfort with probing. I anesthetized the area with lidocaine 1% without epinephine-local infiltration. I used an 18-gauge needle to removethe top skin layer. Several pieces of lead rock foreign body were able to be removed. No retained foreign body seen to the naked eye. Patient tolerated procedure well. Small amount of bleeding, controlled with pressure. Wound was irrigated with sterile water. Bandage applied. Postprocedure x-ray performed reveals soft tissue swelling but no foreign body. -Advised patient although we do not see foreign body and x-ray is negative, there is always a chance of retained foreign body. Advised if she continues to have pain in the area, she needs to follow-up with PCP. She understands. -Advised patient if she develops any signs of infection, return or see PCP. -Apply Neosporin or bacitracin ointment to the area. Ice as needed for pain. -Tetanus was updated. Diagnosis and treatment plan were discussed and questions were answered to the patient's satisfaction. Pt acknowledged understanding of concepts and follow up plan. Specific signs and symptoms that would indicate the need for higher level of care were discussed in detail warranting prompt ER evaluation. MAXIMUS Viera documented in this encounterDunlap Memorial Hospital03-08-2024 History of Present illness Narrative* Susana Sutton RT(R) - 05/30/2023 1:20 PM EST Radiology Service Progress Note PATIENT NAME: Nichole Alonso DATE OF SERVICE: May 30, 2023 TIME: 1:18 PM PATIENT IDENTITY VERIFICATION COMPLETED USING TWO (2) IDENTIFIERS: Name and Date of confirmedby patient verbally. FALL SCREENING: Has the patient had 2 falls in the last year or 1 fall with injury or currently using an Ambulatory Assistive Device (Walker, Cane, Wheelchair, Crutches, etc.)? No PATIENT GENDER DATA: Female. status: : No status: NO. PATIENT RELEVANT IMPLANT DATA REVIEWED: Yes PATIENT PRESENTS WITH AN IMPLANTABLE OR ATTACHED AUTO BODY DETAILER: No RADIOLOGY DEPARTMENT: General X-ray: Exam(s) Completed: Upper Extremity X- Ray(s): Fingers/Thumb, right PERIPHERAL IV DATA: Not applicable SIGNED BY: RT Reena(R) May 30, 2023 1:18 PM documented in this encounterDunlap Memorial Hospital02-29-2024 Miscellaneous Notes* Telephone Encounter - Chaim See RN - 05/22/2023 11:32 AM EST Images from the original note were not included. Chacha Kim MD [facility] Third Floor Pool 5 minutes ago (11:29 AM) That's fine faxed as requested to both clyde See RN * Telephone Encounter - Rhonda Jackson RN - 05/22/2023 11:15 AM EST Mother calling with patient. States she missed school today due to stomach ache and diarrhea. Questions if a school excuse can be provided. Okay to send reported illness letter? Needs faxed to [employer] ([phone]) and [facility] ([phone]) Rhonda Jackson RN documented in this encounterDunlap Memorial Hospital10-30-2023 Miscellaneous Notes* Telephone Encounter - Chaim See RN - 01/20/2023 12:50 PM EDT Mom calling, states she was in on Friday to see Dr. Kim for an illness and she isn't feeling any better today Denies any new fever, feels cough is more deep. appt recommended, declined at this time. Requesting letter for school. Letter (reported off) created and faxed to [facility] and [facility]. Chaim See RN documented in this encounterDunlap Memorial Hospital10-27-2023 Instructions* Patient Instructions* Chacha Kim MD - 01/17/2023 11:14 AM EDT Increase water and fluids Stool softeners daily Topical cream or gel - Vaseline petrolatum jelly - preparation H if pain occurs documented in this encounterDunlap [facility] Hospital10-27-2023 History of Present illness Narrative* Chacha Kim MD - 01/17/2023 10:58 AM EDT Chief complaint - Rectal Bleeding (Intermittent x 2 wks in stool and when wiping,stool is normal) SUBJECTIVE: Nichole Alonso 18 year old FEMALE for evaluation of rectal bleeding for past 2 weeks . Patient has seen blood on toilet paper when she has wiped after stooling several times in the past couple of weeks. Said it has not been a large amount of blood. She has not seen any blood in the stool on the toilet. No clots have been visible. She has a history of constipation but thinks most recently she has been [place] type IV. She has not had any diarrhea. Denies anal intercourse or any foreign bodies per rectum. No abdominal pain, vomiting, fevers or weight loss. OBJECTIVE: Pulse 80 Temp 36.5 C (97.7 F) (Temporal) Resp 18 Wt 51 kg (112 lb 8 oz) LMP 12/19/2021 (Approximate) General: alert and active in no apparent distress Cardiac regular rate and rhythm with no murmur Lungs clear to auscultation bilaterally Abdomen soft nontender nondistended Rectum-small fissure present at anal opening. ASSESSMENT/PLAN: 1. Anal fissure - ICD9: 565.0, ICD10: K60.2 Increase water and fluids Stool softeners daily Topical cream or gel - Vaseline petrolatum jelly - preparation H if pain occurs F/U 2 weeks if continues or other conrens arise Chacha Kim MD documented in this encounterDunlap [facility] Hospital10-25-2023 Miscellaneous Notes* Telephone Encounter - Jadiel Schwarz RN - 01/15/2023 11:27 AM EDT Appointment scheduled for Friday. Jadiel Schwarz RN Reason for Disposition Blood in stools (Exception: anal fissure suspected) Answer Assessment - Initial Assessment Questions 1. APPEARANCE of BLOOD: What color is it? Does it look like blood? Is it passed separately, onthe surface of the stool, or mixed in with the stool? Bright red 2. AMOUNT: How much blood was passed? Small amounts 3. FREQUENCY: How many times has blood been passed with the stools? Daily 4. ONSET: When was the blood first seen in the stools? (Days or weeks) 1.5 weeks ago 5. DIARRHEA: Is there also some diarrhea? If so, ask: How many diarrhea stools were passed today? No 6. CONSTIPATION: Is there also some constipation? If so, How bad is it? Slight but not much 7. RECURRENT SYMPTOMS: Has your child had blood in the stools before? If so, ask: When was the last time? and What happened that time? NA 8. CHILD'S APPEARANCE:How sick is your child acting? What is he doing right now? If asleep, ask: How was he acting before he went to sleep? well Protocols used: Stools - Blood [id number] documented in this encounterDunlap [facility] Hospital09-15-2023 History of Present illness Narrative* Carin Carter APRN.[facility] - 12/06/2022 3:03 PM EDT Nichole is a 17 year old who presents for an annual gynecologic exam without complaints. 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 Time with current partner: 14 months 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 Comments: Sexual Activity: Yes; Male Contraception: Implant PAST MEDICAL HISTORY Diagnosis Date Arm fracture, left 2017 buckle fracture-casted Constipation 01/30/2015 Immunization not carried out because of parent refusal 06/03/2018 Influenza Menstrual cycle problem 12/2016 NEGATIVE MEDICAL HISTORY PAST SURGICAL HISTORY Procedure Laterality Date NONE FAMILY HISTORY Problem Relation Age of Onset No Known Problems Mother No Known Problems Father Anxiety disorder Sister Depression Sister None Maternal Grandfather SOCIAL HISTORY Social History Tobacco Use Smoking status: Never Passive exposure: Never Smokeless tobacco: Never Vaping Use Vaping Use: Never used Substance Use Topics Alcohol use: No Drug use: Yes Types: Marijuana Comment: occasional use, is trying to quit REVIEW OF SYSTEMS Abdomen: No bloating, early satiety, indigestion, or increased flatulence. No abdominal pain, nausea, vomiting, diarrhea, or constipation. Bladder: No dysuria, gross hematuria, urinary frequency, urinary urgency, or incontinence. Breast: No breast lumps, nipple d/c, overlying skin changes, redness or skin retraction. Allergies and current medication updated:Yes EXAM: BP 100/62 Wt 119 lb 3.2 oz (54.1kg) LMP 12/19/2021 GENERAL: pleasant, female in no apparent distress HEENT: Normocephalic, atraumatic, mucus membranes moist, and no lesions NECK: Supple, full range of motion, no adenopathy, and thyroid normal DERMATOLOGY: Normal, without lesions, non-icteric, and non-hirsute BREAST: deferred CHEST: Normal inspiratory effort ABDOMEN: soft and non-tender PELVIC: deferred BIMANUAL: deferred NEURO: alert and oriented x3,exam grossly non-focal EXTREMITIES: normal ASSESSMENT/PLAN: 1) Health maintenance: Pap starting at the age of 21. Safe sex practices reviewed. Nutrition, exercise, and routine health maintenance exams reviewed. HPV vaccine completed series. 2. Recurrent genital herpes - ICD9: 054.10, ICD10: A60.00 - VALACYCLOVIR 1 GRAM TABLET 3) Contraception: Nexplanon. Contraceptive options reviewed and information provided. 4) STD screening: Accepted STD check for Gonorrhea and Chlamydia. 5) Follow up one year or sooner as needed. Carin Carter APRN.[facility] documented in this encounterDunlap [facility] Hospital06-27-2023 History of Present illness Narrative* Ana Ocasio APRN.[facility] - 09/17/2022 7:16 PM EDT CC: Patient presents with: Urinary Frequency: burning, hematuria and low back pain x this am HPI Nichole Alonso is a 17 year old female who presents with complaint of possible UTI. These symptoms have been present for 1 days. Associated symptoms: burning, frequency, and hematuria Denies: fever, chills, sweats, abdominal pain, and flank pain Treatments: nothing The ROS was otherwise negative. PMH, Medications, labs, allergies, and recent past visits with PCP were reviewed and updated as able. PHYSICAL EXAM: BP 104/62 Pulse 70 Temp 36.7 C (98.1 F) Resp 16 Wt 52.6 kg (116 lb) LMP 12/19/2021 (Approximate) SpO2 97% General: Well appearing and alert CV: Regular rate and rhythm without obvious murmur Lungs: clear to auscultation bilaterally Back: straight and symmetric Abdomen: soft, nontender except mild tenderness on lower mid abdomen, nondistended PAST MEDICAL HISTORY Diagnosis Date Arm fracture, left 2017 buckle fracture-casted Constipation 01/30/2015 Immunization not carried out because of parent refusal 06/03/2018 Influenza Menstrual cycle problem 12/2016 NEGATIVE MEDICAL HISTORY PAST SURGICAL HISTORY Procedure Laterality Date NONE ALLERGIES Nickel MEDICATIONS FLUoxetine (PROZAC) 10 mg capsule Take 1 capsule by mouth once daily. nitrofurantoin monohydrate and macrocrystal (MACROBID) 100 mg capsule Take 1 capsule by mouth twicedaily for 5 days. valACYclovir (VALTREX) 1 gram take 1 tablet by mouth once daily (Patient not taking: Reported on 08/09/2022) FAMILY HISTORY Problem Relation Age of Onset No Known Problems Mother No Known Problems Father Anxiety disorder Sister Depression Sister None Maternal Grandfather Social History Tobacco Use Smoking status: Never Passive exposure: Never Smokeless tobacco: Never Vaping Use Vaping Use: Never used Substance Use Topics Alcohol use: No Drug use: Yes Types: Marijuana Comment: occassional use, is trying to quit ASSESSMENT/PLAN: 1. Urinary frequency - ICD9: 788.41, ICD10: R35.0 (primary diagnosis) - UA DIP, URINE (POC) - URINE CULTURE - BACTERIAL VAGINOSIS NAAT - RIRI/TRICHOMONAS NAAT - NITROFURANTOIN MONOHYDRATE & MACROCRYSTAL 100 MG ORAL CAP 2. Gross hematuria - ICD9: 599.71, ICD10: R31.0 - UA DIP, URINE (POC) - URINE CULTURE - BACTERIAL VAGINOSIS NAAT - RIRI/TRICHOMONAS NAAT Prescription instructions reviewed with patient as applicable. Potential red flag symptoms discussed with the patient. Reviewed appropriate action plan to take if red flag symptoms occur. Patient agreeable to treatment plan. Ana Ocasio APRN.[facility] documented in this encounterDunlap [facility] Hospital06-26-2023 Miscellaneous Notes* Telephone Encounter - Eli Mariela MARTELL - 09/16/2022 12:17 PM EDT Spoke to patients mom, she will call back in to schedule FU with Reggie, she did not have patients cheer schedule with her when we spoke. * Telephone Encounter - Cristina Moore LPN - 09/10/2022 4:07 PM EDT Mom is trying to schedule with Reggie. Could you help schedule pt an appt. * Telephone Encounter - Allie Sutton APRN.CNP - 08/15/2022 8:02 AM EDT Sent message to mother regarding follow up for mental health that needs to be scheduled. Mother wasasking whether they should schedule with Dr. Kim or Reggie Van in psychiatry. Dr. Kim recommended following up with Reggie. Allie Sutton APRN.[facility] documented in this encounterDunlap [facility] Hospital05-01-2023 Miscellaneous Notes* Telephone Encounter - Kim Burks RN - 07/22/2022 12:04 PM EDT Last WCC: greater than one year ago. Appt scheduled for 08/14/22 Verify RX Benefits Completed Last medication refill date: 05/17/22 Requesting 30 day supply Retail pharmacy updated: Completed Immunizations due: MENINGOCOCCAL B: Consider based on risk(1 of 2 - Risk Bexsero 2-dose series) Never done MENINGOCOCCAL CONJUGATE(2 - 2-dose series) due on 2021 COVID-19 VACCINE(3 - Booster for Pfizer series) due on 03/21/2021 Kim Burks RN documented in this encounterDunlap Memorial Hospital04-04-2023 History of Present illness Narrative* Dino Lyn, PT - 06/25/2022 5:15 PM EDT Episode Visit Count: 5 Therapist That Will Accept/Oversee The Plan Of Care: Dino Lyn Start of Care Date: 05/21/22 Onset Date: 05/21/19 Plan of Care Certification Date: 05/21/22 Next Certification Due Date: 07/19/22 REHABILITATION AND SPORTS THERAPY PHYSICAL THERAPY PROGRESS REPORT PLAN OF CARE UPDATE: Assessment: Nichole Alonso demonstrates moderate improvement in walking in the community, stair negotiation, bending, heavy exertion, and physical activities. She has progressed toward goals. Patient continues to present with impairments in ADL's, overall function, strength, and symptom management that interfere with heavy exertion, recreational activities, walking in the community . Current prognosis is Good due to: current objective clinical presentation, good overall health status, positive past response to therapy, within-session changes, good support system/ coping skills . She will benefit from continued skilled therapy services to meet the updated goals for this plan of care as noted below. Goals for Episode of Care: created on 05/21/22 through 07/19/22 Door in home exercise program. Patient will decrease pain rating by 2 points to meet minimal clinical important difference for numeric pain rating scale. Patient will demonstrate increase in LLE strength to 5/5 during manual muscle testing in order to improve function for leisure / recreation skills, light functional tasks, and moderate to heavy functional tasks. Perform squatting, stairs, walking, and twisting with decreased report of symptoms/pain in 6-8 weeks. Perform ADLs and walking without pain. Planned Interventions, Frequency, and Duration: 1 visit, 4 weeks Total Number of Visits Planned: 1 Patient to be seen for Therapeutic exercise (62233), Neuromuscular re-education (73376), Manual therapy (71893), Therapeutic activities (86212), Self-penitentiary management (87812), Patient/Family/Caregiver Education, Body Mechanics Training PLAN FOR NEXT VISIT: GA in 1 month SUBJECTIVE: Patient Reason for Visit: Pt doing much better overall, but mentally still apprehensiveabout some higher level movements with dancing and sport. She will be starting tennis next week. A little pain with prolonged walking and walking as the day goes on, but not much else currently. Functional Limitations: heavy exertion, recreational activities, walking in the community Pain: Pain Pain Level: 0 (2 at its worse) Pain Location: Knee - Left PROMIS Scales T-scores: mean of general population = 50. 5 points is clinically meaningfully difference Percentiles provide an indication of how the patient's score ranks in relation to the general population. Higher percentile rankings indicate better function/quality of life. 50th percentile is the average of the general population and indicates half of respondents had a worse score. OBJECTIVE MEASURES WITH LEVEL OF FUNCTION: LE AROM L LE AROM: WNL, slight discomfort at end range extension LE Strength L Hip Extension: 4+/5 L Hip ABduction: 4+/5 L Hip ADduction: 5/5 L Hip Internal Rotation: 4+/5 L Hip External Rotation: 4+/5 L Knee Extension (L3): 4+/5 L Knee Flexion: 5/5 TREATMENT: Therapeutic Exercise: 1: *GTB side steps with band around ankles 2x fatigue each way 2: *SL hip abduction series 3x10 each 3: *Hip hikes 3x10 4: *Squats in tolerated range 3x10 (educated on SL squats if normal gets easy) 5: *Front planks 3x20 sec 6: *Side planks 4x15 sec/side 7: *Hip thrusts 3x10 8: *Step back lunges 3x10/side 9: *Lateral lunges 3x10/side 10: Objective measures obtained Skilled Intervention: Patient was educated in proper exercise technique and purpose for exercises. Skilled judgment was provided in selection of appropriate interventions. Provided written instruction for home exercise program to facilitate proper performance and compliance. Correct performance of therapeutic exercises was facilitated with verbal, visual, and tactile cuing. Billing Therapeutic Exercise Treatment Minutes: 43 Total Treatment Time Minutes (timed/untimed): 43 Dino Lyn PT documented in this encounterDunlap Memorial Hospital03-28-2023 History of Present illness Narrative* Dino Lyn PT - 06/18/2022 3:32 PM EDT Episode Visit Count: 4 Therapist That Will Accept/Oversee The Plan Of Care: Dino Lyn Start of Care Date: 05/21/22 Onset Date: 05/21/19 Plan of Care Certification Date: 05/21/22 Next Certification Due Date: 07/19/22 Patient Identified by Name and Date of : Yes REHABILITATION AND SPORTS THERAPY PHYSICAL THERAPY TREATMENT NOTE ASSESSMENT: Nichole Alonso tolerated the session with fatigue. She demonstrated difficulty with standing on LLE while moving RLE. The patient will continue to benefit from ongoing skilled physical therapy to progress toward set goals. PLAN FOR NEXT VISIT: PN next visit SUBJECTIVE: Patient Reason for Visit: Pt reports that she hasn't had any pain. Pt states not being able to complete the exercises as often as she would like to. Pain: Pain Pain Level: 0 Pain Location: Knee - Left Post Treatment Pain Post Treatment Pain Level: 0 Post Treatment Pain Location: Knee - Left OBJECTIVE MEASURES WITH LEVEL OF FUNCTION: Pt demonstrated increased self-awareness of alignment of hip and knee due to hip valgus with exercises. TREATMENT: Therapeutic Exercise: 1: Step ups on blue step plus one green step 2x10 LLE 2: Lateral step ups on one blue step plus one green step 2x10 B 3: Step downs on 1 blue step plus 1 green step 2x10 LLE 4: Lunges on BOSU 2x10 B 5: Eccentric quads on 6 inch step 2x10 LLE 6: Sidestepping with purlple TB 2x20 ft 7: Standing hip stabilization alphabet on LLE A-Z x 1 8: hip machine 50# abduction and extension x 10 B Skilled Intervention: Patient was educated in proper exercise technique and purpose for exercises. Skilled judgment was provided in selection of appropriate interventions. Correct performance of therapeutic exercises was facilitated with verbal and visual cuing. Billing Therapeutic Exercise Treatment Minutes: 42 Total Treatment Time Minutes (timed/untimed): 42 Radha Barnhart, SELVIN Lyn PT documented in this encounterDunlap Memorial Hospital03-21-2023 History of Present illness Narrative* Dino Lyn PT - 06/11/2022 3:28 PM EDT Episode Visit Count: 3 Therapist That Will Accept/Oversee The Plan Of Care: Dino Lyn Start of Care Date: 05/21/22 Onset Date: 05/21/19 Plan of Care Certification Date: 05/21/22 Next Certification Due Date: 07/19/22 Patient Identified by Name and Date of : Yes REHABILITATION AND SPORTS THERAPY PHYSICAL THERAPY TREATMENT NOTE ASSESSMENT: Nichole Alonso tolerated the session with fatigue. She demonstrated difficulty with standing on LLE and performing movement on RLE. The patient will continue to benefit from ongoing skilled physical therapy to progress toward set goals. PLAN FOR NEXT VISIT: Continue strength progression per tolerance, may try step ups add in more standing exercises. SUBJECTIVE: Patient Reason for Visit: Pt reports that she is having some stomach cramping today andthat might affect exercises than can be completed. Pt reports that her knee has been feeling good, no pain. Pain: Pain Pain Level: 0 Pain Location: Knee - Left OBJECTIVE MEASURES WITH LEVEL OF FUNCTION: Increased eccentric control noted with side lying hip abduction series. TREATMENT: Therapeutic Exercise: 1: SLR 3x15 2: SL hip abduction series 2x10 each 3: *Step ups on blue step 2x10 LLE 4: *Lateral step ups on blue step 2x10 B 5: *Squats 2x10 6: *Standing hip abduction 2x10 B 7: Standing hip stabilization alphabet on LLE A-Z x 1 8: Standing hip dips on 6 inch step 2x10 LLE Skilled Intervention: Patient was educated in proper exercise technique and purpose for exercises. Reviewed and educated patient on additions/changes for home exercise program as above (*). Skilled judgment was provided in selection of appropriate interventions. Provided written instruction for home exercise program to facilitate proper performance and compliance. Correct performance of therapeutic exercises was facilitated with verbal and visual cuing. Billing Therapeutic Exercise Treatment Minutes: 42 Total Treatment Time Minutes (timed/untimed): 42 Radha Barnhart, BUNDLING MACHINE OPERATOR Dino Lyn, PT documented in this encounterDunlap Memorial Hospital03-15-2023 History of Present illness Narrative* Raymundo Heck, PT - 06/05/2022 4:37 PM EDT Episode Visit Count: 2 Therapist That Will Accept/Oversee The Plan Of Care: Dino Lyn Start of Care Date: 05/21/22 Onset Date: 05/21/19 Plan of Care Certification Date: 05/21/22 Next Certification Due Date: 07/19/22 Patient Identified by Name and Date of : Yes REHABILITATION AND SPORTS THERAPY PHYSICAL THERAPY TREATMENT NOTE ASSESSMENT: Nichole Alonso tolerated the session with fatigue and expected muscle soreness. She demonstrated improvements in SL hip abduction series. The patient will continue to benefit from ongoing skilled physical therapy to progress toward set goals. PLAN FOR NEXT VISIT: Continue strength progression per tolerance, may try step ups add in more standing exercises. SUBJECTIVE: Patient Reason for Visit: Pt reports that her knee is feeling good today. Pt denies anysubluxations of L knee. Pain: Pain Pain Level: 0 Pain Location: Knee - Left Post Treatment Pain Post Treatment Pain Level: 0 Post Treatment Pain Location: Knee - Left OBJECTIVE MEASURES WITH LEVEL OF FUNCTION: Good technique noted with squats with TRX straps. TREATMENT: Therapeutic Exercise: 1: SLR 3x15 2: SL hip abduction series 2x10 each 3: GTB clamshells 3x15 4: Reverse clamshells 3x10 5: TRX squats 2x10 Skilled Intervention: Patient was educated in proper exercise technique and purpose for exercises. Skilled judgment was provided in selection of appropriate interventions. Correct performance of therapeutic exercises was facilitated with verbal and visual cuing. Billing Therapeutic Exercise Treatment Minutes: 39 Total Treatment Time Minutes (timed/untimed): 39 Radha Barnhart BUNDLING MACHINE OPERATOR Raymundo Heck PT documented in this encounterDunlap Memorial Hospital03-14-2023 Miscellaneous Notes* Telephone Encounter - Kim Burks RN - 06/04/2022 12:31 PM EDT Mother returned the call; she prefers letter be sent to [facility]. Letter faxed as requested. Kim Burks RN * Telephone Encounter - Chaim See RN - 06/04/2022 8:59 AM EDT message left for parent to call office, ? if note needs faxed to school or does parent want it via [employer] or pick remover Chaim eSe RN * Telephone Encounter - Chacha Kim MD - 06/04/2022 7:46 AM EDT Last I checked, it is our department policy that we cannot provide school excuse if patient is not seen. We can send a note stating that family reports child's illness * Telephone Encounter - Kim Burks RN - 06/03/2022 8:09 AM EDT Mother calls stating that patient had vomiting and diarrhea Saturday night, yesterday continued with nausea and achiness, but denies any vomiting, diarrhea or s/sx of dehydration. Today mother notes that nausea is improving, and feels mostly better, but would prefer to stay home one more day to rest. She questions if could get a school excuse for today's absence? Kim Burks RN documented in this encounterDunlap Memorial Hospital03-09-2023 Miscellaneous Notes* Telephone Encounter - Eli Sierra LPN - 05/30/2022 2:40 PM EST Spoke to patients mother, she is going to talk to Nichole lane. She is not sure this was an isolated incident but will talk it over with Nichole and get back to us if they would like to try an increase in medication or feel more comfortable coming back in for a visit. * Telephone Encounter - Edilma Van APRN.CNP - 05/30/2022 2:10 PM EST Please let Mother know that if this was an isolated event, I do not think we need to go back up on the Prozac. I would recommend continuing to monitor anxiety and mood. If symptoms seem to persistently worsen, we may need to go back up on Prozac dose at that point. If Nichole continues to do well, shecan follow-up with PCP, but if ongoing concerns arise, I am happy to see her back. Edilma Van APRN.CNP * Telephone Encounter - Cristina Moore LPN - 05/30/2022 12:56 PM EST Nichole Alonso is calling Edilma Van APRN.GARAGE DOOR INSTALLER today with a Patient Update - Pt had a possible PTSD episode at school today and mom had to bring her home. Pt does not know what triggered it. Pt has been on 10 mg of Prozac for about a month now. Was on 20 mg. Mom wonders if pt should follow up with you or go back to PCP? Patient has been identified by name and birthdate. Duration of symptoms: N/A Person calling: parent: Esperanza Call patient at: on cell [phone] (home) [phone] (work) [phone] (cell) Was an appointment scheduled: No Closing statement: Symptom Call: [facility] you for [facility], your call is very important. A nurse will call in approximately 2-4 hours during business hours. If this is an emergency, please contact 911. Cristina Moore LPN documented in this encounterDunlap Memorial Hospital02-28-2023 History of Present illness Narrative* Dino Lyn, PT - 05/21/2022 4:00 PM EST Episode Visit Count: 1 Therapist That Will Accept/Oversee The Plan Of Care: Dino Lyn Start of Care Date: 05/21/22 Onset Date: 05/21/19 Plan of Care Certification Date: 05/21/22 Next Certification Due Date: 07/19/22 Patient Identified by Name and Date of : Yes REHABILITATION AND SPORTS THERAPY PHYSICAL THERAPY EVALUATION PLAN OF CARE: Assessment: Nichole Alonso presents with chief complaint of L knee subluxations that interferes withheavy exertion, physical activities, recreational activities, squatting, twisting . She presents with impairments in ADL's, overall function, strength, and symptom management. Patient did not complete the PROMIS (Patient Reported Outcome Measures Information System). Prognosis for therapy is Good due to: current objective clinical presentation, good overall health status, within-session changes, good support system/ coping skills . She will benefit from skilled therapy services to meet the goals established for this plan of care as noted below. Goals for Episode of Care: created on 05/21/22 through 07/19/22 Door in home exercise program. Patient will decrease pain rating by 2 points to meet minimal clinical important difference for numeric pain rating scale. Patient will demonstrate increase in LLE strength to 5/5 during manual muscle testing in order to improve function for leisure / recreation skills, light functional tasks, and moderate to heavy functional tasks. Perform squatting, stairs, walking, and twisting with decreased report of symptoms/pain in 6-8 weeks. Perform ADLs and walking without pain. Planned Interventions, Frequency, and Duration: Current Frequency: 1x/week Duration: 8 weeks Total Number of Visits Planned: 8 Planned Treatment Interventions: Therapeutic exercise (07949), Neuromuscular re- education (20935), Manual therapy (70343), Therapeutic activities (91037), Self- penitentiary management (48744), Patient/Family/Caregiver Education, Body Mechanics Training PLAN FOR NEXT VISIT: Continue strength progression per tolerance, may try step ups or trx squats tohelp with dynamic hip valgus Patient demonstrates good understanding of plan of care and treatment. The above goals and plan of care were discussed and agreed upon by patient/family. SUBJECTIVE: Nichole Alonso is a 17 year old female seen today for L patellar subluxation that first happened in 2019 while dancing, but happened again recently simply standing and twisting the knee. Knee cap reduces on its own immediately, but pt left with aching, swelling, and pain behind the knee cap after. Functional Limitations: heavy exertion, physical activities, recreational activities, squatting, twisting Prior Level of Function: Independent without limitations Intake Information: Prescription present Pain: Pain Pain Level: 2 Pain Location: Knee - Left Description: Dull, Aching Frequency: Intermittent PROMIS Scales T-scores: mean of general population = 50. 5 points is clinically meaningfully difference Percentiles provide an indication of how the patient's score ranks in relation to the general population. Higher percentile rankings indicate better function/quality of life. 50th percentile is the average of the general population and indicates half of respondents had a worse score. OBJECTIVE MEASURES WITH LEVEL OF FUNCTION: LE AROM R LE AROM: WNL L LE AROM: WNL, pain at end range extension LE Strength R LE Strength: 4+/5 L Hip Extension: 4/5 L Hip ABduction: 4-/5 L Hip ADduction: 4+/5 L Hip Internal Rotation: 4/5 L Hip External Rotation: 4/5 L Knee Extension (L3): 4/5 L Knee Flexion: 4+/5 Education: Education Learning/educational needs: Home exercise program, Plan of Care, Changes in Plan of Care, Body Mechanics TREATMENT: PT Treatment Interventions: Therapeutic Exercise, Self-Long Term Management Evaluation Therapeutic Exercise: 1: *SLR 3x15 2: *SL hip abduction 3x20 3: *GTB clamshells 3x15 4: Issued handout with instructions to perform SL hip abduction series progression if first versiongets easy Skilled Intervention: Patient was educated in proper exercise technique and purpose for exercises. Skilled judgment was provided in selection of appropriate interventions. Provided written instruction for home exercise program to facilitate proper performance and compliance. Correct performance of therapeutic exercises was facilitated with verbal, visual, and tactile cuing. Self-Long Term Management: 1: Discussed with pt theories and rationale of HEP, mechanics to help decrease subluxations, Q angle, and stressed no pushing into pain, just mm fatigue with exercises Skilled Intervention: Skilled judgment in the selection of proper modification for activity of daily living/home management based on clinical presentation, deficits, and needs. Reviewed patient specific diagnosis in relation to activities of daily living/home management. Activity progression based on professional judgement. Billing * Evaluation Low Complexity: 1 Unit Therapeutic Exercise Treatment Minutes: 18 Self-Care/Home Management Treatment Minutes: 8 Total Treatment Time Minutes (timed/untimed): 40 Dino Lyn PT documented in this encounterDunlap [facility]02-24-[facility]23 Miscellaneous Notes* Telephone Encounter - Rhonda Jackson RN - 05/17/2022 11:04 AM EST Mother aware, letter faxed as requested Rhonda Jackson RN * Telephone Encounter - Srini Kingston MD - 05/17/2022 10:20 AM EST ok to provide requested letter Valtrex is the appropriate treatment and I would suggest she start today as earlier is better than later for outbreaks. She can take something like Tylenol or ibuprofen for pain as well. * Telephone Encounter - Rhonda Jackson RN - 05/17/2022 9:17 AM EST Mother calling. Patient currently has a herpes simplex outbreak (vaginal area). Is very uncomfortable per mother so patient stayed home from school today. Has not started the Valtrex yet, mother plans to pick remover from pharmacy today. Mother unsure if there is anything else that patient can do in the meantime to help with the discomfort. Mother questions if we would be willing to send school excuse today [facility] to [facility]? F: [phone] Rhonda Jackson RN documented in this encounterDunlap [facility] Hospital02-22-2023 Miscellaneous Notes* Telephone Encounter - Jasmin Almeida MD - 05/15/2022 4:25 PM EST Patient's request for medication is as follows: Requested Prescriptions Pending Prescriptions Disp Refills valACYclovir (VALTREX) 1 gram 7 tablet 1 Sig: Take 1 tablet by mouth once daily. FOR 10 DAYS. Prescription(s) as above. Please process accordingly. Jasmin Almeida MD * Telephone Encounter - Kim Burks RN - 05/15/2022 2:53 PM EST Last [facility]: greater than one year ago. Last visit in office 05/07/22 Verify RX Benefits Completed Last medication refill date: 01/07/22 Requesting 30 day supply Retail pharmacy updated: Completed Patient aware RX will be sent to pharmacy. No need to notify patient. Immunizations due: MENINGOCOCCAL B: Consider based on risk(1 of 2 - Risk Bexsero 2-dose series) Never done MENINGOCOCCAL CONJUGATE(2 - 2-dose series) due on 2021 COVID-19 VACCINE(3 - Booster for Pfizer series) due on 03/21/2021 INFLUENZA(1) due on 11/22/2021 Kim Burks RN documented in this encounterDunlap [facility] Hospital02-14-2023 History of Present illness Narrative* Chacha Kim MD - 05/07/2022 8:00 AM EST PEDIATRIC KNEE INJURY VISIT SERVICE DATE: 05/07/2022 Nichole Alonso is a 17 year old female accompanied by mother presenting with injury to her left knee(s). Patient was standing planted yesterday when she turned and felt her knee give out. She felt that her patella subluxed but resolved spontaneously quickly. This has occurred before. She immediately rested and iced the area. She has been able to bear weight since then. She has some soreness but has not noticed any swelling of the joint. PMHx. Has h/o prior left patellar subluxation. Initially occurred in 2019 when she was dancing. She was seen by Dr. Cortés orthopedics. X-rays were normal. Put in J brace. She was given home physical therapy exercises. She had another left patellar subluxation that spontaneously resolved about a year ago with skateboarding. Was not brought to mom or medical attention at that time. occured again w/ skateboarding - did mot bring to medical attention at the time Prior injuries to this area: Nichole has had previous pain or injury to this area. Injury/pain has resolved prior to the new injury. Previous treatment received: x-ray and Ortho evaluation 2019. Normal x-rays. Was doing home physical therapy.. FAMILY HISTORY Problem Relation Age of Onset No Known Problems Mother No Known Problems Father Anxiety disorder Sister Depression Sister None Maternal Grandfather Knee Musculoskeletal Exam Gait Gait is normal. Inspection Leg length disparity: no discrepancy Right Erythema: none Effusion: none Edema: none Ecchymosis: none Deformity: none Alignment: normal Previous incision: no previous incision Left Erythema: none Effusion: mild Edema: none Ecchymosis: small Deformity: none Alignment: normal Palpation Right Increased warmth: none Masses: none Crepitus: none Tenderness: none Left Increased warmth: none Masses: none Crepitus: none Tenderness: none Range of Motion Right Right knee range of motion is normal and full. Active extension: -10 Passive extension: -10 Active flexion: 140 Passive flexion: 140 Left Active extension: -5 Passive extension: -5 Active flexion: 140 Passive flexion: 140 Strength Right Right knee strength is normal. Left Left knee strength is normal. Instability Left Anterior drawer: normal Marisa: negative Neurovascular Left Patella reflex: normal Special Signs Left Patellar compression: none Patellar apprehension: none ASSESSMENT/PLAN: 1. Subluxation of left patella, sequela - ICD9: 905.6, ICD10: S83.002S CONSULT TO PHYSICAL THERAPY Continue J brace until physical therapy. Continue to rest for the next few days. Limit mobility as able. NSAIDs as directed. Chacha Kim MD I spent a total of 30 minutes on the date of the service which included preparing to see the patient, [id number] patient care, completing clinical documentation, obtaining and/or reviewing separately obtained history, performing a medically appropriate examination, and counseling and educating the patient/family/caregiver. documented in this encounterDunlap Memorial Hospital02-08-2023 History of Present illness Narrative* Mickie Holbrook PA-C - 05/01/2022 3:27 PM EST PEDIATRIC SICK VISIT SERVICE DATE: 05/01/2022 SUBJECTIVE: Nichole Alonso is a 17 year old accompanied by mother who presents for evaluation of cough, rhinorrhea, and fatigue onset this past weekend. Symptoms include: Fever (?100.4F): No Cough: Yes Fatigue: Yes Muscle aches: Yes (seems to be improving) Headache: No Sore throat: No Nasal congestion: Yes or Rhinorrhea: Yes Abdominal pain: No Nausea: No or Vomiting: No Diarrhea: No Rashes: No Decreased appetite: Yes (still taking in adequate fluids and knowing when to eat) Signs of dehydration (low fluid intake or voiding, dry mucus membranes): No Decreased level of consciousness: No History was obtained from: mother and patient Sick contacts: No known sick contacts (did attend [email or web address] this past weekend, attends school) HISTORY: ACTIVE PROBLEM LIST Ptsd (Post-Traumatic Stress Disorder) Low Serum Vitamin D Vegan Diet Major Depressive Disorder, Recurrent Episode, Moderate (Hcc) History of Cannabis Vapor Product Use PAST MEDICAL HISTORY Diagnosis Date Arm fracture, left 2017 buckle fracture-casted Constipation 01/30/2015 Immunization not carried out because of parent refusal 06/03/2018 Influenza Menstrual cycle problem 12/2016 NEGATIVE MEDICAL HISTORY PAST SURGICAL HISTORY Procedure Laterality Date NONE Allergies: ALLERGIES Allergen Reactions Nickel Other: See Comments has trouble with earrings - ears break out Medications: FLUoxetine (PROZAC) 10 mg capsule Take 1 capsule by mouth once daily. OBJECTIVE: Pulse 92 Temp 36.3 C (97.3 F) (Temporal Artery) Resp 20 Wt 54 kg (119 lb) LMP 12/30/2021 (Exact Date) BMI 20.27 kg/m General: alert and active in no apparent distress Eyes: conjunctiva clear, EOMI Ears: TMs translucent bilaterally, normal landmarks noted Nose: clear rhinorrhea/nasal congestion OP: no lesions, no erythema, moist mucous membranes Neck: supple, no adenopathy Lungs: clear to auscultation bilaterally, good air exchange, no retractions, breathing comfortably,no wheezes, rales, or rhonchi CVS: Normal rate, regular rhythm, no murmur Skin: No rashes, lesions or skin changes ASSESSMENT/PLAN: Encounter Diagnosis ICD-10-CM 1. Viral syndrome B34.9 - Discussed course of illness and contagiousness - Symptomatic treatment with Acetaminophen/Ibuprofen - Recommend cool mist humidifier, steamy bathroom - Nasal saline can be helpful in thinning up nasal secretions - Increase fluids - All questions answered - Follow up for persistent/worsening symptoms or other concerns SIGNATURE: Mickie Holbrook PA-C PATIENT NAME: Nichole Alonso DATE: May 01, 2022 TIME: 3:27 PM documented in this encounterDunlap [facility] Hospital02-02-2023 History of Past illness Narrative* Problem Noted Date Resolved Date TIMUR (generalized anxiety disorder) 04/25/2022 04/25/2022 Anxiety 04/03/2022 04/25/2022 Constipation 01/30/2015 06/03/2019 documented as of this encounter (statuses as of 04/26/2022) [facility] History of Past illness Narrative* Problem Noted Date Resolved Date TIMUR (generalized anxiety disorder) 04/25/2022 04/25/2022 Anxiety 04/03/2022 04/25/2022 Constipation 01/30/2015 06/03/2019 documented as of this encounter (statuses as of 05/05/2022) [address]02-2023 History of Past illness Narrative* Problem Noted Date Resolved Date TIMUR (generalized anxiety disorder) 04/25/2022 04/25/2022 Anxiety 04/03/2022 04/25/2022 Constipation 01/30/2015 06/03/2019 documented as of this encounter (statuses as of 05/08/2022) [facility] of Past illness Narrative* Problem Noted Date Resolved Date TIMUR (generalized anxiety disorder) 04/25/2022 04/25/2022 Anxiety 04/03/2022 04/25/2022 Constipation 01/30/2015 06/03/2019 documented as of this encounter (statuses as of 05/16/2022) [facility] of Past illness Narrative* Problem Noted Date Resolved Date TIMUR (generalized anxiety disorder) 04/25/2022 04/25/2022 Anxiety 04/03/2022 04/25/2022 Constipation 01/30/2015 06/03/2019 documented as of this encounter (statuses as of 05/17/2022) [facility] of Past illness Narrative* Problem Noted Date Resolved Date TIMUR (generalized anxiety disorder) 04/25/2022 04/25/2022 Anxiety 04/03/2022 04/25/2022 Constipation 01/30/2015 06/03/2019 documented as of this encounter (statuses as of 05/22/2022) [facility] of Past illness Narrative* Problem Noted Date Resolved Date TIMUR (generalized anxiety disorder) 04/25/2022 04/25/2022 Anxiety 04/03/2022 04/25/2022 Constipation 01/30/2015 06/03/2019 documented as of this encounter (statuses as of 05/30/2022) [facility] of Past illness Narrative* Problem Noted Date Resolved Date TIMUR (generalized anxiety disorder) 04/25/2022 04/25/2022 Anxiety 04/03/2022 04/25/2022 Constipation 01/30/2015 06/03/2019 documented as of this encounter (statuses as of 06/06/2022) [facility] of Past illness Narrative* Problem Noted Date Resolved Date TIMUR (generalized anxiety disorder) 04/25/2022 04/25/2022 Anxiety 04/03/2022 04/25/2022 Constipation 01/30/2015 06/03/2019 documented as of this encounter (statuses as of 06/12/2022) [facility] of Past illness Narrative* Problem Noted Date Resolved Date TIMUR (generalized anxiety disorder) 04/25/2022 04/25/2022 Anxiety 04/03/2022 04/25/2022 Constipation 01/30/2015 06/03/2019 documented as of this encounter (statuses as of 06/19/2022) [facility] of Past illness Narrative* Problem Noted Date Resolved Date TIMUR (generalized anxiety disorder) 04/25/2022 04/25/2022 Anxiety 04/03/2022 04/25/2022 Constipation 01/30/2015 06/03/2019 documented as of this encounter (statuses as of 06/26/2022) [facility] of Past illness Narrative* Problem Noted Date Resolved Date TIMUR (generalized anxiety disorder) 04/25/2022 04/25/2022 Anxiety 04/03/2022 04/25/2022 Constipation 01/30/2015 06/03/2019 documented as of this encounter (statuses as of 07/23/2022) [facility] of Past illness Narrative* Problem Noted Date Resolved Date TIMUR (generalized anxiety disorder) 04/25/2022 04/25/2022 Anxiety 04/03/2022 04/25/2022 Constipation 01/30/2015 06/03/2019 documented as of this encounter (statuses as of 09/16/2022) [address]02-2023 History of Past illness Narrative* Problem Noted Date Resolved Date TIMUR (generalized anxiety disorder) 04/25/2022 04/25/2022 Anxiety 04/03/2022 04/25/2022 Constipation 01/30/2015 06/03/2019 documented as of this encounter (statuses as of 09/18/2022) [address]02-2023 History of Past illness Narrative* Problem Noted Date Diagnosed Date Resolved Date TIMUR (generalized anxiety disorder) 04/25/2022 04/25/2022 Anxiety 04/03/2022 04/25/2022 Constipation 01/30/2015 06/03/2019 documented as of this encounter (statuses as of 11/20/2022) [facility] of Past illness Narrative* Problem Noted Date Diagnosed Date Resolved Date TIMUR (generalized anxiety disorder) 04/25/2022 04/25/2022 Anxiety 04/03/2022 04/25/2022 Constipation 01/30/2015 06/03/2019 documented as of this encounter (statuses as of 12/07/2022) [facility] of Past illness Narrative* Problem Noted Date Diagnosed Date Resolved Date TIMUR (generalized anxiety disorder) 04/25/2022 04/25/2022 Anxiety 04/03/2022 04/25/2022 Constipation 01/30/2015 06/03/2019 documented as of this encounter (statuses as of 01/15/2023) [facility] of Past illness Narrative* Problem Noted Date Diagnosed Date Resolved Date TIMUR (generalized anxiety disorder) 04/25/2022 04/25/2022 Anxiety 04/03/2022 04/25/2022 Constipation 01/30/2015 06/03/2019 documented as of this encounter (statuses as of 01/19/2023) [facility] of Past illness Narrative* Problem Noted Date Diagnosed Date Resolved Date TIMUR (generalized anxiety disorder) 04/25/2022 04/25/2022 Anxiety 04/03/2022 04/25/2022 Constipation 01/30/2015 06/03/2019 documented as of this encounter (statuses as of 01/20/2023) [facility] of Past illness Narrative* Problem Noted Date Diagnosed Date Resolved Date TIMUR (generalized anxiety disorder) 04/25/2022 04/25/2022 Anxiety 04/03/2022 04/25/2022 Constipation 01/30/2015 06/03/2019 documented as of this encounter (statuses as of 05/22/2023) [facility] of Past illness Narrative* Problem Noted Date Diagnosed Date Resolved Date TIMUR (generalized anxiety disorder) 04/25/2022 04/25/2022 Anxiety 04/03/2022 04/25/2022 Constipation 01/30/2015 06/03/2019 documented as of this encounter (statuses as of 05/29/2023) [facility] of Past illness Narrative* Problem Noted Date Diagnosed Date Resolved Date TIMUR (generalized anxiety disorder) 04/25/2022 04/25/2022 Anxiety 04/03/2022 04/25/2022 Constipation 01/30/2015 06/03/2019 documented as of this encounter (statuses as of 05/30/2023) [facility] History of Present illness Narrative* Edilma Van APRN.GARAGE DOOR INSTALLER - 04/25/2022 10:30 AM EST Images from the original note were not included. CHILD & ADOLESCENT PSYCHIATRY NEW PATIENT EVALUATION ASSESSMENT AND PLAN Nichole Alonso 2005 DATE of SERVICE: 04/25/2022 TIME of SERVICE: 10:30 AM IMPRESSION: Nichole Alonso is 17 year old girl who presents with mother for initial evaluation of Depression. Currently on Prozac 20 mg as managed by PCP. Overall, Nichole meets criteria for the diagnosis(es) of Major Depressive Disorder (MDD) and Post-Traumatic Stress Disorder (PTSD) . Mother and Nichole report depression symptoms starting around 12 years of age. Endorsing irritability, labile mood, and sad/depressed mood. Has had improvement on Prozac 20mg. Previously experienced feelings of numbness on higher doses. Does endorse past history of SIB for which she was referred to and completed PHP through [facility] in fall. Also reports a history of SI with SA in March 2021. Denies SIB since completing PHP through [facility].Denies SI/thoughts of SIB today. Endorses history of frequent marijuana use over past 6 months, buthas decreased in the last month and plans to stop use. Currently receiving psychology services through [facility]. Expressing desire to trial decreased dose of Prozac. Plan to decrease Prozac to 10 mg by mouth daily. If tolerates decreased dose, may consider stopping medication over summer. Follow-up with Pediatric Psychiatry as needed. Diagnoses: (F33.41) Recurrent major depressive disorder, in partial remission (HCC) (primary encounter diagnosis) (F43.10) PTSD (post-traumatic stress disorder) (F12.90) Marijuana use Previous Psychiatric Hospitalizations: None Previous Programs Participated In: PHP Previous Medications Trialed: Prozac Current diagnostic differential includes: None. TREATMENT RECOMMENDATIONS/PLAN: BIOLOGIC INTERVENTIONS: - Decrease Prozac to 10 mg by mouth daily. Orders: Orders Placed This Encounter FLUoxetine (PROZAC) 10 mg capsule Sig: Take 1 capsule by mouth once daily. Dispense: 90 capsule Refill: 1 PSYCHOLOGICAL/THERAPY RECOMMENDATIONS: - Continue counseling services through [facility] as recommended. Coordination of Care: - Will coordinate with outside providers. - Release of information signed today? No SAFETY INTERVENTIONS: - She has a chronic Moderate risk of harm to self/others and Low immediate risk of harm. I reviewedsafety and emergent precautions.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 Diagnosis Date Major depressive disorder, single episode PTSD (post-traumatic stress disorder) Past Surgical History Past Surgical History: Procedure Laterality Date NO PAST SURGICAL HISTORY Allergies No Known Allergies Medications Outpatient Encounter Medications as of 09/11/2021 Medication Sig Dispense Refill Polyethylene Glycol 3350 (MIRALAX PO) Take by mouth FLUoxetine (PROZAC) 20 MG capsule Take 20 mg by mouth daily vitamin B-12 (CYANOCOBALAMIN) 1000 MCG tablet Take by mouth daily VITAMIN D PO Take 1 Tablet by mouth daily Pediatric Vitamins (MULTIVITAMIN GUMMIES CHILDRENS) CHEW Take 4 Tablets by mouth daily No facility-administered encounter medications on file as of 09/11/2021. Family Medical History Family History Problem Relation Age of Onset No known problems Mother No known problems Father No known problems Sister Endometriosis Sister Depression Sister Anxiety Disorder Sister No known problems Brother No known problems Brother Social History Social History Socioeconomic History Marital status: Single Spouse name: None Number of children: None Years of education: None Highest education level: None Tobacco Use Smoking status: Never Passive exposure: Never Smokeless tobacco: Never Diet Patient drinks milk, eats cheese, ice cream? Yes Do dairy products cause problems? Yes discomfort, limit intake Does patient have dietary restrictions? Yes Vegitarian Patient on nutritional supplements? No Patient on tube feeds? No Social History Who lives in the household? Mom Are there pets in the home? Yes cats Has patient traveled out of the country? No Water source for child? Well Has the patient ever been hospitalized? No Alternative meds, herbals, OTC meds and vitamins documented in medication section? No Review of Systems Review of Systems Constitutional: Positive for weight gain. Negative for recurrent fevers and weight loss. HENT: Negative for trouble swallowing. Eyes: Negative for wears glasses. Respiratory: Negative for coughing, wheezing and asthma. Cardiovascular: Negative for heart murmur, heart problems and chest pain. Endocrine: Negative for poor growth. Gastrointestinal: Positive for constipation, abdominal pain and nausea. Negative for diarrhea, vomiting, heartburn, blood in stool and trouble swallowing. Genitourinary: Negative for dysuria, hematuria and frequent urination. Neurological: Negative for developmental delays and seizures. Musculoskeletal: Negative for joint pain. Skin: Negative for rash. Allergy/Immune: Negative for allergies. Hematology: Negative for no easy bleeding and no anemia. The patient's past medical, surgical history, family history, and medications were reviewed and updated in EPIC (electronic medical record). Physical Examination Vitals: 09/11/21 1309 BP: 99/58 Pulse: 63 Temp: 36.6 C (97.8 F) BP Readings from Last 2 Encounters: 09/11/21 99/58 (15 %, Z = -1.04 / 21 %, Z = -0.81)* *BP percentiles are based on the 2017 AAP Clinical Practice Guideline for girls Weight - Scale: 59.4 kg Height: 163.4 cm Body mass index is 22.25 kg/m . Physical Exam Vitals reviewed. Constitutional: General: She is active. Appearance: She is well-developed and well-nourished. She is not overweight and not thin. HENT: Mouth/Throat: Mouth: Mucous membranes are mois (more content not included)...[id number] Miscellaneous Notes* Telephone Encounter - Rhonad Jackson RN - 08/17/2021 11:53 AM EDT Mother notified Rhonda Jackson RN * Telephone Encounter - Chacha Kim MD - 08/17/2021 10:21 AM EDT ordered. Patient can self schedule testing on MyChart * Telephone Encounter - Rhonda Jackson RN - 08/17/2021 10:03 AM EDT Patient is leaving for [place] on a school trip on August 27. Patient needs to get a COVID test done prior to 72 hours before leaving. Can you please place orders for covid testing so patient can schedule this Rhonda Jackson RN [facility] of Present illness Narrative* Mari Cooper Tech (Tech) - 01/27/2020 7:50 PM EST Radiology Service Progress Note PATIENT NAME: Nichole Alonso DATE OF SERVICE: January 27, 2020 TIME: 7:44 PM PATIENT IDENTITY VERIFICATION COMPLETED USING TWO (2) IDENTIFIERS: Name and Date of confirmedby patient verbally. FALL SCREENING: Has the patient had 2 falls in the last year or 1 fall with injury or currently using an Ambulatory Assistive Device (Walker, Cane, Wheelchair, Crutches, etc.)? No PATIENT GENDER DATA: Female. status: : No status: NO. PATIENT RELEVANT IMPLANT DATA REVIEWED: Not Applicable RADIOLOGY DEPARTMENT: General X-ray: Exam(s) Completed: Lower Extremity X- Ray(s): Knee, AP / Lat / Tunne / Merchant Left and Wt. Bearing: PERIPHERAL IV DATA: Not applicable SIGNED BY: Juan Moore January 27, 2020 7:44 PM [facility] History of Past illness Narrative* Problem Noted Date Resolved Date Constipation 01/30/2015 06/03/2019 documented as of this encounter (statuses as of 08/17/2021) [place] [address]-09-2015 History of Past illness Narrative* Problem Noted Date Resolved Date Constipation 01/30/2015 06/03/2019 documented as of this encounter (statuses as of 11/13/2021) [place] [address]2015 History of Past illness Narrative* Problem Noted Date Resolved Date Constipation 01/30/2015 06/03/2019 documented as of this encounter (statuses as of 11/29/2021) [place] [address]2015 History of Past illness Narrative* Problem Noted Date Resolved Date Constipation 01/30/2015 06/03/2019 documented as of this encounter (statuses as of 11/29/2021) [address]09-2015 History of Past illness Narrative* Problem Noted Date Resolved Date Constipation 01/30/2015 06/03/2019 documented as of this encounter (statuses as of 12/05/2021) [place] [address]2015 History of Past illness Narrative* Problem Noted Date Resolved Date Constipation 01/30/2015 06/03/2019 documented as of this encounter (statuses as of 12/06/2021) [address]-2015 History of Past illness Narrative* Problem Noted Date Resolved Date Constipation 01/30/2015 06/03/2019 documented as of this encounter (statuses as of 12/06/2021) [address]-2015 History of Past illness Narrative* Problem Noted Date Resolved Date Constipation 01/30/2015 06/03/2019 documented as of this encounter (statuses as of 12/07/2021) [address]-2015 History of Past illness Narrative* Problem Noted Date Resolved Date Constipation 01/30/2015 06/03/2019 documented as of this encounter (statuses as of 12/10/2021) [address]-2015 History of Past illness Narrative* Problem Noted Date Resolved Date Constipation 01/30/2015 06/03/2019 documented as of this encounter (statuses as of 12/12/2021) [place] [address]2015 History of Past illness Narrative* Problem Noted Date Resolved Date Constipation 01/30/2015 06/03/2019 documented as of this encounter (statuses as of 12/12/2021) [place] [address]2015 History of Past illness Narrative* Problem Noted Date Resolved Date Constipation 01/30/2015 06/03/2019 documented as of this encounter (statuses as of 12/13/2021) [place] [address]09-2015 History of Past illness Narrative* Problem Noted Date Resolved Date Constipation 01/30/2015 06/03/2019 documented as of this encounter (statuses as of 12/26/2021) [place] [address]2015 History of Past illness Narrative* Problem Noted Date Resolved Date Constipation 01/30/2015 06/03/2019 documented as of this encounter (statuses as of 12/31/2021) [place] [address]2015 History of Past illness Narrative* Problem Noted Date Resolved Date Constipation 01/30/2015 06/03/2019 documented as of this encounter (statuses as of 01/07/2022) [address]2015 History of Past illness Narrative* Problem Noted Date Resolved Date Constipation 01/30/2015 06/03/2019 documented as of this encounter (statuses as of 01/10/2022) [address]2015 History of Past illness Narrative* Problem Noted Date Resolved Date Constipation 01/30/2015 06/03/2019 documented as of this encounter (statuses as of 02/20/2022) [address]2015 History of Past illness Narrative* Problem Noted Date Resolved Date Constipation 01/30/2015 06/03/2019 documented as of this encounter (statuses as of 02/22/2022) [address]-2015 History of Past illness Narrative* Problem Noted Date Resolved Date Constipation 01/30/2015 06/03/2019 documented as of this encounter (statuses as of 03/29/2022) [address]-2015 History of Past illness Narrative* Problem Noted Date Resolved Date Constipation 01/30/2015 06/03/2019 documented as of this encounter (statuses as of 04/12/2022) [facility] note* Diagnosis Encounter for screening laboratory testing for COVID-19 virus in asymptomatic patient- Primary [facility] Diagnosis control counseling- Primary General counseling for initiation of other contraceptive measures Screening examination for STD (sexually transmitted disease) Screening examination for venereal disease Nexplanon insertion Insertion of implantable subdermal contraceptive [facility]* Diagnosis Burning with urination- Primary Dysuria [facility]* Diagnosis Malaise and fatigue- Primary Other malaise and fatigue [facility]* Diagnosis Insertion of implantable subdermal contraceptive- Primary Dysuria [facility] Diagnosis Malaise and fatigue- Primary Other malaise and fatigue Generalized anxiety disorder Moderate episode of recurrent major depressive disorder (HCC) [facility]* Diagnosis Deliberate self-cutting- Primary Unspecified nonpsychotic mental disorder Anxiety state Anxiety state, unspecified [facility] Diagnosis Low blood glucose measurement- Primary Hypoglycemia, unspecified Malaise and fatigue Other malaise and fatigue Generalized anxiety disorder Recurrent major depressive disorder, in partial remission (HCC) PTSD (post-traumatic stress disorder) Posttraumatic stress disorder Deliberate self-cutting Unspecified nonpsychotic mental disorder documented in this encounter [facility] note* Diagnosis Vaginal burning- Primary Other specified symptom associated with female genital organs documented in this encounter [facility] note* Diagnosis Palpable lymph node- Primary Enlargement of lymph nodes documented in this encounter [facility] note* Diagnosis Vulvar lesion- Primary Other specified noninflammatory disorder of vulva and perineum documented in this encounter [facility] note* Diagnosis Viral illness- Primary Unspecified viral infection, in conditions classified elsewhere and of unspecified site Arthralgia, unspecified joint [facility]* Diagnosis Recurrent major depressive disorder, in partial remission (HCC)- Primary PTSD (post-traumatic stress disorder) Posttraumatic stress disorder Marijuana use Cannabis abuse, unspecified documented in this encounter [facility] note* Diagnosis Viral syndrome- Primary Unspecified viral infection, in conditions classified elsewhere and of unspecified site documented in this encounter [facility] note* Diagnosis Subluxation of left patella, sequela- Primary documented in this encounter [facility] note* Diagnosis Subluxation of left patella, sequela- Primary documented in this encounter [facility] note* Diagnosis Subluxation of left patella, sequela- Primary [facility]* Diagnosis Subluxation of left patella, sequela- Primary documented in this encounter [facility] note* Diagnosis Subluxation of left patella, sequela- Primary [facility]* Diagnosis Subluxation of left patella, sequela- Primary [facility]* Diagnosis Urinary frequency- Primary Gross hematuria [facility]* Diagnosis Encounter for annual routine gynecological examination- Primary Recurrent genital herpes Genital herpes, unspecified Screen for STD (sexually transmitted disease) Screening examination for venereal disease [facility]* Diagnosis Anal fissure- Primary documented in this encounter [facility] note* Diagnosis Foreign body of right thumb, initial encounter- Primary [facility]* Diagnosis Generalized anxiety disorder- Primary Major depressive disorder, recurrent episode, moderate (HCC) Major depressive disorder, recurrent episode, moderate PTSD (post-traumatic stress disorder) Posttraumatic stress disorder documented in this encounter [facility] note* Diagnosis TIMUR (generalized anxiety disorder)- Primary Generalized anxiety disorder Diarrhea, unspecified type documented in this encounter [facility] note* Diagnosis Generalized abdominal pain- Primary Abdominal pain, generalized documented in this encounter [facility] note* Diagnosis Generalized abdominal pain- Primary Abdominal pain, generalized Generalized abdominal pain Abdominal pain, generalized [facility]* Diagnosis Generalized abdominal pain- Primary Abdominal pain, generalized Generalized abdominal pain- Primary Abdominal pain, generalized Diarrhea, unspecified type Generalized anxiety disorder documented in this encounter [facility] note* Diagnosis Generalized abdominal pain- Primary Abdominal pain, generalized Generalized anxiety disorder [facility]* Diagnosis Encounter for routine child health examination w/o abnormal findings- Primary Routine or child health check Encounter for general adult medical examination without abnormal findings Unspecified general medical examination Encounter for immunization Need for other specified prophylactic vaccination against single bacterial disease documented in this encounter [facility] note* Diagnosis Gross hematuria- Primary Bloody stools Blood in stool documented in this encounter [facility] note* Diagnosis NO SHOW- Primary documented in this encounter [facility] note* Diagnosis Generalized abdominal pain Abdominal pain, generalized [facility]* Diagnosis Foreign body of right thumb, initial encounter documented in this encounter [facility] note* Diagnosis Toxic effect of borax- Primary documented in this encounter [facility] note* Diagnosis Acute pain of left knee [facility]* Diagnosis Urinary frequency- Primary Dysuria [facility]* Diagnosis Recurrent genital herpes Genital herpes, unspecified documented in this encounter [facility] note* Diagnosis Encounter for gynecological examination (general) (routine) without abnormal findings- Primary Recurrent genital herpes Genital herpes, unspecified Encounter for annual routine gynecological examination Screen for STD (sexually transmitted disease) Screening examination for venereal disease Nexplanon in place Presence of subdermal contraceptive device documented in this encounter [facility] note* Diagnosis Yeast vaginitis- Primary Candidiasis of vulva and vagina documented in this encounter [facility] note* Diagnosis Nexplanon in place- Primary Presence of subdermal contraceptive device Insertion of implantable subdermal contraceptive documented in this encounter [facility] note* Diagnosis Urinary frequency- Primary URI, acute Acute upper respiratory infections of unspecified site documented in this encounter [facility] note* Diagnosis Sore throat- Primary Acute pharyngitis Flu-like symptoms Other general symptoms documented in this encounter [facility] note* Diagnosis Sore throat- Primary Acute pharyngitis documented in this encounter [facility] noteNo assessment information availableWMarion Hospital Work Phone: [facility]* Diagnosis Worms in stool- Primary Helminth infection, unspecified documented in this encounter [facility] note* Diagnosis Urinary frequency- Primary Dysuria documented in this encounter [facility] note* Diagnosis Patellar subluxation, left, initial encounter- Primary documented in this encounter [facility] note* Diagnosis Left knee pain, unspecified chronicity documented in this encounter [facility] note* Diagnosis Encounter for Nexplanon removal- Primary Surveillance of previously prescribed implantable subdermal contraceptive documented in this encounter [facility] for referral (narrative)* Outpatient Procedure (Routine) - Pending Review Specialty Diagnoses / Procedures Referred By Berenice lynn Referred To Contact [facility] Diagnoses Nexplanon insertion Procedures NEXPLANON INSERTION ETONOGESTREL IMPLANT SYSTEM INSERT DRUG IMPLANT DEVICE Dillon Ocasio MD [address] [place] [address] [facility] [address] [place] [id number] Referral ID Status Reason Start Date Expiration Date Visits Requested Visits Authorized [id number] Pending Review Auto-Generat ed Referral 11/29/2021 11/29/2022 1 1 [facility] for referral (narrative)* Diagnostic Procedure Only (Urgent) - Closed Specialty Diagnoses / Procedures Referred By Berenice lynn Referred To Contact X[facility] IMAGING Diagnoses Foreign body of right thumb, initial encounter Procedures XR DIGIT GENERAL 3V FRONTAL/LAT/OBL RIGHT RADEX FINGR MINIMUM 2 VIEWS [facility] [address] [place] [address] [place] [address] Referral ID Status Reason Start Date Expiration Date V isits Requested Visits Authorized [id number] Closed Auto-Generate d Referral 05/30/2023 06/28/2024 1 1 [facility] for referral (narrative)* Diagnostic Procedure Only (Routine) - Closed Specialty Diagnoses / Procedures Referred By Contac t Referred To Contact XR IMAGING Diagnoses Generalized abdominal pain Procedures XR ABDOMEN 1V SUPINE RADIOLOGIC EXAM ABDOMEN 1 VIEW Chacha Kim MD [address] [place] [address] [place] [address] Referral ID Status Reason Start Date Expiration Date V isits Requested Visits Authorized [id number] Closed Auto-Generate d Referral 07/22/2023 08/20/2024 1 1 [facility] for referral (narrative)* Diagnostic Procedure Only (Routine) - Closed Specialty Diagnoses / Procedures Referred By Contac t Referred To Contact XR IMAGING Diagnoses Generalized abdominal pain Procedures XR ABDOMEN 1V SUPINE RADIOLOGIC EXAM ABDOMEN 1 VIEW Chacha Kim MD [address] [place] [address] [place] [address] Referral ID Status Reason Start Date Expiration Date V isits Requested Visits Authorized [id number] Closed Auto-Generate d Referral 07/22/2023 08/20/2024 1 1 T [facility] for referral (narrative)* Diagnostic Procedure Only (Urgent) - Closed Specialty Diagnoses / Procedures Referred By Contac t Referred To Contact XR IMAGING Diagnoses Foreign body of right thumb, initial encounter Procedures XR DIGIT GENERAL 3V FRONTAL/LAT/OBL RIGHT RADEX FINGR MINIMUM 2 VIEWS [facility] [address] [address] [place] [address] [place] [address] Referral ID Status Reason Start Date Expiration Date V isits Requested Visits Authorized [id number] Closed Auto-Generate d Referral 05/30/2023 06/28/2024 1 1 [facility] for referral (narrative)No reason for referral information availableWMarion Hospital Work Phone: Reason for visit Narrative* Diagnostic Procedure Only (Routine) - Closed Specialty Diagnoses / Procedures Referred By Contac t Referred To Contact XR IMAGING Diagnoses Generalized abdominal pain Procedures XR ABDOMEN 1V SUPINE RADIOLOGIC EXAM ABDOMEN 1 VIEW Chacha Kim MD [address] [place] [address] [place] [address] Referral ID Status Reason Start Date Expiration Date V isits Requested Visits Authorized [id number] Closed Auto-Generate d Referral 07/22/2023 08/20/2024 1 1 [facility] for visit Narrative* Diagnostic Procedure Only (Urgent) - Closed Specialty Diagnoses / Procedures Referred By Contac t Referred To Contact XR IMAGING Diagnoses Foreign body of right thumb, initial encounter Procedures XR DIGIT GENERAL 3V FRONTAL/LAT/OBL RIGHT RADEX FINGR MINIMUM 2 VIEWS [facility] [address] [place] [address] [place] [address] Referral ID Status Reason Start Date Expiration Date V isits Requested Visits Authorized [id number] Closed Auto-Generate d Referral 05/30/2023 06/28/2024 1 1 [facility] for visit Narrative* Diagnostic Procedure Only (Routine) - Closed Specialty Diagnoses / Procedures Referred By Contac t Referred To Contact XR IMAGING Diagnoses Left knee pain, unspecified chronicity Procedures XR KNEE GENERAL 4V AP BOTH/PA BOTH/LAT/MERC LEFT RADIOLOGIC EXAM KNEE COMPLETE 4/MORE VIEWS Aj Cordova MD [address] [place] [address] Phone: tel: fax: [place] [address] Referral ID Status Reason Start Date Expiration Date V isits Requested Visits Authorized [id number] Closed Auto-Generate d Referral 11/01/2024 11/27/2025 1 1 [facility] Medications Administered Section Inactive Administered Medications - up to 3 most recent administrations Medication Order MAR Action Action Date Dose Rate Site etonogestrel subdermal implant 68 mg (NEXPLANON) 68 mg, SUBDERMAL, ONCE (UP TO 30 DAYS AMB), 1 dose, On Argelia 12/06/21 at 1530, Hazardous Potential Reproductive Risk Drug: Use appropriate PPE. Must be inserted subdermally in the upper arm by a trained healthcare provider. Given 12/06/2021 3:31 PM EDT 68 mg Arm, Right Summary Purpose Family History No Family History Records FoundNo Family History Records FoundNo Family History Records FoundNo Family History Records Found Advance Directives No Advanced Directives Records Found Advance Directive Response Recorded Date/ Time Living Will No June 26, 2024 11:07pm Do you have a Healthcare Power of Mat Machine Tender? No June 26, 2024 11:07pm Reason for Referral Specialty Diagnoses / Procedures Referred By Berenice lynn Referred To Contact [facility] Diagnoses Subluxation of left patella, sequela Procedures CONSULT TO PHYSICAL THERAPY PHYSICAL THERAPY EVALUATION HIGH COMPLEX 45 MINS Chacha Kim MD [address] [place] [id number] [facility] [address] [address] Referral ID Status Reason Start Date Expiration Date Visits Requested Visits Authorized [id number] Pending Review Auto-Generat ed Referral 05/07/2022 05/07/2023 1 1 Specialty Diagnoses / Procedures Referred By Berenice lynn Referred To Contact [facility] Diagnoses Subluxation of left patella, sequela Procedures PT REHAB FOLLOW UP ORDER PT REHAB FOLLOW UP ORDER THERAPEUTIC EXERCISES RE, EA 15 MIN. Dino Lyn PT [facility] [address] [address] Referral ID Status Reason Start Date Expiration Date Visits Requested Visits Authorized [id number] Pending Review PCP Requested Referral Auto-Generate d Referral 05/21/2022 08/19/2022 1 1 Specialty Diagnoses / Procedures Referred By Berenice lynn Referred To Contact [facility] Diagnoses Subluxation of left patella, sequela Procedures PT REHAB FOLLOW UP ORDER THERAPEUTIC EXERCISES RE, EA 15 MIN. Dino Lyn [facility] [address] [address] Referral ID Status Reason Start Date Expiration Date Visits Requested Visits Authorized [id number] Pending Review PCP Requested Referral Auto-Generate d Referral 06/25/2022 09/23/2022 1 1 Specialty Diagnoses / Procedures Referred By Contact Referred To Contact Pediatric Gastroenterology Diagnoses Generalized abdominal pain Procedures CONSULT TO PEDS GASTRO OFFICE/OUTPATIENT [facility] 60 MINUTES Chacha Kim MD [address] [place] [address] Referral ID Status Reason Start Date Expiration Date Visits Requested Visits Authorized [id number] Authorized PCP Requested Referral 07/30/2023 07/29/2024 1 1 Chief Complaint and Reason for Visit Chief Complaint Admit Date abd pain June 26, 2024 10:5 9pm Additional Source Comments Source Comments (unrecognize d section and content) In the event this informatio n is protected by the Federal Confidentiality of Alcohol and Drug Abuse Patient Records regulations: The Federal rules restrict any use of the information to criminally investigate or prosecute any alcohol or drug abuse patient.[facility] HospitalIn the event this information is protected by the Federal Confidentiality of Alcohol and Drug Abuse Patient Records regulations: The Federal rules restrict any use of the information to criminally investigate or prosecute any alcohol or drug abuse patient.[facility] HospitalIn the event this information is protected by the Federal Confidentiality of Alcohol and Drug Abuse Patient Records regulations: The Federal rules restrict any use of the information to criminally investigate or prosecute any alcohol or drug abuse patient.[facility] HospitalIn the event this information is protected by the Federal Confidentiality of Alcohol and Drug Abuse Patient Records regulations: The Federal rules restrict any use of the information to criminally investigate or prosecute any alcohol or drug abuse patient.[facility] HospitalIn the event this information is protected by the Federal Confidentiality of Alcohol and Drug Abuse Patient Records regulations: The Federal rules restrict any use of the information to criminally investigate or prosecute any alcohol or drug abuse patient.[facility] HospitalIn the event this information is protected by the Federal Confidentiality of Alcohol and Drug Abuse Patient Records regulations: The Federal rules restrict any use of the information to criminally investigate or prosecute any alcohol or drug abuse patient.[facility] HospitalIn the event this information is protected by the Federal Confidentiality of Alcohol and Drug Abuse Patient Records regulations: The Federal rules restrict any use of the information to criminally investigate or prosecute any alcohol or drug abuse patient.[facility] HospitalIn the event this information is protected by the Federal Confidentiality of Alcohol and Drug Abuse Patient Records regulations: The Federal rules restrict any use of the information to criminally investigate or prosecute any alcohol or drug abuse patient.[facility] HospitalIn the event this information is protected by the Federal Confidentiality of Alcohol and Drug Abuse Patient Records regulations: The Federal rules restrict any use of the information to criminally investigate or prosecute any alcohol or drug abuse patient.[facility] HospitalIn the event this information is protected by the Federal Confidentiality of Alcohol and Drug Abuse Patient Records regulations: The Federal rules restrict any use of the information to criminally investigate or prosecute any alcohol or drug abuse patient.[facility] HospitalIn the event this information is protected by the Federal Confidentiality of Alcohol and Drug Abuse Patient Records regulations: The Federal rules restrict any use of the information to criminally investigate or prosecute any alcohol or drug abuse patient.[facility] HospitalIn the event this information is protected by the Federal Confidentiality of Alcohol and Drug Abuse Patient Records regulations: The Federal rules restrict any use of the information to criminally investigate or prosecute any alcohol or drug abuse patient.[facility] HospitalIn the event this information is protected by the Federal Confidentiality of Alcohol and Drug Abuse Patient Records regulations: The Federal rules restrict any use of the information to criminally investigate or prosecute any alcohol or drug abuse patient.[facility] HospitalIn the event this information is protected by the Federal Confidentiality of Alcohol and Drug Abuse Patient Records regulations: The Federal rules restrict any use of the information to criminally investigate or prosecute any alcohol or drug abuse patient.[facility] HospitalIn the event this information is protected by the Federal Confidentiality of Alcohol and Drug Abuse Patient Records regulations: The Federal rules restrict any use of the information to criminally investigate or prosecute any alcohol or drug abuse patient.[facility] HospitalIn the event this information is protected by the Federal Confidentiality of Alcohol and Drug Abuse Patient Records regulations: The Federal rules restrict any use of the information to criminally investigate or prosecute any alcohol or drug abuse patient.[facility] HospitalIn the event this information is protected by the Federal Confidentiality of Alcohol and Drug Abuse Patient Records regulations: The Federal rules restrict any use of the information to criminally investigate or prosecute any alcohol or drug abuse patient.[facility] HospitalIn the event this information is protected by the Federal Confidentiality of Alcohol and Drug Abuse Patient Records regulations: The Federal rules restrict any use of the information to criminally investigate or prosecute any alcohol or drug abuse patient.[facility] HospitalIn the event this information is protected by the Federal Confidentiality of Alcohol and Drug Abuse Patient Records regulations: The Federal rules restrict any use of the information to criminally investigate or prosecute any alcohol or drug abuse patient.[facility] HospitalIn the event this information is protected by the Federal Confidentiality of Alcohol and Drug Abuse Patient Records regulations: The Federal rules restrict any use of the information to criminally investigate or prosecute any alcohol or drug abuse patient.[facility] HospitalIn the event this information is protected by the Federal Confidentiality of Alcohol and Drug Abuse Patient Records regulations: The Federal rules restrict any use of the information to criminally investigate or prosecute any alcohol or drug abuse patient.[facility] HospitalIn the event this information is protected by the Federal Confidentiality of Alcohol and Drug Abuse Patient Records regulations: The Federal rules restrict any use of the information to criminally investigate or prosecute any alcohol or drug abuse patient.[facility] HospitalIn the event this information is protected by the Federal Confidentiality of Alcohol and Drug Abuse Patient Records regulations: The Federal rules restrict any use of the information to criminally investigate or prosecute any alcohol or drug abuse patient.[facility] HospitalIn the event this information is protected by the Federal Confidentiality of Alcohol and Drug Abuse Patient Records regulations: The Federal rules restrict any use of the information to criminally investigate or prosecute any alcohol or drug abuse patient.[facility] HospitalIn the event this information is protected by the Federal Confidentiality of Alcohol and Drug Abuse Patient Records regulations: The Federal rules restrict any use of the information to criminally investigate or prosecute any alcohol or drug abuse patient.[facility] HospitalIn the event this information is protected by the Federal Confidentiality of Alcohol and Drug Abuse Patient Records regulations: The Federal rules restrict any use of the information to criminally investigate or prosecute any alcohol or drug abuse patient.[facility] HospitalIn the event this information is protected by the Federal Confidentiality of Alcohol and Drug Abuse Patient Records regulations: The Federal rules restrict any use of the information to criminally investigate or prosecute any alcohol or drug abuse patient.[facility] HospitalIn the event this information is protected by the Federal Confidentiality of Alcohol and Drug Abuse Patient Records regulations: The Federal rules restrict any use of the information to criminally investigate or prosecute any alcohol or drug abuse patient.[facility] HospitalIn the event this information is protected by the Federal Confidentiality of Alcohol and Drug Abuse Patient Records regulations: The Federal rules restrict any use of the information to criminally investigate or prosecute any alcohol or drug abuse patient.[facility] HospitalIn the event this information is protected by the Federal Confidentiality of Alcohol and Drug Abuse Patient Records regulations: The Federal rules restrict any use of the information to criminally investigate or prosecute any alcohol or drug abuse patient.[facility] HospitalIn the event this information is protected by the Federal Confidentiality of Alcohol and Drug Abuse Patient Records regulations: The Federal rules restrict any use of the information to criminally investigate or prosecute any alcohol or drug abuse patient.[facility] HospitalIn the event this information is protected by the Federal Confidentiality of Alcohol and Drug Abuse Patient Records regulations: The Federal rules restrict any use of the information to criminally investigate or prosecute any alcohol or drug abuse patient.[facility] HospitalIn the event this information is protected by the Federal Confidentiality of Alcohol and Drug Abuse Patient Records regulations: The Federal rules restrict any use of the information to criminally investigate or prosecute any alcohol or drug abuse patient.[facility] HospitalIn the event this information is protected by the Federal Confidentiality of Alcohol and Drug Abuse Patient Records regulations: The Federal rules restrict any use of the information to criminally investigate or prosecute any alcohol or drug abuse patient.[facility] the event this information is protected by the Federal Confidentiality of Alcohol and Drug Abuse Patient Records regulations: The Federal rules restrict any use of the information to criminally investigate or prosecute any alcohol or drug abuse patient.[facility] HospitalIn the event this information is protected by the Federal Confidentiality of Alcohol and Drug Abuse Patient Records regulations: The Federal rules restrict any use of the information to criminally investigate or prosecute any alcohol or drug abuse patient.[facility] HospitalIn the event this information is protected by the Federal Confidentiality of Alcohol and Drug Abuse Patient Records regulations: The Federal rules restrict any use of the information to criminally investigate or prosecute any alcohol or drug abuse patient.[facility] HospitalIn the event this information is protected by the Federal Confidentiality of Alcohol and Drug Abuse Patient Records regulations: The Federal rules restrict any use of the information to criminally investigate or prosecute any alcohol or drug abuse patient.[facility] HospitalIn the event this information is protected by the Federal Confidentiality of Alcohol and Drug Abuse Patient Records regulations: The Federal rules restrict any use of the information to criminally investigate or prosecute any alcohol or drug abuse patient.[facility] HospitalIn the event this information is protected by the Federal Confidentiality of Alcohol and Drug Abuse Patient Records regulations: The Federal rules restrict any use of the information to criminally investigate or prosecute any alcohol or drug abuse patient.[facility] HospitalIn the event this information is protected by the Federal Confidentiality of Alcohol and Drug Abuse Patient Records regulations: The Federal rules restrict any use of the information to criminally investigate or prosecute any alcohol or drug abuse patient.[facility] HospitalIn the event this information is protected by the Federal Confidentiality of Alcohol and Drug Abuse Patient Records regulations: The Federal rules restrict any use of the information to criminally investigate or prosecute any alcohol or drug abuse patient.[facility] HospitalIn the event this information is protected by the Federal Confidentiality of Alcohol and Drug Abuse Patient Records regulations: The Federal rules restrict any use of the information to criminally investigate or prosecute any alcohol or drug abuse patient.[facility] HospitalIn the event this information is protected by the Federal Confidentiality of Alcohol and Drug Abuse Patient Records regulations: The Federal rules restrict any use of the information to criminally investigate or prosecute any alcohol or drug abuse patient.[facility] HospitalIn the event this information is protected by the Federal Confidentiality of Alcohol and Drug Abuse Patient Records regulations: The Federal rules restrict any use of the information to criminally investigate or prosecute any alcohol or drug abuse patient.[facility] HospitalIn the event this information is protected by the Federal Confidentiality of Alcohol and Drug Abuse Patient Records regulations: The Federal rules restrict any use of the information to criminally investigate or prosecute any alcohol or drug abuse patient.[facility] HospitalIn the event this information is protected by the Federal Confidentiality of Alcohol and Drug Abuse Patient Records regulations: The Federal rules restrict any use of the information to criminally investigate or prosecute any alcohol or drug abuse patient.[facility] HospitalIn the event this information is protected by the Federal Confidentiality of Alcohol and Drug Abuse Patient Records regulations: The Federal rules restrict any use of the information to criminally investigate or prosecute any alcohol or drug abuse patient.[facility] HospitalIn the event this information is protected by the Federal Confidentiality of Alcohol and Drug Abuse Patient Records regulations: The Federal rules restrict any use of the information to criminally investigate or prosecute any alcohol or drug abuse patient.[facility] HospitalIn the event this information is protected by the Federal Confidentiality of Alcohol and Drug Abuse Patient Records regulations: The Federal rules restrict any use of the information to criminally investigate or prosecute any alcohol or drug abuse patient.[facility] HospitalIn the event this information is protected by the Federal Confidentiality of Alcohol and Drug Abuse Patient Records regulations: The Federal rules restrict any use of the information to criminally investigate or prosecute any alcohol or drug abuse patient.[facility] HospitalIn the event this information is protected by the Federal Confidentiality of Alcohol and Drug Abuse Patient Records regulations: The Federal rules restrict any use of the information to criminally investigate or prosecute any alcohol or drug abuse patient.[facility] HospitalIn the event this information is protected by the Federal Confidentiality of Alcohol and Drug Abuse Patient Records regulations: The Federal rules restrict any use of the information to criminally investigate or prosecute any alcohol or drug abuse patient.[facility] HospitalIn the event this information is protected by the Federal Confidentiality of Alcohol and Drug Abuse Patient Records regulations: The Federal rules restrict any use of the information to criminally investigate or prosecute any alcohol or drug abuse patient.[facility] HospitalIn the event this information is protected by the Federal Confidentiality of Alcohol and Drug Abuse Patient Records regulations: The Federal rules restrict any use of the information to criminally investigate or prosecute any alcohol or drug abuse patient.[facility] HospitalIn the event this information is protected by the Federal Confidentiality of Alcohol and Drug Abuse Patient Records regulations: The Federal rules restrict any use of the information to criminally investigate or prosecute any alcohol or drug abuse patient.[facility] HospitalIn the event this information is protected by the Federal Confidentiality of Alcohol and Drug Abuse Patient Records regulations: The Federal rules restrict any use of the information to criminally investigate or prosecute any alcohol or drug abuse patient.[facility] HospitalIn the event this information is protected by the Federal Confidentiality of Alcohol and Drug Abuse Patient Records regulations: The Federal rules restrict any use of the information to criminally investigate or prosecute any alcohol or drug abuse patient.[facility] HospitalIn the event this information is protected by the Federal Confidentiality of Alcohol and Drug Abuse Patient Records regulations: The Federal rules restrict any use of the information to criminally investigate or prosecute any alcohol or drug abuse patient.[facility] HospitalIn the event this information is protected by the Federal Confidentiality of Alcohol and Drug Abuse Patient Records regulations: The Federal rules restrict any use of the information to criminally investigate or prosecute any alcohol or drug abuse patient.[facility] HospitalIn the event this information is protected by the Federal Confidentiality of Alcohol and Drug Abuse Patient Records regulations: The Federal rules restrict any use of the information to criminally investigate or prosecute any alcohol or drug abuse patient.[facility] HospitalIn the event this information is protected by the Federal Confidentiality of Alcohol and Drug Abuse Patient Records regulations: The Federal rules restrict any use of the information to criminally investigate or prosecute any alcohol or drug abuse patient.[facility] HospitalIn the event this information is protected by the Federal Confidentiality of Alcohol and Drug Abuse Patient Records regulations: The Federal rules restrict any use of the information to criminally investigate or prosecute any alcohol or drug abuse patient.[facility] HospitalIn the event this information is protected by the Federal Confidentiality of Alcohol and Drug Abuse Patient Records regulations: The Federal rules restrict any use of the information to criminally investigate or prosecute any alcohol or drug abuse patient.[facility] HospitalIn the event this information is protected by the Federal Confidentiality of Alcohol and Drug Abuse Patient Records regulations: The Federal rules restrict any use of the information to criminally investigate or prosecute any alcohol or drug abuse patient.[facility] HospitalIn the event this information is protected by the Federal Confidentiality of Alcohol and Drug Abuse Patient Records regulations: The Federal rules restrict any use of the information to criminally investigate or prosecute any alcohol or drug abuse patient.[facility] HospitalIn the event this information is protected by the Federal Confidentiality of Alcohol and Drug Abuse Patient Records regulations: The Federal rules restrict any use of the information to criminally investigate or prosecute any alcohol or drug abuse patient.[facility] HospitalIn the event this information is protected by the Federal Confidentiality of Alcohol and Drug Abuse Patient Records regulations: The Federal rules restrict any use of the information to criminally investigate or prosecute any alcohol or drug abuse patient.[facility] HospitalIn the event this information is protected by the Federal Confidentiality of Alcohol and Drug Abuse Patient Records regulations: The Federal rules restrict any use of the information to criminally investigate or prosecute any alcohol or drug abuse patient.[facility] HospitalIn the event this information is protected by the Federal Confidentiality of Alcohol and Drug Abuse Patient Records regulations: The Federal rules restrict any use of the information to criminally investigate or prosecute any alcohol or drug abuse patient.[facility] HospitalIn the event this information is protected by the Federal Confidentiality of Alcohol and Drug Abuse Patient Records regulations: The Federal rules restrict any use of the information to criminally investigate or prosecute any alcohol or drug abuse patient.[facility] HospitalIn the event this information is protected by the Federal Confidentiality of Alcohol and Drug Abuse Patient Records regulations: The Federal rules restrict any use of the information to criminally investigate or prosecute any alcohol or drug abuse patient.[facility] HospitalIn the event this information is protected by the Federal Confidentiality of Alcohol and Drug Abuse Patient Records regulations: The Federal rules restrict any use of the information to criminally investigate or prosecute any alcohol or drug abuse patient.[facility] HospitalIn the event this information is protected by the Federal Confidentiality of Alcohol and Drug Abuse Patient Records regulations: The Federal rules restrict any use of the information to criminally investigate or prosecute any alcohol or drug abuse patient.[facility] HospitalIn the event this information is protected by the Federal Confidentiality of Alcohol and Drug Abuse Patient Records regulations: The Federal rules restrict any use of the information to criminally investigate or prosecute any alcohol or drug abuse patient.[facility] HospitalIn the event this information is protected by the Federal Confidentiality of Alcohol and Drug Abuse Patient Records regulations: The Federal rules restrict any use of the information to criminally investigate or prosecute any alcohol or drug abuse patient.[facility] HospitalIn the event this information is protected by the Federal Confidentiality of Alcohol and Drug Abuse Patient Records regulations: The Federal rules restrict any use of the information to criminally investigate or prosecute any alcohol or drug abuse patient.[facility] HospitalIn the event this information is protected by the Federal Confidentiality of Alcohol and Drug Abuse Patient Records regulations: The Federal rules restrict any use of the information to criminally investigate or prosecute any alcohol or drug abuse patient.[facility] HospitalIn the event this information is protected by the Federal Confidentiality of Alcohol and Drug Abuse Patient Records regulations: The Federal rules restrict any use of the information to criminally investigate or prosecute any alcohol or drug abuse patient.[facility] HospitalIn the event this information is protected by the Federal Confidentiality of Alcohol and Drug Abuse Patient Records regulations: The Federal rules restrict any use of the information to criminally investigate or prosecute any alcohol or drug abuse patient.[facility] HospitalIn the event this information is protected by the Federal Confidentiality of Alcohol and Drug Abuse Patient Records regulations: The Federal rules restrict any use of the information to criminally investigate or prosecute any alcohol or drug abuse patient.[facility] HospitalIn the event this information is protected by the Federal Confidentiality of Alcohol and Drug Abuse Patient Records regulations: The Federal rules restrict any use of the information to criminally investigate or prosecute any alcohol or drug abuse patient.[facility] HospitalIn the event this information is protected by the Federal Confidentiality of Alcohol and Drug Abuse Patient Records regulations: The Federal rules restrict any use of the information to criminally investigate or prosecute any alcohol or drug abuse patient.[facility] HospitalIn the event this information is protected by the Federal Confidentiality of Alcohol and Drug Abuse Patient Records regulations: The Federal rules restrict any use of the information to criminally investigate or prosecute any alcohol or drug abuse patient.[facility] Reason for Visit (unrecogniz ed section and content) Reason Comments Orders Reason Comments Refill Request Reason Comments Patient Update Reason Comments Discussion Control Reason Comments UTI Burning and itching with urination x 1 day Reason Comments lab issues Reason Comments Depression Reason Comments Nexplanon Specialty Diagnoses / Procedures Referred By Berenice lynn Referred To Contact [facility] Diagnoses Nexplanon insertion Encounter for surveillance of implantable subdermal contraceptive Procedures NEXPLANON INSERTION ETONOGESTREL IMPLANT SYSTEM INSERT DRUG IMPLANT DEVICE REMOVAL NON-BIODEGRADABLE DRUG DELIVERY IMPLANT Dillon Ocasio MD [address] [place] [address] [facility] [address] [place] [address] Referral ID Status Reason Start Date Expiration Date Visits Requested Visits Authorized [id number] Authorized Auto-Generat ed Referral 11/30/2021 03/23/2022 2 2 Reason Comments Anxiety Reason Comments P.I.R.C. Reason Comments Med Change Request Reason Comments Dysuria Reason Comments Vaginal Problem Reason Comments right colten groin lump Reason Comments Social Work Services Reason Comments New Patient Vaginal blister Reason Comments Results Reason Comments Rhinitis Onset on 02/16 Back Pain Noting aching in ent linnea back, onset on 02/17. No known fever. Dizziness Noted with position changes, onset on 02/17 Fatigue Feeling more tired a nd sleeping more Reason Comments Letter Reason Comments school note Reason Comments New Patient Evaluation Reason Comments Cough Started over the wee kend. Rhinitis Runny nose and did h ave a bloody nose. No fever. Fatigue Started Friday. Reason Comments left knee felt like it shifted Yesterday getting up from the chair,slight pain, denies any injury Reason Onset Date Comments Refill Request 05/15/2022 Reason Comments Question Reason Comments PT Eval Specialty Diagnoses / Procedures Referred By Berenice lynn Referred To Contact [facility] Diagnoses Subluxation of left patella, sequela Procedures CONSULT TO PHYSICAL THERAPY PHYSICAL THERAPY EVALUATION HIGH COMPLEX 45 MINS Chacha Kim MD [address] [place] [address] [facility] [address] [address] Referral ID Status Reason Start Date Expiration Date V isits Requested Visits Authorized [id number] Closed Auto-Generate d Referral 05/07/2022 08/21/2022 1 1 Reason Comments Physical Therapy Specialty Diagnoses / Procedures Referred By Contac t Referred To Contact [facility] Diagnoses Subluxation of left patella, sequela Procedures PT REHAB FOLLOW UP ORDER PT REHAB FOLLOW UP ORDER THERAPEUTIC EXERCISES RE, EA 15 MIN. Chacha Kim MD [address] [place] [address] [facility] [address] [address] Referral ID Status Reason Start Date Expiration Date Visits Requested Visits Authorized [id number] Authorized PCP Requested Referral Auto-Generate d Referral 05/22/2022 08/22/2022 16 16 Reason Comments Physical Therapy Specialty Diagnoses / Procedures Referred By Contac t Referred To Contact [facility] Diagnoses Subluxation of left patella, sequela Procedures PT REHAB FOLLOW UP ORDER PT REHAB FOLLOW UP ORDER THERAPEUTIC EXERCISES RE, EA 15 MIN. Chacha Kim MD [address] [place] [address] [facility] [address] [address] Reason Comments Urinary Frequency burning, hematuria a nd low back pain x this am Reason Comments Yearly Exam Reason Comments Rectal Bleeding Reason Comments Rectal Bleeding Intermittent x 2 wks in stool and when wiping,stool is normal Reason Comments school excuse Reason Comments Foreign Body Lead splinter in rig ht hand/thumb Reason Comments Follow Up Reason Comments Diarrhea abdominal cramping x months Reason Comments Abdominal issues Abdominal pain, righ t lower quadrant, frequent bowel movements x 2 months on and off Reason Comments Abdominal Pain Follow up from [facility] fo r abdominal pain. Pt states the pain has improved significantly, currently pain is 0/10. UA dip in EC. Reason Comments Abdominal Pain Reason Comments Abdominal Pain Lower abdominal, latanya sea. Frequent bowel movements sometimes diarrhea. X 2-3 months. Specialty Diagnoses / Procedures Referred By Contact Referred To Contact Pediatric Gastroenterology Diagnoses Generalized abdominal pain Procedures CONSULT TO PEDS GASTRO OFFICE/OUTPATIENT NEW HIGH MDM 60 MINUTES Chacha Kim MD [address] [place] [address] Referral ID Status Reason Start Date Expiration Date V isits Requested Visits Authorized [id number] Closed PCP Requested Referral 07/30/2023 07/29/2024 1 1 Reason Comments adult well exam Reason Comments Hematuria x 2 days, blood in s tool x 1 day, had wisdom teeth removed on the 15 Reason Comments Rectal Problem Reason Onset Date Comments No Show 11/14/2023 No show Reason Comments Follow up Ingested borax - fol low up per poison control Reason Comments Radiology XR Reason Comments Urinary Frequency Frequency, urgency a nd burning x 1 day Reason Comments Results Riri Reason Onset Date Comments Refill Request 03/03/2024 Reason Comments Appointment Reason Comments Urinary Frequency Frequency and burnin g x 1 day Reason Comments Sore Throat fever and headache x 3 days Reason Comments Sore Throat Fever, MITCHELL x4 days Reason Comments Abdominal Pain +[place] Reason Comments abdominal issues Constipation, stool had possible worms in it, abdominal pain Reason Comments Urinary Frequency burning with urinati on x 1 hour Reason Comments New Knee Pain Reason Comments Nexplanon Removal Reason Comments Patient Question Care Teams (unrecognized sec tion and content) Dry Starch Supervisor Relationship Specialty Start Date End Date Chacha Kim MD [address] [place], [place] [id number] PCP - General 05 Dry Starch Supervisor Relationship Specialty Start Date End Date Chacha Kim MD [address] [place], [place] [address] PCP - General 05 Dry Starch Supervisor Relationship Specialty Start Date End Date Chacha Kim MD [address] [place], [place] [id number] PCP - General 05 Dry Starch Supervisor Relationship Specialty [place] [address] [place] [id number] PCP - General 05 Dry Starch Supervisor Relationship Specialty Start Date End Date Chacha Kim MD [address] [place] [address] PCP - General 05 Dry Starch Supervisor Relationship Specialty Start Date End Date Chacha Kim MD [address] [place] [address] PCP - General 05 Dry Starch Supervisor Relationship Specialty Start Date End Date Chacha Kim MD [address] [place] [address] PCP - General 05 Dry Starch Supervisor Relationship Specialty Start Date End Date Chacha Kim MD [address] [place] [address] PCP - General Pediatrics 09/11/21 Dry Starch Supervisor Relationship Specialty Start Date End Date Chacha Kim MD [address] [place] [address] PCP - General 05 Dry Starch Supervisor Relationship Specialty Start Date End Date Chacha Kim MD [address] [place] [address] PCP - General 05 Dry Starch Supervisor Relationship Specialty Start Date End Date Chacha Kim MD [address] [place] [address] PCP - General 05 Dry Starch Supervisor Relationship Specialty Start Date End Date Chacha Kim MD [address] [place] [address] PCP - General 05 Dry Starch Supervisor Relationship Specialty Start Date End Date Chacha Kim MD [address] [place] [address] PCP - General 05 Dry Starch Supervisor Relationship Specialty Start Date End Date Chacha Kim MD [address] [facility], [place] [address] PCP - General 05 Dry Starch Supervisor Relationship Specialty Start Date End Date Chacha Kim MD [address] [place] [address] PCP - General 05 Dry Starch Supervisor Relationship Specialty Start Date End Date Chacha Kim MD [address] [place] [address] PCP - General 05 Dry Starch Supervisor Relationship Specialty Start Date End Date Chacha Kim MD [address] [place] [address] PCP - General 05 Dry Starch Supervisor Relationship Specialty Start Date End Date Chacha Kim MD [address] [place] [address] PCP - General 05 Dry Starch Supervisor Relationship Specialty Start Date End Date Chacha Kim MD [address] [place] [address] PCP - General 05 Dry Starch Supervisor Relationship Specialty Start Date End Date Chacha Kim MD [address] [place] [address] PCP - General 05 Dry Starch Supervisor Relationship Specialty Start Date End Date Chacha Kim MD [address] [place] [address] PCP - General 05 Dry Starch Supervisor Relationship Specialty Start Date End Date Chacha Kim MD [address] [place] [address] PCP - General 05 Dry Starch Supervisor Relationship Specialty Start Date End Date Chacha Kim MD [address] [place] [address] PCP - General 05 Dry Starch Supervisor Relationship Specialty Start Date End Date Chacha Kim MD [address] [place] [address] PCP - General 05 Dry Starch Supervisor Relationship Specialty Start Date End Date Chacha Kim MD [address] [place] [address] PCP - General 05 Dry Starch Supervisor Relationship Specialty Start Date End Date Chacha Kim MD [address] [place] [address] PCP - General 05 Dry Starch Supervisor Relationship Specialty Start Date End Date Chacha Kim MD [address] [place], [place] [id number] PCP - General 05 Dry Starch Supervisor Relationship Specialty Start Date End Date Chacha Kim MD [address] [place] [address] PCP - General 05 Dry Starch Supervisor Relationship Specialty Start Date End Date Chacha Kim MD [address] [place] [address] PCP - General 05 Dry Starch Supervisor Relationship Specialty Start Date End Date Chacha Kim MD [address] [place], [place] [address] PCP - General 05 Dry Starch Supervisor Relationship Specialty Start Date End Date Chacha Kim MD [address] [place] [address] PCP - General 05 Dry Starch Supervisor Relationship Specialty Start Date End Date Chacha Kim MD [address] [place] [address] PCP - General 05 Dry Starch Supervisor Relationship Specialty Start Date End Date Chacha Kim MD [address] [place] [address] PCP - General 05 Dry Starch Supervisor Relationship Specialty Start Date End Date Chacha Kim MD [address] [place] [address] PCP - General 05 Dry Starch Supervisor Relationship Specialty Start Date End Date Chacha Kim MD [address] [place] [address] PCP - General 05 Dry Starch Supervisor Relationship Specialty Start Date End Date Chacha Kim MD [address] [place] [address] PCP - General 05 Dry Starch Supervisor Relationship Specialty Start Date End Date Chacha Kim MD [address] [place], [place] [address] PCP - General 05 Dry Starch Supervisor Relationship Specialty Start Date End Date Chacha Kim MD [address] [place], [place] [id number] PCP - General 05 Dry Starch Supervisor Relationship Specialty Start Date End Date Chacha Kim MD [address] [place], [place] [address] PCP - General 05 Dry Starch Supervisor Relationship Specialty Start Date End Date Chacha Kim MD [address] [place], [place] [address] PCP - General 05 Team Status: Active Member Role Status Dates Dr. Chacha Kim MD Primary Care Provider Active Team Status: Inactive Member Role Status Dates Dr. Chacha Kim MD Primary Care Provider Active Start: June 26, 2024 End: June 27, 2024 Dr. Landon Burnette MD Emergency Provider Active Start: June 26, 2024 End: June 27, 2024 Dry Starch Supervisor Relationship Specialty Start Date End Date Chacha Kim MD [address] [place] [id number] PCP - General 05 Dry Starch Supervisor Relationship Specialty Start Date End Date Chacha Kim MD [address] [place], [place] [address] PCP - General 05 Dry Starch Supervisor Relationship Specialty Start Date End Date Chacha Kim MD [address] [place], [place] [address] PCP - General 05 PRN Active and Recently Administ ered Medications (unrecognized section and content) Medication Order 12/05/2021 12/06/2021 12/07/2021 bacitracin 500 UNIT/GM ointment - packet Topical, PRN, Starting on Fri12/06/21 at 2107, Until Fri12/07/21 at 0228, Wound Care, Apply To Affected Area bacitracin 500 UNIT/GM ointment - packet Topical, PRN, Starting on Fri22 at 2115, Until 12/07/21 at 0228, Wound Care, Apply To Affected Area 2123 (Given - Provider: Monroe Roblero RN) NaCl 0.9% PosiFlush 2 mL 2 mL PRN (0.034 ml/kg/DOSE), Intravenous, at 0-999 mL/hr, Line Care, Starting on Argelia 12/06/21 at 2107, For 90 days 2114 (New Bag - Provider: Alycia Ruiz RN - Comment: used to flush patient's wounds.)2243 (Stopped - Provider: Alycia Ruiz RN) INFORMATION SOURCE (unrecogn ized section and content) DATE CREATED AUTHOR 12/27/2021 [facility] DATE CREATED AUTHOR AUTHOR'S ORGANIZ ATION 07/03/2024 [facility] DATE CREATED AUTHOR AUTHOR'S ORGANIZ ATION 11/07/2024 [facility] DATE CREATED AUTHOR AUTHOR'S ORGANIZ ATION 12/25/2024 [facility] Goals (unrecognized section and content) Goals may be documented in a n alternate section FOR RECORDS PERTAINING TO PATIENTS WHO ARE OR HAVE BEEN ENROLLED IN A CHEMICAL DEPENDENCY/SUBSTANCEABUSE PROGRAM, SOME INFORMATION MAY BE OMITTED. This clinical summary was aggregated from multiple sources. Caution should be exercised in using it in the provision of clinical care. This summary normalizes information from multiple sources, and as a consequence, information in this document may materially change the coding, format and clinical context of patient data. In addition, data may be omitted in some cases. CLINICAL DECISIONS SHOULD BE BASED ON THE PRIMARY CLINICAL RECORDS. [email or web address] provides no warranty or guarantee of the accuracy or completeness of information in this document.
[2025-03-08 03:30] VITALS: BP 118/66; PULSE 73; RESP 16; TEMP 36.6; O2SAT 100
== END 2025-03-08 03:35 | disposition home or self-care (01) ==
PROVIDERS: Emergency Provider Emergency Medicine; PCP Pediatrics; Visit Provider Emergency Medicine
DX: H66.92 Otitis media, unspecified, left ear (principal); R03.0 Elevated blood-pressure reading, without diagnosis of hypertension
CPT/HCPCS: 99282